=== PATIENT | male | born 1945 | race Caucasian/White ===

== ENCOUNTER 2016-10-04 23:41 | Emergency (ER) | payer MEDICARE ==
[2016-10-05 00:28] LABS: ABSOLUTE BASOPHILS # (AUTO) 0.1 10^3/uL (0.0-0.2); ABSOLUTE LYMPHOCYTES (AUTO) 2.4 10^3/uL (0.5-4.7); ABSOLUTE MONOCYTES (AUTO) 1.3 10^3/uL (0.1-1.4); ABSOLUTE NEUT (AUTO) 6.1 10^3/uL (1.7-8.2); BASOPHILS % (AUTO) 0.7 % (0-2); EOSINOPHILS % (AUTO) 0.4 % (0-6); HEMATOCRIT 39.9 % (37.9-51.0); HEMOGLOBIN 13.9 g/dL (13.5-17.0); HGB HCT DIFFERENCE 1.8; LYMPHOCYTES % (AUTO) 24.1 % (13-45); MEAN CORPUSCULAR HEMOGLOBIN 36.8 pg (27.0-33.4); MEAN CORPUSCULAR HGB CONC 34.9 g/dL (32.0-36.0); MEAN CORPUSCULAR VOLUME 106 fl (80-97); MONOCYTES % (AUTO) 13.3 % (3-13); RED BLOOD COUNT 3.78 10^6/uL (4.35-5.55); RED CELL DISTRIBUTION WIDTH 14.6 % (11.5-14.0); SEGMENTED NEUTROPHILS % (AUTO) 61.5 % (42-78); WHITE BLOOD COUNT 9.9 10^3/uL (4.0-10.5)
[2016-10-05 00:53] LABS: ALANINE AMINOTRANSFERASE 19 U/L (21-72); ALKALINE PHOSPHATASE 71 U/L (38-126); ANION GAP 12 (5-19); ASPARTATE AMINO TRANSFERASE 19 U/L (17-59); BILIRUBIN,TOTAL 0.8 mg/dL (0.2-1.3); BLOOD UREA NITROGEN 17 mg/dL (7-20); CALCIUM 9.3 mg/dL (8.4-10.2); CARBON DIOXIDE 24 mmol/L (22-30); CHLORIDE 105 mmol/L (98-107); CREATINE KINASE 155 U/L (55-170); CREATININE RESULT 0.77 mg/dL (0.52-1.25); GLUCOSE 101 mg/dL (75-110); POTASSIUM 3.7 mmol/L (3.6-5.0); SODIUM 141.3 mmol/L (137-145); TOTAL PROTEIN 6.7 g/dL (6.3-8.2)
[2016-10-05 01:04] LABS: CREATINE KINASE MB 2.06 ng/mL (<4.55)
[2016-10-05 01:08] LABS: TROPONIN I < 0.012 ng/mL
[2016-10-05] MEDS ORDERED: ONDANSETRON HCL INJ/PF 4 MG/2 ML SDV IV ONE (01:34)
[2016-10-05] MEDS ORDERED: HYDROMORPHONE HCL INJ/PF 2 MG/ML AMPULE IV ONE ×4 (01:34→11:25)
--- NOTE | 2016-10-05 01:41 | ER Document Report ---
ED General - General Chief Complaint: General Weakness Stated Complaint: WEAKNESS Information source: Patient, Relative Notes: This is a 71-year-old male with a history of spinal stenosis and other medical problems who presents for severe lower back pain after a fall this evening. He states that he was putting an item in the refrigerator at about 10:00 PM when he stumbled and fell backwards. He did fall back against a chest freezer. He struck his lower back and then his head. He denies any loss of consciousness. He states that since that time he has had severe pain in his lower back and has been unable to ambulate. He ambulates with a walker at baseline secondary to right leg hemiparesis from a prior CVA. He denies any new numbness or tingling. He has not urinated since the fall. His main complaint is lower back pain. Of note for the past week he has felt poorly with an upper respiratory infection. He has had coughs and decreased oral intake. His cough has been productive of green sputum. He denies any fevers. Of note he did see his primary care physician yesterday for these symptoms and was prescribed an albuterol inhaler. TRAVEL OUTSIDE OF THE [place] IN LAST 30 DAYS: No - Related Data Allergies/Adverse Reactions: oxycodone HCl [From Percocet] Allergy (Mild, Verified 10/05/16 09:13) Rash iodine [Iodine] Allergy (Unknown, Verified 10/05/16 09:13) meperidine HCl [From Demerol] Allergy (Unknown, Verified 10/05/16 09:13) Penicillins Allergy (Verified 10/05/16 09:13) aspirin [Aspirin] Adverse Reaction (Severe, Verified 10/05/16 09:13) Hemorrhage Past Medical History - General Information source: Patient, Relative - Social History Smoking Status: Unknown if Ever Smoked Family History: Reviewed & Not Pertinent - Past Medical History Cardiac Medical History: Reports: Hx Coronary Artery Disease, Hx Heart Attack - post CABG, Hx Hypercholesterolemia, Hx Hypertension Denies: Hx Heart Murmur Pulmonary Medical History: Reports: Hx Pneumonia - 2009 Denies: Hx Respiratory Failure, Hx Sleep Apnea, Hx Tuberculosis Neurological Medical History: Reports: Hx Cerebrovascular Accident - R sided weakness, memory loss, Hx Migraine Endocrine Medical History: Renal/ Medical History: Reports: Hx Kidney Stones Malignancy Medical History: Reports Hx Skin Cancer GI Medical History: Reports: Hx Hiatal Hernia - repair 15years ago, LLQ, Hx Ulcer Musculoskeltal Medical History: Reports Hx Arthritis, Reports Hx Musculoskeletal Deformity, Reports Hx Musculoskeletal Trauma Psychiatric Medical History: Reports: Hx Dementia - mild, Hx Depression Traumatic Medical History: Reports: Hx Fractures, Hx Spine Fracture Infectious Medical History: Past Surgical History: Reports: Hx Abdominal Surgery - HERNIA REPAIR, Hx Cardiac Catheterization, Hx Cardiac Surgery - CABG, 2 STENTS, Hx Coronary Artery Bypass Graft - 4 vessel 1996, Hx Coronary Stent, Hx Genitourinary Surgery - penis removed CA, Hx Inguinal Hernia, Hx Orthopedic Surgery - SPINAL FUSION, Hx Urinary Tract Surgery - penis removed surgically for CA - Immunizations Immunizations up to date: Yes Hx Diphtheria, Pertussis, Tetanus Vaccination: Yes - UTD Hx Pneumococcal Vaccination: 10/07/11 Review of Systems - Review of Systems Notes: REVIEW OF SYSTEMS: CONSTITUTIONAL : Denies fever, chills, or sweats. Recent cough and congestion per her history of present illness EENT: Denies eye, ear, throat, or mouth pain or symptoms. CARDIOVASCULAR: Denies chest pain. RESPIRATORY: As per history of present illness GASTROINTESTINAL: Denies abdominal pain. Denies nausea, vomiting, or diarrhea. Denies constipation. GENITOURINARY: Denies painful urination, burning, frequency, or blood in urine. MUSCULOSKELETAL: Back pain as her history of present illness SKIN: Denies rash or skin lesions. HEMATOLOGIC : Denies easy bruising or bleeding. LYMPHATIC: Denies swollen, enlarged glands. NEUROLOGICAL: Denies altered mental status or loss of consciousness. Mild headache from the fall PSYCHIATRIC: Denies anxiety or stress or depression. ALL OTHER SYSTEMS REVIEWED AND NEGATIVE. Physical Exam - Vital signs Vitals: Resp Pulse Ox 23 H 94 10/05/16 00:17 10/05/16 00:17 - Notes Notes: PHYSICAL EXAMINATION: GENERAL: Elderly male, pleasant and conversant, no distress but appears uncomfortable secondary to pain HEAD: Atraumatic, normocephalic. EYES: Pupils equal round and reactive to light, conjunctiva are normal. ENT: nares patent, oropharynx clear without exudates. Moist mucous membranes. NECK: No midline tenderness to palpation LUNGS: Breath sounds clear to auscultation bilaterally and equal. No wheezes rales or rhonchi. Frequent cough HEART: Regular rate and rhythm without murmurs ABDOMEN: Soft, nontender, normoactive bowel sounds. No guarding, no rebound. No masses appreciated. Rectal: normal tone. Pt does seem to have some decreased sensation to pain in the perineal area EXTREMITIES: RLE hemiparesis secondary to prior CVA which is at baseline per patient. Dorsiflexion and plantarflexion intact LLE. Sensation intact LLE, decreased RLE. Pulses intact. NEUROLOGICAL: Cranial nerves grossly intact. Normal speech. Motor strength intact LLE. Baseline hemiparesis RUE and RLE secondary to sequela of prior CVA. PSYCH: Normal mood, normal affect. SKIN: Warm, Dry, normal turgor, no rashes or lesions noted. Course - Re-evaluation Re-evalutation: 10/05/16 06:01 Patient has had some relief of his back pain with the IV pain medications. However he has still been unable to give a urine sample. Even though his motor and sensory exam appears to be at his baseline, with the abnormal perineal sensation along with his difficulty urinating at this point we need to rule out cauda equina. At this time I am awaiting MRI should be available around 7 this morning to have this done. This has been discussed with the patient and his family and questions are answered. 10/05/16 07:10 I called MRI at 0700 to communicate urgent need for this patient for MRI. MRI states there is a patient on the table at this time. Urgent need relayed to MRI staff. 10/05/16 08:57 MRI report reviewed and discussed with . Patient has severe canal stenosis at the L3-L4 level with the diameter of the thecal sac to be 3 mm or less. I have discussed the case with the transfer center at [facility] and I am awaiting the neurosurgeon for consultation 10/05/16 09:[address] Nolasco (neurosurgery) at [facility] who recommends transfer ER to ER for neurosurgery evaluation at [facility] for possible operative management. Discussed this plan with the patient and his family who are agreeable. All questions were answered. - Vital Signs Vital signs: Temp Pulse Resp BP Pulse Ox 97.9 F 18 113/74 93 10/05/16 00:49 10/05/16 07:01 10/05/16 07:01 10/05/16 07:01 - Laboratory Result Diagrams: 10/05/16 00:00 10/05/16 00:00 Laboratory results interpreted by me: 10/05/16 10/05/16 00:00 00:00 RBC 3.78 L MCV 106 H MCH 36.8 H RDW 14.6 H Monocytes % 13.3 H ALT 19 L - Diagnostic Test Radiology reviewed: Reports reviewed - MRI Lspine: severe canal stenosis L3-4 with diameter of thecal sac 3mm or less, and complete effacement of CSF around lumbar nerve roots. See report - EKG Interpretation by Me Additional EKG results interpreted by me: 10/05/16 09:16 EKG at 0040 demonstrates sinus rhythm with a rate of 69. There is left axis deviation and LVH. I see no ST elevation or depression. Critical Care Note - Critical Care Note Total time excluding time spent on procedures (mins): 30 - minutes of critical care time spent in direct contact evaluating and reevaluating the patient, treating symptoms, reviewing labs and studies and speaking with family and consultants excluding any procedures Discharge - Discharge Clinical Impression: Spinal stenosis of lumbosacral region, Cauda equina syndrome Condition: Fair Disposition: [facility]
[2016-10-05] MEDS ORDERED: NORMAL SALINE 1000 ML 1,000 ML IV ONE (03:59)
[2016-10-05] MEDS ORDERED: IPRATROPIUM/ALBUTEROL 0.5-2.5 MG/3 ML AMPUL NEB ONE (06:26)
--- NOTE | 2016-10-05 07:59 | EKG REPORT ---
SEVERITY:- ABNORMAL ECG - SINUS RHYTHM PROBABLE LEFT ATRIAL ABNORMALITY LEFT AXIS DEVIATION LVH WITH SECONDARY REPOLARIZATION ABNORMALITY : Confirmed by: Jonny Tabares MD 05-Oct-2016 07:58:37
[2016-10-05 09:37] LABS: APPEARANCE,URINE CLEAR; BILIRUBIN,URINE NEGATIVE (NEGATIVE); GLUCOSE, URINE NEGATIVE (NEGATIVE); KETONES,URINE NEGATIVE (NEGATIVE); LEUKOCYTE ESTERASE,URINE NEGATIVE (NEGATIVE); NITRITE,URINE NEGATIVE (NEGATIVE); PROTEIN,URINE NEGATIVE (NEGATIVE); UROBILINOGEN,URINE NEGATIVE mg/dL (<2.0)
[2016-10-05 11:25] VITALS: BP 110/57
--- NOTE | 2016-10-05 11:46 | ER Document Report ---
Doctor's Note Notes: 10/05/16 11:45 Transport is here for the patient at this time. He was given some Dilaudid several minutes ago for breakthrough pain. He is alert and oriented, vital signs stable. At this time he is comfortable, and we had a long conversation about his PMH, his family and what he's been up to lately. At this time he is stable for transport.
== END 2016-10-05 11:40 | disposition short-term general hospital (02) ==
LOC: ER 23:41
DX: M48.07 Spinal stenosis, lumbosacral region (principal); G83.4 Cauda equina syndrome; R53.1 Weakness; M54.5 Low back pain; W01.190A Fall on same level from slipping, tripping and stumbling with subsequent striking against furniture, initial encounter; Z88.0 Allergy status to penicillin; Z88.6 Allergy status to analgesic agent; I25.10 Atherosclerotic heart disease of native coronary artery without angina pectoris; I25.2 Old myocardial infarction; Z95.1 Presence of aortocoronary bypass graft; Z87.442 Personal history of urinary calculi; Z98.1 Arthrodesis status; Z85.9 Personal history of malignant neoplasm, unspecified; Z90.79 Acquired absence of other genital organ(s)
CPT/HCPCS: 93005; 96376; 94640; 99291; 96361; 51702; 96374; 96375; 36415; 82553; 82550; 85025; 80053; 81001; 84484; 72148; 71010; 70450; 72125; 72131; 93010; J1170; J2405; J7030; A9270; J7620

== ENCOUNTER 2016-10-18 15:01 | Observation (INO) | payer MEDICARE ==
[2016-10-18] MEDS ORDERED: NORMAL SALINE 1000 ML 1,000 ML IV PRN ×2 (15:28→18:26)
--- NOTE | 2016-10-18 15:46 | ER Document Report ---
ED Dizziness/Weakness - General Chief Complaint: General Weakness Stated Complaint: WEAKNESS Notes: The patient is a 71-year-old male, past medical history chronic back pain s/p surgery 9 days ago, presents by EMS with 1 day of feeling lightheaded and experiencing generalized weakness. He is taking his home medications, including Motrin for pain, but has not taken any narcotics after the surgery. He is also having intermittent left-sided chest pain without radiation that is coming and going since the surgery. He never had this before. He denies numbness, tingling, fevers, shortness of breath, leg swelling, rash, focal weakness, headache, blurry vision or ataxia. TRAVEL OUTSIDE OF THE [place] IN LAST 30 DAYS: No - Related Data Allergies/Adverse Reactions: oxycodone HCl [From Percocet] Allergy (Mild, Verified 10/05/16 09:13) Rash iodine [Iodine] Allergy (Unknown, Verified 10/05/16 09:13) meperidine HCl [From Demerol] Allergy (Unknown, Verified 10/05/16 09:13) Penicillins Allergy (Verified 10/05/16 09:13) aspirin [Aspirin] Adverse Reaction (Severe, Verified 10/05/16 09:13) Hemorrhage Past Medical History - General Information source: Patient - Social History Smoking Status: Unknown if Ever Smoked Family History: Reviewed & Not Pertinent - Past Medical History Cardiac Medical History: Reports: Hx Coronary Artery Disease, Hx Heart Attack - post CABG, Hx Hypercholesterolemia, Hx Hypertension Denies: Hx Heart Murmur Pulmonary Medical History: Reports: Hx Pneumonia - 2009 Denies: Hx Respiratory Failure, Hx Sleep Apnea, Hx Tuberculosis Neurological Medical History: Reports: Hx Cerebrovascular Accident - R sided weakness, memory loss, Hx Migraine Endocrine Medical History: Renal/ Medical History: Reports: Hx Kidney Stones Malignancy Medical History: Reports Hx Skin Cancer GI Medical History: Reports: Hx Hiatal Hernia - repair 15years ago, LLQ, Hx Ulcer Musculoskeltal Medical History: Reports Hx Arthritis, Reports Hx Musculoskeletal Deformity, Reports Hx Musculoskeletal Trauma Psychiatric Medical History: Reports: Hx Dementia - mild, Hx Depression Traumatic Medical History: Reports: Hx Fractures, Hx Spine Fracture Infectious Medical History: Past Surgical History: Reports: Hx Abdominal Surgery - HERNIA REPAIR, Hx Cardiac Catheterization, Hx Cardiac Surgery - CABG, 2 STENTS, Hx Coronary Artery Bypass Graft - 4 vessel 1995, Hx Coronary Stent, Hx Genitourinary Surgery - penis removed CA, Hx Inguinal Hernia, Hx Orthopedic Surgery - SPINAL FUSION, Hx Urinary Tract Surgery - penis removed surgically for CA - Immunizations Immunizations up to date: Yes Hx Diphtheria, Pertussis, Tetanus Vaccination: Yes - UTD Hx Pneumococcal Vaccination: 10/07/11 Review of Systems - Review of Systems Notes: REVIEW OF SYSTEMS: CONSTITUTIONAL: -fevers, -chills EENT: -eye pain, -difficulty swallowing, -nasal congestion CARDIOVASCULAR: +chest pain, -syncope. RESPIRATORY: -cough, -SOB GASTROINTESTINAL: -abdominal pain, -nausea, -vomiting, -diarrhea GENITOURINARY: -dysuria, -hematuria MUSCULOSKELETAL: -back pain, -neck pain SKIN: -rash or skin lesions. HEMATOLOGIC: -easy bruising or bleeding. LYMPHATIC: -swollen, enlarged glands. NEUROLOGICAL: +lightheadedness, +generalized weakness, -altered mental status or loss of consciousness, -headache PSYCHIATRIC: -anxiety, -depression. ALL OTHER SYSTEMS REVIEWED AND NEGATIVE. Physical Exam - Vital signs Vitals: Temp Pulse Resp Pulse Ox 97.9 F 82 23 H 90 L 10/18/16 15:35 10/18/16 15:35 10/18/16 15:35 10/18/16 15:35 - Notes Notes: PHYSICAL EXAMINATION: GENERAL: Well-appearing, well-nourished and in no acute distress. HEAD: Atraumatic, normocephalic. EYES: Pupils equal round and reactive to light, extraocular movements intact, sclera anicteric, conjunctiva are normal. ENT: nares patent, oropharynx clear without exudates. Moist mucous membranes. NECK: In soft collar, supple without lymphadenopathy LUNGS: Breath sounds clear to auscultation bilaterally and equal. No wheezes rales or rhonchi. HEART: Regular rate and rhythm without murmurs ABDOMEN: Soft, nontender, normoactive bowel sounds. No guarding, no rebound. No masses appreciated. EXTREMITIES: Well-healed surgical scars on back. Normal range of motion, no pitting or edema. No cyanosis. NEUROLOGICAL: Cranial nerves grossly intact. Normal speech. Normal sensory, motor, and reflex exams. PSYCH: Normal mood, normal affect. SKIN: Warm, Dry, normal turgor, no rashes or lesions noted. Course - Re-evaluation Re-evalutation: Patient with intermittent chest pain since his surgery last week. EKG shows new anterior lateral T-wave inversions compared to his EKG two weeks ago. Patient has anaphylactic reaction to aspirin. No current chest pain. First troponin negative. Patient will require admission for further evaluation and treatment of this chest pain. His generalized weakness and blood pressure improved with 2 L of fluids. No signs of infection. Slight leukocytosis may be reactive from his recent surgery. No shortness of breath to suggest PE. Patient also has a anaphylactic reaction to IV dye. 10/18/16 17:[address] Ramírez about patient and new EKG changes. Will bring patient in for Obs Tele. - Vital Signs Vital signs: Temp Pulse Resp BP Pulse Ox 97.9 F 82 18 93 10/18/16 15:35 10/18/16 15:35 10/18/16 16:38 10/18/16 16:06 - Laboratory Result Diagrams: 10/18/16 15:57 10/18/16 15:57 Laboratory results interpreted by me: 10/18/16 10/18/16 15:57 15:57 WBC 15.0 H RBC 3.29 L Hgb 11.9 L Hct 35.0 L MCV 106 H MCH 36.3 H RDW 14.3 H Seg Neutrophils % 84.3 H Lymphocytes % 9.1 L Absolute Neutrophils 12.6 H Sodium 132.2 L Chloride 96 L BUN 33 H Glucose 124 H Creatine Kinase 47 L Albumin 3.2 L - EKG Interpretation by Me EKG shows normal: Sinus rhythm, Wyn[place], Intervals, QRS Complexes When compared to previous EKG there are: Changes noted Additional EKG results interpreted by me: New T-wave inversions in anterolateral leads compared to EKG 2 weeks ago. Discharge - Discharge Clinical Impression: Chest pain Qualifiers: Chest pain type: unspecified Qualified Code(s): R07.9 - Chest pain, unspecified Condition: Stable Disposition: ADMITTED OBSERVATION Admitting Provider: Mistyist Nick Ramírez Unit Admitted: Telemetry Referrals: JOSESITO TRIPLETT MD [Primary Care Provider] - Follow up as needed
[2016-10-18 16:12] LABS: ABSOLUTE LYMPHOCYTES (AUTO) 1.4 10^3/uL (0.5-4.7); ABSOLUTE MONOCYTES (AUTO) 0.9 10^3/uL (0.1-1.4); ABSOLUTE NEUT (AUTO) 12.6 10^3/uL (1.7-8.2); BASOPHILS % (AUTO) 0.2 % (0-2); EOSINOPHILS % (AUTO) 0.1 % (0-6); HEMOGLOBIN 11.9 g/dL (13.5-17.0); HGB HCT DIFFERENCE 0.7; LYMPHOCYTES % (AUTO) 9.1 % (13-45); MEAN CORPUSCULAR HEMOGLOBIN 36.3 pg (27.0-33.4); MEAN CORPUSCULAR HGB CONC 34.1 g/dL (32.0-36.0); MEAN CORPUSCULAR VOLUME 106 fl (80-97); MONOCYTES % (AUTO) 6.3 % (3-13); RED BLOOD COUNT 3.29 10^6/uL (4.35-5.55); RED CELL DISTRIBUTION WIDTH 14.3 % (11.5-14.0); SEGMENTED NEUTROPHILS % (AUTO) 84.3 % (42-78)
[2016-10-18 16:33] LABS: ALANINE AMINOTRANSFERASE 22 U/L (21-72); ALBUMIN 3.2 g/dL (3.5-5.0); ALKALINE PHOSPHATASE 77 U/L (38-126); ANION GAP 11 (5-19); ASPARTATE AMINO TRANSFERASE 19 U/L (17-59); BILIRUBIN,TOTAL 0.5 mg/dL (0.2-1.3); BLOOD UREA NITROGEN 33 mg/dL (7-20); CALCIUM 8.7 mg/dL (8.4-10.2); CARBON DIOXIDE 25 mmol/L (22-30); CHLORIDE 96 mmol/L (98-107); CREATINE KINASE 47 U/L (55-170); CREATININE RESULT 1.18 mg/dL (0.52-1.25); GLUCOSE 124 mg/dL (75-110); LIPASE 126.6 U/L (23-300); POTASSIUM 4.9 mmol/L (3.6-5.0); SODIUM 132.2 mmol/L (137-145); TOTAL PROTEIN 6.3 g/dL (6.3-8.2)
[2016-10-18] MEDS ORDERED: IBUPROFEN 600 MG TABLET PO ONE (17:02)
[2016-10-18] MEDS ORDERED: NORMAL SALINE 1000 ML 1,000 ML IV ONE (17:03)
[2016-10-18] MEDS ORDERED: ONDANSETRON HCL INJ/PF 4 MG/2 ML SDV IV PRN (18:26)
[2016-10-18] MEDS: ACETAMINOPHEN 325 MG TABLET PO PRN (18:26)
--- NOTE | 2016-10-18 18:52 | PDOC H&P ---
History of Present Illness Admission Date/PCP: 10/18/16 18:24 JOSESITO TRIPLETT MD Patient complains of: chest pain History of Present Illness: GÉNESIS DANIELLE is a 71 year old male, with history of coronary artery disease, rheumatoid arthritis, underwent cervical and lumbar spine surgery in [facility] discharged home last week started to develop chest pain a few days later after discharge. Patient is reporting intermittent coughing but denies chills or fever. There is no sore throat, no sweating, no nausea or vomiting. There is some mild shortness of breath after bouts of coughing. Discomfort is worse with inspiration and coughing. The patient was brought to the emergency room for evaluation. EKG revealed left bundle branch block pattern and reportedly with new changes compared to old EKG. Troponin was negative. Patient was then referred for admission to observation. Past Medical History Past Medical History: Medication reconciliation pending verification from the patient's pharmacist. Cardiac Medical History: Reports: Coronary Artery Disease, Myocardial Infarction - post CABG, Hyperlipidema, Hypertension Denies: Heart Murmur Pulmonary Medical History: Reports: Pneumonia - 2010 Denies: Respiratory Failure, Sleep Apnea, Tuberculosis Neurological Medical History: Reports: Migraine Endocrine Medical History: Renal/ Medical History: Malignancy Medical History: Reports: Skin Cancer Denies: Breast Cancer, Cervical Cancer, Ovarian Cancer GI Medical History: Reports: Hiatal Hernia - repair 15years ago, LLQ Musculoskeltal Medical History: Reports: Arthritis Psychiatric Medical History: Reports: Dementia - mild, Depression Hematology: Denies: Anemia, Hemophilia, Sickle Cell Disease Infectious Medical History: Past Surgical History Past Surgical History: Reports: Cardiac Catheterization, Coronary Artery Bypass Graft - 4 vessel 1995, Coronary Stent, Orthopedic Surgery - SPINAL FUSION Social History Information Source: Patient Smoking Status: Unknown if Ever Smoked Frequency of Alcohol Use: None Hx Recreational Drug Use: No Drugs: None Hx Prescription Drug Abuse: No Family History Family History: None - Patient denies any illness Parental Family History Reviewed: Yes Children Family History Reviewed: Yes Sibling(s) Family History Reviewed.: Yes Medication/Allergy Home Medications: Gabapentin [Neurontin 300 mg Capsule] 600 mg PO QHS 01/12/12 Donepezil HCl [Aricept] 10 mg PO QHS #30 tablet 10/26/14 Prednisone 10 mg PO DAILY #60 tablet 10/26/14 Lisinopril [Zestril] 2.5 mg PO DAILY 10/18/16 Allergies/Adverse Reactions: iodine [Iodine] Allergy (Unknown, Verified 10/18/16 17:58) meperidine HCl [From Demerol] Allergy (Unknown, Verified 10/18/16 17:58) Penicillins Allergy (Verified 10/18/16 17:58) aspirin [Aspirin] Adverse Reaction (Severe, Verified 10/18/16 17:58) Hemorrhage Review of Systems Constitutional: PRESENT: weakness - Generalized, other - Patient ambulates with assistance only. ABSENT: chills, fever(s), headache(s), night sweats, weight gain, weight loss Eyes: ABSENT: visual disturbances Ears: ABSENT: hearing changes Nose, Mouth, and Throat: ABSENT: mouth pain, sore throat Cardiovascular: PRESENT: chest pain, dyspnea on exertion. ABSENT: edema, orthropnea, palpitations Respiratory: PRESENT: cough. ABSENT: hemoptysis, sputum Gastrointestinal: ABSENT: abdominal pain, constipation, diarrhea, hematemesis, hematochezia, melena, nausea, vomiting Genitourinary: ABSENT: dysuria, hematuria Musculoskeletal: ABSENT: joint swelling Integumentary: ABSENT: rash, wounds Neurological: ABSENT: abnormal gait, abnormal speech, confusion, focal weakness , syncope Psychiatric: ABSENT: anxiety, depression, homidical ideation, suicidal ideation Endocrine: ABSENT: cold intolerance, heat intolerance, polydipsia, polyuria Hematologic/Lymphatic: ABSENT: easy bleeding, easy bruising Physical Exam Vital Signs: Temp Pulse Resp BP Pulse Ox 97.9 F 82 20 123/66 100 10/18/16 15:35 10/18/16 15:35 10/18/16 18:01 10/18/16 18:00 10/18/16 18:00 General appearance: PRESENT: no acute distress, thin, other - Cervical collar in place Head exam: PRESENT: atraumatic, normocephalic Eye exam: PRESENT: conjunctiva pink, EOMI, PERRLA - Sluggish. ABSENT: scleral icterus Ear exam: PRESENT: normal external ear exam. ABSENT: drainage Mouth exam: PRESENT: moist, tongue midline Throat exam: ABSENT: post pharyngeal erythema Neck exam: ABSENT: carotid bruit, JVD, lymphadenopathy, thyromegaly Respiratory exam: PRESENT: clear to auscultation ruben. ABSENT: rales, rhonchi, wheezes Cardiovascular exam: PRESENT: RRR, +S1, +S2. ABSENT: diastolic murmur, gallop, rubs, systolic murmur Pulses: PRESENT: normal dorsalis pedis pul Vascular exam: PRESENT: normal capillary refill GI/Abdominal exam: PRESENT: normal bowel sounds, soft. ABSENT: distended, guarding, mass, organolmegaly, rebound, tenderness Rectal exam: PRESENT: deferred Extremities exam: PRESENT: full ROM. ABSENT: calf tenderness, clubbing, pedal edema Neurological exam: PRESENT: alert, awake, oriented to person, oriented to place , oriented to time, oriented to situation Psychiatric exam: PRESENT: appropriate affect, normal mood. ABSENT: homicidal ideation, suicidal ideation Skin exam: PRESENT: dry, warm, other - Cervical wound clean and dry without dehiscence, back wound clean and dry without dehiscence. No evidence of cellulitis. ABSENT: cyanosis, rash Results Impressions: Chest X-Ray 10/18/16 15:12 IMPRESSION: NO ACUTE RADIOGRAPHIC FINDING IN THE CHEST. Assessment & Plan - Diagnosis (1) Chest pain Qualifiers: Chest pain type: unspecified Qualified Code(s): R07.9 - Chest pain, unspecified Is this a current diagnosis for this admission?: Yes (2) Abnormal EKG Is this a current diagnosis for this admission?: Yes (3) Acute bronchitis Qualifiers: Bronchitis organism: unspecified organism Qualified Code(s): J20.9 - Acute bronchitis, unspecified Is this a current diagnosis for this admission?: Yes (4) Diastolic CHF, chronic Is this a current diagnosis for this admission?: Yes (5) Hypertension Qualifiers: Hypertension type: essential hypertension Qualified Code(s): I10 - Essential (primary) hypertension Is this a current diagnosis for this admission?: Yes (6) Rheumatoid arthritis Qualifiers: Rheumatoid arthritis location: unspecified site Rheumatoid factor presence: unspecified presence Qualified Code(s): M06.9 - Rheumatoid arthritis, unspecified Is this a current diagnosis for this admission?: Yes (7) B12 deficiency Is this a current diagnosis for this admission?: Yes (8) History of stroke Is this a current diagnosis for this admission?: Yes - Time Time Spent: 30 to 50 Minutes - Plan Summary Plan Summary: The patient will be admitted to observation. We will consult cardiology for further evaluation. I will put the patient on Plavix as he is allergic to aspirin. Supplemental oxygen will be given. We will serially monitor cardiac enzymes. We will begin antibiotics for possible bronchitis. DVT prophylaxis with Lovenox will be placed. Further testing depends and initial evaluation as outlined above.. We will obtain records from [facility].
[2016-10-18 19:02] LABS: APPEARANCE,URINE SLIGHTLY-CLOUDY; BILIRUBIN,URINE NEGATIVE (NEGATIVE); GLUCOSE, URINE NEGATIVE (NEGATIVE); KETONES,URINE NEGATIVE (NEGATIVE); LEUKOCYTE ESTERASE,URINE NEGATIVE (NEGATIVE); NITRITE,URINE NEGATIVE (NEGATIVE); PROTEIN,URINE NEGATIVE (NEGATIVE); URINE SPECIFIC GRAVITY 1.023; UROBILINOGEN,URINE NEGATIVE mg/dL (<2.0)
[2016-10-18] MEDS ORDERED: ENOXAPARIN SODIUM INJ 40 MG/0.4 ML DISP.SYRIN SUBCUT ONE (20:00)
[2016-10-18] MEDS ORDERED: MAG HYDROX/AL HYDROX/SIMETH SUSP 30 ML UDCUP PO ONE (21:08)
[2016-10-18] MEDS ORDERED: LANSOPRAZOLE 30 MG TAB.RAP.DR PO ONE (21:08)
--- NOTE | 2016-10-18 21:36 | EKG REPORT ---
SEVERITY:- ABNORMAL ECG - SINUS RHYTHM LEFT AXIS DEVIATION ABNORMAL T, CONSIDER ISCHEMIA, ANT-LAT LEADS BORDERLINE PROLONGED QT INTERVAL : Confirmed by: Danette Sibley 18-Oct-2016 21:35:34
[2016-10-18 21:59] LABS: CREATINE KINASE MB 2.85 ng/mL (<4.55)
[2016-10-18] MEDS ORDERED: (PENDING PHARMACY ID) (Donepezil Hcl [Aricept] 10 MG) PO SCH (22:00)
[2016-10-18 22:16] LABS: TROPONIN I 0.059 ng/mL
[2016-10-18] MEDS ORDERED: NITROGLYCERIN 0.4 MG/TAB 25 TAB/BOTTLE SL PRN (22:19)
[2016-10-18 22:29] LABS: ADD ON TESTING BLD IN LAB ACKNOWLEDGE
[2016-10-18] MEDS ORDERED: NITROGLYCERIN 0.4 MG/TAB 25 TAB/BOTTLE ONE (22:31)
[2016-10-18 22:37] LABS: MAGNESIUM 2.3 mg/dL (1.6-2.3)
[2016-10-19] MEDS: MORPHINE SULFATE 10 MG/ML INJ IV PRN ×3 (00:14→14:33)
[2016-10-19] MEDS ORDERED: GUAIFENESIN SYRP 200 MG/10 ML UDC PO PRN (00:14)
[2016-10-19] MEDS ORDERED: INFLUENZA ADLT QUAD (36MOS+) 2016-17 VAC 0.5 ML SYR IM PRN (01:47)
[2016-10-19] MEDS: LEVOFLOXACIN 750 MG TABLET PO SCH ×2 (01:55→22:30)
[2016-10-19] MEDS: DONEPEZIL HCL 5 MG TABLET PO SCH ×2 (01:55→22:30)
[2016-10-19] MEDS: GABAPENTIN 300 MG CAPSULE PO SCH ×2 (01:55→22:30)
[2016-10-19] MEDS: BENZONATATE 100 MG CAPSULE PO SCH ×4 (01:55→22:29)
[2016-10-19] MEDS: ACETAMINOPHEN 325 MG TABLET PO PRN ×2 (02:00→22:30)
[2016-10-19] MEDS: LANSOPRAZOLE 30 MG TAB.RAP.DR PO SCH (05:17)
[2016-10-19 06:57] LABS: ANION GAP 9 (5-19); BLOOD UREA NITROGEN 22 mg/dL (7-20); CALCIUM 8.1 mg/dL (8.4-10.2); CARBON DIOXIDE 22 mmol/L (22-30); CHLORIDE 107 mmol/L (98-107); CREATININE RESULT 0.73 mg/dL (0.52-1.25); GLUCOSE 100 mg/dL (75-110); SODIUM 138.2 mmol/L (137-145)
[2016-10-19 07:06] LABS: POTASSIUM 3.9 mmol/L (3.6-5.0)
--- NOTE | 2016-10-19 08:23 | Progress Note ---
Provider Note Provider Note: 10/19/2016, 12:10 AM: Patient examined in his emergency room suite. Resting quietly. Complaining of left upper anterior chest wall pain, increased with coughing. Sternal compression also increases discomfort. Chart reviewed. Patient desires full code except no defibrillation or cardioversion. Order entered into electronic health record.
[2016-10-19] MEDS: CLOPIDOGREL BISULFATE 75 MG TABLET PO SCH (09:07)
[2016-10-19] MEDS: PREDNISONE 10 MG TABLET PO SCH (09:07)
[2016-10-19] MEDS: DOCUSATE SODIUM 100 MG CAPSULE PO SCH ×2 (09:07→19:28)
[2016-10-19] MEDS: LISINOPRIL 5 MG TABLET PO SCH (09:09)
[2016-10-19] MEDS: ENOXAPARIN SODIUM INJ 40 MG/0.4 ML DISP.SYRIN SUBCUT SCH (09:10)
[2016-10-19] MEDS ORDERED: PREDNISONE 5 MG TABLET PO SCH (10:00)
[2016-10-19] MEDS ORDERED: (PENDING PHARMACY ID) (Lisinopril [Zestril] 2.5 MG) PO SCH (10:00)
--- NOTE | 2016-10-19 18:50 | PDOC CONSULTATION ---
Consultation Consult Date: 10/19/16 Attending physician:: TALA MELÉNDEZ Consult reason:: Chest pain and shortness of breath History of Present Illness Admission Date/PCP: 10/18/16 18:26 JOSESITO TRIPLETT MD Patient complains of: Chest pain and shortness of breath History of Present Illness: GÉNESIS DANIELLE is a 71 year old male, with history of coronary artery disease, rheumatoid arthritis, underwent cervical and lumbar spine surgery in [facility], [place] discharged home last week started to develop chest pain a few days later after discharge. Patient is reporting intermittent coughing but denies chills or fever. There is no sore throat, no sweating, no nausea or vomiting. There is some mild shortness of breath after bouts of coughing. Discomfort is worse with inspiration and coughing. The patient was brought to the emergency room for evaluation. EKG revealed left bundle branch block pattern and reportedly with new changes compared to old EKG. Troponin was negative. Patient was then referred for admission to observation. This history was reviewed and supplemented. Past Medical History Cardiac Medical History: Reports: Coronary Artery Disease, Myocardial Infarction - post CABG, Hyperlipidema, Hypertension Denies: Heart Murmur Pulmonary Medical History: Reports: Pneumonia - 2010 Denies: Respiratory Failure, Sleep Apnea, Tuberculosis Neurological Medical History: Reports: Migraine Endocrine Medical History: Renal/ Medical History: Malignancy Medical History: Reports: Skin Cancer Denies: Breast Cancer, Cervical Cancer, Ovarian Cancer GI Medical History: Reports: Hiatal Hernia - repair 15years ago, LLQ Musculoskeltal Medical History: Reports: Arthritis Psychiatric Medical History: Reports: Dementia - mild, Depression Hematology: Denies: Anemia, Hemophilia, Sickle Cell Disease Infectious Medical History: Past Surgical History Past Surgical History: Reports: Cardiac Catheterization, Coronary Artery Bypass Graft - 4 vessel 1995, Coronary Stent, Orthopedic Surgery - SPINAL FUSION Social History Information Source: Patient Smoking Status: Unknown if Ever Smoked Frequency of Alcohol Use: None Hx Recreational Drug Use: No Drugs: None Hx Prescription Drug Abuse: No - Advance Directive Resuscitation Status: Full Code Surrogate healthcare decision maker:: Patient's spouse Family History Parental Family History Reviewed: Yes Children Family History Reviewed: Yes Sibling(s) Family History Reviewed.: Yes - Family history of CAD Medication/Allergy Home Medications: Donepezil HCl [Aricept] 10 mg PO QPM 10/18/16 Gabapentin [Neurontin] 600 mg PO QHS 10/18/16 Lisinopril [Prinivil 2.5 mg Tablet] 2.5 mg PO QAM 10/18/16 Prednisone [Deltasone 5 mg Tablet] 10 mg PO DAILY 10/18/16 Clopidogrel Bisulfate [Plavix 75 mg Tablet] 75 mg PO DAILY #30 tablet 10/20/16 Levofloxacin [Levaquin 750 mg Tablet] 750 mg PO QHS #5 tablet 10/20/16 Nitroglycerin [Nitrostat 0.4 mg (1/150 Gr) Tabs 25/Bottle] 1 tab SL Q5MP PRN #1 bottle 10/20/16 Allergies/Adverse Reactions: iodine [Iodine] Allergy (Unknown, Verified 10/18/16 17:58) meperidine HCl [From Demerol] Allergy (Unknown, Verified 10/18/16 17:58) Penicillins Allergy (Verified 10/18/16 17:58) aspirin [Aspirin] Adverse Reaction (Severe, Verified 10/18/16 17:58) Hemorrhage Review of Systems Review of Systems: Please see history of present illness and past medical history as wall. Constitutional: Low-grade fever or chills reported. Head : No recent chronic headaches, recent head injury. Eyes: No recent eye pain, diplopia, redness, discharge, acute visual changes. Ears: No recent chronic ear pain, acute hearing loss, ear discharge. Oral cavity: No recent ulcerations, bleeding, oral cavity discomfort. Neck: No recent acute neck pain reported. Hematologic: No recent easy bruising or bleeding or hematologic malignancy reported. Lymphatic: No recent lymphatic malignancy, chronic lymphadenopathy reported yet Cardiovascular system review: See history of present illness. Respiratory system review: Recent cough with sputum production but no hemoptysis , blood clots in the lungs reported. Mild Shortness of breath on exertion Gastrointestinal system review: Negative for any recent acute or chronic abdominal pain, hematemesis, melena, recent change in bowel habits. Genitourinary system review: No recent acute or chronic hematuria, flank pain, UTI etc. reported. Skin system review: Negative for any recent abnormal bruising, no rash, no pruritus reported. Neurologic: No prior history of strokes, mini strokes, seizure disorder. Psychologic: No history of major psychosis or major depression reported. Musculoskeletal: Minor aches and pains reported. No acute joint swelling reported. Endocrine: No recent polyuria, polydipsia, recent heat or cold intolerance. Physical Exam Vital Signs: Temp Pulse Resp BP Pulse Ox 97.9 F 65 16 114/60 95 10/19/16 16:20 10/19/16 16:20 10/19/16 16:20 10/19/16 16:20 10/19/16 16:20 Intake & Output 10/18/16 10/19/16 10/20/16 06:59 06:59 06:59 Intake Total 200 600 Output Total 500 1200 Balance -300 -600 Weight 88.451 kg Exam: GENERAL: well-nourished and in no acute distress. Alert and oriented x3 HEAD: Atraumatic, normocephalic. Patient has a cervical collar on. EYES: Pupils equal round and reactive to light, extraocular movements intact, sclera anicteric, conjunctiva are normal. ENT: TMs normal, nares patent, oropharynx clear without exudates. Moist mucous membranes. No oral ulcerations or bleeding gums noted NECK: supple without lymphadenopathy. Trachea is central. No cervical or axillary lymphadenopathy noted. Carotids are 2+, JVD WNL LUNGS: Respiration seems nonlabored, no significant accessory muscle action noted. Breath sounds clear to auscultation bilaterally and equal noted. No wheezes rales or rhonchi noted. No significant dullness noted on percussion. CHEST: Palpation of the chest wall shows no significant chest wall tenderness. No other significant abnormalities noted. HEART: [place] [employer], No PSH, 1/6 ALESSANDRO aortic area, 1/6 nascimento systolic murmur mitral area, no rubs, no gallops. ABDOMEN: Soft, no significant tenderness appreciated, normoactive bowel sounds. No guarding, no rebound. No rigidity noted . No masses appreciated. EXTREMITIES: Pedal pulses are 1-2+, no calf tenderness noted. No clubbing or cyanosis.trace to 1+ pedal edema noted NEUROLOGICAL: Focused neurological exam showed no significant neurologic deficit. Normal speech, no focal weakness appreciated. PSYCH: Normal mood, normal affect. Judgment and insight within normal limits. SKIN: No significant ecchymosis, rash, ulcerations or signs of pruritus noted. MUSCULOSKELETAL EXAM: No significant joint swelling noted. Results Laboratory Results: 10/19/16 05:47 10/18/16 10/18/16 10/18/16 18:50 20:36 21:20 Sodium Potassium Chloride Carbon Dioxide Anion Gap BUN Creatinine Est GFR ( Amer) Est GFR (Non-Af Amer) Glucose Lactic Acid 1.2 Calcium Magnesium 2.3 Urine Color YELLOW Urine Appearance SLIGHTLY-CLOUDY Urine pH 5.0 Ur Specific [place] 1.023 Urine Protein NEGATIVE Urine Glucose (UA) NEGATIVE Urine Ketones NEGATIVE Urine Blood NEGATIVE Urine Nitrite NEGATIVE Ur Leukocyte Esterase NEGATIVE Urine WBC (Auto) 1 Urine RBC (Auto) 1 10/19/16 05:47 Sodium 138.2 Potassium 3.9 D Chloride 107 Carbon Dioxide 22 Anion Gap 9 BUN 22 H Creatinine 0.73 Est GFR ( Amer) > 60 Est GFR (Non-Af Amer) > 60 Glucose 100 Lactic Acid Calcium 8.1 L Magnesium Urine Color Urine Appearance Urine pH Ur Specific [place] Urine Protein Urine Glucose (UA) Urine Ketones Urine Blood Urine Nitrite Ur Leukocyte Esterase Urine WBC (Auto) Urine RBC (Auto) 10/18/16 10/18/16 10/19/16 21:20 21:20 01:34 Creatine Kinase 50 L CK-MB (CK-2) 2.85 Troponin I 0.059 0.058 10/19/16 10/19/16 05:47 09:35 Creatine Kinase CK-MB (CK-2) Troponin I 0.044 0.035 EKG Comments: Sinus rhythm, nonspecific T-wave inversion noted anterior precordial lead. Impressions: Chest X-Ray 10/18/16 15:12 IMPRESSION: NO ACUTE RADIOGRAPHIC FINDING IN THE CHEST. Assessment & Plan - Diagnosis (1) Abnormal EKG Is this a current diagnosis for this admission?: Yes (2) Chest pain Qualifiers: Chest pain type: unspecified Qualified Code(s): R07.9 - Chest pain, unspecified Is this a current diagnosis for this admission?: Yes (3) Hypertension Qualifiers: Hypertension type: essential hypertension Qualified Code(s): I10 - Essential (primary) hypertension Is this a current diagnosis for this admission?: Yes (4) Coronary artery disease Qualifiers: Coronary Disease-Associated Artery/Lesion type: unspecified vessel or lesion type Associated angina: angina presence unspecified Is this a current diagnosis for this admission?: Yes (5) History of stroke Is this a current diagnosis for this admission?: No - Notes Notes: Abnormal electrocardiogram: Patient has symmetrical T wave inversion consistent with ischemia. However patient has very atypical chest pain and negative cardiac enzymes. At this point will recommend medical management. Patient currently DO NOT RESUSCITATE status. Chest pain: Patient describes pleuritic chest pain. Patient is also post surgery. Will get a VQ scan to rule out PE. History of stroke: currently stable. Coronary artery disease: We'll optimize medical therapy for underlying CAD. Hypertension: Reasonably well controlled. Blood pressure goal in this patient is 135/85 or less. This was discussed with the patient. Currently blood pressure under reasonable control. Better medication for this patient are STELLA inhibitor/ARB/beta cayla etc. discussed side effects of uncontrolled hypertension and also severe hypotension. - Time Time Spent: 30 to 50 Minutes - CODE STATUS : was discussed, patient remains DO NOT RESUSCITATE. Surrogate decision-maker unchanged. Multiple medical problems were addressed.More than 50% of the time spent coordinating care, discussing management plans with involved caregivers. Management plans discussed with involved personnels. Medical decision making was of moderate complexity. Medications reviewed and adjusted accordingly: Yes
[2016-10-20] MEDS: LANSOPRAZOLE 30 MG TAB.RAP.DR PO SCH (06:38)
[2016-10-20] MEDS: BENZONATATE 100 MG CAPSULE PO SCH ×2 (06:38→13:16)
[2016-10-20] MEDS: ACETAMINOPHEN 325 MG TABLET PO PRN (08:10)
[2016-10-20] MEDS: ENOXAPARIN SODIUM INJ 40 MG/0.4 ML DISP.SYRIN SUBCUT SCH (08:10)
[2016-10-20] MEDS: BUTALB/ACETAMINOPHEN/CAFFEINE 1 TAB EACH PO PRN ×2 (09:16→17:58)
[2016-10-20] MEDS: PREDNISONE 10 MG TABLET PO SCH (09:16)
[2016-10-20] MEDS: CLOPIDOGREL BISULFATE 75 MG TABLET PO SCH (09:17)
[2016-10-20] MEDS: LISINOPRIL 5 MG TABLET PO SCH (09:17)
[2016-10-20] MEDS: DOCUSATE SODIUM 100 MG CAPSULE PO SCH ×2 (09:17→17:28)
--- NOTE | 2016-10-20 17:40 | PDOC DISCHARGE SUMMARY ---
General - Admit/Disc Date/PCP Admission Date/Primary Care Provider: 10/18/16 18:26 JOSESITO TRIPLETT MD Discharge Date: 10/20/16 - Discharge Diagnosis (1) Chest pain Is this a current diagnosis for this admission?: YesSummary: Most likely related to costochondritis and possibly also secondary to the acute bronchitis. Patient had a VQ scan that was negative. Pain was reproducible palpation. Patient was evaluated by cardiology consultation (2) Acute bronchitis Is this a current diagnosis for this admission?: YesSummary: Patient is to complete a course of Levaquin. (3) Autonomic disorder Is this a current diagnosis for this admission?: YesSummary: She has had widely swinging blood pressures suggestive of an autonomic insufficiency. (4) Coronary artery disease Is this a current diagnosis for this admission?: YesSummary: Patient had negative troponins. (5) Hypertension Is this a current diagnosis for this admission?: Yes (6) Diastolic CHF, chronic Is this a current diagnosis for this admission?: Yes (7) Rheumatoid arthritis Is this a current diagnosis for this admission?: Yes (8) DNR (do not resuscitate) Is this a current diagnosis for this admission?: Yes - Additional Information Resuscitation Status: Full Code Discharge Diet: Cardiac Discharge Activity: Activity As Tolerated Home Medications: Donepezil HCl [Aricept] 10 mg PO QPM 10/18/16 Gabapentin [Neurontin] 600 mg PO QHS 10/18/16 Lisinopril [Prinivil 2.5 mg Tablet] 2.5 mg PO QAM 10/18/16 Prednisone [Deltasone 5 mg Tablet] 10 mg PO DAILY 10/18/16 Clopidogrel Bisulfate [Plavix 75 mg Tablet] 75 mg PO DAILY #30 tablet 10/20/16 Levofloxacin [Levaquin 750 mg Tablet] 750 mg PO QHS #5 tablet 10/20/16 Nitroglycerin [Nitrostat 0.4 mg (1/150 Gr) Tabs 25/Bottle] 1 tab SL Q5MP PRN #1 bottle 10/20/16 History of Present Illness History of Present Illness: GÉNESIS DANIELLE is a 71 year old male who has history of coronary artery disease as well as rheumatoid arthritis who recently underwent a cervical lumbar spine surgery in [facility], [place]. Patient developed chest pain a few days after the discharge. The patient has had coughing but no fevers or chills. The patient reports that his pain is worse when he inspires and is reproducible palpation of his anterior chest wall. The patient had a bundle branch block pattern on EKG and the patient because of his chest pain was referred for admission and further evaluation. Hospital Course Hospital Course: 71-year-old male who presented with some atypical chest pain. The patient also was noted have acute bronchitis was treated with Levaquin. The patient had negative cardiac enzymes and was evaluated by cardiology. Cardiology did not feel this was an acute cardiac event however was concerned about the possibility of a pulmonary embolism given his recent surgery and immobility. Because of this the patient had a VQ scan and it was negative. It's felt the pain was most likely secondary to acute bronchitis along with costochondritis and he will be discharged home. His bronchitis was treated with Levaquin and he will complete a course of Levaquin. He also is noted have widely fluctuating blood pressures. He probably has autonomic insufficiency given the wide swings in his blood pressures. He we'll continue with his steroids as he has been doing for his rheumatoid arthritis. Physical Exam Vital Signs: Temp Pulse Resp BP Pulse Ox 98.1 F 63 20 90/48 L 93 10/20/16 15:44 10/20/16 15:44 10/20/16 15:44 10/20/16 15:44 10/20/16 15:44 Intake & Output 10/19/16 10/20/16 10/21/16 06:59 06:59 06:59 Intake Total 200 1200 675 Output Total 500 1900 400 Balance -300 -700 275 Weight 88.451 kg General appearance: PRESENT: no acute distress Eye exam: PRESENT: conjunctiva pink. ABSENT: scleral icterus Mouth exam: PRESENT: moist, tongue midline Neck exam: PRESENT: other - Cervical collar in place.. ABSENT: carotid bruit, JVD, lymphadenopathy, thyromegaly Respiratory exam: PRESENT: clear to auscultation ruben. ABSENT: rales, rhonchi, wheezes Cardiovascular exam: PRESENT: RRR. ABSENT: diastolic murmur, rubs, systolic murmur GI/Abdominal exam: PRESENT: normal bowel sounds, soft. ABSENT: distended, guarding, mass, organolmegaly, rebound, tenderness Extremities exam: ABSENT: calf tenderness, clubbing, pedal edema Neurological exam: PRESENT: alert, awake, oriented to person, oriented to place , oriented to time, oriented to situation, other - Patient has bilateral thenar wasting. Psychiatric exam: PRESENT: appropriate affect Results Laboratory Results: 10/19/16 05:47 10/19/16 01:25 Nasophary (Mrsa Only) MRSA Surveillance Culture - Final NO MRSA RECOVERED 10/18/16 10/18/16 10/19/16 21:20 21:20 01:34 Creatine Kinase 50 L CK-MB (CK-2) 2.85 Troponin I 0.059 0.058 10/19/16 10/19/16 05:47 09:35 Creatine Kinase CK-MB (CK-2) Troponin I 0.044 0.035 Impressions: Chest X-Ray 10/18/16 15:12 IMPRESSION: NO ACUTE RADIOGRAPHIC FINDING IN THE CHEST. Lung Scan-VQ NM 10/20/16 08:00 IMPRESSION: NORMAL VENTILATION-PERFUSION LUNG SCAN. NEGATIVE FOR PULMONARY EMBOLI. Qualifiers PATEINT BEING DISCHARGED WITH ANY OF THE FOLLOWING DIAGNOSIS?: No Plan Discharge Plan: Patient is discharged home in stable condition. Will follow primary care in 1 week. Time Spent: Greater than 30 Minutes
[2016-10-20 17:42] VITALS: BP 97/48
--- NOTE | 2016-10-20 20:39 | PDOC PROGRESS REPORT ---
Subjective Progress Note for:: 10/20/16 Subjective:: Patient seems to be doing better with gradual improvement. Pt is denying any chest arm or neck discomfort. Patient denying any PND, orthopnea. Patient denied any sustained palpitations, dizziness, syncope, near syncope. Patient denying any fever chills. Patient denying any other significant discomfort. Patient is maintaining sinus rhythm. Review of systems: Rest review of systems negative. Medications: Medications have been reviewed. Physical Exam Vital Signs: Temp Pulse Resp BP Pulse Ox 98.1 F 63 20 97/48 L 93 10/20/16 17:36 10/20/16 17:36 10/20/16 17:36 10/20/16 17:36 10/20/16 17:36 Intake & Output 10/19/16 10/20/16 10/21/16 06:59 06:59 06:59 Intake Total 200 1200 675 Output Total 500 1900 400 Balance -300 -700 275 Weight 88.451 kg Exam: GENERAL: well-nourished and in no acute distress. Alert and oriented x3 HEAD: Atraumatic, normocephalic. Patient has a cervical collar on. EYES: Pupils equal round and reactive to light, extraocular movements intact, sclera anicteric, conjunctiva are normal. ENT: TMs normal, nares patent, oropharynx clear without exudates. Moist mucous membranes. No oral ulcerations or bleeding gums noted NECK: supple without lymphadenopathy. Trachea is central. No cervical or axillary lymphadenopathy noted. Carotids are 2+, JVD WNL LUNGS: Respiration seems nonlabored, no significant accessory muscle action noted. Breath sounds clear to auscultation bilaterally and equal noted. No wheezes rales or rhonchi noted. No significant dullness noted on percussion. CHEST: Palpation of the chest wall shows no significant chest wall tenderness. No other significant abnormalities noted. HEART: [place] [employer], No PSH, 1/6 ALESSANDRO aortic area, 1/6 nascimento systolic murmur mitral area, no rubs, no gallops. ABDOMEN: Soft, no significant tenderness appreciated, normoactive bowel sounds. No guarding, no rebound. No rigidity noted . No masses appreciated. EXTREMITIES: Pedal pulses are 1-2+, no calf tenderness noted. No clubbing or cyanosis.trace to 1+ pedal edema noted NEUROLOGICAL: Focused neurological exam showed no significant neurologic deficit. Normal speech, no focal weakness appreciated. PSYCH: Normal mood, normal affect. Judgment and insight within normal limits. SKIN: No significant ecchymosis, rash, ulcerations or signs of pruritus noted. MUSCULOSKELETAL EXAM: No significant joint swelling noted. Results Laboratory Results: 10/19/16 05:47 10/19/16 01:25 Nasophary (Mrsa Only) MRSA Surveillance Culture - Final NO MRSA RECOVERED 10/18/16 10/18/16 10/19/16 21:20 21:20 01:34 Creatine Kinase 50 L CK-MB (CK-2) 2.85 Troponin I 0.059 0.058 10/19/16 10/19/16 05:47 09:35 Creatine Kinase CK-MB (CK-2) Troponin I 0.044 0.035 Impressions: Chest X-Ray 10/18/16 15:12 IMPRESSION: NO ACUTE RADIOGRAPHIC FINDING IN THE CHEST. Lung Scan-VQ NM 10/20/16 08:00 IMPRESSION: NORMAL VENTILATION-PERFUSION LUNG SCAN. NEGATIVE FOR PULMONARY EMBOLI. Assessment & Plan - Diagnosis (1) Abnormal EKG Is this a current diagnosis for this admission?: Yes (2) Chest pain Qualifiers: Chest pain type: unspecified Qualified Code(s): R07.9 - Chest pain, unspecified Is this a current diagnosis for this admission?: Yes (3) Hypertension Qualifiers: Hypertension type: essential hypertension Qualified Code(s): I10 - Essential (primary) hypertension Is this a current diagnosis for this admission?: Yes (4) Coronary artery disease Qualifiers: Coronary Disease-Associated Artery/Lesion type: unspecified vessel or lesion type Associated angina: angina presence unspecified Is this a current diagnosis for this admission?: Yes (5) History of stroke Is this a current diagnosis for this admission?: No - Notes Notes: Abnormal electrocardiogram: Patient has symmetrical T wave inversion consistent with ischemia. However patient has very atypical chest pain and negative cardiac enzymes. At this point will recommend medical management. Patient currently DO NOT RESUSCITATE status. Chest pain: Patient describes pleuritic chest pain. Patient is also post surgery. V/Q result discussed and was negative for pulmonary embolism. History of stroke: currently stable. Coronary artery disease: We'll optimize medical therapy for underlying CAD. Hypertension: Reasonably well controlled. Blood pressure goal in this patient is 135/85 or less. This was discussed with the patient. Currently blood pressure under reasonable control. Better medication for this patient are STELLA inhibitor/ARB/beta cayla etc. discussed side effects of uncontrolled hypertension and also severe hypotension. At this point discussed that given his comorbid diagnoses, medical management is the best option. However if he continues to have recurrent chest pain and then further evaluation may need to be considered. Right now he is symptomatically stable without any chest pain symptoms. - Time Time with patient: 15-25 minutes - CODE STATUS : was discussed, patient remains DO NOT RESUSCITATE. Surrogate decision-maker unchanged. Multiple medical problems were addressed.More than 50% of the time spent coordinating care, discussing management plans with involved caregivers. Management plans discussed with involved personnels. Medical decision making was of moderate complexity.
--- NOTE | 2016-10-21 11:19 | EKG REPORT ---
SEVERITY:- ABNORMAL ECG - SINUS RHYTHM LEFT AXIS DEVIATION ABNORMAL T, CONSIDER ISCHEMIA, ANT-LAT LEADS PROLONGED QT INTERVAL : Confirmed by: Danette Sibley 21-Oct-2016 11:18:41
== END 2016-10-20 19:54 | disposition home or self-care (01) ==
LOC: ER 15:01 → UNDOADMOB 18:24 → EH 18:24 → 4S 10-19 01:15
DX: R07.9 Chest pain, unspecified (principal); J20.9 Acute bronchitis, unspecified; G90.8 Other disorders of autonomic nervous system; I25.10 Atherosclerotic heart disease of native coronary artery without angina pectoris; I11.0 Hypertensive heart disease with heart failure; I50.32 Chronic diastolic (congestive) heart failure; M06.9 Rheumatoid arthritis, unspecified; Z66 Do not resuscitate; Z95.1 Presence of aortocoronary bypass graft; I25.2 Old myocardial infarction; R94.31 Abnormal electrocardiogram [ECG] [EKG]; Z86.73 Personal history of transient ischemic attack (TIA), and cerebral infarction without residual deficits; E53.8 Deficiency of other specified B group vitamins
CPT/HCPCS: 93005; 99285; 96360; 36415 ×2; 82553; 82550; 83690; 83735; 85025; 80076; 80048 ×2; 81001; 84484 ×2; 83605; 93306; 71010; 78582; 93010; A9540; A9567; A9270 ×20; J2270; J1650 ×2; J3490; J7030; Q9969; J7512

== ENCOUNTER 2016-11-12 09:05 | Emergency (ER) | payer MEDICARE ==
[2016-11-12] MEDS ORDERED: OXYCODONE HCL IR 5 MG TABLET PO ONE (09:27)
[2016-11-12] MEDS ORDERED: ONDANSETRON 4 MG TAB.RAPDIS PO ONE (09:31)
--- NOTE | 2016-11-12 09:34 | ER Document Report ---
ED Neck/Back Problem - General Chief Complaint: Back Pain Stated Complaint: BACK PAIN Time seen by provider: 09:34 Mode of Arrival: Medic Information source: Patient Notes: 71-year-old male with history of cervical and lumbar decompression by Dr. Turner at [facility] on October 08, has had minimal postop pain until yesterday at 1:00 PM when he tried to lift his left leg to get 6 inches up into riding lawnmower that he has been using to get around and mow grass this week. He got severe pain left lumbar back and inability to walk and use his left leg due to pain. No saddle anesthesia, able to urinate. No fever or chills. TRAVEL OUTSIDE OF THE [place] IN LAST 30 DAYS: No - Related Data Allergies/Adverse Reactions: iodine [Iodine] Allergy (Unknown, Verified 11/12/16 09:17) meperidine HCl [From Demerol] Allergy (Unknown, Verified 11/12/16 09:17) acetaminophen [From Percocet] Allergy (Verified 11/12/16 09:17) oxycodone [From Percocet] Allergy (Verified 11/12/16 09:17) Penicillins Allergy (Verified 11/12/16 09:17) aspirin [Aspirin] Adverse Reaction (Severe, Verified 11/12/16 09:17) Hemorrhage Past Medical History - General Information source: Patient - Social History Smoking Status: Unknown if Ever Smoked Frequency of alcohol use: None Drug Abuse: None Lives with: Family - daughter Family History: None - Patient denies any illness - Past Medical History Cardiac Medical History: Reports: Hx Coronary Artery Disease, Hx Heart Attack - post CABG, Hx Hypercholesterolemia, Hx Hypertension Pulmonary Medical History: Reports: Hx Pneumonia - 2010 Neurological Medical History: Reports: Hx Cerebrovascular Accident - R sided weakness, memory loss, Hx Migraine Endocrine Medical History: Renal/ Medical History: Reports: Hx Kidney Stones Malignancy Medical History: Reports Hx Skin Cancer GI Medical History: Reports: Hx Hiatal Hernia - repair 15years ago, LLQ, Hx Ulcer Musculoskeltal Medical History: Reports Hx Arthritis, Reports Hx Musculoskeletal Deformity, Reports Hx Musculoskeletal Trauma Psychiatric Medical History: Reports: Hx Dementia - mild, Hx Depression Traumatic Medical History: Reports: Hx Fractures, Hx Spine Fracture Infectious Medical History: Past Surgical History: Reports: Hx Abdominal Surgery - HERNIA REPAIR, Hx Cardiac Catheterization, Hx Cardiac Surgery - bypass, stents, CABG, Hx Coronary Artery Bypass Graft - 4 vessel 1995, Hx Coronary Stent, Hx Genitourinary Surgery - penis removed CA, Hx Inguinal Hernia, Hx Orthopedic Surgery - SPINAL FUSION, spinal decompression, Hx Urinary Tract Surgery - penis removed surgically for CA - Immunizations Immunizations up to date: Yes Hx Diphtheria, Pertussis, Tetanus Vaccination: Yes - UTD Hx Pneumococcal Vaccination: 10/07/11 Review of Systems - Review of Systems Constitutional: No symptoms reported EENT: No symptoms reported Cardiovascular: No symptoms reported Respiratory: No symptoms reported Gastrointestinal: No symptoms reported Genitourinary: No symptoms reported Male Genitourinary: No symptoms reported Musculoskeletal: See HPI Skin: No symptoms reported Hematologic/Lymphatic: No symptoms reported Neurological/Psychological: No symptoms reported Physical Exam - Vital signs Vitals: Temp Pulse Resp BP Pulse Ox 97.7 F 60 18 135/63 H 96 11/12/16 09:10 11/12/16 09:10 11/12/16 09:10 11/12/16 09:10 11/12/16 09:10 Interpretation: Normal - General General appearance: Appears well, Alert In distress: None - HEENT Head: Normocephalic, Atraumatic Eyes: Normal Pupils: PERRL Neck: Supple Notes: post op c collar removed for MRI. - Respiratory Respiratory status: No respiratory distress Chest status: Nontender Breath sounds: Normal Chest palpation: Normal - Cardiovascular Rhythm: Regular Heart sounds: Normal auscultation Murmur: No - Abdominal Inspection: Normal Distension: No distension Bowel sounds: Normal Tenderness: Nontender. No: Tender Organomegaly: No organomegaly - Rectal Tenderness: No Notes: rectal tone normal - Back Back: Normal, Tender - left of the L3-4 spinous process - Extremities General upper extremity: Normal inspection, Nontender, Normal color, Normal ROM , Normal temperature General lower extremity: Normal inspection, Nontender, Normal color, Normal ROM , Normal temperature, Normal weight bearing. No: Tracy's sign - Neurological Neuro grossly intact: Yes Cognition: Normal Orientation: AAOx4 Jorge Coma Scale Eye Opening: Spontaneous [place] Coma Scale Verbal: Oriented [place] Coma Scale Motor: Obeys Commands Jorge Coma Scale Total: 15 Speech: Normal Motor strength normal: LUE, RUE, LLE, RLE Sensory: Normal - Psychological Associated symptoms: Normal affect, Normal mood - Skin Skin Temperature: Warm Skin Moisture: Dry Skin Color: Normal Skin irregularity: negative: Rash Course - Re-evaluation Re-evalutation: 11/12/16 09:[address] Colindres for MRI. I spoke with Dr. Simms who recommended with and without MRI. he is able to take oxycodone without the Tylenol which he had after the surgery. 11/12/16 09:46 Patient and daughter are refusing the contrast because he had a terrible reaction to IV contrast. Spoke with Dr. Simms and she said that is okay to get the MRI without contrast. 11/12/16 12:32 Postop decompression on MR with minimal disc bulging that was there prior. No fluid collection. Lab work is normal. Patient sat on the side of the bed and was able to get a left patellar reflex at this time and patient stood and walked a few steps. I will order pain medication and Toradol injection at this time. They also asked for Motrin. He is able to take Motrin without GI distress when he takes it with food. I've also asked his daughter to call and schedule an appointment next week with Dr. Turner rather than waiting for 3 months. - Vital Signs Vital signs: Temp Pulse Resp BP Pulse Ox 97.7 F 60 18 135/63 H 96 11/12/16 09:10 11/12/16 09:10 11/12/16 09:10 11/12/16 09:10 11/12/16 09:10 - Laboratory Result Diagrams: 11/12/16 10:00 11/12/16 10:00 Laboratory results interpreted by me: 11/12/16 11/12/16 10:00 10:00 RBC 3.66 L Hgb 12.9 L MCV 106 H MCH 35.2 H RDW 15.5 H Total Protein 6.2 L Discharge - Discharge Clinical Impression: Lumbar back sprain Low back pain Qualifiers: Chronicity: chronic Back pain laterality: left Sciatica presence: without sciatica Qualified Code(s): M54.5 - Low back pain; G89.29 - Other chronic pain Condition: Good Disposition: HOME, SELF-CARE Instructions: Low Back Pain ([facility]), Muscle Strain ([facility]), Warm Packs ([facility]), Oral Narcotic Medication ([facility]), Anti-Inflammatory Medication ([facility]) Additional Instructions: warm compress Call and schedule appointment with Dr. Turner next week Return to the emergency room if symptoms worsen Please complete the patient satisfaction survey if you get one, and return it.. If you do not receive a survey, then you can go to the [facility] website, [email or web address] and place your comments about your very good care. Thank you very much. It was a pleasure being your medical provider today. Prescriptions: Oxycodone HCl [Oxy-Ir 5 mg Tablet] 5 - 10 mg PO Q4HP PRN #30 tab PRN Reason: Ibuprofen [Motrin 800 mg Tablet] 800 mg PO Q8HP PRN #20 tablet PRN Reason: Cyclobenzaprine HCl [Flexeril 10 Mg Tablet] 10 mg PO TIDP PRN #20 tablet PRN Reason: Referrals: JOSESITO TRIPLETT MD [Primary Care Provider] - Follow up as needed
[2016-11-12 10:22] LABS: ABSOLUTE BASOPHILS # (AUTO) 0.1 10^3/uL (0.0-0.2); ABSOLUTE EOSINOPHILS # (AUTO) 0.2 10^3/uL (0.0-0.6); ABSOLUTE MONOCYTES (AUTO) 0.8 10^3/uL (0.1-1.4); ABSOLUTE NEUT (AUTO) 4.6 10^3/uL (1.7-8.2); BASOPHILS % (AUTO) 0.7 % (0-2); EOSINOPHILS % (AUTO) 2.1 % (0-6); HEMATOCRIT 38.7 % (37.9-51.0); HEMOGLOBIN 12.9 g/dL (13.5-17.0); LYMPHOCYTES % (AUTO) 25.9 % (13-45); MEAN CORPUSCULAR HEMOGLOBIN 35.2 pg (27.0-33.4); MEAN CORPUSCULAR HGB CONC 33.3 g/dL (32.0-36.0); MEAN CORPUSCULAR VOLUME 106 fl (80-97); MONOCYTES % (AUTO) 10.9 % (3-13); RED BLOOD COUNT 3.66 10^6/uL (4.35-5.55); RED CELL DISTRIBUTION WIDTH 15.5 % (11.5-14.0); SEGMENTED NEUTROPHILS % (AUTO) 60.4 % (42-78); WHITE BLOOD COUNT 7.7 10^3/uL (4.0-10.5)
[2016-11-12 10:38] LABS: ALANINE AMINOTRANSFERASE 30 U/L (21-72); ALBUMIN 3.5 g/dL (3.5-5.0); ALKALINE PHOSPHATASE 87 U/L (38-126); ANION GAP 11 (5-19); ASPARTATE AMINO TRANSFERASE 19 U/L (17-59); BILIRUBIN,DIRECT 0.2 mg/dL (0.0-0.4); BILIRUBIN,TOTAL 0.6 mg/dL (0.2-1.3); BLOOD UREA NITROGEN 17 mg/dL (7-20); CALCIUM 8.9 mg/dL (8.4-10.2); CARBON DIOXIDE 23 mmol/L (22-30); CHLORIDE 107 mmol/L (98-107); CREATININE RESULT 0.61 mg/dL (0.52-1.25); GLUCOSE 93 mg/dL (75-110); POTASSIUM 4.2 mmol/L (3.6-5.0); SODIUM 141.1 mmol/L (137-145)
[2016-11-12 10:39] LABS: TOTAL PROTEIN 6.2 g/dL (6.3-8.2)
[2016-11-12] MEDS ORDERED: KETOROLAC TROMETHAMINE 60 MG/2 ML SDV IM ONE (12:36)
[2016-11-12] MEDS ORDERED: CYCLOBENZAPRINE HCL 10 MG TABLET PO ONE (12:36)
[2016-11-12 12:53] VITALS: BP 136/69
== END 2016-11-12 12:53 | disposition home or self-care (01) ==
LOC: ER 09:05
DX: M54.9 Dorsalgia, unspecified (principal); G89.29 Other chronic pain; I25.10 Atherosclerotic heart disease of native coronary artery without angina pectoris; E78.00 Pure hypercholesterolemia, unspecified; I10 Essential (primary) hypertension; I69.951 Hemiplegia and hemiparesis following unspecified cerebrovascular disease affecting right dominant side; Z88.0 Allergy status to penicillin; Z88.6 Allergy status to analgesic agent; I25.2 Old myocardial infarction; Z95.1 Presence of aortocoronary bypass graft; Z87.442 Personal history of urinary calculi
CPT/HCPCS: 99284; 96372; 36415; 85025; 80053; 72148; A9270 ×3; J1885; S0119

== ENCOUNTER 2017-06-22 23:29 | Emergency (ER) | payer MEDICARE ==
--- NOTE | 2017-06-23 00:06 | EKG REPORT ---
SEVERITY:- ABNORMAL ECG - SINUS RHYTHM PROBABLE LEFT ATRIAL ABNORMALITY NONSPECIFIC IVCD WITH LAD LEFT VENTRICULAR HYPERTROPHY : Confirmed by: Danette Sibley 23-Jun-2017 00:05:56
[2017-06-23 00:14] LABS: ABSOLUTE BASOPHILS # (AUTO) 0.1 10^3/uL (0.0-0.2); ABSOLUTE EOSINOPHILS # (AUTO) 0.2 10^3/uL (0.0-0.6); ABSOLUTE LYMPHOCYTES (AUTO) 3.3 10^3/uL (0.5-4.7); ABSOLUTE MONOCYTES (AUTO) 1.2 10^3/uL (0.1-1.4); ABSOLUTE NEUT (AUTO) 4.9 10^3/uL (1.7-8.2); BASOPHILS % (AUTO) 0.9 % (0-2); EOSINOPHILS % (AUTO) 1.8 % (0-6); HEMATOCRIT 42.3 % (37.9-51.0); HEMOGLOBIN 14.7 g/dL (13.5-17.0); HGB HCT DIFFERENCE 1.8; LYMPHOCYTES % (AUTO) 34.1 % (13-45); MEAN CORPUSCULAR HEMOGLOBIN 36.4 pg (27.0-33.4); MEAN CORPUSCULAR HGB CONC 34.7 g/dL (32.0-36.0); MEAN CORPUSCULAR VOLUME 105 fl (80-97); MONOCYTES % (AUTO) 12.4 % (3-13); RED BLOOD COUNT 4.04 10^6/uL (4.35-5.55); RED CELL DISTRIBUTION WIDTH 13.6 % (11.5-14.0); SEGMENTED NEUTROPHILS % (AUTO) 50.8 % (42-78); WHITE BLOOD COUNT 9.6 10^3/uL (4.0-10.5)
[2017-06-23 00:18] LABS: ALANINE AMINOTRANSFERASE 33 U/L (21-72); ALBUMIN 3.8 g/dL (3.5-5.0); ALKALINE PHOSPHATASE 69 U/L (38-126); ANION GAP 13 (5-19); ASPARTATE AMINO TRANSFERASE 18 U/L (17-59); BILIRUBIN,DIRECT 0.4 mg/dL (0.0-0.4); BILIRUBIN,TOTAL 0.7 mg/dL (0.2-1.3); BLOOD UREA NITROGEN 15 mg/dL (7-20); CALCIUM 9.1 mg/dL (8.4-10.2); CARBON DIOXIDE 22 mmol/L (22-30); CHLORIDE 106 mmol/L (98-107); CREATINE KINASE 75 U/L (55-170); GLUCOSE 101 mg/dL (75-110); POTASSIUM 3.9 mmol/L (3.6-5.0); SODIUM 140.9 mmol/L (137-145); TOTAL PROTEIN 6.5 g/dL (6.3-8.2)
[2017-06-23 00:30] LABS: CREATINE KINASE MB 2.12 ng/mL (<4.55); TROPONIN I < 0.012 ng/mL
--- NOTE | 2017-06-23 00:31 | ER Document Report ---
ED General - General Chief Complaint: Chest Pain Stated Complaint: CHEST PAIN Time Seen by Provider: 06/22/17 23:59 Mode of Arrival: Medic Information source: Patient, Relative - Daughter Notes: 72 year old male brought to ED today via EMS, accompanied by daughter, with acute complaints of shortness of breath, chest pain, and worsening productive cough for the past 2 days. 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 Daughter reports patient lives with spouse and was mentally "normal " until lunchtime today, even driving to visit family members this morning. Daughter brought lunch to patient and spouse at their home as requested by patient, though upon her arrival, patient was unable to eat as he reported feeling like he was choking. Due to this and concern over shortness of breath and chest pain, EMS was called. Additionally, daughter reports patient's mental status has steadily deteriorated since just prior to transport, reporting he has been asking her "questions he shouldn't be asking me." Daughter reports a history of TIA strokes, last in 2013 - no clots were seen on imaging at the time , and patient was managed symptomatically. Daughter states current altered mental status symptoms are similar to previous TIA symptoms. Patient does have chronic sternal chest pain due to retained hardware used during last cardiac surgery in 2009, when stents were placed into bypassed grafts. Daughter denies knowing of any additional associated symptoms. TRAVEL OUTSIDE OF THE [place] IN LAST 30 DAYS: No - Related Data Allergies/Adverse Reactions: iodine [Iodine] Allergy (Unknown, Verified 11/12/16 09:17) meperidine HCl [From Demerol] Allergy (Unknown, Verified 11/12/16 09:17) acetaminophen [From Percocet] Allergy (Verified 11/12/16 09:17) oxycodone [From Percocet] Allergy (Verified 11/12/16 09:17) Penicillins Allergy (Verified 11/12/16 09:17) aspirin [Aspirin] Adverse Reaction (Severe, Verified 11/12/16 09:17) Hemorrhage Home Medications: Current Home Medications Budesonide/Formoterol Fumarate [Symbicort Hfa 160-4.5 Mcg Inhaler 6 gm] 2 puff IH Q12 06/23/17 [History] Donepezil HCl [Aricept] 10 mg PO QPM 11/16/17 [History] Gabapentin [Neurontin] 600 mg PO QHS 06/23/17 [History] Lisinopril [Prinivil 2.5 mg Tablet] 2.5 mg PO DAILY 06/23/17 [History] Prednisone [Deltasone 10 mg Tablet] 10 mg PO DAILY 06/23/17 [History] Past Medical History - General Information source: Patient, Relative - Daughter - Social History Smoking Status: Never Smoker Family History: None - Patient denies any illness Patient has suicidal ideation: No Patient has homicidal ideation: No - Past Medical History Cardiac Medical History: Reports: Hx Coronary Artery Disease, Hx Heart Attack - post CABG, Hx Hypercholesterolemia, Hx Hypertension Denies: Hx Heart Murmur Pulmonary Medical History: Reports: Hx Pneumonia - 2009 Denies: Hx Respiratory Failure, Hx Sleep Apnea, Hx Tuberculosis Neurological Medical History: Reports: Hx Cerebrovascular Accident - R sided weakness, memory loss, Hx Migraine Endocrine Medical History: Renal/ Medical History: Reports: Hx Kidney Stones. Denies: Hx Peritoneal Dialysis Malignancy Medical History: Reports Hx Skin Cancer GI Medical History: Reports: Hx Hiatal Hernia - repair 15years ago, LLQ, Hx Ulcer. Denies: Hx Pancreatitis Musculoskeltal Medical History: Reports Hx Arthritis, Reports Hx Musculoskeletal Deformity, Reports Hx Musculoskeletal Trauma Psychiatric Medical History: Reports: Hx Dementia - mild, Hx Depression Traumatic Medical History: Reports: Hx Fractures, Hx Spine Fracture Infectious Medical History: Past Surgical History: Reports: Hx Abdominal Surgery - HERNIA REPAIR, Hx Cardiac Catheterization, Hx Cardiac Surgery - bypass, stents, CABG, Hx Coronary Artery Bypass Graft - 4 vessel 1995, Hx Coronary Stent, Hx Genitourinary Surgery - penis removed CA, Hx Inguinal Hernia, Hx Orthopedic Surgery - SPINAL FUSION, spinal decompression, Hx Urinary Tract Surgery - penis removed surgically for CA - Immunizations Immunizations up to date: Yes Hx Diphtheria, Pertussis, Tetanus Vaccination: Yes - UTD Hx Pneumococcal Vaccination: 10/07/11 Review of Systems - Review of Systems Constitutional: See HPI EENT: No symptoms reported Cardiovascular: See HPI Respiratory: See HPI Gastrointestinal: No symptoms reported Genitourinary: No symptoms reported Male Genitourinary: No symptoms reported Musculoskeletal: No symptoms reported Skin: No symptoms reported Hematologic/Lymphatic: No symptoms reported Neurological/Psychological: See HPI Physical Exam - Vital signs Vitals: Pulse Ox 96 06/22/17 23:42 - Notes Notes: PHYSICAL EXAMINATION: GENERAL: Drowsy, but arousable, and in no acute distress. Oriented to person and place, not time. Unable to describe progression of symptoms. Weakly follow simple commands. HEAD: Atraumatic, normocephalic. MOUTH: Oropharynx clear without exudates, slightly tacky mucous membranes. LUNGS: CTAB and equal. No wheezes rales or rhonchi. HEART/CHEST: Regular rate and rhythm without murmurs. Mild tenderness noted to palpation of substernal area. EXTREMITIES: No pitting edema, no cyanosis. NEUROLOGICAL: Normal sensory exam, unable to complete motor exam due to patient' s report of generalized weakness and refusal of motor exam PSYCH: Drowsy but mostly cooperative with exam SKIN: Warm, dry, mildly decreased turgor Course - Re-evaluation Re-evalutation: CXR shows no acute pulmonary process. Head CT shows no acute intracranial abnormality. EKG reviewed with MD. Labwork wholly unremarkable. Per daughter, patient remains deviated from baseline mental status. Case reviewed with Hospitalist who agreed to admit patient for observation due to generalized weakness and altered mental status. - Vital Signs Vital signs: Temp Pulse Resp BP Pulse Ox 98.0 F 63 16 127/62 H 96 06/23/17 16:12 06/23/17 17:26 06/23/17 17:26 06/23/17 16:12 06/23/17 17:26 - Laboratory Result Diagrams: 06/22/17 23:51 06/22/17 23:51 Laboratory results interpreted by me: 06/22/17 23:51 RBC 4.04 L MCV 105 H MCH 36.4 H - Diagnostic Test Radiology reviewed: Reports reviewed Discharge - Discharge Clinical Impression: Weakness generalized Altered mental status Qualifiers: Altered mental status type: disorientation Qualified Code(s): R41.0 - Disorientation, unspecified Condition: Stable Disposition: ADMITTED OBSERVATION Admitting Provider: Hospitalist Unit Admitted: Telemetry
[2017-06-23 00:54] LABS: VENOUS BLOOD BASE EXCESS -0.2 mmol/L; VENOUS BLOOD HCO3 24.7 mmol/L (20-32); VENOUS BLOOD PCO2 41.4 mmHg (35-63); VENOUS BLOOD PH 7.39 (7.30-7.42)
--- NOTE | 2017-06-23 01:09 | RADIOLOGY REPORT (SQ) ---
EXAM DESCRIPTION: CT HEAD WITHOUT CLINICAL HISTORY: Altered mental status COMPARISON: 10/05/2016 TECHNIQUE: Axial CT of the head obtained from the skull apex to the skull base without contrast. FINDINGS: No acute intracranial hemorrhage identified. No mass, mass effect, shift of the midline, abnormal extra-axial fluid collection or CT evidence of acute ischemic change identified. The ventricular system and sulcal spaces are mildly enlarged compatible with mild cerebral atrophy. Scattered areas of hypodensity throughout the supratentorial white matter are nonspecific and may be related to chronic small vessel ischemic change. The visualized paranasal sinuses and the mastoids are clear. No skull fracture identified. Visualized orbits and globes are unremarkable. Atherosclerotic calcification of the intracranial internal carotid arteries. DLP:1162.97 mGy-cm IMPRESSION: 1. No acute intracranial abnormality by CT criteria. This exam was performed according to our departmental dose-optimization program, which includes automated exposure control, adjustment of the mA and/or kV according to patient size and/or use of iterative reconstruction technique.
--- NOTE | 2017-06-23 01:19 | RADIOLOGY REPORT (SQ) ---
EXAM DESCRIPTION: CHEST SINGLE VIEW CLINICAL HISTORY: chest pain, cough COMPARISON: 10/18/2016 FINDINGS: Single frontal view of the chest. Atherosclerotic calcification of the thoracic aorta. Prior median sternotomy. Heart is not enlarged. No consolidation, pneumothorax or pleural effusion. Small pulmonary nodules noted on CT of the abdomen and pelvis are not visualized on this study. Postoperative change of the cervical spine. Leads overlie the chest. Upper abdominal soft tissues are unremarkable. IMPRESSION: 1. No acute pulmonary process identified.
[2017-06-23] MEDS ORDERED: NORMAL SALINE 1000 ML 500 ML IV ONE (01:23)
[2017-06-23 03:33] LABS: URINE BARBITURATES SCREEN NEGATIVE; URINE METHADONE SCREEN NEGATIVE; URINE OPIATES LOW NEGATIVE; URINE PHENCYCLIDINE SCREEN NEGATIVE
[2017-06-23 03:36] LABS: APPEARANCE,URINE CLEAR; BILIRUBIN,URINE NEGATIVE (NEGATIVE); GLUCOSE, URINE NEGATIVE (NEGATIVE); KETONES,URINE NEGATIVE (NEGATIVE); LEUKOCYTE ESTERASE,URINE NEGATIVE (NEGATIVE); NITRITE,URINE NEGATIVE (NEGATIVE); PROTEIN,URINE NEGATIVE (NEGATIVE); URINE SPECIFIC GRAVITY 1.033; UROBILINOGEN,URINE NEGATIVE mg/dL (<2.0)
[2017-06-23] MEDS ORDERED: LEVALBUTEROL HCL NEB 1.25 MG/3 ML AMPUL NEB PRN ×2 (04:47→15:30)
[2017-06-23] MEDS ORDERED: NITROGLYCERIN 0.4 MG/TAB 25 TAB/BOTTLE SL PRN (04:56)
--- NOTE | 2017-06-23 05:12 | PDOC H&P ---
History of Present Illness Admission Date/PCP: 06/23/17 04:11 JOSESITO RTIPLETT MD History of Present Illness: GÉNESIS DANIELLE is a 72 year old male presents with acute complaints of shortness of breath, chest pain, and worsening productive cough for the past 2 days. Patient was normal in the morning but by afternoon was having some confusion. Due to this and concern over shortness of breath and chest pain, EMS was called. Daughter reports a history of stroke, last in 2013. Daughter states current altered mental status symptoms are similar to previous TIA symptoms. Patient does have chronic sternal chest pain due to retained hardware used during last cardiac surgery in 2009, when stents were placed into bypassed grafts. Currently upon my evaluation, patient is awake, alert and oriented x3. Past Medical History Cardiac Medical History: Reports: Coronary Artery Disease, Myocardial Infarction - post CABG, Hyperlipidema, Hypertension Denies: Heart Murmur Pulmonary Medical History: Reports: Pneumonia - 2009 Denies: Respiratory Failure, Sleep Apnea, Tuberculosis Neurological Medical History: Reports: Ischemic CVA, Migraine Endocrine Medical History: Renal/ Medical History: Malignancy Medical History: Reports: Skin Cancer Denies: Breast Cancer, Cervical Cancer, Ovarian Cancer GI Medical History: Reports: Hiatal Hernia - repair 15years ago, LLQ Musculoskeltal Medical History: Reports: Arthritis Psychiatric Medical History: Reports: Dementia - mild, Depression Hematology: Denies: Anemia, Hemophilia, Sickle Cell Disease Infectious Medical History: Past Surgical History Past Surgical History: Reports: Cardiac Catheterization, Coronary Artery Bypass Graft - 4 vessel 1995, Coronary Stent, Orthopedic Surgery - SPINAL FUSION, spinal decompression Social History Smoking Status: Never Smoker Frequency of Alcohol Use: None Hx Recreational Drug Use: No Drugs: None Hx Prescription Drug Abuse: No - Advance Directive Resuscitation Status: Do Not Resuscitate Surrogate healthcare decision maker:: Carmina caicedo, daughter Family History Family History: CAD, Hypertension Parental Family History Reviewed: Yes Children Family History Reviewed: Yes Sibling(s) Family History Reviewed.: Yes Medication/Allergy Home Medications: Donepezil HCl [Aricept] 10 mg PO QPM 10/18/16 Gabapentin [Neurontin] 600 mg PO QHS 10/18/16 Lisinopril [Prinivil 2.5 mg Tablet] 2.5 mg PO QAM 10/18/16 Prednisone [Deltasone 5 mg Tablet] 10 mg PO DAILY 10/18/16 Clopidogrel Bisulfate [Plavix 75 mg Tablet] 75 mg PO DAILY #30 tablet 10/20/16 Levofloxacin [Levaquin 750 mg Tablet] 750 mg PO QHS #5 tablet 10/20/16 Nitroglycerin [Nitrostat 0.4 mg (1/150 Gr) Tabs 25/Bottle] 1 tab SL Q5MP PRN #1 bottle 10/20/16 Cyclobenzaprine HCl [Flexeril 10 Mg Tablet] 10 mg PO TIDP PRN #20 tablet Ibuprofen [Motrin 800 mg Tablet] 800 mg PO Q8HP PRN #20 tablet 11/12/16 Oxycodone HCl [Oxy-Ir 5 mg Tablet] 5 - 10 mg PO Q4HP PRN #30 tab 11/12/16 Allergies/Adverse Reactions: iodine [Iodine] Allergy (Unknown, Verified 11/12/16 09:17) meperidine HCl [From Demerol] Allergy (Unknown, Verified 11/12/16 09:17) acetaminophen [From Percocet] Allergy (Verified 11/12/16 09:17) oxycodone [From Percocet] Allergy (Verified 11/12/16 09:17) Penicillins Allergy (Verified 11/12/16 09:17) aspirin [Aspirin] Adverse Reaction (Severe, Verified 11/12/16 09:17) Hemorrhage Review of Systems Constitutional: ABSENT: chills, fever(s), headache(s), weight gain, weight loss Eyes: ABSENT: visual disturbances Ears: ABSENT: hearing changes Cardiovascular: PRESENT: chest pain. ABSENT: dyspnea on exertion, edema, orthropnea, palpitations Respiratory: PRESENT: cough, dyspnea. ABSENT: hemoptysis, sputum Gastrointestinal: ABSENT: abdominal pain, constipation, diarrhea, hematemesis, hematochezia, nausea, vomiting Genitourinary: ABSENT: dysuria, hematuria Musculoskeletal: ABSENT: joint swelling Integumentary: ABSENT: rash, wounds Neurological: PRESENT: memory loss. ABSENT: abnormal gait, abnormal speech, confusion, dizziness, focal weakness, syncope Psychiatric: ABSENT: anxiety, depression, homidical ideation, suicidal ideation Endocrine: ABSENT: cold intolerance, heat intolerance, polydipsia, polyuria Hematologic/Lymphatic: ABSENT: easy bleeding, easy bruising Physical Exam Vital Signs: Temp Pulse Resp BP Pulse Ox 97.9 F 17 124/74 97 11/16/17 00:14 06/23/17 04:01 06/23/17 04:00 06/23/17 04:01 General appearance: PRESENT: no acute distress, well-developed, well-nourished Head exam: PRESENT: atraumatic, normocephalic Eye exam: PRESENT: conjunctiva pink, EOMI, PERRLA. ABSENT: scleral icterus Ear exam: PRESENT: normal external ear exam Mouth exam: PRESENT: dry mucosa, tongue midline Neck exam: ABSENT: JVD, lymphadenopathy, thyromegaly, tracheal deviation Respiratory exam: PRESENT: prolonged expiratory phas, symmetrical, unlabored, wheezes - bilateral end expiratory wheezes. ABSENT: accessory muscle use, crackles, rales, rhonchi, tachypnea Cardiovascular exam: PRESENT: RRR, +S1, +S2, systolic murmur. ABSENT: diastolic murmur, rubs Pulses: PRESENT: normal dorsalis pedis pul Vascular exam: PRESENT: normal capillary refill GI/Abdominal exam: PRESENT: normal bowel sounds, soft. ABSENT: distended, guarding, mass, organolmegaly, rebound, tenderness Rectal exam: PRESENT: deferred Extremities exam: PRESENT: full ROM. ABSENT: calf tenderness, clubbing, pedal edema Neurological exam: PRESENT: alert, awake, oriented to person, oriented to place , oriented to time, oriented to situation, CN II-XII grossly intact. ABSENT: motor sensory deficit Psychiatric exam: PRESENT: appropriate affect, normal mood. ABSENT: homicidal ideation, suicidal ideation Skin exam: PRESENT: dry, intact, warm. ABSENT: cyanosis, rash Results Laboratory Results: 06/22/17 06/22/17 06/22/17 23:51 23:51 23:51 WBC 9.6 Hgb 14.7 Hct 42.3 MCV 105 H Plt Count 171 VBG pH VBG pCO2 VBG HCO3 Sodium 140.9 Potassium 3.9 Chloride 106 Carbon Dioxide 22 Anion Gap 13 BUN 15 Creatinine 0.70 Glucose 101 Calcium 9.1 Total Bilirubin 0.7 Direct Bilirubin 0.4 AST 18 ALT 33 Alkaline Phosphatase 69 Creatine Kinase 75 Troponin I < 0.012 Total Protein 6.5 Albumin 3.8 Ur Specific [place] Urine WBC (Auto) Urine Bacteria (Auto) 06/23/17 06/23/17 00:40 02:46 WBC Hgb Hct MCV Plt Count VBG pH 7.39 VBG pCO2 41.4 VBG HCO3 24.7 Sodium Potassium Chloride Carbon Dioxide Anion Gap BUN Creatinine Glucose Calcium Total Bilirubin Direct Bilirubin AST ALT Alkaline Phosphatase Creatine Kinase Troponin I Total Protein Albumin Ur Specific [place] 1.033 Urine WBC (Auto) 2 Urine Bacteria (Auto) TRACE Impressions: Chest X-Ray 06/22/17 23:57 IMPRESSION: 1. No acute pulmonary process identified. Head CT 06/23/17 00:33 IMPRESSION: 1. No acute intracranial abnormality by CT criteria. This exam was performed according to our departmental dose-optimization program, which includes automated exposure control, adjustment of the mA and/or kV according to patient size and/or use of iterative reconstruction technique. Status: Imported from PACS Assessment & Plan - Diagnosis (1) Altered mental status Qualifiers: Altered mental status type: disorientation Qualified Code(s): R41.0 - Disorientation, unspecified Is this a current diagnosis for this admission?: Yes Plan: This is likely secondary to COPD exacerbation. Possible early pneumonia. (2) Acute bronchitis Qualifiers: Bronchitis organism: unspecified organism Qualified Code(s): J20.9 - Acute bronchitis, unspecified (3) B12 deficiency Is this a current diagnosis for this admission?: Yes Plan: Continue B12 (4) Chest pain Qualifiers: Chest pain type: unspecified Qualified Code(s): R07.9 - Chest pain, unspecified Is this a current diagnosis for this admission?: Yes Plan: Chronic, continue to trend troponin. Monitor on telemetry (5) Coronary artery disease Qualifiers: Coronary Disease-Associated Artery/Lesion type: unspecified vessel or lesion type [place] vs. transplanted heart: [place] heart Associated angina: angina presence unspecified Qualified Code(s): I25.10 - Atherosclerotic heart disease of [place] coronary artery without angina pectoris Is this a current diagnosis for this admission?: Yes (6) Diastolic CHF, chronic Is this a current diagnosis for this admission?: Yes Plan: closely monitor fluid administration (7) Hypertension Qualifiers: Hypertension type: essential hypertension Qualified Code(s): I10 - Essential (primary) hypertension Is this a current diagnosis for this admission?: Yes Plan: continue lisinopril (8) Weakness due to cerebrovascular accident (CVA) Is this a current diagnosis for this admission?: Yes Plan: Patient repeat symptoms are consistent with her past stroke. Likely exacerbated due to underlying infection (9) DNR (do not resuscitate) Is this a current diagnosis for this admission?: Yes (10) Dehydration Is this a current diagnosis for this admission?: Yes Plan: Patient mildly dehydrated. Begin on gentle on gentle hydration. - Time Time Spent: 30 to 50 Minutes Medications reviewed and adjusted accordingly: Yes Anticipated discharge: Home Within: within 48 hours - Inpatient Certification Based on my medical assessment, after consideration of the patient's comorbidities, presenting symptoms, or acuity I expect that the services needed warrant INPATIENT care.: Yes I certify that my determination is in accordance with my understanding of Medicare's requirements for reasonable and necessary INPATIENT services [42 CFR 412.3e].: Yes Medical Necessity: Need For IV Fluids, Need For Continuous Telemetry Monitoring Post Hospital Care: D/C [employer] Project Manager Documentation
[2017-06-23] MEDS ORDERED: PREDNISONE 20 MG TABLET PO ONE (05:15)
[2017-06-23] MEDS: NORMAL SALINE 1000 ML 1,000 ML IV PRN ×2 (05:34→13:21)
[2017-06-23] MEDS: HEPARIN SOD (PORCINE) 5,000 UNIT/ML 1 ML SYRINGE SUBCUT SCH ×3 (05:34→21:29)
[2017-06-23] MEDS: LISINOPRIL 5 MG TABLET PO SCH (09:21)
[2017-06-23] MEDS: CLOPIDOGREL BISULFATE 75 MG TABLET PO SCH (09:21)
[2017-06-23] MEDS: DOXYCYCLINE HYCLATE 100 MG TABLET PO SCH ×2 (09:22→21:30)
[2017-06-23] MEDS: PREDNISONE 20 MG TABLET PO SCH ×3 (09:22→17:37)
[2017-06-23] MEDS: ACETAMINOPHEN 325 MG TABLET PO PRN ×3 (09:22→17:39)
[2017-06-23] MEDS ORDERED: GUAIFENESIN 600 MG TABLET.SA PO SCH (10:00)
--- NOTE | 2017-06-23 16:54 | Progress Note ---
Provider Note Provider Note: Patient admitted this morning: Chart reviewed: 72-year-old male with multiple medical problems who presented complaining of shortness of breath pleuritic chest pain as well as worsening cough for the past 2 days. He was admitted for altered mental status, acute bronchitis, atypical chest pain. I have examined the patient, and reviewed the assessment and plan. We will continue to monitor. Family [spouse, daughters] updated by bedside
[2017-06-23] MEDS ORDERED: DONEPEZIL HCL 5 MG TABLET PO SCH (18:00)
[2017-06-23] MEDS: GUAIFENESIN 600 MG TABLET.SA PO SCH (21:30)
[2017-06-23] MEDS ORDERED: GABAPENTIN 300 MG CAPSULE PO SCH (22:00)
[2017-06-24] MEDS ORDERED: KETOROLAC TROMETHAMINE INJ/PF 30 MG/1 ML SDV IV ONE (02:30)
[2017-06-24] MEDS ORDERED: BENZONATATE 100 MG CAPSULE PO ONE (02:30)
[2017-06-24 05:04] LABS: MEAN CORPUSCULAR VOLUME 105 fl (80-97)
[2017-06-24] MEDS: ACETAMINOPHEN 325 MG TABLET PO PRN (05:10)
[2017-06-24 05:11] LABS: ABSOLUTE LYMPHOCYTES (AUTO) 1.2 10^3/uL (0.5-4.7); ABSOLUTE MONOCYTES (AUTO) 0.7 10^3/uL (0.1-1.4); ABSOLUTE NEUT (AUTO) 10.1 10^3/uL (1.7-8.2); BASOPHILS % (AUTO) 0.1 % (0-2); HEMATOCRIT 36.1 % (37.9-51.0); HGB HCT DIFFERENCE 1.4; MEAN CORPUSCULAR HEMOGLOBIN 36.3 pg (27.0-33.4); MEAN CORPUSCULAR HGB CONC 34.6 g/dL (32.0-36.0); MONOCYTES % (AUTO) 5.8 % (3-13); RED BLOOD COUNT 3.43 10^6/uL (4.35-5.55); RED CELL DISTRIBUTION WIDTH 13.7 % (11.5-14.0); SEGMENTED NEUTROPHILS % (AUTO) 84.1 % (42-78)
[2017-06-24] MEDS: HEPARIN SOD (PORCINE) 5,000 UNIT/ML 1 ML SYRINGE SUBCUT SCH (05:11)
[2017-06-24 05:13] LABS: HEMOGLOBIN 12.5 g/dL (13.5-17.0)
[2017-06-24 05:30] LABS: ANION GAP 12 (5-19); BLOOD UREA NITROGEN 14 mg/dL (7-20); CALCIUM 8.3 mg/dL (8.4-10.2); CARBON DIOXIDE 18 mmol/L (22-30); CHLORIDE 111 mmol/L (98-107); CREATININE RESULT 0.71 mg/dL (0.52-1.25); GLUCOSE 118 mg/dL (75-110); POTASSIUM 4.4 mmol/L (3.6-5.0); SODIUM 140.7 mmol/L (137-145)
[2017-06-24] MEDS ORDERED: BENZONATATE 100 MG CAPSULE PO SCH (06:00)
[2017-06-24] MEDS: LISINOPRIL 5 MG TABLET PO SCH (09:30)
[2017-06-24] MEDS: DOXYCYCLINE HYCLATE 100 MG TABLET PO SCH (09:30)
[2017-06-24] MEDS: CLOPIDOGREL BISULFATE 75 MG TABLET PO SCH (09:32)
[2017-06-24] MEDS: PREDNISONE 20 MG TABLET PO SCH ×2 (09:32→09:33)
[2017-06-24] MEDS: GUAIFENESIN 600 MG TABLET.SA PO SCH (09:32)
[2017-06-24 12:34] VITALS: BP 154/82
--- NOTE | 2017-06-24 13:53 | PDOC DISCHARGE SUMMARY ---
General - Admit/Disc Date/PCP Admission Date/Primary Care Provider: 06/23/17 04:11 JOSESITO TRIPLETT MD Discharge Date: 06/24/17 - HOME - Discharge Diagnosis (1) Acute bronchitis Summary: Chest x-ray with no infiltrate. Patient has remained afebrile with no leukocytosis. Continue doxycycline and nebs (2) Altered mental status Is this a current diagnosis for this admission?: Yes Summary: Resolved. (3) Chest pain Summary: Chest pain patient with no coronary artery disease. Pleuritic. ACS ruled out with negative serial troponins. D-dimer within normal limits. Recommend outpatient follow-up with cardiology (4) Dehydration Is this a current diagnosis for this admission?: Yes Summary: Resolved with IV fluids (5) Diastolic CHF, chronic Is this a current diagnosis for this admission?: Yes Summary: Stable. Continue current management (6) Hypertension Is this a current diagnosis for this admission?: Yes Summary: BP is stable. Continue current management - Additional Information Resuscitation Status: Do Not Resuscitate Discharge Diet: Cardiac Discharge Activity: Activity As Tolerated Home Medications: Budesonide/Formoterol Fumarate [Symbicort HFA 160-4.5 mcg Inhaler 6 gm] 2 puff IH Q12 06/23/17 Donepezil HCl [Aricept] 10 mg PO QPM 06/23/17 Gabapentin [Neurontin] 600 mg PO QHS 06/23/17 Lisinopril [Prinivil 2.5 mg Tablet] 2.5 mg PO DAILY 06/23/17 Prednisone [Deltasone 10 mg Tablet] 10 mg PO DAILY 06/23/17 Clopidogrel Bisulfate [Plavix 75 mg Tablet] 75 mg PO DAILY tablet 06/24/17 Doxycycline Hyclate [Vibramycin 100 mg Tablet] 100 mg PO Q12 #14 tablet Guaifenesin [Mucinex Sr 600 mg Tablet.sa] 600 mg PO Q12 #30 tablet.sa 06/24/17 History of Present Illness Patient complains of: Shortness of breath, pleuritic chest pain, worsening productive cough History of Present Illness: GÉNESIS DANIELLE is a 72 year old male with past medical history of coronary artery disease status post CABG, dyslipidemia hypertension, obstructive sleep apnea, ischemic CVA, migraine headache, presented with complaints of shortness of breath and pleuritic chest pain with worsening productive cough of 2 days duration. Was noted to have some confusion. Due to this and concern of shortness of breath and chest pain, EMS was called. Family was concerned that the symptoms were similar to those of his previous TIA symptoms. Patient does have chronic sternal chest pain due to retained hardware use during last cardiac surgery in 2009. Physical Exam Vital Signs: Temp Pulse Resp BP Pulse Ox 97.6 F 59 L 18 160/70 H 98 06/24/17 07:48 06/24/17 07:48 06/24/17 07:48 06/24/17 07:48 06/24/17 07:48 Intake & Output 06/23/17 06/24/17 06/25/17 06:59 06:59 06:59 Intake Total 120 1907 Output Total 150 2845 Balance -30 -938 Weight 72.6 kg 72 kg General appearance: PRESENT: no acute distress, cooperative, disheveled, thin Head exam: PRESENT: atraumatic, normocephalic Eye exam: PRESENT: conjunctiva pink, EOMI Teeth exam: PRESENT: poor dentation Respiratory exam: PRESENT: clear to auscultation ruben, symmetrical, unlabored Cardiovascular exam: PRESENT: RRR, +S1, +S2 GI/Abdominal exam: PRESENT: normal bowel sounds, soft Neurological exam: PRESENT: alert, awake, oriented to person, oriented to place , oriented to time, oriented to situation, reflexes normal, CN II-XII grossly intact Psychiatric exam: PRESENT: normal mood Results Laboratory Results: 06/24/17 03:50 06/24/17 03:50 06/24/17 06/24/17 03:50 03:50 WBC 12.0 H RBC 3.43 L Hgb 12.5 L D Hct 36.1 L MCV 105 H MCH 36.3 H MCHC 34.6 RDW 13.7 Plt Count 136 L Seg Neutrophils % 84.1 H Lymphocytes % 10.0 L Monocytes % 5.8 Eosinophils % 0.0 Basophils % 0.1 Absolute Neutrophils 10.1 H Absolute Lymphocytes 1.2 Absolute Monocytes 0.7 Absolute Eosinophils 0.0 Absolute Basophils 0.0 Sodium 140.7 Potassium 4.4 Chloride 111 H Carbon Dioxide 18 L Anion Gap 12 BUN 14 Creatinine 0.71 Est GFR ( Amer) > 60 Est GFR (Non-Af Amer) > 60 Glucose 118 H Calcium 8.3 L 06/23/17 06/23/17 06/23/17 09:39 15:46 21:46 Troponin I < 0.012 < 0.012 < 0.012 06/24/17 03:50 Troponin I < 0.012 Impressions: Chest X-Ray 06/22/17 23:57 IMPRESSION: 1. No acute pulmonary process identified. Head CT 06/23/17 00:33 IMPRESSION: 1. No acute intracranial abnormality by CT criteria. This exam was performed according to our departmental dose-optimization program, which includes automated exposure control, adjustment of the mA and/or kV according to patient size and/or use of iterative reconstruction technique. Qualifiers PATEINT BEING DISCHARGED WITH ANY OF THE FOLLOWING DIAGNOSIS?: No Plan Time Spent: Greater than 30 Minutes
== END 2017-06-24 13:26 | disposition home or self-care (01) ==
LOC: ER 23:29 → EH 06-23 04:11 → 4S 06-23 05:01
PROVIDERS: ADMIT Family Medicine; ATTEND Family Medicine
PROC: 3E0F7GC Introduction of Other Therapeutic Substance into Respiratory Tract, Via Natural or Artificial Opening (ICD-10-PCS; principal; 2017-06-23)
DX: J20.9 Acute bronchitis, unspecified (principal); R41.0 Disorientation, unspecified; R07.81 Pleurodynia; E86.0 Dehydration; I11.0 Hypertensive heart disease with heart failure; I50.32 Chronic diastolic (congestive) heart failure; I25.10 Atherosclerotic heart disease of native coronary artery without angina pectoris; F03.90 Unspecified dementia, unspecified severity, without behavioral disturbance, psychotic disturbance, mood disturbance, and anxiety; E53.8 Deficiency of other specified B group vitamins; I25.2 Old myocardial infarction; I69.351 Hemiplegia and hemiparesis following cerebral infarction affecting right dominant side; Z95.1 Presence of aortocoronary bypass graft; Z66 Do not resuscitate; Z79.899 Other long term (current) drug therapy; Z82.49 Family history of ischemic heart disease and other diseases of the circulatory system; Z79.02 Long term (current) use of antithrombotics/antiplatelets; X08.8XXS Exposure to other specified smoke, fire and flames, sequela; Z85.828 Personal history of other malignant neoplasm of skin; Z57.5 Occupational exposure to toxic agents in other industries
CPT/HCPCS: 93005; 94640 ×2; 99285; 36415 ×2; 87040; 82553; 82550; 85025 ×2; 80048; 80053; 81001; 84484 ×2; 80307; 85379; 82803; 71010; 70450; 94799; 93010; 97110; 97163; 97167; G0378 ×2; A9270 ×15; J1644 ×2; J1885; J3490 ×3; J7030; G8978; G8979; G8987; G8988; J7512

== ENCOUNTER 2017-08-18 10:31 | Emergency (ER) | payer MEDICARE ==
--- NOTE | 2017-08-18 10:54 | ER Document Report ---
ED General - General Chief Complaint: General Weakness Stated Complaint: WEAKNESS Time Seen by Provider: 08/18/17 10:51 Notes: The patient is a 72 year old male with past medical history of coronary artery disease status post CABG, dyslipidemia hypertension, obstructive sleep apnea, ischemic CVA, migraine headache, presents with generalized malaise over the past day and a half. He was walking yesterday, tripped, fell and hit the front of his head. He is having a frontal headache now. Patient denies focal weakness, numbness, tingling, LOC, blood thinner use, chest pain, shortness of breath, fevers or open wounds. TRAVEL OUTSIDE OF THE [place] IN LAST 30 DAYS: No - Related Data Allergies/Adverse Reactions: iodine [Iodine] Allergy (Unknown, Verified 11/12/16 09:17) meperidine HCl [From Demerol] Allergy (Unknown, Verified 11/12/16 09:17) acetaminophen [From Percocet] Allergy (Verified 11/12/16 09:17) oxycodone [From Percocet] Allergy (Verified 11/12/16 09:17) Penicillins Allergy (Verified 11/12/16 09:17) aspirin [Aspirin] Adverse Reaction (Severe, Verified 11/12/16 09:17) Hemorrhage Past Medical History - General Information source: Patient, Relative - Social History Smoking Status: Current Every Day Smoker Family History: None - Patient denies any illness - Past Medical History Cardiac Medical History: Reports: Hx Coronary Artery Disease, Hx Heart Attack - post CABG, Hx Hypercholesterolemia, Hx Hypertension Denies: Hx Heart Murmur Pulmonary Medical History: Reports: Hx Pneumonia - 2009 Denies: Hx Respiratory Failure, Hx Sleep Apnea, Hx Tuberculosis Neurological Medical History: Reports: Hx Cerebrovascular Accident - R sided weakness, memory loss, Hx Migraine Endocrine Medical History: Renal/ Medical History: Reports: Hx Kidney Stones. Denies: Hx Peritoneal Dialysis Malignancy Medical History: Reports Hx Skin Cancer GI Medical History: Reports: Hx Hiatal Hernia - repair 15years ago, LLQ, Hx Ulcer. Denies: Hx Pancreatitis Musculoskeltal Medical History: Reports Hx Arthritis, Reports Hx Musculoskeletal Deformity, Reports Hx Musculoskeletal Trauma Psychiatric Medical History: Reports: Hx Dementia - mild, Hx Depression Traumatic Medical History: Reports: Hx Fractures, Hx Spine Fracture Infectious Medical History: Past Surgical History: Reports: Hx Abdominal Surgery - HERNIA REPAIR, Hx Cardiac Catheterization, Hx Cardiac Surgery - bypass, stents, CABG, Hx Coronary Artery Bypass Graft - 4 vessel 1996, Hx Coronary Stent, Hx Genitourinary Surgery - penis removed CA, Hx Inguinal Hernia, Hx Orthopedic Surgery - SPINAL FUSION, spinal decompression, Hx Urinary Tract Surgery - penis removed surgically for CA - Immunizations Immunizations up to date: Yes Hx Diphtheria, Pertussis, Tetanus Vaccination: Yes - UTD Hx Pneumococcal Vaccination: 10/07/11 Review of Systems - Review of Systems Notes: REVIEW OF SYSTEMS: CONSTITUTIONAL: -fevers, -chills EENT: -eye pain, -difficulty swallowing, -nasal congestion CARDIOVASCULAR: -chest pain, -syncope. RESPIRATORY: -cough, -SOB GASTROINTESTINAL: -abdominal pain, -nausea, -vomiting, -diarrhea GENITOURINARY: -dysuria, -hematuria MUSCULOSKELETAL: -back pain, -neck pain SKIN: -rash or skin lesions. HEMATOLOGIC: -easy bruising or bleeding. LYMPHATIC: -swollen, enlarged glands. NEUROLOGICAL: -altered mental status or loss of consciousness, +headache, - neurologic symptoms PSYCHIATRIC: -anxiety, -depression. ALL OTHER SYSTEMS REVIEWED AND NEGATIVE. Physical Exam - Vital signs Vitals: Resp Pulse Ox 17 96 08/18/17 10:57 08/18/17 10:57 - Notes Notes: PHYSICAL EXAMINATION: GENERAL: Well-appearing, well-nourished and in no acute distress. HEAD: Atraumatic, normocephalic. EYES: Pupils equal round and reactive to light, extraocular movements intact, sclera anicteric, conjunctiva are normal. ENT: nares patent, oropharynx clear without exudates. Moist mucous membranes. NECK: Normal range of motion, supple without lymphadenopathy LUNGS: Breath sounds clear to auscultation bilaterally and equal. No wheezes rales or rhonchi. HEART: Regular rate and rhythm without murmurs ABDOMEN: Soft, nontender, normoactive bowel sounds. No guarding, no rebound. No masses appreciated. EXTREMITIES: Normal range of motion, no pitting or edema. No cyanosis. NEUROLOGICAL: Cranial nerves grossly intact. Normal speech, normal gait. Normal sensory and motor exams. PSYCH: Normal mood, normal affect. SKIN: Chronic erythematous skin papules. Course - Re-evaluation Re-evalutation: Patient appears well. His head CT does not show any acute bleeds or skull fractures and blood work is unremarkable, other than slight evidence of dehydration with an elevated BUN. Patient was provided with IV fluids, Reglan, Benadryl and Toradol and his headache completely resolved. Instructed him to stay hydrated and follow-up with his primary care physician for further evaluation and treatment. - Vital Signs Vital signs: Temp Pulse Resp BP Pulse Ox 21 H 131/77 H 97 08/18/17 13:01 08/18/17 13:01 08/18/17 13:01 - Laboratory Result Diagrams: 08/18/17 10:55 08/18/17 10:55 Laboratory results interpreted by me: 08/18/17 08/18/17 10:55 10:55 RBC 3.43 L Hgb 12.4 L Hct 36.3 L MCV 106 H MCH 36.1 H RDW 14.3 H Monocytes % 14.6 H Chloride 109 H BUN 44 H AST 14 L Total Protein 5.5 L Albumin 3.2 L - Diagnostic Test Radiology reviewed: Image reviewed, Reports reviewed Radiology results interpreted by me: CXR: NAD CT Head: NAD - EKG Interpretation by Me EKG shows normal: Sinus rhythm, [place], Intervals, QRS Complexes, ST-T Waves Rate: Normal Discharge - Discharge Clinical Impression: Generalized weakness Contusion of head Qualifiers: Encounter type: initial encounter Contusion of head detail: scalp Qualified Code(s): S00.03XA - Contusion of scalp, initial encounter Condition: Stable Disposition: HOME, SELF-CARE Additional Instructions: Contusion Your injury has resulted in a contusion -- a crushing of the deep tissues. No injury to important structures was detected during the physician's exam. Contusions vary in the amount of pain they cause, and in the length of time required for healing. Typically, the area will become bruised, and will remain painful to touch for two or three weeks. However, most patients are back to working and playing within a few days. After the initial period of rest and cold-packs, your symptoms (together with the doctor's recommendations) will determine how rapidly you can get back to full activity. Usually this means "do what feels okay, but don't do things that hurt." If re-examination was recommended, it's important to follow up as instructed. Call the doctor or return any time if pain increases, if swelling becomes severe, if you develop numbness or weakness in an injured extremity, or if any other alarming symptoms occur. HEADACHE: The physician does not feel that the headache you are experiencing has a serious underlying cause. Most headaches are due to emotional stress, with resultant muscle tension (tension headache). Occasionally, headaches are secondary to changes in the blood vessels of the scalp (vascular headache and migraine headache). Sometimes, a headache is the first symptom of another developing illness, such as a viral infection. You have no evidence of stroke, bleeding, meningitis, or other serious cause of your headache. The treatment of headaches varies with the severity and cause of the pain. Not all headaches need pain shots. In fact, there is evidence that using narcotics for headaches may make them worse in the long run. The physician will determine the therapy that's in your best interest. If you develop a fever, if the headache is different from any you've previously experienced, or if the headache progressively worsens, then call your physician at once or go to the emergency room. REGLAN (METOCLOPRAMIDE): Reglan has been prescribed. This medicine affects the stomach and intestines. It can be used to treat nausea and vomiting, to prevent reflux of stomach acid up into the esophagus, or to increase the contractions of the stomach and intestines. It is often prescribed for esophagitis, and for paralysis of the stomach in diabetics. Reglan can cause either mild restlessness or drowsiness. You should contact the doctor at once if you become extremely restless, anxious, or cannot sleep, or if you develop uncontrollable motions of the lips, tongue, or jaw. Do not take alcohol with this medicine. Do not drive or operate machinery until you have been taking this medicine long enough to know how it affects you. Call the doctor if you develop abdominal pains, lightheadedness, black stool, or blood in the stool or vomitus. USE OF DIPHENHYDRAMINE: Diphenhydramine (Benadryl) is an antihistamine and has been recommended to help treat your headache and to prevent side effects of other medications used to treat headaches. The medication can be repeated four times daily. Age Elixir (12.5 mg/tsp) 25 mg pill adult 1-2 tabs Antihistamines may cause drowsiness, especially with the first dose. Do not operate machinery or drive while under the effects of the medication. Do not combine the medication with alcohol, or with any other medication without talking to your doctor. FOLLOW-UP CARE: If you have been referred to a physician for follow-up care, call the physician s office for an appointment as you were instructed or within the next two days. If you experience worsening or a significant change in your symptoms, notify the physician immediately or return to the Emergency Department at any time for re-evaluation.
[2017-08-18 11:07] LABS: ABSOLUTE BASOPHILS # (AUTO) 0.1 10^3/uL (0.0-0.2); ABSOLUTE EOSINOPHILS # (AUTO) 0.2 10^3/uL (0.0-0.6); ABSOLUTE LYMPHOCYTES (AUTO) 2.5 10^3/uL (0.5-4.7); ABSOLUTE MONOCYTES (AUTO) 1.4 10^3/uL (0.1-1.4); ABSOLUTE NEUT (AUTO) 5.6 10^3/uL (1.7-8.2); BASOPHILS % (AUTO) 0.8 % (0-2); EOSINOPHILS % (AUTO) 2.2 % (0-6); HEMATOCRIT 36.3 % (37.9-51.0); HEMOGLOBIN 12.4 g/dL (13.5-17.0); LYMPHOCYTES % (AUTO) 25.7 % (13-45); MEAN CORPUSCULAR HEMOGLOBIN 36.1 pg (27.0-33.4); MEAN CORPUSCULAR HGB CONC 34.1 g/dL (32.0-36.0); MEAN CORPUSCULAR VOLUME 106 fl (80-97); MONOCYTES % (AUTO) 14.6 % (3-13); PLATELET COUNT 176 10^3/uL (150-450); RED BLOOD COUNT 3.43 10^6/uL (4.35-5.55); RED CELL DISTRIBUTION WIDTH 14.3 % (11.5-14.0); SEGMENTED NEUTROPHILS % (AUTO) 56.7 % (42-78); TOTAL CELLS COUNTED % (AUTO) 100 %; WHITE BLOOD COUNT 9.8 10^3/uL (4.0-10.5)
[2017-08-18 11:25] LABS: ALANINE AMINOTRANSFERASE 23 U/L (21-72); ALBUMIN 3.2 g/dL (3.5-5.0); ALKALINE PHOSPHATASE 46 U/L (38-126); ANION GAP 10 (5-19); ASPARTATE AMINO TRANSFERASE 14 U/L (17-59); BILIRUBIN,DIRECT 0.2 mg/dL (0.0-0.4); BILIRUBIN,TOTAL 0.5 mg/dL (0.2-1.3); BLOOD UREA NITROGEN 44 mg/dL (7-20); CALCIUM 8.4 mg/dL (8.4-10.2); CARBON DIOXIDE 24 mmol/L (22-30); CHLORIDE 109 mmol/L (98-107); CREATINE KINASE 59 U/L (55-170); GLUCOSE 83 mg/dL (75-110); POTASSIUM 4.1 mmol/L (3.6-5.0); SODIUM 143.1 mmol/L (137-145); TOTAL PROTEIN 5.5 g/dL (6.3-8.2)
[2017-08-18] MEDS ORDERED: METOCLOPRAMIDE HCL INJ/PF 10 MG/2 ML SDV IV ONE (11:32)
[2017-08-18] MEDS ORDERED: NORMAL SALINE 1000 ML 1,000 ML IV PRN (11:32)
[2017-08-18] MEDS ORDERED: DIPHENHYDRAMINE HCL 50 MG/ML VIAL IV ONE (11:32)
--- NOTE | 2017-08-18 11:45 | RADIOLOGY REPORT (SQ) ---
EXAM DESCRIPTION: CHEST SINGLE VIEW COMPLETED DATE/TIME: 08/18/2017 11:11 am REASON FOR STUDY: weakness COMPARISON: AP chest 06/23/2017, 10/18/2016, 10/05/2016 EXAM PARAMETERS: NUMBER OF VIEWS: One view. TECHNIQUE: Single frontal radiographic view of the chest acquired. RADIATION DOSE: NA LIMITATIONS: None. FINDINGS: LUNGS AND PLEURA: No opacities, masses or pneumothorax. No pleural effusion. MEDIASTINUM AND HILAR STRUCTURES: No masses. Contour normal. HEART AND VASCULAR STRUCTURES: No cardiomegaly. Old sternotomy and CABG. BONES: Old lower cervical fusion. HARDWARE: None in the chest. OTHER: No other significant finding. IMPRESSION: NO ACUTE RADIOGRAPHIC FINDING IN THE CHEST. TECHNICAL DOCUMENTATION: JOB ID: [id number] [employer]- All Rights Reserved
--- NOTE | 2017-08-18 11:49 | RADIOLOGY REPORT (SQ) ---
EXAM DESCRIPTION: CT HEAD WITHOUT COMPLETED DATE/TIME: 08/18/2017 11:35 am REASON FOR STUDY: fall, head injury, AMS COMPARISON: [address] brain exams 08/25/2007, most recently 06/23/2017 TECHNIQUE: Axial images acquired through the brain without intravenous contrast. Images reviewed wi th bone, brain and subdural windows. Images stored on PACS. All CT scanners at this facility use dose modulation, iterative reconstruction, and/or weight based d osing when appropriate to reduce radiation dose to as low as reasonably achievable (ALARA). [facility]: Dose Right [facility]: CareDose [facility]: Dose Right [facility]: Teradose 4D [facility]: [employer] RADIATION DOSE: CT Rad equipment meets quality standard of care and radiation dose reduction techniq ues were employed. CTDIvol: 64.6 mGy. DLP: 1163 mGy-cm. mGy. LIMITATIONS: None. FINDINGS: VENTRICLES: Normal size and contour. CEREBRUM: No masses. No hemorrhage. No midline shift. No evidence for acute infarction. Few scatte red areas of low density in the white matter most likely chronic small vessel ischemic changes. CEREBELLUM: No masses. No hemorrhage. No alteration of density. No evidence for acute infarction. EXTRAAXIAL SPACES: No fluid collections. No masses. ORBITS AND GLOBE: No intra- or extraconal masses. Normal contour of globe without masses. CALVARIUM: No fracture. PARANASAL SINUSES: No fluid or mucosal thickening. SOFT TISSUES: No mass or hematoma. OTHER: No other significant finding. IMPRESSION: NORMAL BRAIN CT WITHOUT CONTRAST. EVIDENCE OF ACUTE STROKE: NO. COMMENT: Quality ID # [id number]: Final reports with documentation of one or more dose reduction techniques (e.g., Automated exposure control, adjustment of the mA and/or kV according to patient size, use of iterative reconstruction technique) TECHNICAL DOCUMENTATION: JOB ID: [id number] [employer]- All Rights Reserved
[2017-08-18] MEDS ORDERED: KETOROLAC TROMETHAMINE INJ/PF 30 MG/1 ML SDV IV ONE (12:50)
[2017-08-18 14:02] VITALS: BP 131/77
--- NOTE | 2017-08-18 18:52 | EKG REPORT ---
SEVERITY:- ABNORMAL ECG - SINUS RHYTHM ATRIAL PREMATURE COMPLEX LEFT ANTERIOR FASCICULAR BLOCK PROBABLE LVH WITH SECONDARY REPOL ABNRM : Confirmed by: Jonny Tabares MD 18-Aug-2017 18:51:27
== END 2017-08-18 14:02 | disposition home or self-care (01) ==
LOC: ER 10:31
DX: S00.03XA Contusion of scalp, initial encounter (principal); W01.10XA Fall on same level from slipping, tripping and stumbling with subsequent striking against unspecified object, initial encounter; F17.200 Nicotine dependence, unspecified, uncomplicated; I10 Essential (primary) hypertension; Z95.1 Presence of aortocoronary bypass graft; Z88.0 Allergy status to penicillin; Z88.6 Allergy status to analgesic agent; Z98.1 Arthrodesis status; I69.351 Hemiplegia and hemiparesis following cerebral infarction affecting right dominant side
CPT/HCPCS: 93005; 99285; 96361; 96374; 96375; 36415; 82550; 85025; 80053; 84484; 71045; 70450; 93010; J1200; J1885; J2765; J7030

== ENCOUNTER 2018-02-23 07:51 | Inpatient (IN) | payer MEDICARE ==
[2018-02-23 08:14] LABS: ABSOLUTE EOSINOPHILS # (AUTO) 0.3 10^3/uL (0.0-0.6); ABSOLUTE LYMPHOCYTES (AUTO) 1.9 10^3/uL (0.5-4.7); ABSOLUTE MONOCYTES (AUTO) 0.8 10^3/uL (0.1-1.4); ABSOLUTE NEUT (AUTO) 6.6 10^3/uL (1.7-8.2); BASOPHILS % (AUTO) 0.5 % (0-2); EOSINOPHILS % (AUTO) 2.7 % (0-6); HEMATOCRIT 38.2 % (37.9-51.0); HEMOGLOBIN 13.3 g/dL (13.5-17.0); LYMPHOCYTES % (AUTO) 19.4 % (13-45); MEAN CORPUSCULAR HEMOGLOBIN 35.7 pg (27.0-33.4); MEAN CORPUSCULAR HGB CONC 34.9 g/dL (32.0-36.0); MEAN CORPUSCULAR VOLUME 102 fl (80-97); MONOCYTES % (AUTO) 8.1 % (3-13); PLATELET COUNT 170 10^3/uL (150-450); RED BLOOD COUNT 3.73 10^6/uL (4.35-5.55); RED CELL DISTRIBUTION WIDTH 14.8 % (11.5-14.0); SEGMENTED NEUTROPHILS % (AUTO) 69.3 % (42-78); TOTAL CELLS COUNTED % (AUTO) 100 %; WHITE BLOOD COUNT 9.6 10^3/uL (4.0-10.5)
[2018-02-23 08:16] LABS: VENOUS BLOOD BASE EXCESS 0.4 mmol/L; VENOUS BLOOD HCO3 26.6 mmol/L (20-32); VENOUS BLOOD PCO2 49.3 mmHg (35-63); VENOUS BLOOD PH 7.35 (7.30-7.42)
[2018-02-23 08:19] LABS: INTERNATIONAL RATION (INR) 0.95; PROTHROMBIN TIME 13.1 SEC (11.4-15.4)
--- NOTE | 2018-02-23 08:33 | RADIOLOGY REPORT (SQ) ---
EXAM DESCRIPTION: CHEST SINGLE VIEW COMPLETED DATE/TIME: 02/23/2018 8:21 am REASON FOR STUDY: bed 2 sepsis COMPARISON: Chest films 08/18/2017, 06/23/2017, 10/05/2016 EXAM PARAMETERS: NUMBER OF VIEWS: One view. TECHNIQUE: Single frontal radiographic view of the chest acquired. RADIATION DOSE: NA LIMITATIONS: None. FINDINGS: LUNGS AND PLEURA: Minimal bibasilar atelectasis. No pleural effusion. No pneumothorax. MEDIASTINUM AND HILAR STRUCTURES: No masses. Contour normal. HEART AND VASCULAR STRUCTURES: Stable mild cardiomegaly, old sternotomy and CABG. BONES: No acute findings. HARDWARE: Lower cervical fusion hardware. OTHER: No other significant finding. IMPRESSION: Bibasilar atelectasis. Stable mild cardiomegaly with old CABG TECHNICAL DOCUMENTATION: JOB ID: [id number]- All Rights Reserved Reading location - IP/workstation name: [email or web address]
[2018-02-23 08:37] LABS: ALANINE AMINOTRANSFERASE 24 U/L (21-72); ALBUMIN 3.4 g/dL (3.5-5.0); ALKALINE PHOSPHATASE 66 U/L (38-126); ANION GAP 9 (5-19); ASPARTATE AMINO TRANSFERASE 17 U/L (17-59); BILIRUBIN,DIRECT 0.2 mg/dL (0.0-0.4); BLOOD UREA NITROGEN 10 mg/dL (7-20); CALCIUM 8.4 mg/dL (8.4-10.2); CARBON DIOXIDE 27 mmol/L (22-30); CHLORIDE 106 mmol/L (98-107); GLUCOSE 89 mg/dL (75-110); POTASSIUM 4.1 mmol/L (3.6-5.0); SODIUM 141.8 mmol/L (137-145); TOTAL PROTEIN 6.1 g/dL (6.3-8.2)
[2018-02-23] MEDS ORDERED: ACETAMINOPHEN 325 MG TABLET PO ONE (09:34)
[2018-02-23] MEDS ORDERED: NORMAL SALINE 1000 ML 1,000 ML IV ONE (09:34)
[2018-02-23] MEDS ORDERED: METOCLOPRAMIDE HCL INJ/PF 10 MG/2 ML SDV IV ONE (09:34)
[2018-02-23] MEDS ORDERED: IBUPROFEN 800 MG TABLET PO ONE (09:35)
[2018-02-23 10:48] LABS: APPEARANCE,URINE CLEAR; BILIRUBIN,URINE NEGATIVE (NEGATIVE); COLOR,URINE YELLOW; GLUCOSE, URINE NEGATIVE (NEGATIVE); KETONES,URINE NEGATIVE (NEGATIVE); LEUKOCYTE ESTERASE,URINE NEGATIVE (NEGATIVE); NITRITE,URINE NEGATIVE (NEGATIVE); PROTEIN,URINE NEGATIVE (NEGATIVE); URINE SPECIFIC GRAVITY 1.011; UROBILINOGEN,URINE NEGATIVE mg/dL (<2.0)
--- NOTE | 2018-02-23 13:39 | RADIOLOGY REPORT (SQ) ---
EXAM DESCRIPTION: CT HEAD WITHOUT COMPLETED DATE/TIME: 02/23/2018 1:22 pm REASON FOR STUDY: n/v/d abd pain, hx of colon cancer, headache COMPARISON: For previous studies most recent of which was 08/18/2017 TECHNIQUE: Axial images acquired through the brain without intravenous contrast. Images reviewed wi th bone, brain and subdural windows. Additional sagittal and coronal reconstructions were generated. Images stored on PACS. All CT scanners at this facility use dose modulation, iterative reconstruction, and/or weight based d osing when appropriate to reduce radiation dose to as low as reasonably achievable (ALARA). [facility]: Dose Right [facility]: CareDose [facility]: Dose Right [facility]: Teradose 4D [facility]: [employer] RADIATION DOSE: CT Rad equipment meets quality standard of care and radiation dose reduction techniq ues were employed. CTDIvol: 48.7 mGy. DLP: 979 mGy-cm. mGy. LIMITATIONS: None. FINDINGS: VENTRICLES: Normal size and contour. CEREBRUM: No masses. No hemorrhage. No midline shift. No evidence for acute infarction. Normal gra y/white matter differentiation. No areas of low density in the white matter. CEREBELLUM: No masses. No hemorrhage. No alteration of density. No evidence for acute infarction. EXTRAAXIAL SPACES: No fluid collections. No masses. ORBITS AND GLOBE: No intra- or extraconal masses. Normal contour of globe without masses. CALVARIUM: No fracture. PARANASAL SINUSES: No fluid or mucosal thickening. SOFT TISSUES: No mass or hematoma. OTHER: No other significant finding. IMPRESSION: No significant intracranial abnormalities were identified. No significant interval nieves ges compared to the previous study EVIDENCE OF ACUTE STROKE: NO. COMMENT: Quality ID # 436: Final reports with documentation of one or more dose reduction techniques (e.g., Automated exposure control, adjustment of the mA and/or kV according to patient size, use of iterative reconstruction technique) TECHNICAL DOCUMENTATION: JOB ID: [id number] [employer]- All Rights Reserved Reading location - IP/workstation name: [email or web address]
--- NOTE | 2018-02-23 14:23 | RADIOLOGY REPORT (SQ) ---
EXAM DESCRIPTION: CT ABD/PELVIS ORAL ONLY COMPLETED DATE/TIME: 02/23/2018 1:22 pm REASON FOR STUDY: n/v/d abd pain, hx of colon cancer COMPARISON: October 2013. TECHNIQUE: CT scan of the abdomen and pelvis performed without intravenous or oral contrast. Images reviewed with lung, soft tissue, and bone windows. Reconstructed coronal and sagittal MPR images revi ewed. All images stored on PACS. All CT scanners at this facility use dose modulation, iterative reconstruction, and/or weight based d osing when appropriate to reduce radiation dose to as low as reasonably achievable (ALARA). [facility]: Dose Right [facility]: CareDose [facility]: Dose Right [facility]: Teradose 4D [facility]: Smart [employer] RADIATION DOSE: CT Rad equipment meets quality standard of care and radiation dose reduction techniq ues were employed. CTDIvol: 6.3 mGy. DLP: 360 mGy-cm.mGy. LIMITATIONS: None. FINDINGS: LOWER CHEST: There is some minimal airspace density in the right lung base most consistent with atelectatic changes although I cannot exclude a minimal basilar infiltrate. NON-CONTRASTED LIVER, SPLEEN, ADRENALS: Evaluation limited by lack of IV contrast. No identified sign ificant masses. PANCREAS: No masses. No peripancreatic inflammatory changes. GALLBLADDER: There is somewhat ill-defined increased density in the dependent portion of the gallblad chantel lumen which could represent biliary sludge or tiny gallstones. No inflammatory changes to suggest cholecystitis. RIGHT KIDNEY AND URETER: No suspicious masses. Assessment limited by lack of IV contrast. No signif icant calcifications. No hydronephrosis or hydroureter. LEFT KIDNEY AND URETER: No suspicious masses. Assessment limited by lack of IV contrast. Tiny nonob structing renal calculi are identified No hydronephrosis or hydroureter.. AORTA AND RETROPERITONEUM: No aneurysm. Scattered vascular calcifications are identified. Vascular calcifications are identified at the origin of the celiac axis and SMA AP and renal arteries. Vascul ar calcifications are identified within the superior mesenteric artery. BOWEL AND PERITONEAL CAVITY: No obvious masses or inflammatory changes. No free fluid. APPENDIX: Normal. PELVIS, BLADDER, AND ABDOMINAL WALL:No abnormal masses. No free fluid. Bladder normal. BONES: Degenerative postsurgical changes are identified in the lumbar spine. OTHER: No other significant finding. IMPRESSION: No bowel obstruction is identified. No acute findings. Other findings as noted above. COMMENT: Quality ID # 436: Final reports with documentation of one or more dose reduction techniques (e.g., Automated exposure control, adjustment of the mA and/or kV according to patient size, use of iterative reconstruction technique) TECHNICAL DOCUMENTATION: JOB ID: [id number] [employer]- All Rights Reserved Reading location - IP/workstation name: [email or web address]
[2018-02-23] MEDS ORDERED: AZITHROMYCIN INJ 500 MG VIAL IV ONE (14:43)
[2018-02-23] MEDS ORDERED: KETOROLAC TROMETHAMINE INJ/PF 30 MG/1 ML SDV IV ONE (14:57)
--- NOTE | 2018-02-23 14:57 | ER Document Report ---
ED GI/ - General Chief Complaint: Nausea/Vomiting Stated Complaint: FEVER Time Seen by Provider: 02/23/18 09:18 Mode of Arrival: Medic Information source: Patient Notes: Patient is a 73-year-old male with a history of coronary artery disease, CHF, COPD, hypertension, history of stroke and rheumatoid arthritis, colon cancer who presents to the ER today for 1 day of nausea, vomiting, watery diarrhea, chills and fever at home. Patient had 100.5 temp on the ambulance and they did give him Tylenol on the way here. Patient admits to diffuse abdominal pain. He does have a history of colon cancer her daughter is very concerned about that today. Patient had this years ago and is not currently undergoing any chemo or radiation. He denies any blood in his vomit or stool, recent antibiotics. He does also admit to productive cough TRAVEL OUTSIDE OF THE [place] IN LAST 30 DAYS: No - Related Data Allergies/Adverse Reactions: iodine [Iodine] Allergy (Unknown, Verified 02/23/18 12:37) meperidine HCl [From Demerol] Allergy (Unknown, Verified 02/23/18 12:37) oxycodone [From Percocet] Allergy (Verified 02/23/18 12:37) Penicillins Allergy (Verified 02/23/18 12:37) aspirin [Aspirin] Adverse Reaction (Severe, Verified 02/23/18 12:37) Hemorrhage Past Medical History - General Information source: Patient - Social History Smoking Status: Never Smoker Frequency of alcohol use: None Drug Abuse: None Family History: None - Patient denies any illness Patient has suicidal ideation: No Patient has homicidal ideation: No - Past Medical History Cardiac Medical History: Reports: Hx Coronary Artery Disease, Hx Heart Attack - post CABG, Hx Hypercholesterolemia, Hx Hypertension Denies: Hx Heart Murmur Pulmonary Medical History: Reports: Hx Pneumonia - 2009 Denies: Hx Respiratory Failure, Hx Sleep Apnea, Hx Tuberculosis Neurological Medical History: Reports: Hx Cerebrovascular Accident - R sided weakness, memory loss, Hx Migraine Endocrine Medical History: Renal/ Medical History: Reports: Hx Kidney Stones. Denies: Hx Peritoneal Dialysis Malignancy Medical History: Reports Hx Skin Cancer GI Medical History: Reports: Hx Hiatal Hernia - repair 15years ago, LLQ, Hx Ulcer. Denies: Hx Pancreatitis Musculoskeletal Medical History: Reports Hx Arthritis, Reports Hx Musculoskeletal Deformity, Reports Hx Musculoskeletal Trauma Psychiatric Medical History: Reports: Hx Dementia - mild, Hx Depression Traumatic Medical History: Reports: Hx Fractures, Hx Spine Fracture Infectious Medical History: Past Surgical History: Reports: Hx Abdominal Surgery - HERNIA REPAIR, Hx Cardiac Catheterization, Hx Cardiac Surgery - bypass, stents, CABG, Hx Coronary Artery Bypass Graft - 4 vessel 1995, Hx Coronary Stent, Hx Genitourinary Surgery - penis removed CA, Hx Inguinal Hernia, Hx Orthopedic Surgery - SPINAL FUSION, spinal decompression, Hx Urinary Tract Surgery - penis removed surgically for CA - Immunizations Immunizations up to date: Yes Hx Diphtheria, Pertussis, Tetanus Vaccination: Yes - UTD Hx Pneumococcal Vaccination: 10/07/11 Review of Systems - Review of Systems Constitutional: See HPI EENT: No symptoms reported Cardiovascular: No symptoms reported Respiratory: No symptoms reported Gastrointestinal: See HPI Genitourinary: No symptoms reported Male Genitourinary: No symptoms reported Musculoskeletal: No symptoms reported Skin: No symptoms reported Hematologic/Lymphatic: No symptoms reported Neurological/Psychological: No symptoms reported Physical Exam - Vital signs Vitals: Temp 98.5 F 02/23/18 07:53 - Notes Notes: PHYSICAL EXAMINATION: GENERAL: Mildly ill-appearing, but in no acute distress. HEAD: Atraumatic, normocephalic. EYES: Pupils equal round and reactive to light, extraocular movements intact, sclera anicteric, conjunctiva are normal. ENT: ear canals without erythema or foreign body, TMs pearly guajardo with good bony landmarks, nares patent, oropharynx clear without exudates. Moist mucous membranes. NECK: Normal range of motion, supple without lymphadenopathy LUNGS: CTAB and equal. No wheezes rales or rhonchi. HEART: Regular rate and rhythm without murmurs ABDOMEN: Soft, mild diffuse tenderness. No guarding, no rebound BACK: no vertebral tenderness, normal ROM GI/: no CVA tenderness EXTREMITIES: Normal range of motion, no pitting edema. No cyanosis. NEUROLOGICAL: Cranial nerves grossly intact. Normal sensory/motor exams. PSYCH: Normal mood, normal affect. SKIN: Warm, Dry, normal turgor, no rashes or lesions noted Course - Re-evaluation Re-evalutation: 02/23/18 10:59 Patient has a mildly elevated lipase at 2.1, repeat of 2.3, elevated white blood cell count, possible pneumonia seen on CT of the abdomen today. Urinalysis negative for infection. Patient feels a little better after nausea medication and some fluids given here. I believe patient's symptoms are probably viral in origin although I will treat him with antibiotics for the possible pneumonia that is seen on CT today. TIFFANIE Fernández hospitalist accepts pt for admission - Vital Signs Vital signs: Temp Pulse Resp BP Pulse Ox 97.8 F 70 18 129/58 H 95 02/24/18 08:17 02/24/18 08:17 02/24/18 08:17 02/24/18 08:17 02/24/18 08:17 - Laboratory Result Diagrams: 02/24/18 04:46 02/24/18 04:46 Laboratory results interpreted by me: 02/23/18 02/23/18 02/23/18 07:55 07:55 12:12 RBC 3.73 L Hgb 13.3 L MCV 102 H MCH 35.7 H RDW 14.8 H Lactic Acid 2.3 H Total Protein 6.1 L Albumin 3.4 L Discharge - Discharge Clinical Impression: General weakness, Nausea vomiting and diarrhea Fever Qualifiers: Fever type: unspecified Qualified Code(s): R50.9 - Fever, unspecified Condition: Stable Disposition: ADMITTED OBSERVATION Admitting Provider: Tera - yessenia Unit Admitted: Telemetry
[2018-02-23] MEDS ORDERED: GUAIFENESIN SYRP 200 MG/10 ML UDC PO PRN (17:19)
[2018-02-23] MEDS ORDERED: (PENDING PHARMACY ID) (Donepezil Hcl [Aricept] 10 MG) PO SCH (18:00)
--- NOTE | 2018-02-23 18:41 | PDOC H&P ---
History of Present Illness Admission Date/PCP: 02/23/18 15:29 JOSESITO TRIPLETT MD Patient complains of: abdominal pain, nausea and vomiting, diarrhea History of Present Illness: GÉNESIS DANIELLE is a 73 year old male with a past medical history significant for coronary artery disease status post CABG in the past. 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 He has known hyperlipidemia, hypertension and a history of colon cancer. He has very mild dementia at baseline. The patient presents to the hospital after developing significant abdominal pain associated with an episode of nausea vomiting and diarrhea. He also complains of a cough that he states has been present for several months and he has been told that it is just his COPD. He states that he has been having difficulty for the past year or 2 with swallowing. He states that food gets stuck in his throat and that he frequently gets choked and strangled. He has modified his own diet and only eats chopped and pured foods. He has never mentioned this to a doctor because he really does not go unless he gets sick. He did not think this was anything to worry about. In any event he states that he has been coughing he has been coughing up some sputum. He just feels weak. By the time I have seen the patient is nausea and vomiting has resolved. He states that he would like something to eat and wants to eat some "real food". Past Medical History Cardiac Medical History: Reports: Coronary Artery Disease, Myocardial Infarction - post CABG, Hyperlipidema, Hypertension Denies: Heart Murmur Pulmonary Medical History: Reports: Pneumonia - 2010 Denies: Respiratory Failure, Sleep Apnea, Tuberculosis EENT Medical History: Reports: None Neurological Medical History: Reports: Migraine Endocrine Medical History: Reports: None Renal/ Medical History: Reports: None Malignancy Medical History: Reports: Colorectal Cancer, Skin Cancer Denies: Breast Cancer, Cervical Cancer, Ovarian Cancer GI Medical History: Reports: Hiatal Hernia - repair 15years ago, LLQ Musculoskeltal Medical History: Reports: Arthritis Skin Medical History: Reports: None Psychiatric Medical History: Reports: None, Dementia - mild, Depression Traumatic Medical History: Reports: None Hematology: Denies: Anemia, Hemophilia, Sickle Cell Disease Infectious Medical History: Reports: None Past Surgical History Past Surgical History: Reports: Cardiac Catheterization, Coronary Artery Bypass Graft - 4 vessel 1995, Coronary Stent, Orthopedic Surgery - SPINAL FUSION, spinal decompression Social History Information Source: Patient, Relative Lives with: Family Smoking Status: Never Smoker Frequency of Alcohol Use: None Hx Recreational Drug Use: No Drugs: None Hx Prescription Drug Abuse: No Family History Family History: None - Patient denies any illness Parental Family History Reviewed: Yes Children Family History Reviewed: Yes Sibling(s) Family History Reviewed.: Yes Medication/Allergy Home Medications: Donepezil HCl [Aricept] 10 mg PO QPM 02/23/18 Gabapentin [Neurontin] 600 mg PO QHS 02/23/18 Lisinopril [Prinivil 2.5 mg Tablet] 2.5 mg PO DAILY 02/23/18 Prednisone [Deltasone 5 mg Tablet] 10 mg PO DAILY 02/23/18 Allergies/Adverse Reactions: iodine [Iodine] Allergy (Unknown, Verified 02/23/18 12:37) meperidine HCl [From Demerol] Allergy (Unknown, Verified 02/23/18 12:37) oxycodone [From Percocet] Allergy (Verified 02/23/18 12:37) Penicillins Allergy (Verified 02/23/18 12:37) aspirin [Aspirin] Adverse Reaction (Severe, Verified 02/23/18 12:37) Hemorrhage Review of Systems Constitutional: PRESENT: chills, fever(s), weakness. ABSENT: weight loss Eyes: ABSENT: visual disturbances Ears: ABSENT: hearing changes Nose, Mouth, and Throat: ABSENT: headache(s), mouth pain, sore throat, vertigo Cardiovascular: ABSENT: chest pain, dyspnea on exertion, edema, orthropnea, palpitations Respiratory: PRESENT: cough, dyspnea, sputum Gastrointestinal: PRESENT: abdominal pain, diarrhea, dysphagia - He states that food frequently gets hung in his throat and he chokes. He can only tolerate chopped or pured foods., nausea, vomiting. ABSENT: hematemesis, hematochezia Genitourinary: ABSENT: dysuria, hematuria Musculoskeletal: ABSENT: joint swelling Integumentary: ABSENT: rash, wounds Neurological: ABSENT: abnormal gait, abnormal speech, confusion, dizziness, focal weakness, syncope Endocrine: ABSENT: cold intolerance, heat intolerance, polydipsia, polyuria Hematologic/Lymphatic: ABSENT: easy bleeding, easy bruising Physical Exam Vital Signs: Temp Pulse Resp BP Pulse Ox 97.4 F 59 L 16 121/63 95 02/23/18 17:45 02/23/18 17:45 02/23/18 17:45 02/23/18 17:45 02/23/18 17:54 Pulse Oximeter Continuous Start: 02/23/18 17: 19 Freq: RTQ4 Status: Active Document 02/23/18 17:54 TPO (Rec: 02/23/18 17:55 TPO [email or web address]) Pulse Oximetry Assessment Oxygen Saturation (92-100) 95 Oxygen Delivery Method Room Air Fraction of Inspired Oxygen (FIO2) 21 Equipment Usage Initial Set Up Continuous Pulse Oximeter 24 Hour Charge Charge Now Continuous SpO2 Machine # 11 Intake & Output 02/22/18 02/23/18 02/24/18 06:59 06:59 06:59 Weight 72.6 kg General appearance: PRESENT: thin, other - Chronically ill appearing somewhat disheveled gentleman resting comfortably in no acute distress. However he looks as if he feels quite poorly. Head exam: PRESENT: atraumatic, normocephalic Eye exam: PRESENT: conjunctiva pink, EOMI, PERRLA. ABSENT: scleral icterus Mouth exam: PRESENT: moist, tongue midline Teeth exam: PRESENT: other - The patient has no teeth. He does not wear dentures Neck exam: ABSENT: carotid bruit, JVD, lymphadenopathy, thyromegaly Respiratory exam: PRESENT: rhonchi - The patient has some mild wheezing and scattered rhonchi throughout all lung porter, wheezes Cardiovascular exam: PRESENT: RRR. ABSENT: diastolic murmur, rubs, systolic murmur GI/Abdominal exam: PRESENT: normal bowel sounds, soft. ABSENT: distended, guarding, mass, organolmegaly, rebound, tenderness Rectal exam: PRESENT: deferred Extremities exam: PRESENT: full ROM. ABSENT: calf tenderness, clubbing, pedal edema Musculoskeletal exam: PRESENT: ambulatory Neurological exam: PRESENT: alert, awake, oriented to person, oriented to place , oriented to time, oriented to situation, CN II-XII grossly intact. ABSENT: motor sensory deficit Psychiatric exam: PRESENT: appropriate affect, normal mood. ABSENT: homicidal ideation, suicidal ideation Skin exam: PRESENT: dry, intact, warm. ABSENT: cyanosis, rash Results Impressions: Abdomen/Pelvis CT 02/23/18 00:00 IMPRESSION: No bowel obstruction is identified. No acute findings. Other findings as noted above. Chest X-Ray 02/23/18 07:53 IMPRESSION: Bibasilar atelectasis. 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 No significant interval changes compared to the previous study EVIDENCE OF ACUTE STROKE: NO. Assessment & Plan - Diagnosis (1) Pneumonia Is this a current diagnosis for this admission?: Yes Plan: The patient has had worsening cough for the past several months. He clearly has issues with dysphasia. I suspect the patient has an aspiration pneumonia. Also cannot rule out community acquired pneumonia with gram positives are atypicals. For now I am just going to place the patient on IV Levaquin once a day. We will see how he does over the next 24 hours. We could broaden his antibiotic coverage if he does not improve. I am going to get a CT scan of the chest just to rule out any sort of other process. His CT scan of the abdomen and pelvis revealed a possible early infiltrate in the right lower lobe (2) Dysphagia Is this a current diagnosis for this admission?: Yes Plan: The patient has modified his own diet down to a chopped pured diet on his own due to worsening issues. I am going to get speech therapy to evaluate the patient. I am going to order a barium swallow. He may need further workup depending on what is found. (3) Nausea vomiting and diarrhea Is this a current diagnosis for this admission?: Yes Plan: With associated abdominal pain. CT scan of the abdomen and pelvis was unremarkable. This could be simply a viral gastroenteritis or it could be due to his underlying pneumonia. The patient's nausea and vomiting have resolved. He did have one episode of diarrhea and his stool is been sent to rule out Clostridium difficile infection. The patient wants to eat and states that he is feeling better from a GI standpoint. We will place him on a soft diet for now. (4) GERD (gastroesophageal reflux disease) Is this a current diagnosis for this admission?: Yes Plan: He will be placed on a PPI (5) Coronary artery disease Is this a current diagnosis for this admission?: Yes Plan: The only medication he was on at home was lisinopril. This is currently being held due to the fact that the patient is somewhat hypotensive. (6) Hypertension Is this a current diagnosis for this admission?: Yes Plan: currently the patient is somewhat hypotensive. I am going to hold his lisinopril for now. (7) History of colon cancer Is this a current diagnosis for this admission?: Yes Plan: There was no evidence of recurrence noted on non-contrast CT scan of the abdomen and pelvis. (8) Mild dementia Is this a current diagnosis for this admission?: Yes Plan: Continue a ricept For now. Aricept has been known to cause nausea and up to 9% of the people. We will see how he does over the next 24 hours. We could continue consider discontinuing this if his nausea and vomiting persist (9) Anemia Is this a current diagnosis for this admission?: Yes Plan: The patient has a microcytic anemia the patient has a macrocytic anemia. I am going to obtain an anemia panel in the morning for further evaluation. - Time Time Spent: 50 to 70 Minutes - Inpatient Certification Medical Necessity: Other - The patient will be placed in observation in the hospital. We are going to start treating him for an early pneumonia with IV Levaquin. If he remains stable from a respiratory standpoint and has no further episodes of nausea and vomiting he possibly could be discharged tomorrow afternoon as he is not hypoxic. He does have significant dysphasia and we are going to get a barium swallow. Certainly if we found any further abnormalities his status could be changed to a full admission. At this point his hospitalization could be expected to span less than 2 midnights.
[2018-02-23] MEDS ORDERED: ENOXAPARIN SODIUM INJ 40 MG/0.4 ML DISP.SYRIN SUBCUT ONE (19:30)
[2018-02-23] MEDS: IPRATROPIUM/ALBUTEROL 0.5-2.5 MG/3 ML AMPUL NEB SCH (19:37)
--- NOTE | 2018-02-23 21:48 | RADIOLOGY REPORT (SQ) ---
EXAM DESCRIPTION: CT CHEST WITHOUT COMPLETED DATE/TIME: 02/23/2018 8:39 pm REASON FOR STUDY: cough, r/o pna, hx of colon cancer J15.9 UNSPECIFIED BACTERIAL PNEUMONIA R06.00 DYSPNEA, UNSPECIFIED D50.8 OTHER IRON DEFICIENCY ANEMIAS COMPARISON: None. TECHNIQUE: CT scan performed of the chest without intravenous contrast. Images reviewed with lung, soft tissue and bone windows. Reconstructed coronal and sagittal MPR images reviewed. All images st ored on PACS. All CT scanners at this facility use dose modulation, iterative reconstruction, and/or weight based d osing when appropriate to reduce radiation dose to as low as reasonably achievable (ALARA). [facility]: Dose Right [facility]: CareDose [facility]: Dose Right [facility]: Teradose 4D [facility]: Smart [place] Leather RADIATION DOSE: CT Rad equipment meets quality standard of care and radiation dose reduction techniq ues were employed. CTDIvol: 7.7 - 8.3 mGy. DLP: 648 mGy-cm. mGy. LIMITATIONS: No technical limitations. FINDINGS: LUNGS AND PLEURA: Small areas of posterior right lower lobe airspace disease-subsegmental atelectasis. Scattered interstitial changes and subpleural scarring. Mild centrilobular emphysema. No pleural effusion. No pneumothorax. HILAR AND MEDIASTINAL STRUCTURES: No bulky nodes. No obvious aneurysm. HEART AND VASCULAR STRUCTURES: No aneurysm. No pericardial effusion. UPPER ABDOMEN: No significant findings. Limited exam. THYROID AND OTHER SOFT TISSUES: No masses. No adenopathy. BONES: No acute finding. HARDWARE: CABG. OTHER: No other significant findings. IMPRESSION: Small areas of posterior right lower lobe airspace disease-subsegmental atelectasis. TECHNICAL DOCUMENTATION: JOB ID: [id number] Quality ID # [id number]: Final reports with documentation of one or more dose reduction techniques (e.g., Au tomated exposure control, adjustment of the mA and/or kV according to patient size, use of iterative reconstruction technique) 2010 [employer]- All Rights Reserved Reading location - IP/workstation name: [employer]
[2018-02-23] MEDS: GABAPENTIN 300 MG CAPSULE PO SCH (22:31)
[2018-02-23] MEDS: PREDNISONE 20 MG TABLET PO SCH (22:33)
[2018-02-23] MEDS: DONEPEZIL HCL 5 MG TABLET PO SCH (22:33)
[2018-02-23] MEDS: GUAIFENESIN 600 MG TABLET.SA PO SCH (22:33)
[2018-02-23] MEDS: LEVOFLOXACIN 750 MG/D5W RTU 750 MG/150 ML RTUPB IV SCH (22:34)
[2018-02-23] MEDS: ACETAMINOPHEN 325 MG TABLET PO PRN (22:58)
--- NOTE | 2018-02-23 23:04 | EKG REPORT ---
SEVERITY:- ABNORMAL ECG - SINUS RHYTHM LEFT ANTERIOR FASCICULAR BLOCK PROBABLE LVH WITH SECONDARY REPOL ABNRM : Confirmed by: Danette Sibley 23-Feb-2018 23:03:35
[2018-02-24 05:25] LABS: ABSOLUTE LYMPHOCYTES (AUTO) 0.6 10^3/uL (0.5-4.7); ABSOLUTE MONOCYTES (AUTO) 0.1 10^3/uL (0.1-1.4); ABSOLUTE NEUT (AUTO) 5.6 10^3/uL (1.7-8.2); ABSOLUTE RETICS # 0.047 10^6/uL (0.028-0.122); BASOPHILS % (AUTO) 0.2 % (0-2); EOSINOPHILS % (AUTO) 0.1 % (0-6); HEMATOCRIT 34.5 % (37.9-51.0); LYMPHOCYTES % (AUTO) 9.1 % (13-45); MEAN CORPUSCULAR HEMOGLOBIN 35.5 pg (27.0-33.4); MEAN CORPUSCULAR HGB CONC 34.7 g/dL (32.0-36.0); MEAN CORPUSCULAR VOLUME 103 fl (80-97); MONOCYTES % (AUTO) 1.8 % (3-13); PLATELET COUNT 143 10^3/uL (150-450); RED BLOOD COUNT 3.37 10^6/uL (4.35-5.55); RED CELL DISTRIBUTION WIDTH 14.8 % (11.5-14.0); RETICULOCYTE COUNT (AUTO) 1.39 % (0.66-2.85); SEGMENTED NEUTROPHILS % (AUTO) 88.8 % (42-78); TOTAL CELLS COUNTED % (AUTO) 100 %; WHITE BLOOD COUNT 6.3 10^3/uL (4.0-10.5)
[2018-02-24 05:44] LABS: ANION GAP 10 (5-19); BLOOD UREA NITROGEN 12 mg/dL (7-20); CALCIUM 8.1 mg/dL (8.4-10.2); CARBON DIOXIDE 23 mmol/L (22-30); CHLORIDE 106 mmol/L (98-107); GLUCOSE 122 mg/dL (75-110); IRON(TIBC) 33.1 ug/dL (49-181); POTASSIUM 4.3 mmol/L (3.6-5.0)
[2018-02-24] MEDS: LANSOPRAZOLE 30 MG TAB.RAP.DR PO SCH (06:28)
[2018-02-24 06:49] LABS: FOLATE 4.51 ng/mL (>2.76)
[2018-02-24] MEDS: IPRATROPIUM/ALBUTEROL 0.5-2.5 MG/3 ML AMPUL NEB SCH ×3 (07:57→19:33)
--- NOTE | 2018-02-24 10:15 | RADIOLOGY REPORT (SQ) ---
EXAM DESCRIPTION: BARIUM SWALLOW ESOPHAGUS COMPLETED DATE/TIME: 02/24/2018 9:56 am REASON FOR STUDY: dysphagia, pna J15.9 UNSPECIFIED BACTERIAL PNEUMONIA R06.00 DYSPNEA, UNSPECIFIED D50.8 OTHER IRON DEFICIENCY ANEMIAS COMPARISON: CT chest 02/23/2018 Ventilation-perfusion scan 10/23/2013 TECHNIQUE: Under fluoroscopic guidance, patient ingested effervescent granules followed by thick and thin barium. Fluoroscopic spot images and routine radiographic images acquired and stored on PACS. 12 MM BARIUM TABLET GIVEN: Yes. No significant delay in passage. LIMITATIONS: None. FLUOROSCOPY TIME: FLUORO TIME: 2.1 minutes 12 series of digital images saved to PACS. FINDINGS: NEUROMUSCULAR COORDINATION OF SWALLOW: Normal. No aspiration. ESOPHAGEAL MOTILITY: Normal peristalsis. No esophageal spasm. ESOPHAGEAL MUCOSA: Normal mucosa without masses or ulceration. GASTRO-ESOPHAGEAL JUNCTION: Tiny hiatal hernia with mild gastroesophageal reflux. No significant dis pura esophageal stricture. Barium tablet bypassed this area without difficulty NON-GI TRACT STRUCTURES: Old sternotomyfor CABG OTHER: No other significant finding. IMPRESSION: Tiny hiatal hernia with mild gastroesophageal reflux. No distal esophageal stricture. COMMENT: Quality ID [id number]: Final reports for procedures using fluoroscopy that document radiation exp osure indices, or exposure time and number of fluorographic images (if radiation exposure indices are not available) TECHNICAL DOCUMENTATION: JOB ID: [id number] [employer]- All Rights Reserved Reading location - IP/workstation name: [email or web address]
[2018-02-24] MEDS: GUAIFENESIN 600 MG TABLET.SA PO SCH ×2 (10:31→22:19)
[2018-02-24] MEDS: ENOXAPARIN SODIUM INJ 40 MG/0.4 ML DISP.SYRIN SUBCUT SCH (10:31)
[2018-02-24] MEDS ORDERED: VANCOMYCIN HCL 0 MG in DEXTROSE 5%-WATER 250 ML IV NR (13:30)
[2018-02-24] MEDS: DONEPEZIL HCL 5 MG TABLET PO SCH (17:39)
[2018-02-24] MEDS: VANCOMYCIN HCL 750 MG in DEXTROSE 5%-WATER 250 ML IV SCH (17:40)
[2018-02-24] MEDS: PREDNISONE 20 MG TABLET PO SCH (17:40)
--- NOTE | 2018-02-24 19:19 | PDOC PROGRESS REPORT ---
Subjective Progress Note for:: 02/24/18 Subjective:: Pt feeling ok, breathing better, energy level imp[roving, no fevers, he has hx of righ wrist osteo with MRSA and also daughter points out multiple small erythematous excoriated lesions over all parts of his skin. She states they have look for bedbugs and have not found any, possibly scabies. She thinks they are probably mosquito bites. Reason For Visit: PNEUMONIA Physical Exam Vital Signs: Temp Pulse Resp BP Pulse Ox 98.2 F 82 19 127/67 H 94 02/24/18 16:15 02/24/18 16:15 02/24/18 16:15 02/24/18 16:15 02/24/18 16:15 Intake & Output 02/23/18 02/24/18 02/25/18 06:59 06:59 06:59 Intake Total 300 Balance 300 General appearance: PRESENT: no acute distress, cooperative Head exam: PRESENT: atraumatic, normocephalic Eye exam: ABSENT: conjunctival injection, scleral icterus Ear exam: PRESENT: normal external ear exam. ABSENT: bleeding Respiratory exam: PRESENT: rhonchi, unlabored. ABSENT: rales, wheezes Cardiovascular exam: PRESENT: RRR. ABSENT: systolic murmur Pulses: PRESENT: normal radial pulses GI/Abdominal exam: PRESENT: normal bowel sounds, soft. ABSENT: distended, tenderness Rectal exam: PRESENT: deferred Gentrourinary exam: ABSENT: indwelling catheter Extremities exam: PRESENT: pedal edema Neurological exam: PRESENT: alert, awake, oriented to person, oriented to place , oriented to situation, CN II-XII grossly intact Psychiatric exam: PRESENT: anxious, appropriate affect Skin exam: PRESENT: dry, warm, other - Multiple punctate lesions surrounded by erythema, some excoriated, some scabbed. Results Impressions: Abdomen/Pelvis CT 02/23/18 00:00 IMPRESSION: No bowel obstruction is identified. No acute findings. Other findings as noted above. Chest CT 02/23/18 00:00 IMPRESSION: Small areas of posterior right lower lobe airspace disease- subsegmental atelectasis. Chest X-Ray 02/23/18 07:53 IMPRESSION: Bibasilar atelectasis. 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 No significant interval changes compared to the previous study EVIDENCE OF ACUTE STROKE: NO. Esophagus X-Ray 02/24/18 00:00 IMPRESSION: Tiny hiatal hernia with mild gastroesophageal reflux. No distal esophageal stricture. Assessment & Plan - Diagnosis (1) Pneumonia Is this a current diagnosis for this admission?: Yes Plan: Probably aspiration related. Will continue current antibiotic as patient is feeling significantly better from a respiratory perspective. (2) Gram-positive cocci bacteremia Is this a current diagnosis for this admission?: Yes Plan: Patient had blood cultures drawn on admission. Today one set is growing gram- positive cocci in clusters. I have informed the patient and his family. I have added vancomycin. We will order echocardiogram though there is no murmur on exam. Multiple possible sources as he has a history of osteomyelitis of the right wrist and has multiple skin lesions of unclear etiology. Consider ID consult if indicated. (3) Anemia Is this a current diagnosis for this admission?: Yes Plan: Patient has macrocytic anemia. B12 and folate have been ordered. (4) Dysphagia Is this a current diagnosis for this admission?: Yes Plan: Unclear etiology. Barium swallow and speech therapy eval pending. (5) GERD (gastroesophageal reflux disease) Is this a current diagnosis for this admission?: Yes Plan: Continue PPI. No GERD symptoms today. (6) General weakness Is this a current diagnosis for this admission?: Yes Plan: Could be related to gram-positive cocci bacteremia and. We will continue treatment with vancomycin, will continue to evaluate for underlying source. (7) Hypertension Is this a current diagnosis for this admission?: Yes Plan: Normotensive. Will probably restart his lisinopril tomorrow. (8) Mild dementia Is this a current diagnosis for this admission?: Yes Plan: She is well cared for by family. Daughter and granddaughter at bedside. Will ask if they have needs related to dementia and make sure he has good outpatient follow-up. - Time Time Spent with patient: 25-34 minutes - Inpatient Certification Based on my medical assessment, after consideration of the patient's comorbidities, presenting symptoms, or acuity I expect that the services needed warrant INPATIENT care.: Yes I certify that my determination is in accordance with my understanding of Medicare's requirements for reasonable and necessary INPATIENT services [42 CFR 412.3e].: Yes Medical Necessity: Need for IV Antibiotics
[2018-02-24] MEDS: LEVOFLOXACIN 750 MG/D5W RTU 750 MG/150 ML RTUPB IV SCH (19:56)
[2018-02-24 21:05] LABS: FOLATE 3.49 ng/mL (>2.76)
[2018-02-24] MEDS: GABAPENTIN 300 MG CAPSULE PO SCH (22:19)
[2018-02-25] MEDS: ACETAMINOPHEN 325 MG TABLET PO PRN ×3 (00:12→20:48)
[2018-02-25] MEDS: VANCOMYCIN HCL 750 MG in DEXTROSE 5%-WATER 250 ML IV SCH ×3 (02:32→18:50)
[2018-02-25] MEDS: LANSOPRAZOLE 30 MG TAB.RAP.DR PO SCH (05:35)
[2018-02-25] MEDS: IPRATROPIUM/ALBUTEROL 0.5-2.5 MG/3 ML AMPUL NEB SCH ×3 (07:45→20:15)
[2018-02-25 09:16] LABS: HEMATOCRIT 33.7 % (37.9-51.0); HEMOGLOBIN 11.6 g/dL (13.5-17.0); MEAN CORPUSCULAR HEMOGLOBIN 35.6 pg (27.0-33.4); MEAN CORPUSCULAR HGB CONC 34.5 g/dL (32.0-36.0); MEAN CORPUSCULAR VOLUME 103 fl (80-97); PLATELET COUNT 166 10^3/uL (150-450); RED BLOOD COUNT 3.27 10^6/uL (4.35-5.55); RED CELL DISTRIBUTION WIDTH 15.6 % (11.5-14.0); WHITE BLOOD COUNT 10.2 10^3/uL (4.0-10.5)
[2018-02-25 09:38] LABS: ANION GAP 13 (5-19); BLOOD UREA NITROGEN 11 mg/dL (7-20); CALCIUM 8.5 mg/dL (8.4-10.2); CARBON DIOXIDE 21 mmol/L (22-30); CHLORIDE 106 mmol/L (98-107); GLUCOSE 129 mg/dL (75-110); SODIUM 139.7 mmol/L (137-145)
[2018-02-25] MEDS ORDERED: NORMAL SALINE 1000 ML 1,000 ML IV ONE ×3 (09:49→20:02)
[2018-02-25] MEDS: ENOXAPARIN SODIUM INJ 40 MG/0.4 ML DISP.SYRIN SUBCUT SCH (10:24)
[2018-02-25] MEDS: GUAIFENESIN 600 MG TABLET.SA PO SCH ×2 (10:24→20:49)
[2018-02-25] MEDS ORDERED: IVERMECTIN 3 MG TABLET PO ONE ×2 (15:16)
--- NOTE | 2018-02-25 15:32 | PDOC PROGRESS REPORT ---
Subjective Progress Note for:: 02/25/18 Subjective:: Patient states he feels okay today. His appetite is a little bit better. He does not really have any complaints. No dysuria. Does not feel constipated. No diarrhea. No new aches or pains. His skin lesions are still itching. No fever or chills. No cough. Reason For Visit: PNEUMONIA Physical Exam Vital Signs: Temp Pulse Resp BP Pulse Ox 98.3 F 70 16 142/63 H 97 02/25/18 12:30 02/25/18 14:19 02/25/18 14:19 02/25/18 12:30 02/25/18 14:19 Pulse Oximeter Continuous Start: 02/23/18 17: 19 Freq: RTQ4 Status: Active Document 02/25/18 11:46 TPO (Rec: 02/25/18 11:46 TPO [email or web address]) Pulse Oximetry Assessment Oxygen Saturation (92-100) 95 Oxygen Delivery Method Room Air Fraction of Inspired Oxygen (FIO2) 21 Equipment Usage Equipment in Use Continuous SpO2 Machine # 11 Intake & Output 02/24/18 02/25/18 02/26/18 06:59 06:59 06:59 Intake Total 1647 Output Total 1050 Balance 597 Weight 74.2 kg General appearance: PRESENT: no acute distress, cooperative, thin Head exam: PRESENT: atraumatic, normocephalic Eye exam: ABSENT: conjunctival injection, scleral icterus Ear exam: PRESENT: normal external ear exam Mouth exam: PRESENT: neck supple Respiratory exam: PRESENT: clear to auscultation ruben, unlabored. ABSENT: rales , rhonchi, wheezes Cardiovascular exam: PRESENT: RRR, systolic murmur Pulses: PRESENT: normal radial pulses GI/Abdominal exam: PRESENT: normal bowel sounds, soft. ABSENT: distended, mass , tenderness Rectal exam: PRESENT: deferred Extremities exam: ABSENT: pedal edema Musculoskeletal exam: ABSENT: deformity Neurological exam: PRESENT: alert, altered, oriented to person, oriented to place, oriented to situation, CN II-XII grossly intact Psychiatric exam: PRESENT: appropriate affect. ABSENT: anxious Skin exam: PRESENT: dry, intact, rash, warm Results Laboratory Results: 02/25/18 08:49 02/25/18 08:49 02/24/18 02/24/18 02/25/18 19:10 19:10 08:49 WBC 10.2 RBC 3.27 L Hgb 11.6 L Hct 33.7 L MCV 103 H MCH 35.6 H MCHC 34.5 RDW 15.6 H Plt Count 166 Sodium Potassium Chloride Carbon Dioxide Anion Gap BUN Creatinine Est GFR ( Amer) Est GFR (Non-Af Amer) Glucose Lactic Acid 4.3 H Calcium Vitamin B12 253.0 Folate 3.49 02/25/18 02/25/18 02/25/18 08:49 08:49 14:30 WBC RBC Hgb Hct MCV MCH MCHC RDW Plt Count Sodium 139.7 Potassium 4.0 Chloride 106 Carbon Dioxide 21 L Anion Gap 13 BUN 11 Creatinine 0.61 Est GFR ( Amer) > 60 Est GFR (Non-Af Amer) > 60 Glucose 129 H Lactic Acid 3.5 H 3.4 H Calcium 8.5 Vitamin B12 Folate Impressions: Abdomen/Pelvis CT 02/23/18 00:00 IMPRESSION: No bowel obstruction is identified. No acute findings. Other findings as noted above. Chest CT 02/23/18 00:00 IMPRESSION: Small areas of posterior right lower lobe airspace disease- subsegmental atelectasis. Chest X-Ray 02/23/18 07:53 IMPRESSION: Bibasilar atelectasis. 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 No significant interval changes compared to the previous study EVIDENCE OF ACUTE STROKE: NO. Esophagus X-Ray 02/24/18 00:00 IMPRESSION: Tiny hiatal hernia with mild gastroesophageal reflux. No distal esophageal stricture. Assessment & Plan - Diagnosis (1) Pneumonia Is this a current diagnosis for this admission?: Yes Plan: Patient growing gram-positive cocci in his blood culture 1 set. This reason he is on vancomycin. I am continuing the Levaquin for now until we have more culture data. From a respiratory perspective the patient seems to be doing well. (2) Gram-positive cocci bacteremia Is this a current diagnosis for this admission?: Yes Plan: Yesterday one set of blood cultures grew gram-positive cocci. I started him on IV vancomycin. Recheck the lactate and it was elevated so he is receiving some fluid bolusing and lactic acid level is coming down. Repeat is pending for 1600 after another bolus. Otherwise his vitals are normal. Patient has echocardiogram ordered as, on exam today versus yesterday, I auscultated a systolic murmur. Repeat blood cultures have been ordered. (3) Anemia Is this a current diagnosis for this admission?: Yes Plan: Elevated MCV. B12 and folate are normal. Hemoglobin has a very slight downward trend. No active bleeding. We will continue to follow. (4) Dysphagia Is this a current diagnosis for this admission?: Yes Plan: Patient has dysphasia. Barium swallow results are pending. On admission the thought was that he had an aspiration pneumonia and he will continue on antibiotics for that. Mechanical soft and thin liquids have been ordered. (5) GERD (gastroesophageal reflux disease) Is this a current diagnosis for this admission?: Yes Plan: Stable, continue PPI (6) Hypertension Is this a current diagnosis for this admission?: Yes Plan: Blood pressure has been reasonably good. Not hypotensive. We will continue to monitor and no changes to care today. (7) Skin lesions, generalized Is this a current diagnosis for this admission?: Yes Plan: Patient has itchy skin lesions over his entire body. Family states they have look for bedbugs and have not found any. He has not been treated for scabies and there is some appearance of the raised lesions with surrounding erythema that could be consistent with scabies and so I will treat the patient with 1 dose of ivermectin, 15 mg p.o. 1 and monitor. Will also try topical Benadryl. (8) General weakness Is this a current diagnosis for this admission?: Yes Plan: Patient has multiple medical problems and could be developing general weakness secondary to that though he does now have a gram-positive cocci bacteremia which could absolutely be causing his weakness. We will continue to treat and monitor his abilities/capacities. Fall precautions placed for safety. May need physical therapy assistance. (9) Mild dementia Is this a current diagnosis for this admission?: Yes Plan: We will continue to monitor the patient for safety. Fall precautions placed. - Time Time Spent with patient: 25-34 minutes
[2018-02-25 18:27] LABS: VANCOMYCIN,TROUGH 9.5 ug/mL (5.0-20.0)
[2018-02-25] MEDS: DONEPEZIL HCL 5 MG TABLET PO SCH (18:49)
[2018-02-25] MEDS: PREDNISONE 20 MG TABLET PO SCH (18:50)
[2018-02-25] MEDS ORDERED: NORMAL SALINE 1000 ML 1,000 ML IV PRN (20:03)
[2018-02-25] MEDS: LEVOFLOXACIN 750 MG/D5W RTU 750 MG/150 ML RTUPB IV SCH (20:33)
[2018-02-25] MEDS: GABAPENTIN 300 MG CAPSULE PO SCH (20:49)
[2018-02-25] MEDS ORDERED: MELATONIN 5 MG TABLET PO PRN (21:18)
[2018-02-25] MEDS ORDERED: TEMAZEPAM 15 MG CAPSULE PO ONE (23:00)
[2018-02-26] MEDS: VANCOMYCIN HCL 750 MG in DEXTROSE 5%-WATER 250 ML IV SCH (02:59)
[2018-02-26 04:04] LABS: ANION GAP 8 (5-19); BLOOD UREA NITROGEN 9 mg/dL (7-20); CARBON DIOXIDE 23 mmol/L (22-30); CHLORIDE 110 mmol/L (98-107); GLUCOSE 140 mg/dL (75-110); HEMOGLOBIN 10.4 g/dL (13.5-17.0); MEAN CORPUSCULAR HEMOGLOBIN 36.2 pg (27.0-33.4); MEAN CORPUSCULAR HGB CONC 34.8 g/dL (32.0-36.0); MEAN CORPUSCULAR VOLUME 104 fl (80-97); PLATELET COUNT 150 10^3/uL (150-450); POTASSIUM 4.3 mmol/L (3.6-5.0); RED BLOOD COUNT 2.88 10^6/uL (4.35-5.55); RED CELL DISTRIBUTION WIDTH 15.9 % (11.5-14.0); SODIUM 140.6 mmol/L (137-145); WHITE BLOOD COUNT 6.7 10^3/uL (4.0-10.5)
[2018-02-26] MEDS: LANSOPRAZOLE 30 MG TAB.RAP.DR PO SCH (06:02)
[2018-02-26] MEDS: IPRATROPIUM/ALBUTEROL 0.5-2.5 MG/3 ML AMPUL NEB SCH ×3 (07:46→19:47)
[2018-02-26] MEDS ORDERED: NORMAL SALINE 1000 ML 1,000 ML IV ONE (08:10)
[2018-02-26] MEDS: GUAIFENESIN 600 MG TABLET.SA PO SCH ×2 (09:43→21:57)
[2018-02-26] MEDS: ENOXAPARIN SODIUM INJ 40 MG/0.4 ML DISP.SYRIN SUBCUT SCH (09:43)
[2018-02-26] MEDS: VANCOMYCIN HCL 1,000 MG in DEXTROSE 5%-WATER 250 ML IV SCH ×2 (11:01→17:39)
[2018-02-26] MEDS ORDERED: FUROSEMIDE INJ/PF 20 MG/2 ML SDV IV ONE (11:29)
[2018-02-26] MEDS: ACETAMINOPHEN 325 MG TABLET PO PRN (11:59)
[2018-02-26] MEDS: PREDNISONE 20 MG TABLET PO SCH (17:37)
[2018-02-26] MEDS: DONEPEZIL HCL 5 MG TABLET PO SCH (17:38)
--- NOTE | 2018-02-26 18:13 | PDOC PROGRESS REPORT ---
Subjective Progress Note for:: 02/26/18 Subjective:: Patient is having a little bit of a hard time breathing. No chest pain otherwise. He does not think he has had any fevers. He is very anxious over the fact that his is being brought to the ER. Reason For Visit: PNEUMONIA Physical Exam Vital Signs: Temp Pulse Resp BP Pulse Ox 98.1 F 77 16 127/64 H 96 02/26/18 16:05 02/26/18 16:05 02/26/18 16:05 02/26/18 16:05 02/26/18 16:08 Pulse Oximeter Continuous Start: 02/23/18 17: 19 Freq: RTQ4 Status: Active Document 02/26/18 16:08 TPO (Rec: 02/26/18 16:08 TPO [email or web address]) Pulse Oximetry Assessment Oxygen Saturation (92-100) 96 Oxygen Delivery Method Room Air Fraction of Inspired Oxygen (FIO2) 21 Equipment Usage Equipment in Use Continuous SpO2 Machine # 11 Intake & Output 02/25/18 02/26/18 02/27/18 06:59 06:59 06:59 Intake Total 1647 6768 Output Total 1050 2100 Balance 597 4668 Weight 74.2 kg 74 kg General appearance: PRESENT: mild distress, thin Results Laboratory Results: 02/26/18 03:38 02/26/18 03:38 02/25/18 02/25/18 02/25/18 17:50 17:50 23:50 WBC RBC Hgb Hct MCV MCH MCHC RDW Plt Count Sodium Potassium Chloride Carbon Dioxide Anion Gap BUN Creatinine 0.74 Est GFR ( Amer) > 60 Est GFR (Non-Af Amer) > 60 Glucose Lactic Acid 2.8 H 3.7 H Calcium 02/26/18 02/26/18 02/26/18 03:38 03:38 03:38 WBC 6.7 RBC 2.88 L Hgb 10.4 L Hct 30.0 L MCV 104 H MCH 36.2 H MCHC 34.8 RDW 15.9 H Plt Count 150 Sodium 140.6 Potassium 4.3 Chloride 110 H Carbon Dioxide 23 Anion Gap 8 BUN 9 Creatinine 0.62 Est GFR ( Amer) > 60 Est GFR (Non-Af Amer) > 60 Glucose 140 H Lactic Acid 2.6 H Calcium 8.0 L 02/26/18 13:10 WBC RBC Hgb Hct MCV MCH MCHC RDW Plt Count Sodium Potassium Chloride Carbon Dioxide Anion Gap BUN Creatinine Est GFR ( Amer) Est GFR (Non-Af Amer) Glucose Lactic Acid 2.6 H Calcium Impressions: Abdomen/Pelvis CT 02/23/18 00:00 IMPRESSION: No bowel obstruction is identified. No acute findings. Other findings as noted above. Chest CT 02/23/18 00:00 IMPRESSION: Small areas of posterior right lower lobe airspace disease- subsegmental atelectasis. Chest X-Ray 02/23/18 07:53 IMPRESSION: Bibasilar atelectasis. 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 No significant interval changes compared to the previous study EVIDENCE OF ACUTE STROKE: NO. Esophagus X-Ray 02/24/18 00:00 IMPRESSION: Tiny hiatal hernia with mild gastroesophageal reflux. No distal esophageal stricture. Assessment & Plan - Diagnosis (1) Dyspnea Qualifiers: Dyspnea type: shortness of breath Qualified Code(s): R06.02 - Shortness of breath; R06.00 - Dyspnea, unspecified; R06.01 - Orthopnea Is this a current diagnosis for this admission?: Yes Plan: Patient's breathing is unlabored but he does state that he is having a little bit of a hard time breathing. He has rales on exam. He has been given Lasix 40 mg IV 1. (2) Pneumonia Is this a current diagnosis for this admission?: Yes Plan: Continuing Levaquin for now. Awaiting final culture data. Patient's respiratory status had been improving until today but I think he has some fluid overload at this point. (3) Gram-positive cocci bacteremia Is this a current diagnosis for this admission?: Yes Plan: Continuing on vancomycin until we have more culture data. If this is a contaminant we can stop the vancomycin which would be a big relief to the patient. A second set of blood cultures was ordered today. Echocardiogram has been ordered. (4) Anemia Is this a current diagnosis for this admission?: Yes Plan: No active bleeding. Hemoglobin dropped a little bit today though this could be dilutional because he has received a significant amount of fluids. Will check again tomorrow. (5) Dysphagia Is this a current diagnosis for this admission?: Yes Plan: Stable. Continue current diet plan. On esophageal study patient has mild GERD , small hiatal hernia and no distal esophageal stricture. (6) GERD (gastroesophageal reflux disease) Is this a current diagnosis for this admission?: Yes Plan: Continue PPI (7) Hypertension Is this a current diagnosis for this admission?: Yes Plan: Stable, continue current care (8) Skin lesions, generalized Is this a current diagnosis for this admission?: Yes Plan: Received 1 dose of ivermectin 15 mg yesterday. Lesions do seem slightly less red today. We will continue to monitor and if it appears that this is scabies and he will need a second dose. (9) General weakness Is this a current diagnosis for this admission?: Yes Plan: Stable. Probably secondary to acute illness and also his chronic medical problems. Will monitor for safety. Consider rehab prior to discharge. (10) Mild dementia Is this a current diagnosis for this admission?: Yes Plan: Stable. - Time Time Spent with patient: 25-34 minutes - Inpatient Certification Based on my medical assessment, after consideration of the patient's comorbidities, presenting symptoms, or acuity I expect that the services needed warrant INPATIENT care.: Yes I certify that my determination is in accordance with my understanding of Medicare's requirements for reasonable and necessary INPATIENT services [42 CFR 412.3e].: Yes Medical Necessity: Need for IV Antibiotics
[2018-02-26] MEDS: LEVOFLOXACIN 750 MG/D5W RTU 750 MG/150 ML RTUPB IV SCH (19:59)
[2018-02-26] MEDS: GABAPENTIN 300 MG CAPSULE PO SCH (21:57)
[2018-02-26] MEDS: MELATONIN 5 MG TABLET PO SCH (21:57)
[2018-02-27] MEDS: VANCOMYCIN HCL 1,000 MG in DEXTROSE 5%-WATER 250 ML IV SCH ×3 (03:07→18:22)
[2018-02-27 05:33] LABS: HEMATOCRIT 30.2 % (37.9-51.0); HEMOGLOBIN 10.5 g/dL (13.5-17.0); MEAN CORPUSCULAR HEMOGLOBIN 36.4 pg (27.0-33.4); MEAN CORPUSCULAR HGB CONC 34.8 g/dL (32.0-36.0); MEAN CORPUSCULAR VOLUME 104 fl (80-97); PLATELET COUNT 161 10^3/uL (150-450); RED BLOOD COUNT 2.89 10^6/uL (4.35-5.55); RED CELL DISTRIBUTION WIDTH 15.9 % (11.5-14.0); WHITE BLOOD COUNT 5.7 10^3/uL (4.0-10.5)
[2018-02-27] MEDS: LANSOPRAZOLE 30 MG TAB.RAP.DR PO SCH (05:41)
[2018-02-27 05:55] LABS: ANION GAP 10 (5-19); BLOOD UREA NITROGEN 10 mg/dL (7-20); CALCIUM 8.2 mg/dL (8.4-10.2); CARBON DIOXIDE 24 mmol/L (22-30); CHLORIDE 107 mmol/L (98-107); GLUCOSE 133 mg/dL (75-110); POTASSIUM 4.3 mmol/L (3.6-5.0); SODIUM 141.2 mmol/L (137-145)
[2018-02-27] MEDS: IPRATROPIUM/ALBUTEROL 0.5-2.5 MG/3 ML AMPUL NEB SCH ×3 (08:12→19:38)
[2018-02-27] MEDS: GUAIFENESIN 600 MG TABLET.SA PO SCH ×2 (09:23→22:30)
[2018-02-27] MEDS: ENOXAPARIN SODIUM INJ 40 MG/0.4 ML DISP.SYRIN SUBCUT SCH (09:24)
--- NOTE | 2018-02-27 13:23 | PDOC PROGRESS REPORT ---
Subjective Progress Note for:: 02/27/18 Subjective:: Doing better, denies fever or chills. Breathing has markedly improved. No cough or hemoptysis. Denies chest pain or palpitations. No abdominal pain, no nausea or vomiting. Reason For Visit: PNEUMONIA Physical Exam Vital Signs: Temp Pulse Resp BP Pulse Ox 97.9 F 55 L 16 150/69 H 97 02/27/18 11:49 02/27/18 11:49 02/27/18 11:49 02/27/18 11:49 02/27/18 11:49 Pulse Oximeter Continuous Start: 02/23/18 17: 19 Freq: RTQ4 Status: Complete Document 02/26/18 19:47 STI (Rec: 02/26/18 19:55 STI [id number]) Pulse Oximetry Assessment Oxygen Saturation (92-100) 98 Oxygen Delivery Method Room Air Fraction of Inspired Oxygen (FIO2) 21 Equipment Usage Equipment in Use Continuous SpO2 Machine # 11 Intake & Output 02/26/18 02/27/18 02/28/18 06:59 06:59 06:59 Intake Total 6768 3159 Output Total 2100 2050 Balance 4668 1109 Weight 74 kg General appearance: PRESENT: no acute distress, cooperative, thin Head exam: PRESENT: atraumatic, normocephalic Eye exam: ABSENT: conjunctival injection, scleral icterus Ear exam: PRESENT: normal external ear exam Mouth exam: PRESENT: neck supple Respiratory exam: PRESENT: clear to auscultation ruben, unlabored. ABSENT: rales , rhonchi, wheezes Cardiovascular exam: PRESENT: RRR, systolic murmur Pulses: PRESENT: normal radial pulses GI/Abdominal exam: PRESENT: normal bowel sounds, soft. ABSENT: distended, mass , tenderness Rectal exam: PRESENT: deferred Extremities exam: ABSENT: pedal edema Musculoskeletal exam: ABSENT: deformity Neurological exam: PRESENT: alert, altered, oriented to person, oriented to place, oriented to situation, CN II-XII grossly intact Psychiatric exam: PRESENT: appropriate affect. ABSENT: anxious Skin exam: PRESENT: dry, intact, rash, warm Results Laboratory Results: 02/27/18 03:55 02/27/18 03:55 02/26/18 02/26/18 02/27/18 13:10 17:48 03:55 WBC 5.7 RBC 2.89 L Hgb 10.5 L Hct 30.2 L MCV 104 H MCH 36.4 H MCHC 34.8 RDW 15.9 H Plt Count 161 Sodium Potassium Chloride Carbon Dioxide Anion Gap BUN Creatinine Est GFR ( Amer) Est GFR (Non-Af Amer) Glucose Lactic Acid 2.6 H 2.5 H Calcium Magnesium 02/27/18 03:55 WBC RBC Hgb Hct MCV MCH MCHC RDW Plt Count Sodium 141.2 Potassium 4.3 Chloride 107 Carbon Dioxide 24 Anion Gap 10 BUN 10 Creatinine 0.69 Est GFR ( Amer) > 60 Est GFR (Non-Af Amer) > 60 Glucose 133 H Lactic Acid Calcium 8.2 L Magnesium 2.1 Impressions: Abdomen/Pelvis CT 02/23/18 00:00 IMPRESSION: No bowel obstruction is identified. No acute findings. Other findings as noted above. Chest CT 02/23/18 00:00 IMPRESSION: Small areas of posterior right lower lobe airspace disease- subsegmental atelectasis. Chest X-Ray 02/23/18 07:53 IMPRESSION: Bibasilar atelectasis. 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 No significant interval changes compared to the previous study EVIDENCE OF ACUTE STROKE: NO. Esophagus X-Ray 02/24/18 00:00 IMPRESSION: Tiny hiatal hernia with mild gastroesophageal reflux. No distal esophageal stricture. Assessment & Plan - Plan Summary Plan Summary: (1) Pneumonia Is this a current diagnosis for this admission?: Yes Plan: Continuing Levaquin for now. Awaiting final culture data. Patient's respiratory status had been improving until today but I think he has some fluid overload at this point. (2) Dyspnea Qualifiers: Dyspnea type: shortness of breath Qualified Code(s): R06.02 - Shortness of breath; R06.00 - Dyspnea, unspecified; R06.01 - Orthopnea Is this a current diagnosis for this admission?: Yes Plan: Improved. (3) Gram-positive cocci bacteremia Is this a current diagnosis for this admission?: Yes Plan: Continuing on vancomycin until we have more culture data. If this is a contaminant we can stop the vancomycin. A second set of blood cultures was ordered and is negative 24 hours. Follow-up echocardiogram results. Patient can possibly be discharged home in a.m if repeat blood cultures negative 48 hours. (4) Anemia Is this a current diagnosis for this admission?: Yes Plan: No active bleeding. Hemoglobin stable. (5) Dysphagia Is this a current diagnosis for this admission?: Yes Plan: Stable. Continue current diet plan. On esophageal study patient has mild GERD , small hiatal hernia and no distal esophageal stricture. (6) GERD (gastroesophageal reflux disease) Is this a current diagnosis for this admission?: Yes Plan: Continue PPI (7) Hypertension Is this a current diagnosis for this admission?: Yes Plan: Stable, continue current care (8) Skin lesions, generalized Is this a current diagnosis for this admission?: Yes Plan: Received 1 dose of ivermectin 15 mg 02/26/18. Lesions apparently appears slightly less red. We will continue to monitor and if it appears that this is scabies and he will need a second dose. (9) General weakness Is this a current diagnosis for this admission?: Yes Plan: Stable. Probably secondary to acute illness and also his chronic medical problems. Will monitor for safety. Consider rehab prior to discharge. (10) Mild dementia Is this a current diagnosis for this admission?: Yes Plan: Stable.
[2018-02-27] MEDS: DONEPEZIL HCL 5 MG TABLET PO SCH (18:21)
[2018-02-27] MEDS: PREDNISONE 20 MG TABLET PO SCH (18:21)
[2018-02-27] MEDS: ACETAMINOPHEN 325 MG TABLET PO PRN (18:23)
[2018-02-27 18:33] LABS: VANCOMYCIN,TROUGH 18.9 ug/mL (5.0-20.0)
--- NOTE | 2018-02-27 18:36 | XCELERA REPORT ---
[address] [address] Transthoracic Echocardiogram Report Name: GÉNESIS DANIELLE Age: 73 yrs Gender: Male : 1945 Patient Status: Inpatient Patient Location: [address] [place] [address] Study Date: 02/27/2018 09:59 AM Procedure: A complete two-dimensional transthoracic echocardiogram was performed (2D, M-mode, spectral and color flow Doppler). The study was technically adequate with some images being suboptimal in quality. Reason For Study: endocarditis eval Ordering Physician: ALLIE ANDERSON Performed By: Mariangel Arreguin Interpretation Summary The left ventricular ejection fraction is normal. There is mild concentric left ventricular hypertrophy. The left ventricle is grossly normal size. LV diastolic function could not be adequately assessed. Regional wall motion abnormalities cannot be excluded due to limited visualization. The right ventricular systolic function is normal. Borderline left atrial enlargement. The right atrium is normal in size There is a trace amount of mitral regurgitation There is no mitral valve stenosis. There is a trace amount of aortic regurgitation There is a trace or physiologic amount of tricuspid regurgitation Tricuspid regurgitation jet envelope not well defined to measure RV systolic pressure accurately. The pulmonic valve is not well visualized. The aortic root is not well visualized but is probably normal size. The inferior vena cava was not well visualized There is no pericardial effusion. MMode/2D Measurements & Calculations RVDd: 3.3 cm LVIDd: 5.0 cm FS: 37.0 % Ao root diam: 2.7 cm IVSd: 0.97 cm LVIDs: 3.2 cm EDV(Teich): 119.1 mlAo root area: 5.7 cm2 LVPWd: 0.96 cmESV(Teich): 39.7 ml EF(Teich): 66.7 % LVOT diam: 1.8 cm LVOT area: 2.5 cm2 Doppler Measurements & Calculations MV E max jae: MV dec slope: Ao V2 max: LV V1 max P.7 cm/sec 199.6 cm/sec 3.7 mmHg MV A max jae: 586.2 cm/sec2 Ao max PG: LV V1 max: 96.4 cm/sec MV dec time: 15.9 mmHg 96.5 cm/sec MV E/A: 1.1 0.18 sec Ao V2 mean: 129.7 cm/sec Ao mean P.0 mmHg Ao V2 VTI: 39.4 cm RASHAD(V,D): 1.2 cm2 PA V2 max: PI max jae: Pulm Sys Jae: 95.1 cm/sec 148.8 cm/sec 65.1 cm/sec PA max PG: PI max P.9 mmHg Pulm Begum Jae: 3.6 mmHg PI dec slope: 47.1 cm/sec Pulm A Revs Jae: 27.0 cm/sec2 20.1 cm/sec Pulm A Revs Dur: 0.11 sec Pulm S/D: 1.4 Left Ventricle The left ventricle is grossly normal size. There is mild concentric left ventricular hypertrophy. The left ventricular ejection fraction is normal. LV diastolic function could not be adequately assessed. Regional wall motion abnormalities cannot be excluded due to limited visualization. Right Ventricle The right ventricle is grossly normal size. There is normal right ventricular wall thickness. The right ventricular systolic function is normal. Atria The right atrium is normal in size. Borderline left atrial enlargement. Interarterial septum not well visualized and not well dopplered. Cannot comment on ASD/PFO presence. Mitral Valve The mitral valve is grossly normal. There is no mitral valve stenosis. There is a trace amount of mitral regurgitation. Aortic Valve The aortic valve is mildly calcified. There is mild aortic stenosis. There is a trace amount of aortic regurgitation. Tricuspid Valve The tricuspid valve is not well visualized, but is grossly normal. There is no tricuspid stenosis. There is a trace or physiologic amount of tricuspid regurgitation. Tricuspid regurgitation jet envelope not well defined to measure RV systolic pressure accurately. Pulmonic Valve The pulmonic valve is not well visualized. Great Vessels The aortic root is not well visualized but is probably normal size. The inferior vena cava was not well visualized. Effusions There is no pericardial effusion. : ALLIE ANDERSON > Danette Sibley
[2018-02-27] MEDS: LEVOFLOXACIN 750 MG/D5W RTU 750 MG/150 ML RTUPB IV SCH (22:28)
[2018-02-27] MEDS: GABAPENTIN 300 MG CAPSULE PO SCH (22:30)
[2018-02-27] MEDS: MELATONIN 5 MG TABLET PO SCH (22:30)
[2018-02-28] MEDS: ACETAMINOPHEN 325 MG TABLET PO PRN (00:56)
[2018-02-28] MEDS: VANCOMYCIN HCL 1,000 MG in DEXTROSE 5%-WATER 250 ML IV SCH ×2 (01:09→09:29)
[2018-02-28] MEDS: LANSOPRAZOLE 30 MG TAB.RAP.DR PO SCH (05:48)
[2018-02-28 07:11] LABS: ABSOLUTE LYMPHOCYTES (AUTO) 0.4 10^3/uL (0.5-4.7); ABSOLUTE MONOCYTES (AUTO) 0.2 10^3/uL (0.1-1.4); ABSOLUTE NEUT (AUTO) 4.7 10^3/uL (1.7-8.2); BASOPHILS % (AUTO) 0.1 % (0-2); HEMATOCRIT 32.5 % (37.9-51.0); HEMOGLOBIN 11.2 g/dL (13.5-17.0); LYMPHOCYTES % (AUTO) 8.3 % (13-45); MEAN CORPUSCULAR HEMOGLOBIN 35.7 pg (27.0-33.4); MEAN CORPUSCULAR HGB CONC 34.6 g/dL (32.0-36.0); MEAN CORPUSCULAR VOLUME 103 fl (80-97); MONOCYTES % (AUTO) 4.4 % (3-13); PLATELET COUNT 166 10^3/uL (150-450); RED BLOOD COUNT 3.15 10^6/uL (4.35-5.55); RED CELL DISTRIBUTION WIDTH 15.4 % (11.5-14.0); SEGMENTED NEUTROPHILS % (AUTO) 87.2 % (42-78); TOTAL CELLS COUNTED % (AUTO) 100 %; WHITE BLOOD COUNT 5.4 10^3/uL (4.0-10.5)
[2018-02-28 07:32] LABS: ANION GAP 7 (5-19); BLOOD UREA NITROGEN 13 mg/dL (7-20); CALCIUM 8.5 mg/dL (8.4-10.2); CARBON DIOXIDE 26 mmol/L (22-30); CHLORIDE 106 mmol/L (98-107); GLUCOSE 116 mg/dL (75-110); POTASSIUM 4.9 mmol/L (3.6-5.0); SODIUM 139.1 mmol/L (137-145)
[2018-02-28] MEDS: IPRATROPIUM/ALBUTEROL 0.5-2.5 MG/3 ML AMPUL NEB SCH (08:12)
[2018-02-28] MEDS: GUAIFENESIN 600 MG TABLET.SA PO SCH (09:29)
[2018-02-28] MEDS: ENOXAPARIN SODIUM INJ 40 MG/0.4 ML DISP.SYRIN SUBCUT SCH (09:29)
[2018-02-28 13:03] VITALS: BP 146/66
--- NOTE | 2018-02-28 16:47 | PDOC DISCHARGE SUMMARY ---
General - Admit/Disc Date/PCP Admission Date/Primary Care Provider: 02/24/18 16:46 JOSESITO TRIPLETT MD Discharge Date: 02/28/18 - Discharge Diagnosis (1) Pneumonia Is this a current diagnosis for this admission?: Yes Summary: Due to unspecified organism. He was started on Levaquin responded very well. He will finish up a course of Levaquin at home. He was initially on broad- spectrum antibiotics which were discontinued after his blood culture became negative. He had one blood culture returned positive but this turned out to be a contaminant and repeat cultures were negative. - Additional Information Resuscitation Status: Do Not Resuscitate Discharge Diet: As Tolerated, Other (Comments) Discharge Activity: Other Prescriptions: Levofloxacin [Levaquin 750 mg Tablet] 750 mg PO QHS #5 tablet Home Medications: Donepezil HCl [Aricept] 10 mg PO QPM 02/23/18 Gabapentin [Neurontin] 600 mg PO QHS 02/23/18 Lisinopril [Prinivil 2.5 mg Tablet] 2.5 mg PO DAILY 02/23/18 Prednisone [Deltasone 5 mg Tablet] 10 mg PO DAILY 02/23/18 Acetaminophen/Diphenhydramine [Tylenol Pm Ex-Strength Caplet] 1 tab PO QHS 02/25 Levofloxacin [Levaquin 750 mg Tablet] 750 mg PO QHS #5 tablet 02/28/18 History of Present Illness History of Present Illness: GÉNESIS DANIELLE is a 73 year old male with a past medical history significant for coronary artery disease status post CABG in the past. 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 He has known hyperlipidemia, hypertension and a history of colon cancer. He has very mild dementia at baseline. The patient presents to the hospital after developing significant abdominal pain associated with an episode of nausea vomiting and diarrhea. He also complains of a cough that he states has been present for several months and he has been told that it is just his COPD. He states that he has been having difficulty for the past year or 2 with swallowing. He states that food gets stuck in his throat and that he frequently gets choked and strangled. He has modified his own diet and only eats chopped and pured foods. He has never mentioned this to a doctor because he really does not go unless he gets sick. He did not think this was anything to worry about. In any event he states that he has been coughing he has been coughing up some sputum. He just feels weak. By the time I have seen the patient is nausea and vomiting has resolved. He states that he would like something to eat and wants to eat some "real food". Hospital Course Hospital Course: He was initially started on broad-spectrum antibiotics. He had blood cultures were drawn and 1 of them turned positive but this turned out to be a contaminant. This was confirmed with negative second set of cultures. His antibiotics were de-escalated to Levaquin. He had been responding very well. He was eating and drinking without difficulty. He was kept on the diet that he had modified for himself at home, which consisted of chopped foods and he tolerated it well. He was ambulating his present level of function and denies the need for further services at home. He was discharged in good condition. His labs and examination were reassuring. Physical Exam Vital Signs: Temp Pulse Resp BP Pulse Ox 98.1 F 77 18 146/66 H 95 02/28/18 13:01 02/28/18 13:01 02/28/18 13:01 02/28/18 13:01 02/28/18 13:01 Pulse Oximeter Continuous Start: 02/23/18 17: 19 Freq: RTQ4 Status: Complete Document 02/26/18 19:47 STI (Rec: 02/26/18 19:55 STI [id number]) Pulse Oximetry Assessment Oxygen Saturation (92-100) 98 Oxygen Delivery Method Room Air Fraction of Inspired Oxygen (FIO2) 21 Equipment Usage Equipment in Use Continuous SpO2 Machine # 11 Intake & Output 02/27/18 02/28/18 03/01/18 06:59 06:59 06:59 Intake Total 3159 4079 Output Total 5670 1200 Balance 1109 2879 Weight 76.1 kg General appearance: PRESENT: no acute distress, cooperative, disheveled Respiratory exam: PRESENT: symmetrical, unlabored. ABSENT: accessory muscle use , rales, rhonchi, wheezes Cardiovascular exam: PRESENT: RRR. ABSENT: systolic murmur Vascular exam: PRESENT: normal capillary refill. ABSENT: pallor GI/Abdominal exam: PRESENT: normal bowel sounds, soft. ABSENT: hernia, rebound , tenderness Extremities exam: ABSENT: pedal edema Musculoskeletal exam: PRESENT: normal inspection. ABSENT: deformity Neurological exam: PRESENT: alert, awake, oriented to person, oriented to place Psychiatric exam: PRESENT: appropriate affect, normal mood Skin exam: PRESENT: dry, warm Results Laboratory Results: 02/28/18 05:47 02/28/18 05:47 02/27/18 02/28/18 02/28/18 17:47 05:47 05:47 WBC 5.4 RBC 3.15 L Hgb 11.2 L Hct 32.5 L MCV 103 H MCH 35.7 H MCHC 34.6 RDW 15.4 H Plt Count 166 Seg Neutrophils % 87.2 H Lymphocytes % 8.3 L Monocytes % 4.4 Eosinophils % 0.0 Basophils % 0.1 Absolute Neutrophils 4.7 Absolute Lymphocytes 0.4 L Absolute Monocytes 0.2 Absolute Eosinophils 0.0 Absolute Basophils 0.0 Sodium 139.1 Potassium 4.9 Chloride 106 Carbon Dioxide 26 Anion Gap 7 BUN 13 Creatinine 0.67 0.69 Est GFR ( Amer) > 60 > 60 Est GFR (Non-Af Amer) > 60 > 60 Glucose 116 H Calcium 8.5 Impressions: Abdomen/Pelvis CT 02/23/18 00:00 IMPRESSION: No bowel obstruction is identified. No acute findings. Other findings as noted above. Chest CT 02/23/18 00:00 IMPRESSION: Small areas of posterior right lower lobe airspace disease- subsegmental atelectasis. Chest X-Ray 02/23/18 07:53 IMPRESSION: Bibasilar atelectasis. 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 No significant interval changes compared to the previous study EVIDENCE OF ACUTE STROKE: NO. Esophagus X-Ray 02/24/18 00:00 IMPRESSION: Tiny hiatal hernia with mild gastroesophageal reflux. No distal esophageal stricture. Qualifiers - * PATIENT BEING DISCHARGED WITH ANY OF THE FOLLOWING DIAGNOSIS: No
[2018-02-28] MEDS ORDERED: LEVOFLOXACIN 750 MG TABLET PO SCH (22:00)
== END 2018-02-28 13:33 | disposition home health service (06) | DRG 194 ==
LOC: ER 07:51 → EH 15:29 → 4N 17:15 → OBSVTOIN 02-24 16:46
PROVIDERS: ADMIT Internal Medicine; ATTEND Internal Medicine
PROC: 3E0F73Z Introduction of Anti-inflammatory into Respiratory Tract, Via Natural or Artificial Opening (ICD-10-PCS; principal; 2018-02-23)
DX: J18.9 Pneumonia, unspecified organism (principal); R78.81 Bacteremia; I69.351 Hemiplegia and hemiparesis following cerebral infarction affecting right dominant side; J44.0 Chronic obstructive pulmonary disease with (acute) lower respiratory infection; Z66 Do not resuscitate; I25.10 Atherosclerotic heart disease of native coronary artery without angina pectoris; E78.00 Pure hypercholesterolemia, unspecified; F03.90 Unspecified dementia, unspecified severity, without behavioral disturbance, psychotic disturbance, mood disturbance, and anxiety; K21.9 Gastro-esophageal reflux disease without esophagitis; K44.9 Diaphragmatic hernia without obstruction or gangrene; G43.909 Migraine, unspecified, not intractable, without status migrainosus; M19.90 Unspecified osteoarthritis, unspecified site; F32.9 Major depressive disorder, single episode, unspecified; R13.19 Other dysphagia; D53.9 Nutritional anemia, unspecified; L98.8 Other specified disorders of the skin and subcutaneous tissue; M19.031 Primary osteoarthritis, right wrist; I11.0 Hypertensive heart disease with heart failure; I50.9 Heart failure, unspecified; M06.9 Rheumatoid arthritis, unspecified; I25.2 Old myocardial infarction; Z95.5 Presence of coronary angioplasty implant and graft; Z79.899 Other long term (current) drug therapy; Z95.1 Presence of aortocoronary bypass graft; Z85.038 Personal history of other malignant neoplasm of large intestine; Z85.828 Personal history of other malignant neoplasm of skin; Z79.52 Long term (current) use of systemic steroids; Z88.6 Allergy status to analgesic agent; Z88.8 Allergy status to other drugs, medicaments and biological substances; Z88.0 Allergy status to penicillin; Z86.14 Personal history of Methicillin resistant Staphylococcus aureus infection
CPT/HCPCS: 36415; 70450; 71045; 71250; 74176; 74220; 80048; 80053; 80202; 81001; 82565; 82607; 82728; 82746; 82803; 83540; 83550; 83605; 83735; 83880; 85025; 85027; 85045; 85610; 87040; 87077; 87086; 87186; 87493; 93005; 93010; 93306; 94762; 96361; 96365; 96375; 99285; G0378; G8978-GP; G8979-GP; G8996-GN; G8997-GN; G8998-GN; J0456; J1650; J1885; J1940; J1956; J2765; J3370; J3490; J7030; J7060; J7512; J7620

== ENCOUNTER 2018-03-23 16:44 | Emergency (ER) | payer MEDICARE ==
[2018-03-23 16:59] LABS: ABSOLUTE LYMPHOCYTES (AUTO) 1.6 10^3/uL (0.5-4.7); ABSOLUTE MONOCYTES (AUTO) 0.5 10^3/uL (0.1-1.4); ABSOLUTE NEUT (AUTO) 3.2 10^3/uL (1.7-8.2); BASOPHILS % (AUTO) 0.5 % (0-2); EOSINOPHILS % (AUTO) 0.3 % (0-6); HEMATOCRIT 38.5 % (37.9-51.0); HEMOGLOBIN 12.8 g/dL (13.5-17.0); LYMPHOCYTES % (AUTO) 30.1 % (13-45); MEAN CORPUSCULAR HGB CONC 33.3 g/dL (32.0-36.0); MEAN CORPUSCULAR VOLUME 105 fl (80-97); MONOCYTES % (AUTO) 9.8 % (3-13); PLATELET COUNT 170 10^3/uL (150-450); RED BLOOD COUNT 3.67 10^6/uL (4.35-5.55); SEGMENTED NEUTROPHILS % (AUTO) 59.3 % (42-78); TOTAL CELLS COUNTED % (AUTO) 100 %; WHITE BLOOD COUNT 5.5 10^3/uL (4.0-10.5)
[2018-03-23 17:14] LABS: ALANINE AMINOTRANSFERASE 20 U/L (21-72); ALBUMIN 3.4 g/dL (3.5-5.0); ALKALINE PHOSPHATASE 45 U/L (38-126); ANION GAP 9 (5-19); ASPARTATE AMINO TRANSFERASE 18 U/L (17-59); BILIRUBIN,DIRECT 0.2 mg/dL (0.0-0.4); BILIRUBIN,TOTAL 0.3 mg/dL (0.2-1.3); BLOOD UREA NITROGEN 14 mg/dL (7-20); CALCIUM 8.6 mg/dL (8.4-10.2); CARBON DIOXIDE 24 mmol/L (22-30); CHLORIDE 108 mmol/L (98-107); GLUCOSE 115 mg/dL (75-110); POTASSIUM 4.2 mmol/L (3.6-5.0); SODIUM 141.3 mmol/L (137-145); TOTAL PROTEIN 6.1 g/dL (6.3-8.2)
--- NOTE | 2018-03-23 17:50 | ER Document Report ---
ED Dizziness/Weakness - General Mode of Arrival: Medic Information source: Patient, Relative TRAVEL OUTSIDE OF THE [place] IN LAST 30 DAYS: No <HENRY NEAL - Last Filed: 03/24/18 00:35> <LONG GARCIA - Last Filed: 03/24/18 00:38> - General Chief Complaint: General Weakness Stated Complaint: GENERAL WEAKNESS Time Seen by Provider: 03/23/18 17:22 Notes: 73 y.o male with HTN and HLD presents to the ED via EMS for weakness, diarrhea and abd pain of onset 3 days ago. Pt reports that he has been weak for the past 3 days and has been unable to walk around. He also reports diarrhea of similar onset with minimal vomiting without blood, epigastric abd pain and a low grade fever. He states that his stool is black, becoming black after trying Pepto for his sx. Pt reports that his abd pain is worsened with eating and drinking fluids. Pt still has his gallbladder and denies any hx of pancreatitis. He reports a hx of a perforation to his duodenum due to the overuse of Aspirin and repaired by Dr. Gunderson; he denies using Aspirin anymore. Pt complains of a JONES but states it is consistent with his baseline due to his hx of cervical spine surgery. Daughter states that he has used the majority of his Fioricet over past 2-3 days, taking 2 tablets every 4-6 hours for his pain. He also reports a hx of bypass surgery 20 years ago, IN and stent placement since cardiac bypass surgery, last IN in 2009. Daughter at bedside reports that he has not had a cardiac stress test or catheterization in a while because he was told the next step is for him to have another bypass surgery and that he did not want to have the surgery again. She also states that he has not had any cardiac issues since. Daughter at bedside also reports that he gets MRSA very easily and was hospitalized for sepsis about one moth ago, so he has had antibiotics recently. She denies his stool smelling as if it were C-diff. (HENRY NEAL) - Related Data Allergies/Adverse Reactions: iodine [Iodine] Allergy (Unknown, Verified 02/23/18 12:37) meperidine HCl [From Demerol] Allergy (Unknown, Verified 02/23/18 12:37) oxycodone [From Percocet] Allergy (Verified 02/23/18 12:37) Penicillins Allergy (Verified 02/23/18 12:37) aspirin [Aspirin] Adverse Reaction (Severe, Verified 02/23/18 12:37) Hemorrhage Past Medical History - General Information source: Patient - Social History Smoking Status: Never Smoker Chew tobacco use (# tins/day): No Frequency of alcohol use: None Drug Abuse: None Lives with: Family, Other - also has Home Health Family History: None - Patient denies any illness - Past Medical History Cardiac Medical History: Reports: Hx Coronary Artery Disease, Hx Heart Attack - post CABG, Hx Hypercholesterolemia, Hx Hypertension Pulmonary Medical History: Reports: Hx Pneumonia - 2009 Neurological Medical History: Reports: Hx Cerebrovascular Accident - R sided weakness, memory loss, Hx Migraine Endocrine Medical History: Renal/ Medical History: Reports: Hx Kidney Stones. Denies: Hx Peritoneal Dialysis Malignancy Medical History: Reports Hx Colorectal Cancer, Reports Hx Skin Cancer GI Medical History: Reports: Hx Hiatal Hernia - repair 15years ago, LLQ, Hx Ulcer Musculoskeletal Medical History: Reports Hx Arthritis, Reports Hx Musculoskeletal Deformity, Reports Hx Musculoskeletal Trauma Psychiatric Medical History: Reports: Hx Dementia - mild, Hx Depression Traumatic Medical History: Reports: Hx Fractures, Hx Spine Fracture Infectious Medical History: Past Surgical History: Reports: Hx Abdominal Surgery - HERNIA REPAIR, Hx Cardiac Catheterization, Hx Cardiac Surgery - bypass, stents, CABG, Hx Coronary Artery Bypass Graft - 4 vessel 1995, Hx Coronary Stent, Hx Genitourinary Surgery - penis removed CA, Hx Inguinal Hernia, Hx Orthopedic Surgery - SPINAL FUSION, spinal decompression, Hx Urinary Tract Surgery - penis removed surgically for CA - Immunizations Immunizations up to date: Yes Hx Diphtheria, Pertussis, Tetanus Vaccination: Yes - UTD Hx Pneumococcal Vaccination: 10/07/11 <HENRY NEAL - Last Filed: 03/24/18 00:35> Review of Systems - Review of Systems Constitutional: See HPI, Fever, Weakness EENT: No symptoms reported Cardiovascular: No symptoms reported Respiratory: No symptoms reported Gastrointestinal: See HPI, Abdominal pain, Diarrhea, Vomiting, Black stools. denies: Blood in vomit Genitourinary: No symptoms reported Male Genitourinary: No symptoms reported Musculoskeletal: No symptoms reported Skin: No symptoms reported Hematologic/Lymphatic: No symptoms reported Neurological/Psychological: See HPI, Headaches - consistent with hx -: Yes All other systems reviewed and negative <HENRY NEAL - Last Filed: 03/24/18 00:35> Physical Exam <HENRY NEAL - Last Filed: 03/24/18 00:35> <LONG GARCIA - Last Filed: 03/24/18 00:38> - Vital signs Vitals: Pulse Ox 97 03/23/18 18:14 - Notes Notes: PHYSICAL EXAM GENERAL: Alert, interacts well. No acute distress. HEAD: Normocephalic, atraumatic. EYES: Pupils equal, round, and reactive to light. Extraocular movements intact. ENT: Oral mucosa moist, tongue midline. Edentulous. NECK: Full range of motion. Supple. Trachea midline. LUNGS: Clear to auscultation bilaterally, no wheezes, rales, or rhonchi. No respiratory distress. HEART: Regular rate and rhythm. No murmurs, gallops, or rubs. ABDOMEN: Soft, non-tender. Non-distended. Bowel sounds present in all 4 quadrants. No guarding, rebound, or rigidity. EXTREMITIES: Moves all 4 extremities spontaneously. No edema. No cyanosis. NEUROLOGICAL: Alert and oriented x3. Normal speech. PSYCH: Normal affect, normal mood. SKIN: Warm, dry, normal turgor. No rashes or lesions noted. Rectal : Minimal stool; what stool was there was dark black in color. No obvious bright red blood. Erythema just below the rectum. (HENRY NEAL) Course - Laboratory Result Diagrams: 03/23/18 16:37 03/23/18 16:37 <HENRY NEAL - Last Filed: 03/24/18 00:35> - Laboratory Result Diagrams: 03/23/18 16:37 03/23/18 16:37 <LONG GARCIA - Last Filed: 03/24/18 00:38> - Re-evaluation Re-evalutation: 03/23/18 22:37 CBC shows mild anemia with hemoglobin 12.8, no leukocytosis, CMP grossly unremarkable, urinalysis unremarkable, Hemoccult is negative, acetaminophen level is undetectable, CT scan of the abdomen pelvis does not show any signs of obstruction or infection, no specific explanation for his nausea, vomiting or diarrhea is seen. No evidence of GI bleed or recurrence of his duodenal perforation. Patient will be discharged to home, has been able to eat applesauce and pudding without difficulty here. No further diarrhea. Discharged home with Zofran and instructions to use Imodium. (LONG GARCIA) - Vital Signs Vital signs: Temp Pulse Resp BP Pulse Ox 78 14 142/80 H 97 03/24/18 00:31 03/24/18 00:31 03/24/18 00:31 03/24/18 00:31 - Laboratory Laboratory results interpreted by me: 03/23/18 03/23/18 03/23/18 16:37 16:37 16:37 RBC 3.67 L Hgb 12.8 L MCV 105 H MCH 35.0 H RDW 15.0 H Chloride 108 H Glucose 115 H ALT 20 L Total Protein 6.1 L Albumin 3.4 L Acetaminophen < 10 L Discharge <HENRY NEAL - Last Filed: 03/24/18 00:35> <LONG GARCIA - Last Filed: 03/24/18 00:38> - Discharge Clinical Impression: Nausea vomiting and diarrhea Condition: Stable Disposition: HOME, SELF-CARE Instructions: Diarrhea, Nonspecific ([facility]), Vomiting ([facility]) Additional Instructions: Please take Imodium as instructed on the box [id number]. Prescriptions: Ondansetron [Zofran Odt 4 mg Tablet] 1 - 2 tab PO Q4H PRN #15 tab.rapdis PRN Reason: For Nausea/Vomiting Referrals: JOSESITO TRIPLETT MD [Primary Care Provider] - Follow up as needed Scribe Attestation: 03/24/18 00:38 I personally performed the services described in the documentation, reviewed and edited the documentation which was dictated to the scribe in my presence, and it accurately records my words and actions. (LONG GARCIA) Scribe Documentation - Scribe Written by Amina:: Amina Dahl 03/23/18 [id number] acting as scribe for :: Filemon <HENRY NEAL - Last Filed: 03/24/18 00:35>
[2018-03-23] MEDS ORDERED: NORMAL SALINE 1000 ML 1,000 ML IV ONE (17:58)
[2018-03-23] MEDS ORDERED: DIPHENHYDRAMINE HCL 50 MG/ML VIAL IV ONE (18:03)
[2018-03-23] MEDS ORDERED: FAMOTIDINE INJ/PF 20 MG/2 ML SDV IV ONE (18:03)
[2018-03-23] MEDS ORDERED: METHYLPREDNISOLONE INJ 125 MG/2 ML SDV IV ONE (18:03)
[2018-03-23 18:27] LABS: APPEARANCE,URINE CLEAR; BILIRUBIN,URINE NEGATIVE (NEGATIVE); COLOR,URINE YELLOW; GLUCOSE, URINE NEGATIVE (NEGATIVE); KETONES,URINE NEGATIVE (NEGATIVE); LEUKOCYTE ESTERASE,URINE NEGATIVE (NEGATIVE); NITRITE,URINE NEGATIVE (NEGATIVE); PROTEIN,URINE NEGATIVE (NEGATIVE); URINE SPECIFIC GRAVITY 1.026; UROBILINOGEN,URINE NEGATIVE mg/dL (<2.0)
--- NOTE | 2018-03-23 20:00 | RADIOLOGY REPORT (SQ) ---
EXAM DESCRIPTION: CT ABD/PELVIS WITH IV ORAL COMPLETED DATE/TIME: 03/23/2018 7:32 pm REASON FOR STUDY: h/o duodenal perforation, N/V/D COMPARISON: 02/23/2018 TECHNIQUE: CT scan of the abdomen and pelvis performed using helical scanning technique with dynamic intravenous contrast injection. No oral contrast. Images reviewed with lung, soft tissue, and bone windows. Reconstructed coronal and sagittal MPR images reviewed. Delayed images for evaluation of the urinary system also acquired. All images stored on PACS. All CT scanners at this facility use dose modulation, iterative reconstruction, and/or weight based d osing when appropriate to reduce radiation dose to as low as reasonably achievable (ALARA). [facility]: Dose Right [facility]: CareDose [facility]: Dose Right [facility]: Teradose 4D [facility]: [facility] CONTRAST TYPE AND DOSE: contrast/concentration: Isovue 350.00 mg/ml; Total Contrast Delivered: 84.0 ml; Total Saline Delivered: 52.0 ml RENAL FUNCTION: BUN 14 creatinine 0.7 RADIATION DOSE: CT Rad equipment meets quality standard of care and radiation dose reduction techniq ues were employed. CTDIvol: 6.7 - 9.0 mGy. DLP: 910 mGy-cm.. LIMITATIONS: None. FINDINGS: LOWER CHEST: Cardiomegaly. Pulmonary vascular congestion. No infiltrate or effusion are nodule. LIVER: Normal size. No masses. No dilated ducts. SPLEEN: Normal size. No focal lesions. PANCREAS: No masses. No significant calcifications. No adjacent inflammation or peripancreatic fluid collections. Pancreatic duct not dilated. GALLBLADDER: No identified stones by CT criteria. No inflammatory changes to suggest cholecystitis. ADRENAL GLANDS: No significant masses or asymmetry. RIGHT KIDNEY AND URETER: Mild cortical atrophy. No masses. No significant calcifications. No hyd ronephrosis or hydroureter. LEFT KIDNEY AND URETER: Mild cortical atrophy. No masses. No significant calcifications. No hydr onephrosis or hydroureter. AORTA AND VESSELS: No aneurysm. No dissection. Renal arteries, SMA, celiac without stenosis. RETROPERITONEUM: No retroperitoneal adenopathy, hemorrhage or masses. BOWEL AND PERITONEAL CAVITY: Sigmoid diverticulosis. No acute inflammatory changes. APPENDIX: Not identified. PELVIS: No mass. No free fluid. Normal bladder. ABDOMINAL WALL: No masses. No hernias. BONES: Lumbar degenerative disc changes. OTHER: No other significant finding. IMPRESSION: 1. Cardiomegaly with pulmonary vascular congestion. 2. Mild renal cortical atrophy. 3. Sigmoid diverticulosis. 4. Lumbar degenerative disc changes. 5. No acute findings are seen in the abdomen or pelvis. TECHNICAL DOCUMENTATION: JOB ID: [id number] Quality ID # [id number]: Final reports with documentation of one or more dose reduction techniques (e.g., Au tomated exposure control, adjustment of the mA and/or kV according to patient size, use of iterative reconstruction technique) 2010 [employer]- All Rights Reserved Reading location - IP/workstation name: [email or web address]
[2018-03-24 00:34] VITALS: BP 142/80
== END 2018-03-24 00:34 | disposition home or self-care (01) ==
LOC: ER 16:44
DX: R10.13 Epigastric pain (principal); R11.2 Nausea with vomiting, unspecified; R53.1 Weakness; R19.7 Diarrhea, unspecified; R51 Headache; Z86.14 Personal history of Methicillin resistant Staphylococcus aureus infection
CPT/HCPCS: 99285; 96361; 96374; 96375; 36415; 80307; 85025; 82272; 80053; 81001; 74177; J1200; J2930; J7030; S0028

== ENCOUNTER 2018-08-07 07:48 | Emergency (ER) | payer MEDICARE ==
[2018-08-07] MEDS ORDERED: NORMAL SALINE 1000 ML 1,000 ML IV ONE (08:17)
--- NOTE | 2018-08-07 08:25 | ER Document Report ---
ED General - General Stated Complaint: VOMITING Time Seen by Provider: 08/07/18 07:51 Mode of Arrival: Medic Information source: Patient, Relative - DAUGHTER, Emergency Med Personnel Notes: Patient presents emergency department via EMS for complaints of nausea and vomiting for 2 days. Patient daughter at the bedside, who works as a FIBER DESIGN ENGINEER in the ICU unit, reports that her father has been sick for the past 2 days. She reports that he woke up sick yesterday morning. She reports the whole family had stomach bug so she did not think anything of it. He sat in his chair all day. Typically sits in his chair to eat since it is just his and him. She encouraged him to drink fluids. She contacted her mother who said her father is still not feeling better. She reports father has a history of stroke [place] stents. Daughter reports that father does not see a field service tech because they recommended open heart which she is not interested. She reports right-sided weakness. She reports he is usually able to get around with the help and assist of a walker. She reports history of incontinence and dementia. Patient is alert and answers appropriately to some questions such as place and name. He is able to recognize his daughter. Daughter reports that he did fall Tuesday night. Patient has a DNR. TRAVEL OUTSIDE OF THE [place] IN LAST 30 DAYS: No - HPI Onset: Other - 2 days Onset/Duration: Persistent Quality of pain: No pain Severity: None Associated symptoms: Nausea, Vomiting, Other - AMS Exacerbated by: Denies Relieved by: Denies Similar symptoms previously: No Recently seen / treated by doctor: No - Related Data Allergies/Adverse Reactions: iodine [Iodine] Allergy (Unknown, Verified 02/23/18 12:37) meperidine HCl [From Demerol] Allergy (Unknown, Verified 02/23/18 12:37) oxycodone [From Percocet] Allergy (Verified 02/23/18 12:37) Penicillins Allergy (Verified 02/23/18 12:37) aspirin [Aspirin] Adverse Reaction (Severe, Verified 02/23/18 12:37) Hemorrhage Past Medical History - General Information source: Relative - Daughter, Emergency Med Personnel - Social History Smoking Status: Unknown if Ever Smoked Cigarette use (# per day): No Frequency of alcohol use: None Drug Abuse: None 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 Lives with: Family Family History: None - Patient denies any illness Patient has suicidal ideation: No Patient has homicidal ideation: No - Past Medical History Cardiac Medical History: Reports: Hx Coronary Artery Disease, Hx Heart Attack - post CABG, Hx Hypercholesterolemia, Hx Hypertension Denies: Hx Heart Murmur Pulmonary Medical History: Reports: Hx Pneumonia - 2010 Denies: Hx Respiratory Failure, Hx Sleep Apnea, Hx Tuberculosis Neurological Medical History: Reports: Hx Cerebrovascular Accident - R sided weakness, memory loss, Hx Migraine Endocrine Medical History: Renal/ Medical History: Reports: Hx Kidney Stones. Denies: Hx Peritoneal Dialysis Malignancy Medical History: Reports Hx Colorectal Cancer, Reports Hx Skin Cancer GI Medical History: Reports: Hx Hiatal Hernia - repair 15years ago, LLQ, Hx Ulcer. Denies: Hx Pancreatitis Musculoskeletal Medical History: Reports Hx Arthritis, Reports Hx Musculoskeletal Deformity, Reports Hx Musculoskeletal Trauma Psychiatric Medical History: Reports: Hx Dementia - mild, Hx Depression Traumatic Medical History: Reports: Hx Fractures, Hx Spine Fracture Infectious Medical History: Past Surgical History: Reports: Hx Abdominal Surgery - HERNIA REPAIR, Hx Cardiac Catheterization, Hx Cardiac Surgery - bypass, stents, CABG, Hx Coronary Artery Bypass Graft - 4 vessel 1995, Hx Coronary Stent, Hx Genitourinary Surgery - penis removed CA, Hx Inguinal Hernia, Hx Orthopedic Surgery - SPINAL FUSION, spinal decompression, Hx Urinary Tract Surgery - penis removed surgically for CA - Immunizations Immunizations up to date: Yes Hx Diphtheria, Pertussis, Tetanus Vaccination: Yes - UTD Hx Pneumococcal Vaccination: 10/07/11 Physical Exam - Vital signs Vitals: Temp Pulse BP Pulse Ox 99.1 F 82 130/79 H 94 08/07/18 07:57 08/07/18 07:57 08/07/18 07:57 08/07/18 07:57 Course - Re-evaluation Re-evalutation: 08/07/18 10:15 no further vomiting, pt c/o JONES, tyelnol ordered 08/07/18 12:45 contacted carmina, daughter in icu, updated on labs, patient status. Patient is alert and oriented answers to all questions appropriately still reports his headache is hurting. Has ate applesauce and is drinking p.o. fluids and Pepsi. Will attempt to stand him up with his walker plan is to discharge home. No further vomiting. Dictation of this chart was performed using voice recognition software; therefore, there may be some unintended grammatical errors. 08/07/18 13:01 nurse reports patient cleaned of very small BM, no diarrhea. I contacted his daughter Carmina. She reports she feels like he will be safe to go home. Plenty of family around to help him. 08/07/18 13:24 Patient having loose stool. He reports this is typical for him. He reports he usually wears depends and will clean himself by leaning on the bathtub. Patient up walking around with walker. He reports he likes his walker better because it has wheels ours does not. He reports he feels strong enough to go home. P troy on discharging patient home Dictation of this chart was performed using voice recognition software; therefore, there may be some unintended grammatical errors. - Vital Signs Vital signs: Temp Pulse Resp BP Pulse Ox 98.3 F 82 21 H 106/64 94 08/07/18 14:01 08/07/18 07:57 08/07/18 14:01 08/07/18 14:01 08/07/18 14:01 - Laboratory Result Diagrams: 08/07/18 08:23 08/07/18 08:23 Laboratory results interpreted by me: 08/07/18 08/07/18 08/07/18 08:23 08:23 08:23 WBC 14.5 H RBC 4.22 L MCV 104 H MCH 35.5 H Seg Neutrophils % 79.7 H Lymphocytes % 12.2 L Absolute Neutrophils 11.5 H BUN 21 H AST 15 L ALT 7 L Urine Ketones 20 H - Diagnostic Test Radiology reviewed: Image reviewed, Reports reviewed - EXAM DESCRIPTION: CT HEAD WITHOUT COMPLETED DATE/TIME: 08/07/2018 9:24 am REASON FOR STUDY: AMS COMPARISON: 02/23/2018 TECHNIQUE: Axial images acquired through the brain without intravenous contrast. Images reviewed with bone, brain and subdural windows. Additional sagittal and coronal reconstructions were generated. Images stored on PACS. All CT scanners at this facility use dose modulation, iterative reconstruction, and/or weight based dosing when appropriate to reduce radiation dose to as low as reasonably achievable (ALARA). [facility]: Dose Right [facility]: CareDose [facility]: Dose Right [facility]: Teradose 4D [facility]: [employer] RADIATION DOSE: CT Rad equipment meets quality standard of care and radiation dose reduction techniques were employed. CTDIvol: 53.2 mGy. DLP: 1070 mGy-cm. mGy. LIMITATIONS: None. FINDINGS: VENTRICLES: Normal size and contour. CEREBRUM: No masses. No hemorrhage. No midline shift. No evidence for acute infarction. Normal ramon/white matter differentiation. No areas of low density in the white matter. CEREBELLUM: No masses. No hemorrhage. No alteration of density. No evidence for acute infarction. EXTRAAXIAL SPACES: No fluid collections. No masses. ORBITS AND GLOBE: No intra- or extraconal masses. Nor mal contour of globe without masses. CALVARIUM: No fracture. PARANASAL SINUSES: No fluid or mucosal thickening. SOFT TISSUES: No mass or hematoma. OTHER: No other significant finding. IMPRESSION: No acute intracranial pathology. EVIDENCE OF ACUTE STROKE: NO. COMMENT: Quality ID # [id number]: Final reports with documentation of one or more dose reduction techniques (e.g., Automated exposure control, adjustment of the mA and/or kV according to patient size, use of iterative reconstruction technique) - EKG Interpretation by Oh EKG shows normal: Sinus rhythm Rate: Normal Rhythm: NSR Discharge - Discharge Clinical Impression: Nausea & vomiting Qualifiers: Vomiting type: unspecified Vomiting Intractability: non-intractable Qualified Code(s): R11.2 - Nausea with vomiting, unspecified Condition: Stable Disposition: HOME, SELF-CARE Instructions: Antinausea Medication ([facility]), Intravenous (IV) Fluids ([facility]), Vomiting ([facility]) Additional Instructions: *You have been evaluated for nausea/vomiting *Take medication as prescribed for nausea *Ensure adequate fluid intake as discussed to prevent dehydration *Follow up with a primary care provider within 3 days *Return to ED for worsening condition, changes, needs Forms: Elevated Blood Pressure Referrals: JOSESITO TRIPLETT MD [Primary Care Provider] - Follow up in 3-5 days
[2018-08-07 08:37] LABS: ABSOLUTE BASOPHILS # (AUTO) 0.1 10^3/uL (0.0-0.2); ABSOLUTE EOSINOPHILS # (AUTO) 0.1 10^3/uL (0.0-0.6); ABSOLUTE LYMPHOCYTES (AUTO) 1.8 10^3/uL (0.5-4.7); ABSOLUTE NEUT (AUTO) 11.5 10^3/uL (1.7-8.2); BASOPHILS % (AUTO) 0.5 % (0-2); EOSINOPHILS % (AUTO) 0.4 % (0-6); HEMATOCRIT 43.8 % (37.9-51.0); LYMPHOCYTES % (AUTO) 12.2 % (13-45); MEAN CORPUSCULAR HEMOGLOBIN 35.5 pg (27.0-33.4); MEAN CORPUSCULAR HGB CONC 34.2 g/dL (32.0-36.0); MEAN CORPUSCULAR VOLUME 104 fl (80-97); MONOCYTES % (AUTO) 7.2 % (3-13); PLATELET COUNT 163 10^3/uL (150-450); RED BLOOD COUNT 4.22 10^6/uL (4.35-5.55); SEGMENTED NEUTROPHILS % (AUTO) 79.7 % (42-78); TOTAL CELLS COUNTED % (AUTO) 100 %; WHITE BLOOD COUNT 14.5 10^3/uL (4.0-10.5)
[2018-08-07 08:52] LABS: ALANINE AMINOTRANSFERASE 7 U/L (21-72); ALBUMIN 3.5 g/dL (3.5-5.0); ALKALINE PHOSPHATASE 76 U/L (38-126); ANION GAP 11 (5-19); ASPARTATE AMINO TRANSFERASE 15 U/L (17-59); BILIRUBIN,DIRECT 0.3 mg/dL (0.0-0.4); BILIRUBIN,TOTAL 1.2 mg/dL (0.2-1.3); BLOOD UREA NITROGEN 21 mg/dL (7-20); CALCIUM 8.8 mg/dL (8.4-10.2); CARBON DIOXIDE 25 mmol/L (22-30); CHLORIDE 103 mmol/L (98-107); CREATINE KINASE 102 U/L (55-170); GLUCOSE 94 mg/dL (75-110); POTASSIUM 3.8 mmol/L (3.6-5.0); SODIUM 138.8 mmol/L (137-145); TOTAL PROTEIN 6.3 g/dL (6.3-8.2)
[2018-08-07 08:59] LABS: APPEARANCE,URINE CLEAR; BILIRUBIN,URINE NEGATIVE (NEGATIVE); COLOR,URINE YELLOW; GLUCOSE, URINE NEGATIVE (NEGATIVE); KETONES,URINE 20 mg/dL (NEGATIVE); LEUKOCYTE ESTERASE,URINE NEGATIVE (NEGATIVE); NITRITE,URINE NEGATIVE (NEGATIVE); PROTEIN,URINE NEGATIVE (NEGATIVE); URINE SPECIFIC GRAVITY 1.025; UROBILINOGEN,URINE NEGATIVE mg/dL (<2.0)
[2018-08-07 09:03] LABS: CREATINE KINASE MB 1.74 ng/mL (<4.55)
[2018-08-07 09:04] LABS: TROPONIN I < 0.012 ng/mL
--- NOTE | 2018-08-07 09:36 | RADIOLOGY REPORT (SQ) ---
EXAM DESCRIPTION: CT HEAD WITHOUT COMPLETED DATE/TIME: 08/07/2018 9:24 am REASON FOR STUDY: AMS COMPARISON: 02/23/2018 TECHNIQUE: Axial images acquired through the brain without intravenous contrast. Images reviewed wi th bone, brain and subdural windows. Additional sagittal and coronal reconstructions were generated. Images stored on PACS. All CT scanners at this facility use dose modulation, iterative reconstruction, and/or weight based d osing when appropriate to reduce radiation dose to as low as reasonably achievable (ALARA). [facility]: Dose Right [facility]: CareDose [facility]: Dose Right [facility]: Teradose 4D [facility]: [employer] RADIATION DOSE: CT Rad equipment meets quality standard of care and radiation dose reduction techniq ues were employed. CTDIvol: 53.2 mGy. DLP: 1070 mGy-cm. mGy. LIMITATIONS: None. FINDINGS: VENTRICLES: Normal size and contour. CEREBRUM: No masses. No hemorrhage. No midline shift. No evidence for acute infarction. Normal gra y/white matter differentiation. No areas of low density in the white matter. CEREBELLUM: No masses. No hemorrhage. No alteration of density. No evidence for acute infarction. EXTRAAXIAL SPACES: No fluid collections. No masses. ORBITS AND GLOBE: No intra- or extraconal masses. Normal contour of globe without masses. CALVARIUM: No fracture. PARANASAL SINUSES: No fluid or mucosal thickening. SOFT TISSUES: No mass or hematoma. OTHER: No other significant finding. IMPRESSION: No acute intracranial pathology. EVIDENCE OF ACUTE STROKE: NO. COMMENT: Quality ID # [id number]: Final reports with documentation of one or more dose reduction techniques (e.g., Automated exposure control, adjustment of the mA and/or kV according to patient size, use of iterative reconstruction technique) TECHNICAL DOCUMENTATION: JOB ID: [id number] [employer]- All Rights Reserved Reading location - IP/workstation name: [email or web address]
[2018-08-07] MEDS ORDERED: ACETAMINOPHEN 325 MG TABLET PO ONE (10:08)
[2018-08-07] MEDS ORDERED: ONDANSETRON ODT 4 MG TAB (6 TAB/ER DISP) PO PRN (13:27)
[2018-08-07 14:53] VITALS: BP 106/64
--- NOTE | 2018-08-07 16:35 | EKG REPORT ---
SEVERITY:- ABNORMAL ECG - SINUS RHYTHM LEFT ATRIAL ABNORMALITY LEFT ANTERIOR FASCICULAR BLOCK LVH WITH SECONDARY REPOLARIZATION ABNORMALITY : Confirmed by: Vanna Stewart MD 07-Aug-2018 16:34:41
== END 2018-08-07 14:53 | disposition home or self-care (01) ==
LOC: ER 07:48
DX: R11.2 Nausea with vomiting, unspecified (principal); R51 Headache; I69.351 Hemiplegia and hemiparesis following cerebral infarction affecting right dominant side; I10 Essential (primary) hypertension; I25.10 Atherosclerotic heart disease of native coronary artery without angina pectoris; I25.2 Old myocardial infarction; Z95.1 Presence of aortocoronary bypass graft; Z66 Do not resuscitate; Z88.5 Allergy status to narcotic agent; Z88.0 Allergy status to penicillin; Z95.5 Presence of coronary angioplasty implant and graft
CPT/HCPCS: 93005; 99285; 36415; 82553; 82550; 85025; 80053; 81001; 84484; 70450; 93010; A9270 ×2; J7030

== ENCOUNTER 2019-01-08 18:47 | Emergency (ER) | payer MEDICARE ==
--- NOTE | 2019-01-08 19:42 | RADIOLOGY REPORT (SQ) ---
EXAM DESCRIPTION: HIP RIGHT AP/LATERAL COMPLETED DATE/TIME: 01/08/2019 7:29 pm REASON FOR STUDY: fall injury COMPARISON: 11/08/2008 NUMBER OF VIEWS: Two views. TECHNIQUE: AP pelvis and additional frog-leg view of the right hip. LIMITATIONS: None. FINDINGS: MINERALIZATION: Normal. RIGHT HIP: No fracture or dislocation. No worrisome bone lesions. LEFT HIP: No fracture or dislocation. No worrisome bone lesions. PUBIS AND ISCHIUM: No fracture. PELVIS: No fracture. SACRUM: No fracture or dislocation. No worrisome bone lesions. LOWER LUMBAR SPINE: No fracture or dislocation. No worrisome bone lesions. No significant disc disea se. SOFT TISSUES: No findings. OTHER: No other significant finding. IMPRESSION: NEGATIVE STUDY OF THE RIGHT HIP. NO RADIOGRAPHIC EVIDENCE OF ACUTE INJURY. TECHNICAL DOCUMENTATION: JOB ID: [id number] [employer]- All Rights Reserved Reading location - IP/workstation name: [email or web address]
--- NOTE | 2019-01-08 20:45 | RADIOLOGY REPORT (SQ) ---
CT LUMBAR SPINE WITHOUT IV CONTRAST HISTORY: Lower back pain. COMPARISON: None. TECHNIQUE: CT scan of the lumbar spine without IV contrast. This exam was performed according to our departmental dose-optimization program, which includes automated exposure control, adjustment of the mA and/or kV according to patient size and/or use of iterative reconstruction technique. FINDINGS: No acute compression fracture is seen. There is multilevel degenerative disc disease and facet arthropathy, greatest at L4-L5 and L5-S1. There are multilevel disc bulges throughout the lumbar spine with canal stenosis. Degenerative changes of the sacroiliac joints. IMPRESSION: 1. No acute compression fracture of the lumbar spine. 2. Multiple disc bulges with canal narrowing which may be further evaluated.
[2019-01-08] MEDS ORDERED: HYDROCODONE/ACETAMINOPHEN 5-325 MG (6 TAB/ER DISP) PO PRN (21:42)
--- NOTE | 2019-01-08 22:04 | ER Document Report ---
ED General - General Chief Complaint: Fall Injury Stated Complaint: FALL/POSSIBLE BROKEN HIP Time Seen by Provider: 01/08/19 19:10 Primary Care Provider: JOSESITO TRIPLETT MD [Primary Care Provider] - Follow up as needed TRAVEL OUTSIDE OF THE [place] IN LAST 30 DAYS: No - HPI Notes: Patient is a 73-year-old male who presents to the emergency department for evaluation after a fall. He was out mowing the lawn and he tripped and fell. He denies any chest pain or difficulty breathing. He states he just lost his balance, nothing else precipitated his fall. He complains of pain in his right lower back/buttock area. He was brought in by EMS who believed he had shortening of his right lower extremity. I asked the patient if he has any significant pain in his right hip itself. He denies this. He denies hitting his head or losing consciousness. He has no neck or back pain. He is not on blood thinners. - Related Data Allergies/Adverse Reactions: iodine [Iodine] Allergy (Unknown, Verified 02/23/18 12:37) meperidine HCl [From Demerol] Allergy (Unknown, Verified 02/23/18 12:37) oxycodone [From Percocet] Allergy (Verified 02/23/18 12:37) Penicillins Allergy (Verified 02/23/18 12:37) aspirin [Aspirin] Adverse Reaction (Severe, Verified 02/23/18 12:37) Hemorrhage Past Medical History - General Information source: Patient, Relative - Social History Smoking Status: Never Smoker Frequency of alcohol use: None Drug Abuse: None Family History: None - Patient denies any illness Patient has suicidal ideation: No Patient has homicidal ideation: No - Past Medical History Cardiac Medical History: Reports: Hx Coronary Artery Disease, Hx Heart Attack - post CABG, Hx Hypercholesterolemia, Hx Hypertension Denies: Hx Heart Murmur Pulmonary Medical History: Reports: Hx Pneumonia - 2009 Denies: Hx Respiratory Failure, Hx Sleep Apnea, Hx Tuberculosis Neurological Medical History: Reports: Hx Cerebrovascular Accident - R sided weakness, memory loss, Hx Migraine Endocrine Medical History: Renal/ Medical History: Reports: Hx Kidney Stones. Denies: Hx Peritoneal Dialysis Malignancy Medical History: Reports Hx Colorectal Cancer, Reports Hx Skin Cancer GI Medical History: Reports: Hx Hiatal Hernia - repair 15years ago, LLQ, Hx Ulcer. Denies: Hx Pancreatitis Musculoskeletal Medical History: Reports Hx Arthritis, Reports Hx Musculoskeletal Deformity, Reports Hx Musculoskeletal Trauma, Denies Hx Systemic Lupus Erythematosus Psychiatric Medical History: Reports: Hx Dementia - mild, Hx Depression Traumatic Medical History: Reports: Hx Fractures, Hx Spine Fracture Infectious Medical History: Past Surgical History: Reports: Hx Abdominal Surgery - HERNIA REPAIR, Hx Cardiac Catheterization, Hx Cardiac Surgery - bypass, stents, CABG, Hx Coronary Artery Bypass Graft - 4 vessel 1996, Hx Coronary Stent, Hx Genitourinary Surgery - penis removed [place], Hx Inguinal Hernia, Hx Orthopedic Surgery - SPINAL FUSION, spinal decompression, Hx Urinary Tract Surgery - penis removed surgically for CA - Immunizations Immunizations up to date: Yes Hx Diphtheria, Pertussis, Tetanus Vaccination: Yes - UTD Hx Pneumococcal Vaccination: 10/07/11 Review of Systems - Review of Systems Constitutional: No symptoms reported EENT: No symptoms reported Cardiovascular: No symptoms reported Respiratory: No symptoms reported Gastrointestinal: No symptoms reported Genitourinary: No symptoms reported Musculoskeletal: See HPI Skin: No symptoms reported Neurological/Psychological: No symptoms reported Physical Exam - Vital signs Vitals: Temp Resp BP Pulse Ox 97.5 F 14 173/86 H 93 01/08/19 18:55 01/08/19 18:55 01/08/19 18:55 01/08/19 18:55 - Notes Notes: Vital signs reviewed, please refer to chart. Head is normocephalic, atraumatic. Pupils equal round, reactive to light. Neck is supple without meningismus. Heart is regular rate and rhythm. Lungs are clear to auscultation bilaterally. Abdomen is soft, nontender, normoactive bowel sounds throughout. Extremities without cyanosis, clubbing. Posterior calves are nontender. Peripheral pulses are equal. Skin is warm and dry. Examination of the spine yields no midline tenderness or step-off. He has paraspinal musculature tenderness at about L4-L5 and into the SI joint on the right. No piriformis tenderness palpation. Negative straight leg raise. He has no tenderness over the right greater trochanter. No significant pain with internal and external rotation of the right lower extremity. Neurovascularly intact distally. Course - Re-evaluation Re-evalutation: 01/08/19 22:02 Patient presents to the emergency department for evaluation. He had a right hip x-ray ordered reflexively given the chief complaint and report from EMS. X-ray was read interpreted by myself as well as radiology showing no acute fracture. After exam it was found that the patient does have significant SI joint tenderness. I did go ahead and order a lumbar CT, which showed multiple chronic changes but nothing else acute. Patient was actually here, standing without assistance, having minimal pain. I will then send him home with some pain medication. He currently lives with his , but she is hospitalized at this time. I advised that a family member stay with him tonight. I gave him a short course of Haynes to control his symptoms. We did discuss side effects of this medication, he should take it with food, watch for dizziness and drowsiness, watch for constipation. Both the patient as well as his daughter voiced unde rstanding. He is also told that sometimes fractures, particularly subtle ones, do not show up initially. He may need to have further imaging in 1 to 2 weeks if his symptoms persist. They voiced understanding and the patient was discharged. - Vital Signs Vital signs: Temp Pulse Resp BP Pulse Ox 97.5 F 14 173/86 H 93 01/08/19 18:55 01/08/19 18:55 01/08/19 18:55 01/08/19 18:55 Discharge - Discharge Clinical Impression: Lumbosacral strain, Fall from standing Condition: Stable Disposition: HOME, SELF-CARE Instructions: Low Back Pain ([facility]), Ice Packs ([facility]) Additional Instructions: Take medication as prescribed. Watch for dizziness, drowsiness, constipation as discussed. Follow-up with your doctor next week. If your pain persist she may need further imaging. Return to the emergency department with worsening or new concerning symptoms of any sort. Referrals: JOSESITO TRIPLETT MD [Primary Care Provider] - Follow up as needed
[2019-01-08 22:47] VITALS: BP 165/87
== END 2019-01-08 22:57 | disposition home or self-care (01) ==
LOC: ER 18:47
DX: S39.012A Strain of muscle, fascia and tendon of lower back, initial encounter (principal); W01.0XXA Fall on same level from slipping, tripping and stumbling without subsequent striking against object, initial encounter; Y93.H9 Activity, other involving exterior property and land maintenance, building and construction; I25.10 Atherosclerotic heart disease of native coronary artery without angina pectoris; I10 Essential (primary) hypertension; Z88.5 Allergy status to narcotic agent; Z88.0 Allergy status to penicillin
CPT/HCPCS: 99284; 73502; 72131; A9270

== ENCOUNTER 2019-04-14 22:08 | Inpatient (IN) | payer MEDICARE ==
--- NOTE | 2019-04-14 22:38 | RADIOLOGY REPORT (SQ) ---
EXAM DESCRIPTION: CT HEAD WITHOUT IV CONTRAST COMPLETED DATE/TME: 04/14/2019 00:00 CLINICAL HISTORY: 74 years, Male, STROKE COMPARISON: Prior study from 08/07/2018 TECHNIQUE: Noncontrast CT of the head was performed. Coronal and sagittal reformations were created. Images stored on PACS. All CT scanners at this facility use dose modulation, iterative reconstruction, and/or weight based dosing when appropriate to reduce radiation dose to as low as reasonably achievable (ALARA). [facility]: Dose Right [facility]: CareDose [facility]: Dose Right [facility]: Teradose 4D [facility]: [employer] LIMITATIONS: None. FINDINGS: Evaluation of the brain parenchyma reveals mild periventricular and patchy subcortical white matter low attenuation. No acute intracranial hemorrhage, mass effect, or extra-axial fluid is seen. The ventricles and sulcal spaces are mildly enlarged. Globes and orbits show no acute abnormality. Paranasal sinuses and mastoid air cells are clear. Calcifications are evident about the parasellar carotid arteries. No depressed skull fractures. IMPRESSION: No acute intracranial abnormality. Mild chronic microvascular ischemic change and generalized atrophy. TECHNICAL DOCUMENTATION: Quality ID # [id number]: Final reports with documentation of one or more dose reduction techniques (e.g., Automated exposure control, adjustment of the mA and/or kV according to patient size, use of iterative reconstruction technique) copyright 2010 [employer]- All Rights Reserved
[2019-04-14 22:42] LABS: ABSOLUTE LYMPHOCYTES (AUTO) 2.2 10^3/uL (0.5-4.7); ABSOLUTE NEUT (AUTO) 5.1 10^3/uL (1.7-8.2); BASOPHILS % (AUTO) 0.5 % (0-2); EOSINOPHILS % (AUTO) 0.3 % (0-6); HEMATOCRIT 41.7 % (37.9-51.0); HEMOGLOBIN 14.4 g/dL (13.5-17.0); LYMPHOCYTES % (AUTO) 26.5 % (13-45); MEAN CORPUSCULAR HEMOGLOBIN 37.4 pg (27.0-33.4); MEAN CORPUSCULAR HGB CONC 34.6 g/dL (32.0-36.0); MEAN CORPUSCULAR VOLUME 108 fl (80-97); MONOCYTES % (AUTO) 11.7 % (3-13); PLATELET COUNT 167 10^3/uL (150-450); RED BLOOD COUNT 3.85 10^6/uL (4.35-5.55); RED CELL DISTRIBUTION WIDTH 14.4 % (11.5-14.0); TOTAL CELLS COUNTED % (AUTO) 100 %; WHITE BLOOD COUNT 8.3 10^3/uL (4.0-10.5)
[2019-04-14 22:44] LABS: INTERNATIONAL RATION (INR) 1.03
[2019-04-14 22:49] LABS: PARTIAL THROMBOPLASTIN TIME 35.8 SEC (23.5-35.8)
[2019-04-14 22:50] LABS: PROTHROMBIN TIME 13.5 SEC (11.4-15.4)
[2019-04-14 22:52] LABS: ALBUMIN 3.7 g/dL (3.5-5.0); ALKALINE PHOSPHATASE 59 U/L (38-126); ANION GAP 10 (5-19); ASPARTATE AMINO TRANSFERASE 18 U/L (17-59); BILIRUBIN,DIRECT 0.2 mg/dL (0.0-0.4); BILIRUBIN,TOTAL 0.5 mg/dL (0.2-1.3); BLOOD UREA NITROGEN 15 mg/dL (7-20); CALCIUM 8.8 mg/dL (8.4-10.2); CARBON DIOXIDE 23 mmol/L (22-30); CHLORIDE 106 mmol/L (98-107); CREATINE KINASE 65 U/L (55-170); GLUCOSE 114 mg/dL (75-110); POTASSIUM 3.5 mmol/L (3.6-5.0); TOTAL PROTEIN 6.2 g/dL (6.3-8.2)
[2019-04-14 23:04] LABS: TROPONIN I < 0.012 ng/mL
--- NOTE | 2019-04-14 23:10 | RADIOLOGY REPORT (SQ) ---
EXAM DESCRIPTION: XR CHEST 1 VIEW COMPLETED DATE/TME: 04/14/2019 22:19 CLINICAL HISTORY: 74 years, Male, stroke alert COMPARISON: 02/23/2018 chest NUMBER OF VIEWS: 1 TECHNIQUE: Portable chest LIMITATIONS: None. FINDINGS: Cardiomegaly. Sternotomy wires. Atheromatous change thoracic aorta. Osteopenia. Post surgical change cervical spine. No pneumothorax. Minor subsegmental atelectasis in the lung bases IMPRESSION: Stable cardiomegaly and postsurgical change. Minor bibasilar subsegmental atelectasis copyright 2010 [employer]- All Rights Reserved
--- NOTE | 2019-04-15 00:40 | ER Document Report ---
ED Neuro Symptoms/Deficit - General Chief Complaint: Altered Mental Status Stated Complaint: AMS Primary Care Provider: JOSESITO TRIPLETT MD [Primary Care Provider] - Follow up as needed TRAVEL OUTSIDE OF THE [place] IN LAST 30 DAYS: No - HPI Patient complains to provider of: Paralysis Onset: Just prior to arrival Symptoms are: Worse/persistent Duration: Continues in ED Quality of pain: No pain Severity: Moderate Was STROKE ALERT Called: Yes Baseline Cognitive: Alert but confused Baseline Gait: Unable to walk Pre-existing weakness: Lower extremity, Upper extremity Alert To: Name/Voice Patient Orientation: Person Character of altered mental status: Decreased responsiveness New weakness: LUE, LLE Altered sensation: LUE, LLE Decreased ability to stand/walk: Cannot walk Impaired speech/swallowing: Difficult Associated symptoms: denies: None, Chest pain, Back pain, Chills, Dizzy, Falling injury, Fainting, Fever, Headache, Hurts to breathe, Involuntary movements, Lightheadedness, Nausea, Neck pain, Seizure, Short of breath, Sweaty, Vomiting, Other Similar symptoms previously: No Notes: Patient is 74-year-old who came in with chief complaint of new left-sided upper and lower extremity weakness with also slurred speech per daughter who is next of kin power of prosecuting attorney. Patient has a history of a right-sided CVA where he could not use his upper and lower extremity. A stroke alert was called on this patient however discussing with the daughter power of prosecuting attorney next of kin she would not wish us to give TPA as she feels the risks of bleeding outweigh the benefits. As patient is inside the window at 2 hours since the beginning of the symptoms. - Related Data Allergies/Adverse Reactions: iodine [Iodine] Allergy (Unknown, Verified 02/23/18 12:37) meperidine HCl [From Demerol] Allergy (Unknown, Verified 02/23/18 12:37) oxycodone [From Percocet] Allergy (Verified 02/23/18 12:37) Penicillins Allergy (Verified 02/23/18 12:37) aspirin [Aspirin] Adverse Reaction (Severe, Verified 02/23/18 12:37) Hemorrhage Past Medical History - Social History Smoking Status: Former Smoker Family History: None - Patient denies any illness - Past Medical History Cardiac Medical History: Reports: Hx Coronary Artery Disease, Hx Heart Attack - post CABG, Hx Hypercholesterolemia, Hx Hypertension Denies: Hx Heart Murmur Pulmonary Medical History: Reports: Hx Pneumonia - 2009 Denies: Hx Respiratory Failure, Hx Sleep Apnea, Hx Tuberculosis Neurological Medical History: Reports: Hx Cerebrovascular Accident - R sided weakness, memory loss, Hx Migraine Endocrine Medical History: Renal/ Medical History: Reports: Hx Kidney Stones. Denies: Hx Peritoneal Dialysis Malignancy Medical History: Reports Hx Colorectal Cancer, Reports Hx Skin Cancer GI Medical History: Reports: Hx Hiatal Hernia - repair 15years ago, LLQ, Hx Ulcer. Denies: Hx Pancreatitis Musculoskeletal Medical History: Reports Hx Arthritis, Reports Hx Musculoskeletal Deformity, Reports Hx Musculoskeletal Trauma, Denies Hx Systemic Lupus Erythematosus Psychiatric Medical History: Reports: Hx Dementia - mild, Hx Depression Traumatic Medical History: Reports: Hx Fractures, Hx Spine Fracture Infectious Medical History: Past Surgical History: Reports: Hx Abdominal Surgery - HERNIA REPAIR, Hx Cardiac Catheterization, Hx Cardiac Surgery - bypass, stents, CABG, Hx Coronary Artery Bypass Graft - 4 vessel 1995, Hx Coronary Stent, Hx Genitourinary Surgery - penis removed CA, Hx Inguinal Hernia, Hx Orthopedic Surgery - SPINAL FUSION, spinal decompression, Hx Urinary Tract Surgery - penis removed surgically for CA - Immunizations Immunizations up to date: Yes Hx Diphtheria, Pertussis, Tetanus Vaccination: Yes - UTD Hx Pneumococcal Vaccination: 10/07/11 Review of Systems - Review of Systems -: Yes ROS unobtainable due to patient's medical condition Physical Exam - Vital signs Vitals: Pulse Resp BP Pulse Ox 81 17 145/85 H 94 04/14/19 22:31 04/14/19 22:31 04/14/19 22:31 04/14/19 22:31 Notes: PHYSICAL EXAMINATION: GENERAL: Cachectic hearing 73-year-old in moderate distress HEAD: Atraumatic, normocephalic. EYES: Pupils equal round and reactive to light, extraocular movements intact, sclera anicteric, conjunctiva are normal. ENT: nares patent, oropharynx clear without exudates. Moist mucous membranes. NECK: Normal range of motion, supple without lymphadenopathy LUNGS: Breath sounds clear to auscultation bilaterally and equal. No wheezes rales or rhonchi. HEART: Regular rate and rhythm without murmurs ABDOMEN: Soft, nontender, normoactive bowel sounds. No guarding, no rebound. No masses appreciated. EXTREMITIES: Normal range of motion, no pitting or edema. No cyanosis. NEUROLOGICAL: 2 out of 5 muscle strength in the left upper lower extremity 1 out of 5 muscle strength in the right upper and lower extremity PSYCH: Normal mood, normal affect. SKIN: Warm, Dry, normal turgor, no rashes or lesions noted. Course - Vital Signs Vital signs: Temp Pulse Resp BP Pulse Ox 81 17 145/85 H 94 04/14/19 22:31 04/14/19 22:31 04/14/19 22:31 04/14/19 22:31 - Laboratory Result Diagrams: 04/14/19 22:15 04/14/19 22:15 Laboratory results interpreted by me: 04/14/19 04/14/19 22:15 22:15 RBC 3.85 L MCV 108 H MCH 37.4 H RDW 14.4 H Potassium 3.5 L Glucose 114 H Total Protein 6.2 L - Diagnostic Test Radiology reviewed: Image reviewed, Reports reviewed - EKG Interpretation by Me EKG shows normal: Sinus rhythm [place]/QRS: Left axis deviation, LAHB/LAFB Voltage: Consistant with LVH - Transfer of Care Notes: 04/15/19 00:49 Patient will be admitted to Dr. Gonzáles Discharge - Discharge Clinical Impression: CVA (cerebral vascular accident) Condition: Fair Disposition: ADMITTED INPATIENT Admitting Provider: Nivia (Hospitalist) Unit Admitted: Medical Floor Referrals: JOSESITO TRIPLETT MD [Primary Care Provider] - Follow up as needed ED NIH Stroke Scale - NIH Stroke Scale *: 1. NIH scale should be completed with appropriate accompanying assessment tools. *: 2. The NIH should reflect what the patient is capable of doing and should not be coached by the clinician. 1a. Level of Consciousness: 0=Alert;keenly responsive -: 1=Drowsy -: 2=Obtunded -: 3=Coma/unresponsive or reflex to noxious stimuli. 1a. Responses: 0 1b. Orientation Questions: a. What month is it? -: b. How old are you? -: 0=Answers both questions correctly. -: 1=Answers one question correctly or patient is intubated or has orotracheal trauma. -: 2=Answers neither question correctly. 1b. Responses: 0 1c. Response to commands: a. Open and close eyes? -: b. Director Transportation and release hand? -: Credit is given despite weakness. Demonstration of task is permitted. Substitute command if hands cannot be used. -: 0=Performs both tasks correctly -: 1=Performs one task correctly -: 2=Performs neither task correctly 1c. Responses: 0 2. Gaze: Establish eye contact and instruct patient to "Follow my finger" -: 0=Normal -: 1=Partial gaze palsy. Gaze is abnormal in one or both eyes, but where forced deviation or total gaze paresis is not present. -: 2=Forced deviation or total gaze paresis. 2. Responses: 1 3. Visual Mck[place]: Sees fingers in all four quadrants. -: 0=No visual loss. -: 1=Partial hemianopsia. -: 2=Complete hemianopsia. -: 3=Bilateral hemianopsia (including Cortical blindness) 3. Responses: 0 4. Facial Movement: Instruct patient to: -: a. Show me your teeth -: b. Raise your eyebrows -: c. Close your eyes -: d. Smile -: 0=Normal symmetrical movement -: 1=Minor paralysis (flattened nasolabial fold, asymmetry on smiling). -: 2=Partial paralysis (total or near total paralysis of lower face). -: 3=Complete paralysis of upper and lower face 4. Responses: 2 5. Motor functions (left arm): Alternate sides and extend each arm with palms down (90 degrees if sitting or 45 degrees for supine). -: 0=No drift;limb holds for full 10 seconds. -: 1=Drift; limb holds but drifts down before full 10 seconds, but does not hit bed. -: 2=Some effort against gravity; limb cannot get to or maintain position. -: 3=No effort against gravity; limb falls. -: 4=No movement. -: UN=Amputation, joint fusion, explain in comments. 5. Responses (left arm): 3 5. Motor Functions (right arm): Alternate sides and extend each arm with palms down (90 degrees if sitting or 45 degrees for supine). -: 0=No drift;limb holds for full 10 seconds. -: 1=Drift; limb holds but drifts down before full 10 seconds, but does not hit bed. -: 2=Some effort against gravity; limb cannot get to or maintain position. -: 3=No effort against gravity; limb falls. -: 4=No movement. -: UN=Amputation, joint fusion, explain in comments. 5. Responses (right arm): 3 6. Motor Functions (left leg): With patient lying supine, alternate sides and extend each leg (30 degrees always while supine). -: 0=No drift, leg holds position for full 5 seconds -: 1=Drift; leg falls before full 5 seconds but does not hit bed. -: 2=Some effort against gravity, leg falls to bed but some effort against gravity. -: 3=No effort against gravity, leg falls to bed immediately. -: 4=No movement. -: UN=Amputation, joint fusion; explain in comments. 6. Responses (left leg): 3 6. Motor Functions (right leg): With patient lying supine, alternate sides and extend each leg (30 degrees always while supine). -: 0=No drift, leg holds position for full 5 seconds -: 1=Drift; leg falls before full 5 seconds but does not hit bed. -: 2=Some effort against gravity, leg falls to bed but some effort against gravity. -: 3=No effort against gravity, leg falls to bed immediately. -: 4=No movement. -: UN=Amputation, joint fusion; explain in comments. 6. Responses (right leg): 3 7. Limb Ataxia: With eyes open instruct patient to: -: a. "Touch your finger to your nose". -: b. "Touch your heel to your beach" -: 0=Absent -: 1=Present in one limb. -: 2=Present in two limbs. -: UN=Amputation or joint fusion; explain in comments. 7. Responses: UN 8. Sensory: Test sensation using pinprick or noxious stimuli. Test as many body parts as possible. -: 0=Normal;no sensory loss -: 1=Mile to moderate sensory loss (patient feels pin prick but is less sharp on affected side). -: 2=Severe or total sensory loss. 8. Responses: 1 9. Best Language: Instruct patient to: -: a. "Describe what you see in this picture." -: b. "Name the items in this picture." -: c. "Read these sentences." -: 0=No aphasia, normal -: 1=Mild to moderate aphasia. -: 2=Severe aphasia -: 3=Mute, global aphasia, no usable speech or auditory comprehension. 9. Responses: 3 10. Articulation, Dysarthia: Instruct patient to: -: "Read these words" or "Repeat these words" -: 0=Normal -: 1=Mild to moderate; patient may slur some words but can be understood without difficulty. -: 2=Severe; patients speech so slurred as to be unintelligible in the absence of dysphasia. -: UN=Intubated or other physical barrier, explain in comments. 10. Responses: 1 11. Extinction or inattention: 0=No abnormality -: 1= Visual, tactile, auditory, spatial, or personal inattention or extinction to bilateral simulation in one or the sensory modalities. -: 2=Profound magda-inattention or magda-inattention to more than one modality; does not recognize own hand. 11. Responses: 0 Total Score: 20
[2019-04-15] MEDS ORDERED: MAGNESIUM HYDROXIDE SUSP 30 ML UDCUP PO PRN (00:50)
[2019-04-15] MEDS ORDERED: ONDANSETRON 4 MG TAB.RAPDIS PO PRN (00:50)
[2019-04-15] MEDS ORDERED: DOCUSATE SODIUM 100 MG CAPSULE PO PRN (00:50)
[2019-04-15] MEDS ORDERED: LABETALOL HCL INJ 20 MG/4 ML DISP.SYRIN IV PRN (00:58)
[2019-04-15] MEDS ORDERED: HYDRALAZINE HCL INJ/PF 20 MG/1 ML SDV IV PRN (00:58)
[2019-04-15] MEDS: ACETAMINOPHEN 325 MG TABLET PO PRN ×3 (02:08→20:15)
--- NOTE | 2019-04-15 04:27 | PDOC H&P ---
History of Present Illness Admission Date/PCP: 04/15/2019 00:18 JOSESITO TRIPLETT MD Patient complains of: New left sided weakness History of Present Illness: GÉNESIS DANIELLE is a 74 year old male who presented to the emergency room with acute onset of left-sided weakness. The patient and family members explained that he developed sudden weakness of his left upper and lower extremity at about 8:30 PM 04/14/2019. Patient was brought to the hospital for evaluation and he and his family (daughter is POA) decided not to accept the offer of TPA administration due to the risk of intracranial hemorrhage. Patient has experienced some decrease in his ability to speak in sentences, but otherwise the patient and family deny other accompanying or associated signs and symptoms. 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 He has not identified any aggravating or ameliorating factors for his left-sided weakness. In the emergency room patient was found to have a CT scan of the head which did not show any acute infarction or hemorrhage. Patient was subsequently admitted to the hospital for further ev aluation and treatment. Past Medical History Cardiac Medical History: Reports: Coronary Artery Disease, Myocardial Infarction - post CABG, Hyperlipidema, Hypertension Denies: Atrial Fibrillation, Congestive Heart Failure, DVT, Pulmonary Embolism, Heart Murmur Pulmonary Medical History: Reports: Pneumonia - 2009 Denies: Asthma, Chronic Obstructive Pulmonary Disease (COPD), Respiratory Failure, Sleep Apnea, Tuberculosis EENT Medical History: Denies: Cataracts, Ears - Hearing aids Neurological Medical History: Reports: Ischemic CVA, Migraine, Other - Right hemiparesis Denies: Hemorrhagic CVA, Multiple Sclerosis, Seizures Endocrine Medical History: Denies: Diabetes Mellitus Type 1, Diabetes Mellitus Type 2, Hyperthyroidism, Hypothyroidism Renal/ Medical History: Denies: Chronic Kidney Disease, Nephrolithiasis Malignancy Medical History: Reports: Colorectal Cancer, Skin Cancer GI Medical History: Reports: Gastroesophageal Reflux Disease, Hiatal Hernia - repair 15 years ago Denies: Cirrhosis, Crohn's Disease, Hepatitis, Peptic Ulcer Disease, Ulcerative Colitis Musculoskeltal Medical History: Reports: Arthritis Denies: Gout Skin Medical History: Denies: Eczema, Psoriasis Psychiatric Medical History: Reports: Dementia - mild, Depression Denies: Alcohol Dependency, Substance Abuse, Tobacco Dependency Traumatic Medical History: Reports: None Hematology: Denies: Anemia, Sickle Cell Disease, Bleeding Tendencies Infectious Medical History: Reports: None Past Surgical History Past Surgical History: Reports: Cardiac Catheterization, Coronary Artery Bypass Graft - 4 vessel 1996, Coronary Stent, Orthopedic Surgery - Cervical spinal fusion, cervical spinal decompression, Other - Hiatal hernia repair Social History Information Source: Patient, Relative Lives with: Spouse/Significant other Smoking Status: Never Smoker Frequency of Alcohol Use: None Hx Recreational Drug Use: No Drugs: None Hx Prescription Drug Abuse: No - Advance Directive Resuscitation Status: Do Not Resuscitate Surrogate healthcare decision maker:: Carmina Lau Family History Family History: Arthritis, CAD, CVA, Hypertension. denies: DM, Malignancy Parental Family History Reviewed: Yes Children Family History Reviewed: No Sibling(s) Family History Reviewed.: Yes Medication/Allergy Home Medications: Donepezil HCl [Aricept] 10 mg PO QHS 04/15/19 Gabapentin 600 mg PO QHS 04/15/19 Lisinopril [Zestril] 2.5 mg PO DAILY 04/15/19 Prednisone [Deltasone 5 mg Tablet] 10 mg PO DAILY 04/15/19 Allergies/Adverse Reactions: iodine [Iodine] Allergy (Unknown, Verified 04/15/19 02:30) meperidine HCl [From Demerol] Allergy (Unknown, Verified 04/15/19 02:30) oxycodone [From Percocet] Allergy (Verified 04/15/19 02:30) Penicillins Allergy (Verified 04/15/19 02:30) aspirin [Aspirin] Adverse Reaction (Severe, Verified 04/15/19 02:30) Hemorrhage Review of Systems Constitutional: ABSENT: chills, fever(s) Eyes: ABSENT: visual disturbances, other - Eye pain Ears: ABSENT: hearing changes, other - Ear pain Nose, Mouth, and Throat: ABSENT: mouth pain, sore throat Cardiovascular: ABSENT: chest pain, palpitations Respiratory: ABSENT: cough, dyspnea Gastrointestinal: ABSENT: abdominal pain, constipation, diarrhea, nausea, vomiting Genitourinary: ABSENT: dysuria, hematuria Musculoskeletal: ABSENT: back pain, joint swelling Integumentary: ABSENT: pruritus, rash Neurological: PRESENT: abnormal gait - Due to weakness of the left lower extremity he is unable to ambulate. Right extremity has chronic severe paresis., abnormal speech - Decreased ability to express himself in longer sentences, focal weakness - left upper and lower extremities, left face. ABSENT: confusion, convulsions, memory loss, syncope Psychiatric: ABSENT: anxiety, depression Endocrine: ABSENT: cold intolerance, heat intolerance Hematologic/Lymphatic: ABSENT: easy bleeding, easy bruising Allergic/Immunologic: ABSENT: seasonal rhinorrhea Physical Exam Vital Signs: Temp Pulse Resp BP Pulse Ox 81 17 145/85 H 94 04/14/19 22:31 04/14/19 22:31 04/14/19 22:31 04/14/19 22:31 General appearance: PRESENT: no acute distress, cooperative Head exam: PRESENT: atraumatic, normocephalic Eye exam: PRESENT: conjunctiva pink. ABSENT: conjunctival injection, scleral icterus Ear exam: PRESENT: normal external ear exam. ABSENT: bleeding, drainage Mouth exam: PRESENT: dry mucosa, neck supple Neck exam: ABSENT: thyromegaly, tracheal deviation Respiratory exam: PRESENT: clear to auscultation ruben, symmetrical, unlabored Cardiovascular exam: PRESENT: RRR. ABSENT: clicks, gallop, rubs Pulses: PRESENT: normal radial pulses, normal dorsalis pedis pul Vascular exam: PRESENT: normal capillary refill. ABSENT: pallor GI/Abdominal exam: PRESENT: normal bowel sounds, soft Rectal exam: PRESENT: deferred Extremities exam: ABSENT: joint swelling, pedal edema, tenderness Musculoskeletal exam: PRESENT: other - New onset right hemiplegia worse than residual left hemiplegia. ABSENT: deformity, dislocation Neurological exam: PRESENT: alert, awake, oriented to person, oriented to place, motor sensory deficit - Apparently new moderate right hemiparesis is noted affecting the face as well as both the upper and lower extremities on the right side, a more subtle and apparently chronic left hemiparesis is also noted. Psychiatric exam: PRESENT: appropriate affect, normal mood Skin exam: PRESENT: dry, intact, warm. ABSENT: jaundice, rash, urticaria Results Laboratory Results: 04/14/19 22:15 04/14/19 22:15 04/14/19 04/14/19 22:15 22:15 WBC 8.3 RBC 3.85 L Hgb 14.4 Hct 41.7 MCV 108 H MCH 37.4 H MCHC 34.6 RDW 14.4 H Plt Count 167 Seg Neutrophils % 61.0 Sodium 139.4 Potassium 3.5 L Chloride 106 Carbon Dioxide 23 Anion Gap 10 BUN 15 Creatinine 0.90 Est GFR ( Amer) > 60 Glucose 114 H Calcium 8.8 Total Bilirubin 0.5 AST 18 Alkaline Phosphatase 59 Total Protein 6.2 L Albumin 3.7 04/14/19 04/14/19 22:15 22:15 Creatine Kinase 65 CK-MB (CK-2) 1.10 Troponin I < 0.012 Impressions: Head CT 04/14/19 00:00 IMPRESSION: No acute intracranial abnormality. Mild chronic microvascular ischemic change and generalized atrophy. TECHNICAL DOCUMENTATION: Quality ID # [id number]: Final reports with documentation of one or more dose reduction techniques (e.g., Automated exposure control, adjustment of the mA and/or kV according to patient size, use of iterative reconstruction technique) copyright 2010 [employer]- All Rights Reserved Chest X-Ray 04/14/19 22:19 IMPRESSION: Stable cardiomegaly and postsurgical change. Minor bibasilar subsegmental atelectasis copyright 2010 [employer]- All Rights Reserved Assessment and Plan - Diagnosis (1) Acute left-sided weakness Is this a current diagnosis for this admission?: Yes Plan: Patient is found to have acute left-sided weakness and is being admitted for the stroke protocol. An MRI of the head will be obtained as well as bilateral carotid Doppler studies. Physical therapy, occupational therapy and speech therapy will be consult. Further treatment will be based upon the results of his initial testing, keeping his DNR status in mind. (2) Coronary artery disease Qualifiers: Coronary Disease-Associated Artery/Lesion type: [place] artery [place] vs. transplanted heart: [place] heart Associated angina: without angina Qualified Code(s): I25.10 - Atherosclerotic heart disease of [place] coronary artery without angina pectoris Is this a current diagnosis for this admission?: Yes Plan: Patient will be continued on his usual medications for coronary artery disease. He will also be on a cardiac diet. He will be observed closely for changes of his cardiac status during his hospital course. (3) Hypertension Qualifiers: Hypertension type: essential hypertension Qualified Code(s): I10 - Essential (primary) hypertension Is this a current diagnosis for this admission?: Yes Plan: Patient be continued on his usual antihypertensive regimen. Will be continued on a cardiac diet. Vital signs including blood pressure will be assessed frequently during his hospital course. (4) Weakness due to cerebrovascular accident (CVA) Is this a current diagnosis for this admission?: Yes Plan: The patient's residual weakness status post cerebrovascular accident affecting his left side will be reassessed by physical therapy while they are evaluating his new symptoms. He will be continued on his previous post stroke protocol during hospital course. (5) DNR (do not resuscitate) Is this a current diagnosis for this admission?: Yes Plan: The family and patient are insistent on continuing the patient as a DNR for resuscitation CODE STATUS. - Time Time Spent with patient: 25-34 minutes Medications reviewed and adjusted accordingly: Yes Anticipated discharge: Home - Inpatient Certification Based on my medical assessment, after consideration of the patient's comorbidities, presenting symptoms, or acuity I expect that the services needed warrant INPATIENT care.: Yes I certify that my determination is in accordance with my understanding of Medicare's requirements for reasonable and necessary INPATIENT services [42 CFR 412.3e].: Yes Medical Necessity: Significant Comorbidiites Make Outpatient Treatment Too Risky , Need Close Monitoring Due to Risk of Patient Decompensation, Need For Continuous Telemetry Monitoring, Need for Neurological Checks, Risk of Complication if Not Cared For in Hospital, Risk of Diagnosis Which Will Require Inpatient Eval/Care/Monitoring
[2019-04-15] MEDS: HEPARIN SOD (PORCINE) 5,000 UNIT/ML 1 ML VIAL SUBCUT SCH ×3 (05:43→21:08)
[2019-04-15] MEDS ORDERED: NYSTATIN CREAM 15 GM TP PRN (06:55)
[2019-04-15 08:28] LABS: ABSOLUTE BASOPHILS # (AUTO) 0.1 10^3/uL (0.0-0.2); ABSOLUTE EOSINOPHILS # (AUTO) 0.1 10^3/uL (0.0-0.6); ABSOLUTE LYMPHOCYTES (AUTO) 2.6 10^3/uL (0.5-4.7); ABSOLUTE MONOCYTES (AUTO) 0.9 10^3/uL (0.1-1.4); ABSOLUTE NEUT (AUTO) 3.9 10^3/uL (1.7-8.2); BASOPHILS % (AUTO) 0.9 % (0-2); EOSINOPHILS % (AUTO) 0.9 % (0-6); HEMATOCRIT 39.8 % (37.9-51.0); HEMOGLOBIN 13.5 g/dL (13.5-17.0); LYMPHOCYTES % (AUTO) 34.4 % (13-45); MEAN CORPUSCULAR HGB CONC 34.1 g/dL (32.0-36.0); MEAN CORPUSCULAR VOLUME 109 fl (80-97); MONOCYTES % (AUTO) 11.5 % (3-13); PLATELET COUNT 142 10^3/uL (150-450); RED BLOOD COUNT 3.66 10^6/uL (4.35-5.55); RED CELL DISTRIBUTION WIDTH 14.4 % (11.5-14.0); SEGMENTED NEUTROPHILS % (AUTO) 52.3 % (42-78); TOTAL CELLS COUNTED % (AUTO) 100 %; WHITE BLOOD COUNT 7.5 10^3/uL (4.0-10.5)
[2019-04-15 08:43] LABS: CHOLESTEROL 160.21 mg/dL (0-200); TRIGLYCERIDES 130 mg/dL (<150)
[2019-04-15 08:45] LABS: ALBUMIN 3.3 g/dL (3.5-5.0); ALKALINE PHOSPHATASE 56 U/L (38-126); ANION GAP 9 (5-19); ASPARTATE AMINO TRANSFERASE 17 U/L (17-59); BILIRUBIN,DIRECT 0.2 mg/dL (0.0-0.4); BILIRUBIN,TOTAL 0.5 mg/dL (0.2-1.3); BLOOD UREA NITROGEN 15 mg/dL (7-20); CALCIUM 8.3 mg/dL (8.4-10.2); CARBON DIOXIDE 24 mmol/L (22-30); CHLORIDE 105 mmol/L (98-107); GLUCOSE 87 mg/dL (75-110); POTASSIUM 3.2 mmol/L (3.6-5.0); TOTAL PROTEIN 5.8 g/dL (6.3-8.2)
[2019-04-15 08:54] LABS: DIRECT LDL 108 mg/dL (<100)
[2019-04-15] MEDS: CLOPIDOGREL BISULFATE 75 MG TABLET PO SCH (09:21)
--- NOTE | 2019-04-15 09:25 | PDOC PROGRESS REPORT ---
Subjective Progress Note for:: 04/15/19 Subjective:: 74 year old male who presented to the emergency room with acute onset of left- sided weakness. The patient and family members explained that he developed sudden weakness of his left upper and lower extremity at about 8:30 PM 04/14/2019. Patient was brought to the hospital for evaluation and he and his family (daughter is MYRNA) decided not to accept the offer of TPA administration due to the risk of intracranial hemorrhage. Patient has experienced some decrease in his ability to speak in sentences, but otherwise the patient and family deny other accompanying or associated signs and symptoms. 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 He has not identified any aggravating or ameliorating factors for his left-sided weakness. In the emergency room patient was found to have a CT scan of the head which did not show any acute infarction or hemorrhage. Patient was subsequently admitted to the hospital for further evaluation and treatment. 04/15/[id number]-cylw-old male with history of right-sided weakness came last night with left-sided weakness. CT head was negative for acute changes. No acute events since the admission. We are waiting for MRI of the brain and MRA of the neck today. Stroke protocol was implemented. Patient is communicating okay and comfortable in the bed. Reason For Visit: ACUTE LEFT HEMISPHERE CVA/TIA Physical Exam Vital Signs: Temp Pulse Resp BP Pulse Ox 99.3 F 67 18 136/74 H 93 04/15/19 03:18 04/15/19 04:00 04/15/19 04:00 04/15/19 04:00 04/15/19 04:00 Intake & Output 04/14/19 04/15/19 04/16/19 06:59 06:59 06:59 Output Total 0 Balance 0 Weight 71 kg General appearance: PRESENT: no acute distress, cooperative Head exam: PRESENT: atraumatic Eye exam: PRESENT: PERRLA Mouth exam: PRESENT: moist, tongue midline Teeth exam: PRESENT: poor dentation Neck exam: ABSENT: carotid bruit, JVD, lymphadenopathy, thyromegaly Respiratory exam: PRESENT: decreased breath sounds Cardiovascular exam: PRESENT: RRR. ABSENT: diastolic murmur, rubs, systolic murmur GI/Abdominal exam: PRESENT: normal bowel sounds, soft. ABSENT: distended, guarding, mass, organolmegaly, rebound, tenderness Rectal exam: PRESENT: deferred Extremities exam: PRESENT: full ROM. ABSENT: calf tenderness, clubbing, pedal edema Neurological exam: PRESENT: alert, awake, oriented to person, oriented to place, oriented to time, other - Patient has a previous right-sided weakness this time came with left-sided weakness. Power in the left lower leg is 2 -3 / 5 and left upper arm is 3 /5. Psychiatric exam: PRESENT: appropriate affect, normal mood. ABSENT: homicidal ideation, suicidal ideation Results Laboratory Results: 04/15/19 08:05 04/15/19 08:05 04/14/19 04/14/19 04/15/19 22:15 22:15 08:05 WBC 8.3 7.5 RBC 3.85 L 3.66 L Hgb 14.4 13.5 Hct 41.7 39.8 MCV 108 H 109 H MCH 37.4 H 37.0 H MCHC 34.6 34.1 RDW 14.4 H 14.4 H Plt Count 167 142 L Seg Neutrophils % 61.0 52.3 Sodium 139.4 Potassium 3.5 L Chloride 106 Carbon Dioxide 23 Anion Gap 10 BUN 15 Creatinine 0.90 Est GFR ( Amer) > 60 Glucose 114 H Calcium 8.8 Magnesium Total Bilirubin 0.5 AST 18 Alkaline Phosphatase 59 Total Protein 6.2 L Albumin 3.7 Triglycerides Cholesterol LDL Cholesterol Direct VLDL Cholesterol HDL Cholesterol 04/15/19 04/15/19 08:05 08:05 WBC RBC Hgb Hct MCV MCH MCHC RDW Plt Count Seg Neutrophils % Sodium 138.1 Potassium 3.2 L Chloride 105 Carbon Dioxide 24 Anion Gap 9 BUN 15 Creatinine 0.69 Est GFR ( Amer) > 60 Glucose 87 Calcium 8.3 L Magnesium 2.1 Total Bilirubin 0.5 AST 17 Alkaline Phosphatase 56 Total Protein 5.8 L Albumin 3.3 L Triglycerides 130 Cholesterol 160.21 LDL Cholesterol Direct 108 H VLDL Cholesterol 26.0 HDL Cholesterol 31 L 04/14/19 04/14/19 22:15 22:15 Creatine Kinase 65 CK-MB (CK-2) 1.10 Troponin I < 0.012 Impressions: Head CT 04/14/19 00:00 IMPRESSION: No acute intracranial abnormality. Mild chronic microvascular ischemic change and generalized atrophy. TECHNICAL DOCUMENTATION: Quality ID # 436: Final reports with documentation of one or more dose reduction techniques (e.g., Automated exposure control, adjustment of the mA and/or kV according to patient size, use of iterative reconstruction technique) copyright 2010 [employer]- All Rights Reserved Chest X-Ray 04/14/19 22:19 IMPRESSION: Stable cardiomegaly and postsurgical change. Minor bibasilar subsegmental atelectasis copyright 2010 [employer]- All Rights Reserved Assessment and Plan - Diagnosis (1) Acute left-sided weakness Is this a current diagnosis for this admission?: Yes Plan: Patient is found to have acute left-sided weakness and is being admitted for the stroke protocol. An MRI of the head will be obtained as well as bilateral carotid Doppler studies. Physical therapy, occupational therapy and speech therapy will be consult. Further treatment will be based upon the results of his initial testing, keeping his DNR status in mind. 04/15/[id number]-trcm-old male with previous history of right-sided weakness came this time with left-sided weakness. CT head was negative. Stroke protocol was implemented. Patient CODE STATUS is DNR/DNI. MRI of the head and MRA of the neck is pending. Started on atorvastatin 10 mg p.o. nightly. Aspirin and Plavix. PT consult OT consult social media manager consult was requested. lipid profil e is requested. (2) DNR (do not resuscitate) Is this a current diagnosis for this admission?: Yes Plan: The family and patient are insistent on continuing the patient as a DNR for resuscitation CODE STATUS. (3) Hypertension Qualifiers: Hypertension type: essential hypertension Qualified Code(s): I10 - Essential (primary) hypertension Is this a current diagnosis for this admission?: Yes Plan: Patient be continued on his usual antihypertensive regimen. Will be continued on a cardiac diet. Vital signs including blood pressure will be assessed frequently during his hospital course. 04/15/2019-patient blood pressure today is 136/74. Stable. Plan is to continue the present management. (4) Anemia Is this a current diagnosis for this admission?: No Plan: 04/15/2019-patient hemoglobin is 13.5. In my opinion patient is not anemic. (5) Coronary artery disease Qualifiers: Coronary Disease-Associated Artery/Lesion type: [place] artery [place] vs. transplanted heart: [place] heart Associated angina: without angina Qualified Code(s): I25.10 - Atherosclerotic heart disease of [place] coronary artery without angina pectoris Is this a current diagnosis for this admission?: Yes Plan: -patient has history of coronary artery disease no complaints of chest pain this admission. (6) Headache Qualifiers: Headache type: unspecified Headache chronicity pattern: acute headache Intractability: not intractable Qualified Code(s): R51 - Headache Is this a current diagnosis for this admission?: No Plan: 04/15/2019-patient has history of chronic hypertension on Tylenol. - Time Medications reviewed and adjusted accordingly: Yes Anticipated discharge: Home, Home with Homehealth
[2019-04-15] MEDS ORDERED: (PENDING PHARMACY ID) (Lisinopril [Zestril] 2.5 MG) PO SCH (10:00)
[2019-04-15] MEDS: NYSTATIN CREAM 15 GM TP SCH ×2 (12:28→17:09)
[2019-04-15] MEDS: LISINOPRIL 5 MG TABLET PO SCH (12:28)
--- NOTE | 2019-04-15 15:07 | RADIOLOGY REPORT (SQ) ---
EXAM DESCRIPTION: MRI HEAD WITHOUT COMPLETED DATE/TIME: 04/15/2019 2:23 pm REASON FOR STUDY: Acute right sided weakness COMPARISON: 06/02/2015 TECHNIQUE: Multiplanar imaging includes non-contrasted T1, T2, FLAIR, and Diffusion with ADC map seq uences. Images stored on PACS. LIMITATIONS: None. FINDINGS: ANATOMY: No anomalies. Normal vascular flow voids. Pituitary fossa normal. CSF SPACES: Normal in size and contour. No hemorrhage. CEREBRUM: A few high-signal intensity lesions scattered throughout the white matter on FLAIR imaging with distribution suggesting chronic micro-vascular ischemic change. Sulci and gyri normal in size a nd contour. No evidence of hemorrhage, mass or extraaxial fluid collection. POSTERIOR FOSSA: No signal alteration. No hemorrhage. No edema, masses or mass effect. Internal bassam tory canals, cerebello-pontine angles, mastoids normal. DIFFUSION: Negative for acute or sub-acute infarction. ORBITS: No masses. Globes normal. PARANASAL SINUSES: No fluid levels. Mucosa normal. OTHER: No other significant finding. IMPRESSION: Chronic ischemic changes. EVIDENCE OF ACUTE STROKE: NO. TECHNICAL DOCUMENTATION: JOB ID: [id number]- All Rights Reserved Reading location - IP/workstation name: [email or web address]
--- NOTE | 2019-04-15 15:13 | RADIOLOGY REPORT (SQ) ---
EXAM DESCRIPTION: MRA NECK WITHOUT COMPLETED DATE/TIME: 04/15/2019 2:23 pm REASON FOR STUDY: cva COMPARISON: 2011 TECHNIQUE: Axial 2-D volume acquisition imaging through the extracranial carotid and vertebral arter ies with reformatting using 3-D MIPS. LIMITATIONS: Motion artifact. FINDINGS: RIGHT CAROTID ARTERY: No stenosis or occlusive changes. Limited visualization of the orig in. LEFT CAROTID ARTERY: No stenosis or occlusive changes. Limited visualization of the origin. VERTEBRAL ARTERY: Chronic occlusion of the right vertebral artery. Left vertebral artery is unremark able. OTHER: No other significant finding. IMPRESSION: Chronic occlusion of the right vertebral artery. No acute findings. COMMENT: Quality ID #[id number]: Measurements of distal internal carotid diameter were used as the denomin ator for stenosis measurement. TECHNICAL DOCUMENTATION: JOB ID: [id number] [employer]- All Rights Reserved Reading location - IP/workstation name: [email or web address]
--- NOTE | 2019-04-15 18:48 | EKG REPORT ---
SEVERITY:- ABNORMAL ECG - SINUS RHYTHM PROBABLE LEFT ATRIAL ABNORMALITY LVH WITH IVCD, LAD AND SECONDARY REPOL ABNRM : Confirmed by: Danette Sibley 15-Apr-2019 18:48:14
[2019-04-15] MEDS ORDERED: ATORVASTATIN CALCIUM 10 MG TABLET PO SCH (22:00)
[2019-04-15] MEDS ORDERED: GABAPENTIN 300 MG CAPSULE PO SCH (22:00)
[2019-04-15] MEDS ORDERED: (PENDING PHARMACY ID) (Donepezil Hcl [Aricept] 10 MG) PO SCH (22:00)
[2019-04-15] MEDS ORDERED: DONEPEZIL HCL 5 MG TABLET PO SCH (22:00)
[2019-04-16] MEDS: HEPARIN SOD (PORCINE) 5,000 UNIT/ML 1 ML VIAL SUBCUT SCH (06:37)
[2019-04-16 07:42] LABS: HEMATOCRIT 40.6 % (37.9-51.0); MEAN CORPUSCULAR HGB CONC 34.4 g/dL (32.0-36.0); MEAN CORPUSCULAR VOLUME 108 fl (80-97); PLATELET COUNT 149 10^3/uL (150-450); RED BLOOD COUNT 3.77 10^6/uL (4.35-5.55); RED CELL DISTRIBUTION WIDTH 14.3 % (11.5-14.0); WHITE BLOOD COUNT 6.8 10^3/uL (4.0-10.5)
[2019-04-16 08:10] LABS: ALBUMIN 3.4 g/dL (3.5-5.0); ALKALINE PHOSPHATASE 61 U/L (38-126); ANION GAP 8 (5-19); ASPARTATE AMINO TRANSFERASE 18 U/L (17-59); BILIRUBIN,DIRECT 0.3 mg/dL (0.0-0.4); BILIRUBIN,TOTAL 0.8 mg/dL (0.2-1.3); BLOOD UREA NITROGEN 14 mg/dL (7-20); CALCIUM 8.8 mg/dL (8.4-10.2); CARBON DIOXIDE 28 mmol/L (22-30); CHLORIDE 104 mmol/L (98-107); CHOLESTEROL 157.17 mg/dL (0-200); GLUCOSE 88 mg/dL (75-110); POTASSIUM 3.9 mmol/L (3.6-5.0); TRIGLYCERIDES 223 mg/dL (<150)
[2019-04-16 08:20] LABS: DIRECT LDL 107 mg/dL (<100)
[2019-04-16 08:23] LABS: VLDL CHOLESTEROL 44.6 mg/dL (10-31)
--- NOTE | 2019-04-16 09:08 | PDOC PROGRESS REPORT ---
Subjective Progress Note for:: 04/16/19 Subjective:: 74 year old male who presented to the emergency room with acute onset of left- sided weakness. The patient and family members explained that he developed sudden weakness of his left upper and lower extremity at about 8:30 PM 04/14/2019. Patient was brought to the hospital for evaluation and he and his family (daughter is MYRNA) decided not to accept the offer of TPA administration due to the risk of intracranial hemorrhage. Patient has experienced some decrease in his ability to speak in sentences, but otherwise the patient and family deny other accompanying or associated signs and symptoms. 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 He has not identified any aggravating or ameliorating factors for his left-sided weakness. In the emergency room patient was found to have a CT scan of the head which did not show any acute infarction or hemorrhage. Patient was subsequently admitted to the hospital for further evaluation and treatment. 04/15/[id number]-vdbl-old male with history of right-sided weakness came last night with left-sided weakness. CT head was negative for acute changes. No acute events since the admission. We are waiting for MRI of the brain and MRA of the neck today. Stroke protocol was implemented. Patient is communicating okay and comfortable in the bed. 04/16/2019-no acute events in the last 24 hours. Afebrile. Physical therapy worked with the patient the recommendation is either home health or a short-term rehab. Reason For Visit: ACUTE LEFT HEMISPHERE CVA/TIA Physical Exam Vital Signs: Temp Pulse Resp BP Pulse Ox 97.4 F 64 16 159/71 H 95 04/16/19 07:52 04/16/19 07:52 04/16/19 07:52 04/16/19 07:52 04/16/19 07:52 Intake & Output 04/15/19 04/16/19 04/17/19 06:59 06:59 06:59 Intake Total 1923 Output Total 0 500 Balance 0 1423 Weight 71 kg 72.1 kg General appearance: PRESENT: no acute distress, cooperative Head exam: PRESENT: atraumatic Eye exam: PRESENT: PERRLA Mouth exam: PRESENT: moist, tongue midline Teeth exam: PRESENT: poor dentation Neck exam: ABSENT: carotid bruit, JVD, lymphadenopathy, thyromegaly Respiratory exam: PRESENT: decreased breath sounds GI/Abdominal exam: PRESENT: normal bowel sounds, soft. ABSENT: distended, guarding, mass, organolmegaly, rebound, tenderness Rectal exam: PRESENT: deferred Extremities exam: PRESENT: full ROM. ABSENT: calf tenderness, clubbing, pedal edema Neurological exam: PRESENT: alert, awake, oriented to person, oriented to place, oriented to time, oriented to situation, CN II-XII grossly intact. ABSENT: motor sensory deficit Psychiatric exam: PRESENT: appropriate affect, normal mood. ABSENT: homicidal ideation, suicidal ideation Results Laboratory Results: 04/16/19 07:15 04/16/19 07:15 04/15/19 04/16/19 04/16/19 08:05 07:15 07:15 WBC 6.8 RBC 3.77 L Hgb 14.0 Hct 40.6 MCV 108 H MCH 37.0 H MCHC 34.4 RDW 14.3 H Plt Count 149 L Sodium 139.9 Potassium 3.9 Chloride 104 Carbon Dioxide 28 Anion Gap 8 BUN 14 Creatinine 0.70 Est GFR ( Amer) > 60 Glucose 88 Calcium 8.8 Total Bilirubin 0.8 AST 18 Alkaline Phosphatase 61 Total Protein 6.0 L Albumin 3.4 L Triglycerides 130 223 H Cholesterol 160.21 157.17 LDL Cholesterol Direct 108 H 107 H VLDL Cholesterol 26.0 44.6 H HDL Cholesterol 31 L 28 L 04/14/19 04/14/19 22:15 22:15 Creatine Kinase 65 CK-MB (CK-2) 1.10 Troponin I < 0.012 Impressions: Head CT 04/14/19 00:00 IMPRESSION: No acute intracranial abnormality. Mild chronic microvascular ischemic change and generalized atrophy. TECHNICAL DOCUMENTATION: Quality ID # 436: Final reports with documentation of one or more dose reduction techniques (e.g., Automated exposure control, adjustment of the mA and/or kV according to patient size, use of iterative reconstruction technique) copyright 2010 [employer]- All Rights Reserved Chest X-Ray 04/14/19 22:19 IMPRESSION: Stable cardiomegaly and postsurgical change. Minor bibasilar subsegmental atelectasis copyright 2010 [employer]- All Rights Reserved Head MRI 04/15/19 00:00 IMPRESSION: Chronic ischemic changes. EVIDENCE OF ACUTE STROKE: NO. Neck MRA 04/15/19 00:00 IMPRESSION: Chronic occlusion of the right vertebral artery. No acute findings. Assessment and Plan - Diagnosis (1) Acute left-sided weakness Is this a current diagnosis for this admission?: Yes Plan: Patient is found to have acute left-sided weakness and is being admitted for the stroke protocol. An MRI of the head will be obtained as well as bilateral carotid Doppler studies. Physical therapy, occupational therapy and speech therapy will be consult. Further treatment will be based upon the results of h is initial testing, keeping his DNR status in mind. 04/15/[id number]-eomi-old male with previous history of right-sided weakness came this time with left-sided weakness. CT head was negative. Stroke protocol was implemented. Patient CODE STATUS is DNR/DNI. MRI of the head and MRA of the neck is pending. Started on atorvastatin 10 mg p.o. nightly. Aspirin and Plavix. PT consult OT consult social work supervisor consult was requested. lipid profile is requested. 04/[id number]-uqpm-old male with previous history of CVA affecting the right side of the body admitted for left-sided weakness he has more power in the left upper arm and left lower leg to today. Power is almost close to normal 5/5. Reflexes are normal. Physical therapy recommended home health and home PT. Once patient has those arrangements made either will go this evening or tomorrow. (2) DNR (do not resuscitate) Is this a current diagnosis for this admission?: Yes (3) Hypertension Qualifiers: Hypertension type: essential hypertension Qualified Code(s): I10 - Essential (primary) hypertension Is this a current diagnosis for this admission?: Yes Plan: Patient be continued on his usual antihypertensive regimen. Will be continued on a cardiac diet. Vital signs including blood pressure will be assessed frequently during his hospital course. 04/15/2019-patient blood pressure today is 136/74. Stable. Plan is to continue the present management. 04/16/2019-patient blood pressure today is 144/80. Stable. Plan is to continue the present management. (4) Anemia Is this a current diagnosis for this admission?: No Plan: 04/15/2019-patient hemoglobin is 13.5. In my opinion patient is not anemic. 04/16/2019-patient's hemoglobin today is 14.0. (5) Coronary artery disease Qualifiers: Coronary Disease-Associated Artery/Lesion type: [place] artery [place] vs. transplanted heart: [place] heart Associated angina: without angina Qualified Code(s): I25.10 - Atherosclerotic heart disease of [place] coronary artery without angina pectoris Is this a current diagnosis for this admission?: Yes Plan: 04/15/2019-patient has history of coronary artery disease no complaints of chest pain this admission. 04/16/2019-patient has history of coronary artery disease denies any chest pains today. (6) Headache Qualifiers: Headache type: unspecified Headache chronicity pattern: acute headache Intractability: not intractable Qualified Code(s): R51 - Headache Is this a current diagnosis for this admission?: No Plan: 04/15/2019-patient has history of chronic hypertension on Tylenol. 04/16/2019-patient denies any headaches this morning and expressing desire to go home today. - Time Time Spent with patient: 25-34 minutes Medications reviewed and adjusted accordingly: Yes Anticipated discharge: Home with Homehealth
[2019-04-16] MEDS ORDERED: (PENDING PHARMACY ID) (Lisinopril [Prinivil 2.5 Mg Tablet] 2.5 MG) PO SCH (10:00)
[2019-04-16] MEDS ORDERED: PREDNISONE 5 MG TABLET PO SCH (10:00)
[2019-04-16] MEDS: NYSTATIN CREAM 15 GM TP SCH (10:16)
[2019-04-16] MEDS: LISINOPRIL 5 MG TABLET PO SCH (10:29)
[2019-04-16] MEDS: CLOPIDOGREL BISULFATE 75 MG TABLET PO SCH (10:29)
[2019-04-16 10:48] VITALS: BP 136/74
--- NOTE | 2019-04-16 11:56 | PDOC DISCHARGE SUMMARY ---
General - Admit/Disc Date/PCP Admission Date/Primary Care Provider: 04/15/19 01:04 JOSESITO TRIPLETT MD Discharge Date: 04/16/19 - Discharge Diagnosis (1) Acute left-sided weakness Is this a current diagnosis for this admission?: Yes Summary: Patient is found to have acute left-sided weakness and is being admitted for the stroke protocol. An MRI of the head will be obtained as well as bilateral carotid Doppler studies. Physical therapy, occupational therapy and speech therapy will be consult. Further treatment will be based upon the results of his initial testing, keeping his DNR status in mind. 04/[id number]-old male with previous history of right-sided weakness came this time with left-sided weakness. CT head was negative. Stroke protocol was implemented. Patient CODE STATUS is DNR/DNI. MRI of the head and MRA of the neck is pending. Started on atorvastatin 10 mg p.o. nightly. Aspirin and Plavix. PT consult OT consult social media marketer consult was requested. lipid profile is requested. 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 Power is almost close to normal 5/5. Reflexes are normal. Physical therapy recommended home health and home PT. Once patient has those arrangements made either will go this evening or tomorrow. (2) DNR (do not resuscitate) Is this a current diagnosis for this admission?: Yes (3) Hypertension Is this a current diagnosis for this admission?: Yes Summary: Patient be continued on his usual antihypertensive regimen. Will be continued on a cardiac diet. Vital signs including blood pressure will be assessed frequently during his hospital course. 04/15/2019-patient blood pressure today is 136/74. Stable. Plan is to continue the present management. 04/16/2019-patient blood pressure today is 144/80. Stable. Plan is to continue the present management. (4) Anemia Is this a current diagnosis for this admission?: No Summary: 04/15/2019-patient hemoglobin is 13.5. In my opinion patient is not anemic. 04/16/2019-patient's hemoglobin today is 14.0. (5) Coronary artery disease Is this a current diagnosis for this admission?: Yes (6) Headache Is this a current diagnosis for this admission?: No Summary: 04/15/2019-patient has history of chronic hypertension on Tylenol. 04/16/2019-patient denies any headaches this morning and expressing desire to go home today. - Additional Information Resuscitation Status: Do Not Resuscitate Discharge Diet: Diabetic Discharge Activity: Activity As Tolerated Prescriptions: Atorvastatin Calcium [Lipitor 10 mg Tablet] 10 mg PO QHS #30 tablet Clopidogrel Bisulfate [Plavix 75 mg Tablet] 75 mg PO DAILY #30 tablet Home Medications: Donepezil HCl [Aricept] 10 mg PO QPM 04/15/19 Gabapentin [Neurontin] 600 mg PO QHS 04/15/19 Lisinopril [Prinivil 2.5 mg Tablet] 2.5 mg PO DAILY 04/15/19 Prednisone [Deltasone 5 mg Tablet] 5 mg PO DAILY 04/15/19 Atorvastatin Calcium [Lipitor 10 mg Tablet] 10 mg PO QHS #30 tablet 04/16/19 Clopidogrel Bisulfate [Plavix 75 mg Tablet] 75 mg PO DAILY #30 tablet 04/16/19 Donepezil HCl [Aricept 5 mg Tablet] 10 mg PO QHS tablet 04/16/19 Lisinopril [Prinivil 5 mg Tablet] 2.5 mg PO DAILY tablet 04/16/19 History of Present Illness History of Present Illness: GÉNESIS DANIELLE is a 74 year old male 74 year old male who presented to the emergency room with acute onset of left- sided weakness. The patient and family members explained that he developed sudden weakness of his left upper and lower extremity at about 8:30 PM 04/14/2019. Patient was brought to the hospital for evaluation and he and his family (daughter is POA) decided not to accept the offer of TPA administration due to the risk of intracranial hemorrhage. Patient has experienced some decrease in his ability to speak in sentences, but otherwise the patient and family deny other accompanying or associated signs and symptoms. 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 He has not identified any aggravating or ameliorating factors for his left-sided weakness. In the emergency room patient was found to have a CT scan of the head which did not show any acute infarction or hemorrhage. Patient was subsequently admitted to the hospital for further evaluation and treatment. 04/[id number]-nbou-old male with history of right-sided weakness came last night with left-sided weakness. CT head was negative for acute changes. No acute events since the admission. We are waiting for MRI of the brain and MRA of the neck today. Stroke protocol was implemented. Patient is communicating okay and comfortable in the bed. 04/16/2019-no acute events in the last 24 hours. Afebrile. Physical therapy worked with the patient the recommendation is either home health or a short-term rehab. Hospital Course Hospital Course: 74 year old male who presented to the emergency room with acute onset of left- sided weakness. The patient and family members explained that he developed sudden weakness of his left upper and lower extremity at about 8:30 PM 04/14/2019. Patient was brought to the hospital for evaluation and he and his family (daughter is MYRNA) decided not to accept the offer of TPA administration due to the risk of intracranial hemorrhage. Patient has experienced some decrease in his ability to speak in sentences, but otherwise the patient and family deny other accompanying or associated signs and symptoms. 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 He has not identified any aggravating or ameliorating factors for his left-sided weakness. In the emergency room patient was found to have a CT scan of the head which did not show any acute infarction or hemorrhage. Patient was subsequently admitted to the hospital for further evaluation and treatment. 04/[id number]-tsal-old male with history of right-sided weakness came last night with left-sided weakness. CT head was negative for acute changes. No acute events since the admission. We are waiting for MRI of the brain and MRA of the neck today. Stroke protocol was implemented. Patient is communicating okay and comfortable in the bed. 04/16/2019-no acute events in the last 24 hours. Afebrile. Physical therapy worked with the patient the recommendation is either home health or a short-term rehab. Physical Exam Vital Signs: Temp Pulse Resp BP Pulse Ox 97.4 F 64 16 136/74 H 95 04/16/19 10:46 04/16/19 10:46 04/16/19 10:46 04/16/19 10:46 04/16/19 10:46 Intake & Output 04/15/19 04/16/19 04/17/19 06:59 06:59 06:59 Intake Total 1923 Output Total 0 500 Balance 0 1423 Weight 71 kg 72.1 kg General appearance: PRESENT: no acute distress, cooperative Head exam: PRESENT: atraumatic Eye exam: PRESENT: PERRLA Mouth exam: PRESENT: moist, tongue midline Teeth exam: PRESENT: poor dentation Neck exam: ABSENT: carotid bruit, JVD, lymphadenopathy, thyromegaly Respiratory exam: PRESENT: decreased breath sounds Cardiovascular exam: PRESENT: RRR. ABSENT: diastolic murmur, rubs, systolic murmur GI/Abdominal exam: PRESENT: normal bowel sounds, soft. ABSENT: distended, guarding, mass, organolmegaly, rebound, tenderness Rectal exam: PRESENT: deferred Extremities exam: PRESENT: full ROM. ABSENT: calf tenderness, clubbing, pedal edema Neurological exam: PRESENT: alert, altered, awake, oriented to person, oriented to place, oriented to time, oriented to situation, other - Patient has right- sided weakness secondary to previous stroke. Psychiatric exam: PRESENT: appropriate affect, normal mood. ABSENT: homicidal ideation, suicidal ideation Results Laboratory Results: 04/16/19 07:15 04/16/19 07:15 04/16/19 04/16/19 07:15 07:15 WBC 6.8 RBC 3.77 L Hgb 14.0 Hct 40.6 MCV 108 H MCH 37.0 H MCHC 34.4 RDW 14.3 H Plt Count 149 L Sodium 139.9 Potassium 3.9 Chloride 104 Carbon Dioxide 28 Anion Gap 8 BUN 14 Creatinine 0.70 Est GFR ( Amer) > 60 Glucose 88 Calcium 8.8 Total Bilirubin 0.8 AST 18 Alkaline Phosphatase 61 Total Protein 6.0 L Albumin 3.4 L Triglycerides 223 H Cholesterol 157.17 LDL Cholesterol Direct 107 H VLDL Cholesterol 44.6 H HDL Cholesterol 28 L 04/14/19 04/14/19 22:15 22:15 Creatine Kinase 65 CK-MB (CK-2) 1.10 Troponin I < 0.012 Impressions: Head CT 04/14/19 00:00 IMPRESSION: No acute intracranial abnormality. Mild chronic microvascular ischemic change and generalized atrophy. TECHNICAL DOCUMENTATION: Quality ID # [id number]: Final reports with documentation of one or more dose reduction techniques (e.g., Automated exposure control, adjustment of the mA and/or kV according to patient size, use of iterative reconstruction technique) copyright 2011 [employer]- All Rights Reserved Chest X-Ray 04/14/19 22:19 IMPRESSION: Stable cardiomegaly and postsurgical change. Minor bibasilar subsegmental atelectasis copyright 2010 [employer]- All Rights Reserved Head MRI 04/15/19 00:00 IMPRESSION: Chronic ischemic changes. EVIDENCE OF ACUTE STROKE: NO. Neck MRA 04/15/19 00:00 IMPRESSION: Chronic occlusion of the right vertebral artery. No acute findings. Qualifiers - * PATIENT BEING DISCHARGED WITH ANY OF THE FOLLOWING DIAGNOSIS: No Acute Heart Failure - Is this a Heart Failure Patient?: No Plan Time Spent: Greater than 30 Minutes
[2019-04-16] MEDS ORDERED: (PENDING PHARMACY ID) (Donepezil Hcl [Aricept] 10 MG) PO SCH (18:00)
== END 2019-04-16 11:09 | disposition home health service (06) | DRG 948 ==
LOC: ER 22:08 → EH 04-15 01:04 → 3W 04-15 03:17
PROVIDERS: ADMIT Emergency Medicine; ATTEND Emergency Medicine
DX: R53.1 Weakness (principal); I69.351 Hemiplegia and hemiparesis following cerebral infarction affecting right dominant side; Z66 Do not resuscitate; I25.10 Atherosclerotic heart disease of native coronary artery without angina pectoris; E78.00 Pure hypercholesterolemia, unspecified; I10 Essential (primary) hypertension; D64.9 Anemia, unspecified; R41.82 Altered mental status, unspecified; R51 Headache; I69.328 Other speech and language deficits following cerebral infarction; Z95.5 Presence of coronary angioplasty implant and graft; Z95.1 Presence of aortocoronary bypass graft; Z90.79 Acquired absence of other genital organ(s)
CPT/HCPCS: 36415; 70450; 70547; 70551; 71045; 80053; 80061; 82550; 82553; 82962; 83735; 84484; 85025; 85027; 85610; 85730; 93005; 93010; 99285; J1644; J3490; J7512

== ENCOUNTER 2019-05-08 17:48 | Inpatient (IN) | payer MEDICARE ==
[2019-05-08] MEDS ORDERED: NORMAL SALINE 1000 ML 1,000 ML IV ONE (18:09)
--- NOTE | 2019-05-08 18:11 | ER Document Report ---
ED Medical Screen (RME) - General Chief Complaint: Weakness Stated Complaint: WEAKNESS,DIRREHA Time Seen by Provider: 05/08/19 18:04 Primary Care Provider: JOSESITO TRIPLETT MD [Primary Care Provider] - Follow up as needed Mode of Arrival: Wheelchair Information source: Parent Notes: 74-year-old male presents to ED for stomach cramps diarrhea. Daughter states that he usually walks with a walker but has not been able to stand for the last 48 hours due to weakness and diarrhea. She states she has had multiple last couple days. 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 Inguinal hernia repair CABG x4 vessels, CVA x2 TIAs multiple MIs x2. Patient is alert oriented respirations regular nonlabored at this time. I have greeted and performed a rapid initial assessment of this patient. A comprehensive ED assessment and evaluation of the patient, analysis of test results and completion of medical decision making process will be conducted by an additional ED providers. TRAVEL OUTSIDE OF THE [place] IN LAST 30 DAYS: No - Related Data Allergies/Adverse Reactions: iodine [Iodine] Allergy (Unknown, Verified 05/08/19 18:04) meperidine HCl [From Demerol] Allergy (Unknown, Verified 05/08/19 18:04) oxycodone [From Percocet] Allergy (Verified 05/08/19 18:04) Penicillins Allergy (Verified 05/08/19 18:04) aspirin [Aspirin] Adverse Reaction (Severe, Verified 05/08/19 18:04) Hemorrhage Past Medical History - Social History Chew tobacco use (# tins/day): No Frequency of alcohol use: None Drug Abuse: None Family history: CAD, CVA, DM, Hyperlipidemia, Hypertension, Malignancy - Past Medical History Cardiac Medical History: Reports: Hx Coronary Artery Disease, Hx Heart Attack - post CABG, Hx Hypercholesterolemia, Hx Hypertension Denies: Hx Atrial Fibrillation, Hx Congestive Heart Failure, Hx DVT, Hx Pulmonary Embolism, Hx Heart Murmur Pulmonary Medical History: Reports: Hx Pneumonia - 2009 Denies: Hx Asthma, Hx COPD, Hx Respiratory Failure, Hx Sleep Apnea, Hx Tuberculosis Neurological Medical History: Reports: Hx Cerebrovascular Accident - R sided weakness, memory loss, Hx Migraine. Denies: Hx Seizures, Hx Parkinson's Disease Endocrine Medical History: Denies: Hx Diabetes Mellitus Type 1, Hx Diabetes Mellitus Type 2, Hx Hyperthyroidism, Hx Hypothyroidism Renal/ Medical History: Reports: Hx Kidney Stones. Denies: Hx Peritoneal Dialysis Malignancy Medical History: Reports Hx Colorectal Cancer, Reports Hx Skin Cancer GI Medical History: Reports: Hx Gastroesophageal Reflux Disease, Hx Hiatal Hernia - repair 15 years ago, Hx Ulcer. Denies: Hx Cirrhosis, Hx Crohn's Disease, Hx Hepatitis, Hx Pancreatitis, Hx Ulcerative Colitis Musculoskeltal Medical History: Reports Hx Arthritis, Denies Hx Gout, Reports Hx Musculoskeletal Deformity, Reports Hx Musculoskeletal Trauma, Denies Hx Systemic Lupus Erythematosus Skin Medical History: Denies Hx Eczema, Denies Hx Psoriasis Psychiatric Medical History: Reports: Hx Dementia - mild, Hx Depression Traumatic Medical History: Reports: Hx Fractures, Hx Spine Fracture Infectious Medical History: Denies: Hx Hepatitis Past Surgical History: Reports: Hx Abdominal Surgery - HERNIA REPAIR, Hx Cardiac Catheterization, Hx Cardiac Surgery - bypass, stents, CABG, Hx Coronary Artery Bypass Graft - 4 vessel 1995, Hx Coronary Stent, Hx Genitourinary Surgery - penis removed CA, Hx Inguinal Hernia, Hx Orthopedic Surgery - Cervical spinal fusion, cervical spinal decompression, Hx Urinary Tract Surgery - penis removed surgically for CA, Other - Hiatal hernia repair - Immunizations Immunizations up to date: Yes Hx Diphtheria, Pertussis, Tetanus Vaccination: Yes - UTD Physical Exam - Vital signs Vitals: Temp Pulse Resp BP Pulse Ox 98.1 F 81 18 101/60 93 05/08/19 17:54 05/08/19 17:54 05/08/19 17:54 05/08/19 17:54 05/08/19 17:54 Course - Vital Signs Vital signs: Temp Pulse Resp BP Pulse Ox 98.1 F 81 18 101/60 93 05/08/19 17:54 05/08/19 17:54 05/08/19 17:54 05/08/19 17:54 05/08/19 17:54 Doctor's Discharge - Discharge Referrals: JOSESITO TRIPLETT MD [Primary Care Provider] - Follow up as needed
[2019-05-08 18:58] LABS: ABSOLUTE LYMPHOCYTES (AUTO) 1.5 10^3/uL (0.5-4.7); ABSOLUTE MONOCYTES (AUTO) 1.3 10^3/uL (0.1-1.4); ABSOLUTE NEUT (AUTO) 9.4 10^3/uL (1.7-8.2); BASOPHILS % (AUTO) 0.4 % (0-2); EOSINOPHILS % (AUTO) 0.1 % (0-6); HEMATOCRIT 41.1 % (37.9-51.0); LYMPHOCYTES % (AUTO) 12.2 % (13-45); MEAN CORPUSCULAR HEMOGLOBIN 36.3 pg (27.0-33.4); MEAN CORPUSCULAR VOLUME 107 fl (80-97); MONOCYTES % (AUTO) 10.4 % (3-13); PLATELET COUNT 194 10^3/uL (150-450); RED BLOOD COUNT 3.85 10^6/uL (4.35-5.55); SEGMENTED NEUTROPHILS % (AUTO) 76.9 % (42-78); TOTAL CELLS COUNTED % (AUTO) 100 %; WHITE BLOOD COUNT 12.2 10^3/uL (4.0-10.5)
[2019-05-08 19:19] LABS: ALBUMIN 3.6 g/dL (3.5-5.0); ALKALINE PHOSPHATASE 60 U/L (38-126); ANION GAP 8 (5-19); ASPARTATE AMINO TRANSFERASE 13 U/L (17-59); BILIRUBIN,DIRECT 0.2 mg/dL (0.0-0.4); BILIRUBIN,TOTAL 0.7 mg/dL (0.2-1.3); BLOOD UREA NITROGEN 14 mg/dL (7-20); CALCIUM 8.7 mg/dL (8.4-10.2); CARBON DIOXIDE 25 mmol/L (22-30); CHLORIDE 103 mmol/L (98-107); GLUCOSE 137 mg/dL (75-110); POTASSIUM 3.9 mmol/L (3.6-5.0); TOTAL PROTEIN 6.3 g/dL (6.3-8.2)
--- NOTE | 2019-05-08 19:39 | ER Document Report ---
ED Dizziness/Weakness - General Mode of Arrival: Wheelchair TRAVEL OUTSIDE OF THE [place] IN LAST 30 DAYS: No <NALLELY ESCOBEDO - Last Filed: 05/08/19 20:11> <ROSS MUIR - Last Filed: 05/08/19 22:33> - General Chief Complaint: Weakness Stated Complaint: WEAKNESS,DIRREHA Time Seen by Provider: 05/08/19 18:04 Primary Care Provider: JOSESITO TRIPLETT MD [Primary Care Provider] - Follow up as needed Notes: Patient is a 74-year-old male who presents the emergency department with weakness and diarrhea. His daughter is at bedside to provide additional history. Patient has had diarrhea for the past few days. He also has had a poor appetite. Daughter has given the patient Imodium, but has had little relief in his diarrhea. Denies any vomiting or nausea. Patient lives alone and he fell last night. He has complaints of left shoulder pain. He is able to move his left shoulder, but continues to have pain. Patient states that he also does have a little bit of abdominal pain his right lower abdomen.n. Patient reports black tarry stools. He admits to increased weakness, but has residual weakness on the right side due to his stroke. Other past medical history includes hypertension, rheumatoid arthritis, coronary artery disease, GERD, colon cancer, mild dementia, vitamin D deficiency, and C. difficile colitis. denies any dysuria, hematuria, or any other symptoms. (NALLELY ESCOBEDO) - Related Data Allergies/Adverse Reactions: iodine [Iodine] Allergy (Unknown, Verified 05/08/19 18:04) meperidine HCl [From Demerol] Allergy (Unknown, Verified 05/08/19 18:04) oxycodone [From Percocet] Allergy (Verified 05/08/19 18:04) Penicillins Allergy (Verified 05/08/19 18:04) aspirin [Aspirin] Adverse Reaction (Severe, Verified 05/08/19 18:04) Hemorrhage Past Medical History - General Information source: Patient, Relative - Social History Smoking Status: Never Smoker Chew tobacco use (# tins/day): No Frequency of alcohol use: None Drug Abuse: None Family History: Arthritis, CAD, CVA, Hypertension. denies: DM, Malignancy Patient has suicidal ideation: No Patient has homicidal ideation: No - Past Medical History Cardiac Medical History: Reports: Hx Coronary Artery Disease, Hx Heart Attack - post CABG, Hx Hypercholesterolemia, Hx Hypertension Denies: Hx Atrial Fibrillation, Hx Congestive Heart Failure, Hx DVT, Hx Pulmonary Embolism, Hx Heart Murmur Pulmonary Medical History: Reports: Hx Pneumonia - 2009 Denies: Hx Asthma, Hx COPD, Hx Respiratory Failure, Hx Sleep Apnea, Hx Tuberculosis Neurological Medical History: Reports: Hx Cerebrovascular Accident - R sided weakness, memory loss, Hx Migraine. Denies: Hx Seizures, Hx Parkinson's Disease Endocrine Medical History: Denies: Hx Diabetes Mellitus Type 1, Hx Diabetes Mellitus Type 2, Hx Hyperthyroidism, Hx Hypothyroidism Renal/ Medical History: Reports: Hx Kidney Stones. Denies: Hx Peritoneal Dialysis Malignancy Medical History: Reports Hx Colorectal Cancer, Reports Hx Skin Cancer GI Medical History: Reports: Hx Gastroesophageal Reflux Disease, Hx Hiatal Hernia - repair 15 years ago, Hx Ulcer. Denies: Hx Cirrhosis, Hx Crohn's Disease, Hx Hepatitis, Hx Pancreatitis, Hx Ulcerative Colitis Musculoskeletal Medical History: Reports Hx Arthritis, Denies Hx Gout, Reports Hx Musculoskeletal Deformity, Reports Hx Musculoskeletal Trauma, Denies Hx Systemic Lupus Erythematosus Skin Medical History: Denies Hx Eczema, Denies Hx Psoriasis Psychiatric Medical History: Reports: Hx Dementia - mild, Hx Depression Traumatic Medical History: Reports: Hx Fractures, Hx Spine Fracture Infectious Medical History: Denies: Hx Hepatitis Past Surgical History: Reports: Hx Abdominal Surgery - HERNIA REPAIR, Hx Cardiac Catheterization, Hx Cardiac Surgery - bypass, stents, CABG, Hx Coronary Artery Bypass Graft - 4 vessel 1995, Hx Coronary Stent, Hx Genitourinary Surgery - penis removed CA, Hx Inguinal Hernia, Hx Orthopedic Surgery - Cervical spinal fusion, cervical spinal decompression, Hx Urinary Tract Surgery - penis removed surgically for CA, Other - Hiatal hernia repair - Immunizations Immunizations up to date: Yes Hx Diphtheria, Pertussis, Tetanus Vaccination: Yes - UTD Hx Pneumococcal Vaccination: 10/07/11 <NALLELY ESCOBEDO - Last Filed: 05/08/19 20:11> Review of Systems <NALLELY ESCOBEDO - Last Filed: 05/08/19 20:11> - Review of Systems Notes: REVIEW OF SYSTEMS: CONSTITUTIONAL : Denies recent illness. Denies recent unintentional weight loss. Denies fever, chills, or sweats. EENT: Denies eye, ear, throat, or mouth pain, discharge, or symptoms. Denies nasal or sinus congestion. CARDIOVASCULAR: Denies chest pain. RESPIRATORY: Denies shortness of breath, cough, congestion, difficulty breathing, or wheezing. GASTROINTESTINAL: See HPI. GENITOURINARY: Denies difficulty urinating, burning, blood in urine, urgency or frequency. MUSCULOSKELETAL: See HPI. SKIN: Denies rash, itchiness, or lesions HEMATOLOGIC : Denies easy bruising or bleeding. LYMPHATIC: Denies swollen, painful, enlarged glands. NEUROLOGICAL: Denies no numbness or tingling denies weakness. Denies headache. Denies altered mental status. Denies alteration in speech. See HPI. PSYCHIATRIC: Denies stress, anxiety, alteration in sleep patterns, or depression. All other systems reviewed and negative. (NALLELY ESCOBEDO) Physical Exam <NALLELY ESCOBEDO - Last Filed: 05/08/19 20:11> - Vital signs Vitals: Temp Pulse Resp BP Pulse Ox 98.1 F 81 18 101/60 93 05/08/19 17:54 05/08/19 17:54 05/08/19 17:54 05/08/19 17:54 05/08/19 17:54 - Notes Notes: PHYSICAL EXAMINATION: GENERAL: Appears chronically ill, no acute distress. HEAD: Normocephalic, atraumatic. EYES: PERRL, conjunctiva normal, all extraocular movements intact, sclera nonicteric ENT: Moist mucous membranes. NECK: Supple, no noticeable swelling, redness, rash. Normal range of motion. LUNGS: Equal breath sounds bilaterally and clear to auscultation. No wheezes rales or rhonchi. CARDIOVASCULAR: S1-S2, regular rate, regular rhythm. Radial pulses 2+, normal. ABDOMEN: Normoactive bowel sounds. Soft, nontender, no guarding, no rebound tenderness, and no masses palpated. EXTREMITIES: No pitting or edema. No cyanosis. Tenderness to left shoulder. NEUROLOGICAL: Strength 2 out of 5 in the right lower extremity, which is resi dual weakness from his stroke. 4-5 strength in all other extremities, which is normal. PSYCH: Normal mood, normal affect. SKIN: Warm, dry. No rash, lesions, ulcerations noted. Normal skin turgor. (NALLELY ESCOBEDO) Course - Laboratory Result Diagrams: 05/08/19 18:44 05/08/19 18:44 <NALLELY ESCOBEDO - Last Filed: 05/08/19 20:11> - Laboratory Result Diagrams: 05/08/19 18:44 05/08/19 18:44 <ROSS MUIR - Last Filed: 05/08/19 22:33> - Re-evaluation Re-evalutation: 05/08/19 19:46 Patient's chemistries are unremarkable. Lactic acid is 2.2. White blood cell count is 12,200. Awaiting urine and stool samples. Patient will be sent for a CT of the abdomen and pelvis. 05/08/19 20:11 Bedside report given to TIFFANIE Melendez. Disposition will be made based off re sults of urinalysis and CT of the abdomen pelvis. (NALLELY ESCOBEDO) CT shows colitis in the descending and sigmoid colon. Stool is negative for blood, some white blood cells noted, however he is only had 2 loose stools today so I do not suspect that he has C. difficile colitis. Did evaluate patient at bedside again. To have lower tenderness but this is not severe or with guarding. His vital signs are unremarkable. He does have mild leukocytosis. Patient admits that he has barely been able to eat anything, he also admits that he has been very weak, barely able to stand, and he already fell once at home. X-ray of the shoulders unremarkable. Patient initially stating that he wants to go home but he does admit he does not know how he is going to manage because he cannot get up. He lives alone. Because of his situation along with his colitis weakness, fall risk, and colitis discussed admission with patient. He does state agreement and appreciation with the possibility of this. 05/08/19 22:[address] Gonzáles, hospitalist, patient admitted to the medical floor full admission. (ROSS MUIR) - Vital Signs Vital signs: Temp Pulse Resp BP Pulse Ox 98.1 F 81 22 H 132/74 H 97 05/08/19 17:54 05/08/19 17:54 05/08/19 20:07 05/08/19 20:07 05/08/19 20:07 - Laboratory Laboratory results interpreted by me: 05/08/19 05/08/19 05/08/19 18:44 18:44 18:44 WBC 12.2 H RBC 3.85 L MCV 107 H MCH 36.3 H Lymph % (Auto) 12.2 L Absolute Neuts (auto) 9.4 H Sodium 136.0 L Glucose 137 H Lactic Acid 2.2 H AST 13 L Urine Blood Stool for White Cells 05/08/19 05/08/19 20:35 20:35 WBC RBC MCV MCH Lymph % (Auto) Absolute Neuts (auto) Sodium Glucose Lactic Acid AST Urine Blood SMALL H Stool for White Cells FEW H Discharge <NALLELY ESCOBEDO - Last Filed: 05/08/19 20:11> - Discharge Admitting Provider: Nivia (Hospitalist) Unit Admitted: Medical Floor <ROSS MUIR - Last Filed: 05/08/19 22:33> - Discharge Clinical Impression: Colitis, Weakness, Lower abdominal pain Fall Qualifiers: Encounter type: initial encounter Qualified Code(s): W19.XXXA - Unspecified fa ll, initial encounter Leukocytosis Qualifiers: Leukocytosis type: unspecified Qualified Code(s): D72.829 - Elevated white b lood cell count, unspecified Condition: Stable Disposition: ADMITTED INPATIENT Referrals: JOSESITO TRIPLETT MD [Primary Care Provider] - Follow up as needed
[2019-05-08] MEDS ORDERED: FAMOTIDINE INJ/PF 20 MG/2 ML SDV IV ONE ×2 (20:23→23:45)
[2019-05-08] MEDS ORDERED: DIPHENHYDRAMINE HCL 50 MG/ML VIAL IV ONE (20:23)
[2019-05-08] MEDS ORDERED: METHYLPREDNISOLONE INJ 125 MG/2 ML SDV IV ONE (20:23)
--- NOTE | 2019-05-08 20:52 | RADIOLOGY REPORT (SQ) ---
EXAM DESCRIPTION: XR SHOULDER 2 OR MORE VIEWS COMPLETED DATE/TME: 05/08/2019 19:36 CLINICAL HISTORY: 74 years, Male, left shoulder pain Compared to 06/02/2015. Findings: Moderate acromioclavicular degenerative changes. No fracture. Mild glenohumeral degenerative changes. IMPRESSION: No fracture. Degenerative changes.
--- NOTE | 2019-05-08 20:56 | EKG REPORT ---
SEVERITY:- ABNORMAL ECG - SINUS RHYTHM VENTRICULAR PREMATURE COMPLEX PROBABLE LEFT ATRIAL ABNORMALITY LVH WITH IVCD, LAD AND SECONDARY REPOL ABNRM : Confirmed by: Vanna Stewart MD 08-May-2019 20:55:25
[2019-05-08 21:16] LABS: APPEARANCE,URINE CLEAR; BILIRUBIN,URINE NEGATIVE (NEGATIVE); COLOR,URINE YELLOW; GLUCOSE, URINE NEGATIVE (NEGATIVE); KETONES,URINE NEGATIVE (NEGATIVE); LEUKOCYTE ESTERASE,URINE NEGATIVE (NEGATIVE); NITRITE,URINE NEGATIVE (NEGATIVE); PROTEIN,URINE NEGATIVE (NEGATIVE); UROBILINOGEN,URINE NEGATIVE mg/dL (<2.0)
--- NOTE | 2019-05-08 21:51 | RADIOLOGY REPORT (SQ) ---
EXAM DESCRIPTION: CT ABDOMEN PELVIS WITH IV CONTRAST COMPLETED DATE/TME: 05/08/2019 19:37 CLINICAL HISTORY: 74 years, Male, diarrhea, abd pain Findings: Visualized lung bases are within normal limits. Liver, spleen, pancreas, gallbladder, adrenal glands and kidneys are within normal limits. No hydronephrosis or biliary dilatation. No dilated loops of bowel to suggest obstruction. Mild amount of stool in the colon. No free fluid or free air. No abdominal or pelvic lymphadenopathy. Abdominal aorta moderately calcified without aneurysm. Mild sigmoid diverticulosis without CT evidence for acute diverticulitis. Bladder is unremarkable. There is mild wall thickening of the descending colon and sigmoid colon suspected which may be due to colitis of infectious/inflammatory origin. No fluid collections. IMPRESSION: Mild descending and sigmoid colitis suspected which may be infectious/inflammatory in etiology.
[2019-05-08] MEDS ORDERED: CIPROFLOXACIN 400 MG/D5W RTU 400 MG/200 ML RTUPB IV ONE (22:24)
[2019-05-08] MEDS ORDERED: METRONIDAZOLE 500 MG/NS RTU 500 MG/100 ML RTUPB IV ONE (22:24)
[2019-05-08] MEDS ORDERED: RINGERS SOLUTION,LACTATED 1,000 ML IV PRN (23:07)
[2019-05-08] MEDS ORDERED: MAG HYDROX/AL HYDROX/SIMETH SUSP 30 ML UDCUP PO PRN (23:07)
[2019-05-08] MEDS ORDERED: HYDRALAZINE HCL INJ/PF 20 MG/1 ML SDV IV PRN (23:16)
[2019-05-08] MEDS ORDERED: NALBUPHINE HCL INJ 10 MG/1 ML AMPULE IV PRN (23:16)
[2019-05-08] MEDS ORDERED: METRONIDAZOLE 500 MG/NS RTU 100 ML IV SCH (23:30)
[2019-05-08] MEDS ORDERED: CIPROFLOXACIN 400 MG/D5W RTU 400 MG/200 ML RTUPB IV SCH (23:45)
--- NOTE | 2019-05-08 23:59 | PDOC H&P ---
History of Present Illness Admission Date/PCP: 05/08/19 22:31 JOSESITO TRIPLETT MD Patient complains of: Abdominal pain History of Present Illness: GÉNESIS DANIELLE is a 74 year old male who presented to the emergency room with a 3-day history of abdominal pain. The patient admits a gradual onset of progressively worsening, now severe, cramping pain in his left lower abdomen without radiation. The pain has been accompanied by numerous diarrhea stools and anorexia. The pain has been associated with progressive generalized weakness which has now become severe resulting in several falls and has preventing him from being able to stand or walk. He admits prior similar less severe episodes. He has attempted use of Imodium to control his diarrhea at home without success. He has not identified any aggravating or ameliorating factors for his abdominal pain. In the emergency room he was found to have acute colitis of the descending and sigmoid colon on a CT scan of the abdomen and pelvis. Due to the severe debility caused by his illness patient will be admitted for further evaluation and treatment with consideration for [facility] or rehab placement at the time of discharge. Past Medical History Cardiac Medical History: Reports: Congestive Heart Failure, Coronary Artery Disease, Myocardial Infarction - post CABG, Hyperlipidema, Hypertension Denies: Atrial Fibrillation, DVT, Pulmonary Embolism, Heart Murmur Pulmonary Medical History: Reports: Pneumonia - 2009 Denies: Asthma, Chronic Obstructive Pulmonary Disease (COPD), Respiratory Failure, Sleep Apnea, Tuberculosis EENT Medical History: Denies: Cataracts, Ears - Hearing aids Neurological Medical History: Reports: Ischemic CVA, Migraine Denies: Hemorrhagic CVA, Seizures Endocrine Medical History: Denies: Diabetes Mellitus Type 1, Diabetes Mellitus Type 2, Hyperthyroidism, Hypothyroidism Renal/ Medical History: Denies: Chronic Kidney Disease, Nephrolithiasis Malignancy Medical History: Reports: Colorectal Cancer, Skin Cancer GI Medical History: Reports: Gastroesophageal Reflux Disease, Hiatal Hernia Denies: Cirrhosis, Crohn's Disease, Hepatitis, Peptic Ulcer Disease, Ulcerative Colitis Musculoskeltal Medical History: Reports: Arthritis Denies: Gout Skin Medical History: Denies: Eczema, Psoriasis Psychiatric Medical History: Reports: Dementia, Depression Denies: Alcohol Dependency, Substance Abuse, Tobacco Dependency Traumatic Medical History: Reports: None Hematology: Denies: Anemia, Bleeding Tendencies Infectious Medical History: Reports: Clostridium Difficile Past Surgical History Past Surgical History: Reports: Cardiac Catheterization, Coronary Artery Bypass Graft - 4 vessel 1995, Coronary Stent, Orthopedic Surgery - Cervical spinal fusion, cervical spinal decompression, lumbar spinal fusion, Other - Hiatal hernia repair Social History Information Source: Patient Lives with: Alone Smoking Status: Never Smoker Frequency of Alcohol Use: None Hx Recreational Drug Use: No Drugs: None Hx Prescription Drug Abuse: No - Advance Directive Resuscitation Status: Full Code Surrogate healthcare decision maker:: Carmina Lau Family History Family History: Arthritis, CAD, CVA, Hypertension. denies: DM, Malignancy Parental Family History Reviewed: Yes Children Family History Reviewed: No Sibling(s) Family History Reviewed.: Yes Medication/Allergy Home Medications: Donepezil HCl [Aricept] 10 mg PO QPM 04/15/19 Gabapentin [Neurontin] 600 mg PO QHS 04/15/19 Lisinopril [Prinivil 2.5 mg Tablet] 2.5 mg PO DAILY 04/15/19 Prednisone [Deltasone 5 mg Tablet] 5 mg PO DAILY 04/15/19 Atorvastatin Calcium [Lipitor 10 mg Tablet] 10 mg PO QHS #30 tablet 04/16/19 Clopidogrel Bisulfate [Plavix 75 mg Tablet] 75 mg PO DAILY #30 tablet 04/16/19 Donepezil HCl [Aricept 5 mg Tablet] 10 mg PO QHS tablet 04/16/19 Lisinopril [Prinivil 5 mg Tablet] 2.5 mg PO DAILY tablet 04/16/19 Allergies/Adverse Reactions: iodine [Iodine] Allergy (Unknown, Verified 05/08/19 18:04) meperidine HCl [From Demerol] Allergy (Unknown, Verified 05/08/19 18:04) oxycodone [From Percocet] Allergy (Verified 05/08/19 18:04) Penicillins Allergy (Verified 05/08/19 18:04) aspirin [Aspirin] Adverse Reaction (Severe, Verified 05/08/19 18:04) Hemorrhage Review of Systems Constitutional: PRESENT: as per HPI, anorexia, weakness - Generalized. ABSENT: chills, fever(s) Eyes: ABSENT: visual disturbances, other - Eye pain Ears: ABSENT: hearing changes, other - Ear pain Nose, Mouth, and Throat: ABSENT: mouth pain, sore throat Cardiovascular: ABSENT: chest pain, palpitations Respiratory: ABSENT: cough, dyspnea Gastrointestinal: PRESENT: as per HPI, abdominal pain, diarrhea. ABSENT: constipation, nausea, vomiting Genitourinary: ABSENT: dysuria, hematuria Musculoskeletal: PRESENT: back pain - Chronic, other - Chronic left shoulder pain due to arthritis Integumentary: ABSENT: pruritus, rash Neurological: PRESENT: weakness. ABSENT: confusion, convulsions, focal weakness, memory loss, syncope Psychiatric: ABSENT: anxiety, depression Endocrine: ABSENT: cold intolerance, heat intolerance Hematologic/Lymphatic: ABSENT: easy bleeding, easy bruising Allergic/Immunologic: ABSENT: seasonal rhinorrhea Physical Exam Vital Signs: Temp Pulse Resp BP Pulse Ox 98.1 F 81 22 H 132/74 H 97 05/08/19 17:54 05/08/19 17:54 05/08/19 20:07 05/08/19 20:07 05/08/19 20:07 Intake & Output 05/06/19 05/07/19 05/08/19 23:59 23:59 23:59 Intake Total 1000 Balance 1000 Weight 68.6 kg General appearance: PRESENT: cooperative, mild distress - Secondary to abdominal pain, thin Head exam: PRESENT: atraumatic, normocephalic Eye exam: PRESENT: conjunctiva pink. ABSENT: conjunctival injection, scleral icterus Ear exam: PRESENT: normal external ear exam. ABSENT: bleeding, drainage Mouth exam: PRESENT: dry mucosa, neck supple Neck exam: ABSENT: thyromegaly, tracheal deviation Respiratory exam: PRESENT: clear to auscultation ruben, symmetrical, unlabored Cardiovascular exam: PRESENT: RRR. ABSENT: clicks, gallop, rubs Pulses: PRESENT: normal radial pulses, normal dorsalis pedis pul Vascular exam: PRESENT: normal capillary refill. ABSENT: pallor GI/Abdominal exam: PRESENT: hypoactive bowel sounds, soft, tenderness - Moderate tenderness in the left lower quadrant without localization Rectal exam: PRESENT: deferred Extremities exam: PRESENT: full ROM - Decreased range of motion left shoulder, decreased range of motion cervical and lumbar spine, other - Decreased strength right lower extremity compared to left. ABSENT: joint swelling, pedal edema Musculoskeletal exam: PRESENT: full ROM - Decreased range of motion left shoulder, decreased range of motion cervical and lumbar spine. ABSENT: deformity, dislocation Neurological exam: PRESENT: alert, oriented to person, oriented to place, oriented to time, oriented to situation, CN II-XII grossly intact, motor sensory deficit - Decreased strength right lower extremity 3/5, versus left lower extremity 4/5 Psychiatric exam: PRESENT: appropriate affect, normal mood, other - Mild short- term memory deficits noted Skin exam: PRESENT: dry, intact, warm. ABSENT: jaundice, rash, urticaria Results Laboratory Results: 05/08/19 18:44 05/08/19 18:44 05/08/19 05/08/19 05/08/19 18:44 18:44 18:44 WBC 12.2 H RBC 3.85 L Hgb 14.0 Hct 41.1 MCV 107 H MCH 36.3 H MCHC 34.0 RDW 14.0 Plt Count 194 Seg Neutrophils % 76.9 Sodium 136.0 L Potassium 3.9 Chloride 103 Carbon Dioxide 25 Anion Gap 8 BUN 14 Creatinine 0.85 Est GFR ( Amer) > 60 Glucose 137 H Lactic Acid 2.2 H Calcium 8.7 Total Bilirubin 0.7 AST 13 L Alkaline Phosphatase 60 Total Protein 6.3 Albumin 3.6 Lipase 32.2 Urine Color Urine Appearance Urine pH Ur Specific [place] Urine Protein Urine Glucose (UA) Urine Ketones Urine Blood Urine Nitrite Ur Leukocyte Esterase Urine WBC (Auto) Urine RBC (Auto) Stool for White Cells 05/08/19 05/08/19 20:35 20:35 WBC RBC Hgb Hct MCV MCH MCHC RDW Plt Count Seg Neutrophils % Sodium Potassium Chloride Carbon Dioxide Anion Gap BUN Creatinine Est GFR ( Amer) Glucose Lactic Acid Calcium Total Bilirubin AST Alkaline Phosphatase Total Protein Albumin Lipase Urine Color YELLOW Urine Appearance CLEAR Urine pH 5.0 Ur Specific [place] 1.020 Urine Protein NEGATIVE Urine Glucose (UA) NEGATIVE Urine Ketones NEGATIVE Urine Blood SMALL H Urine Nitrite NEGATIVE Ur Leukocyte Esterase NEGATIVE Urine WBC (Auto) 3 Urine RBC (Auto) 4 Stool for White Cells FEW H Impressions: Shoulder X-Ray 05/08/19 19:36 IMPRESSION: No fracture. Degenerative changes. Abdomen/Pelvis CT 05/08/19 19:37 IMPRESSION: Mild descending and sigmoid colitis suspected which may be infectious/inflammatory in etiology. Assessment and Plan - Diagnosis (1) Acute colitis Is this a current diagnosis for this admission?: Yes Plan: Patient will be treated with IV antibiotics utilizing Flagyl and Cipro due to his penicillin allergy. He will receive supportive cares including IV fluids and electrolytes. His pain will be controlled utilizing Nubain 5 to 10 mg IV every 3 hours on an as needed basis per sliding scale, given his allergy to meperidine and oxycodone. Daily CBCs, metabolic profiles and magnesium levels will be obtained. Due to his history of previous C. difficile infection a C. difficile screening will be performed and empiric therapy with oral vancomycin with dosing for a recurrent C. difficile infection will be provided, at least until results are available. (2) General weakness Is this a current diagnosis for this admission?: Yes Plan: Patient's generalized weakness will be treated with supportive care including IV fluids and electrolytes. Given his weakness preventing ambulation, standing and several recent falls, he will also be evaluated and treated by physical therapy, occupational therapy and speech therapy. Consideration for [facility] or rehab placement at the time of discharge will be given and social sciences department chair will be consulted. (3) Coronary artery disease Qualifiers: Coronary Disease-Associated Artery/Lesion type: ruby artery [place] vs. transplanted heart: ruby heart Associated angina: without angina Qualified Code(s): I25.10 - Atherosclerotic heart disease of [place] coronary artery without angina pectoris Is this a current diagnosis for this admission?: Yes Plan: Patient be continued on his usual medications for coronary artery disease and will be observed closely for any symptoms of angina or other cardiovascular complaints during his hospital course. (4) Diastolic CHF, chronic Is this a current diagnosis for this admission?: Yes Plan: Patient will be continued on his usual medications for treatment of heart failure. A BNP will be obtained to assess his current status. (5) Hypertension Qualifiers: Hypertension type: essential hypertension Qualified Code(s): I10 - Essential (primary) hypertension Is this a current diagnosis for this admission?: Yes Plan: Patient be continued on his usual treatment for hypertension as appropriate in light of his current diarrhea and potential for fluid loss. His blood pressure monitored closely throughout his hospital course. - Time Time Spent with patient: 15-24 minutes Medications reviewed and adjusted accordingly: Yes Anticipated discharge: SNF - Inpatient Certification Based on my medical assessment, after consideration of the patient's comorbidities, presenting symptoms, or acuity I expect that the services needed warrant INPATIENT care.: Yes I certify that my determination is in accordance with my understanding of Medicare's requirements for reasonable and necessary INPATIENT services [42 CFR 412.3e].: Yes Medical Necessity: Significant Comorbidiites Make Outpatient Treatment Too Risky, Need Close Monitoring Due to Risk of Patient Decompensation, Need For IV Fluids, Need for Pain Control, Need for IV Antibiotics, Risk of Complication if Not Cared For in Hospital, Risk of Diagnosis Which Will Require Inpatient Eval/Care/Monitoring
[2019-05-09] MEDS: METRONIDAZOLE 500 MG/NS RTU 500 MG/100 ML RTUPB IV SCH ×2 (00:28→05:18)
[2019-05-09] MEDS: ENALAPRILAT DIHYDRATE INJ/PF 1.25 MG/1 ML SDV IV SCH ×5 (00:32→23:47)
[2019-05-09 00:44] LABS: ANION GAP 10 (5-19); BLOOD UREA NITROGEN 12 mg/dL (7-20); CALCIUM 8.4 mg/dL (8.4-10.2); CARBON DIOXIDE 21 mmol/L (22-30); CHLORIDE 106 mmol/L (98-107); GLUCOSE 139 mg/dL (75-110)
[2019-05-09] MEDS ORDERED: VANCOMYCIN HCL INJ 500 MG VIAL ONE ×2 (01:28→05:34)
[2019-05-09 02:17] LABS: APPEARANCE,URINE CLEAR; BILIRUBIN,URINE NEGATIVE (NEGATIVE); COLOR,URINE YELLOW; GLUCOSE, URINE NEGATIVE (NEGATIVE); KETONES,URINE NEGATIVE (NEGATIVE); LEUKOCYTE ESTERASE,URINE NEGATIVE (NEGATIVE); NITRITE,URINE NEGATIVE (NEGATIVE); PROTEIN,URINE NEGATIVE (NEGATIVE); URINE SPECIFIC GRAVITY 1.055; UROBILINOGEN,URINE NEGATIVE mg/dL (<2.0)
[2019-05-09] MEDS: VANCOMYCIN HCL INJ 500 MG VIAL PO SCH ×5 (02:40→23:47)
[2019-05-09 03:42] LABS: C DIFFICILE GDH POSITIVE (NEGATIVE)
[2019-05-09] MEDS: HEPARIN SOD (PORCINE) 5,000 UNIT/ML 1 ML VIAL SUBCUT SCH ×3 (06:11→22:02)
[2019-05-09 07:48] LABS: HEMATOCRIT 37.5 % (37.9-51.0); HEMOGLOBIN 12.8 g/dL (13.5-17.0); MEAN CORPUSCULAR HEMOGLOBIN 36.6 pg (27.0-33.4); MEAN CORPUSCULAR HGB CONC 34.1 g/dL (32.0-36.0); MEAN CORPUSCULAR VOLUME 107 fl (80-97); PLATELET COUNT 166 10^3/uL (150-450); RED BLOOD COUNT 3.49 10^6/uL (4.35-5.55); RED CELL DISTRIBUTION WIDTH 13.6 % (11.5-14.0); WHITE BLOOD COUNT 9.3 10^3/uL (4.0-10.5)
[2019-05-09] MEDS ORDERED: RINGERS SOLUTION,LACTATED 1,000 ML IV PRN (09:07)
--- NOTE | 2019-05-09 09:10 | PDOC PROGRESS REPORT ---
Subjective Progress Note for:: 05/09/19 Subjective:: 74 year old male who presented to the emergency room with a 3-day history of abdominal pain. The patient admits a gradual onset of progressively worsening, now severe, cramping pain in his left lower abdomen without radiation. The pain has been accompanied by numerous diarrhea stools and anorexia. The pain has been associated with progressive generalized weakness which has now become severe resulting in several falls and has preventing him from being able to s tand or walk. He admits prior similar less severe episodes. He has attempted use of Imodium to control his diarrhea at home without success. He has not identified any aggravating or ameliorating factors for his abdominal pain. In the emergency room he was found to have acute colitis of the descending and sigmoid colon on a CT scan of the abdomen and pelvis. Due to the severe debility caused by his illness patient will be admitted for further evaluation and treatment with consideration for [facility] or rehab placement at the time of discharge. [id number]-old male admitted with abdominal pain CT abdomen pelvis indicating sigmoid colitis. Presently on IV Cipro and Flagyl. Patient said he is doing well expressing desire to go home today. I explained to him that he may need to stay at least another 24-hour to 48hours for antibiotic therapy and possible need for physical therapy and placement. Patient elected and agreed. No acute events since admission. Afebrile. Comfortable in the bed communicating well. Breakfast is at bedside he does not want to eat the breakfast he said family is bringing his breakfast from outside today. Reason For Visit: ACUTE COLITIS Physical Exam Vital Signs: Temp Pulse Resp BP Pulse Ox 97.5 F 58 L 17 157/71 H 95 05/08/19 23:56 05/09/19 00:32 05/08/19 23:56 05/09/19 00:32 05/08/19 23:56 Intake & Output 05/08/19 05/09/19 05/10/19 06:59 06:59 06:59 Intake Total 1660 Output Total 800 Balance 860 Weight 69.8 kg General appearance: PRESENT: no acute distress, cooperative Head exam: PRESENT: atraumatic Eye exam: PRESENT: PERRLA Mouth exam: PRESENT: moist, tongue midline Teeth exam: PRESENT: edentulous Neck exam: ABSENT: carotid bruit, JVD, lymphadenopathy, thyromegaly Respiratory exam: PRESENT: decreased breath sounds Cardiovascular exam: PRESENT: systolic murmur, tachycardia, other - Surgical scar over the sternum. GI/Abdominal exam: PRESENT: normal bowel sounds, soft, other - He was surgical scar over the mid abdomen.. ABSENT: distended, guarding, mass, organolmegaly, rebound, tenderness Rectal exam: PRESENT: deferred Extremities exam: PRESENT: full ROM. ABSENT: calf tenderness, clubbing, pedal edema Neurological exam: PRESENT: alert, awake, oriented to person, oriented to place, oriented to time, oriented to situation, CN II-XII grossly intact. ABSENT: motor sensory deficit Psychiatric exam: PRESENT: appropriate affect, normal mood. ABSENT: homicidal ideation, suicidal ideation Results Laboratory Results: 05/09/19 07:25 05/09/19 00:19 05/08/19 05/08/19 05/08/19 18:44 18:44 18:44 WBC 12.2 H RBC 3.85 L Hgb 14.0 Hct 41.1 MCV 107 H MCH 36.3 H MCHC 34.0 RDW 14.0 Plt Count 194 Seg Neutrophils % 76.9 Sodium 136.0 L Potassium 3.9 Chloride 103 Carbon Dioxide 25 Anion Gap 8 BUN 14 Creatinine 0.85 Est GFR ( Amer) > 60 Glucose 137 H Lactic Acid 2.2 H Calcium 8.7 Magnesium Total Bilirubin 0.7 AST 13 L Alkaline Phosphatase 60 Total Protein 6.3 Albumin 3.6 Lipase 32.2 Urine Color Urine Appearance Urine pH Ur Specific [place] Urine Protein Urine Glucose (UA) Urine Ketones Urine Blood Urine Nitrite Ur Leukocyte Esterase Urine WBC (Auto) Urine RBC (Auto) Stool for White Cells 05/08/19 05/08/19 05/09/19 20:35 20:35 00:19 WBC RBC Hgb Hct MCV MCH MCHC RDW Plt Count Seg Neutrophils % Sodium 136.7 L Potassium 4.0 Chloride 106 Carbon Dioxide 21 L Anion Gap 10 BUN 12 Creatinine 0.63 Est GFR ( Amer) > 60 Glucose 139 H Lactic Acid Calcium 8.4 Magnesium Total Bilirubin AST Alkaline Phosphatase Total Protein Albumin Lipase Urine Color YELLOW Urine Appearance CLEAR Urine pH 5.0 Ur Specific [place] 1.020 Urine Protein NEGATIVE Urine Glucose (UA) NEGATIVE Urine Ketones NEGATIVE Urine Blood SMALL H Urine Nitrite NEGATIVE Ur Leukocyte Esterase NEGATIVE Urine WBC (Auto) 3 Urine RBC (Auto) 4 Stool for White Cells FEW H 05/09/19 05/09/19 05/09/19 01:50 07:25 07:25 WBC 9.3 RBC 3.49 L Hgb 12.8 L Hct 37.5 L MCV 107 H MCH 36.6 H MCHC 34.1 RDW 13.6 Plt Count 166 Seg Neutrophils % Sodium Potassium Chloride Carbon Dioxide Anion Gap BUN Creatinine Est GFR ( Amer) Glucose Lactic Acid Calcium Magnesium 2.0 Total Bilirubin AST Alkaline Phosphatase Total Protein Albumin Lipase Urine Color YELLOW Urine Appearance CLEAR Urine pH 6.0 Ur Specific [place] 1.055 Urine Protein NEGATIVE Urine Glucose (UA) NEGATIVE Urine Ketones NEGATIVE Urine Blood NEGATIVE Urine Nitrite NEGATIVE Ur Leukocyte Esterase NEGATIVE Urine WBC (Auto) 0 Urine RBC (Auto) 1 Stool for White Cells 05/09/19 00:19 NT-Pro-B Natriuret Pep 348 Impressions: Shoulder X-Ray 05/08/19 19:36 IMPRESSION: No fracture. Degenerative changes. Abdomen/Pelvis CT 05/08/19 19:37 IMPRESSION: Mild descending and sigmoid colitis suspected which may be infectious/inflammatory in etiology. Assessment and Plan - Diagnosis (1) Acute colitis Is this a current diagnosis for this admission?: Yes (2) General weakness Is this a current diagnosis for this admission?: Yes (3) Coronary artery disease Qualifiers: Coronary Disease-Associated Artery/Lesion type: [place] artery [place] vs. transplanted heart: [place] heart Associated angina: without angina Qualified Code(s): I25.10 - Atherosclerotic heart disease of [place] coronary artery without angina pectoris Is this a current diagnosis for this admission?: Yes (4) Diastolic CHF, chronic Is this a current diagnosis for this admission?: Yes (5) Hypertension Qualifiers: Hypertension type: essential hypertension Qualified Code(s): I10 - Essential (primary) hypertension Is this a current diagnosis for this admission?: Yes - Plan Summary Summary: (1) Acute colitis Is this a current diagnosis for this admission?: Yes Plan: Patient will be treated with IV antibiotics utilizing Flagyl and Cipro due to his penicillin allergy. He will receive supportive cares including IV fluids and electrolytes. His pain will be controlled utilizing Nubain 5 to 10 mg IV every 3 hours on an as needed basis physical therapy consult was requested including IV fluids and electrolytes. Given his weakness preventing ambulation, standing and several recent falls, he will also be evaluated and treated by physical therapy, occupational therapy and speech therapy. Consideration for [facility] or rehab placement at the time of discharge will be given and social worker will be consulted. 05/09/2019-patient is presently on IV fluids and supportive care, PT consult was requested rehab consult was requested. Patient denies any problem with swallowi ng speech therapy consult was canceled. (3) Coronary artery disease Qualifiers: Coronary Disease-Associated Artery/Lesion type: [place] artery [place] vs. transplanted heart: [place] heart Associated angina: without angina Qualified Code(s): I25.10 - Atherosclerotic heart disease of [place] coronary artery without angina pectoris Is this a current diagnosis for this admission?: Yes Plan: Patient be continued on his usual medications for coronary artery disease and will be observed closely for any symptoms of angina or other cardiovascular complaints during his hospital course. 05/09/2019-patient has history of coronary artery disease denies any chest pains during the hospital stay plan is to resume his home medications. (4) Diastolic CHF, chronic Is this a current diagnosis for this admission?: Yes Plan: Patient will be continued on his usual medications for treatment of heart failure. A BNP will be obtained to assess his current status. 05/09/2019-patient BNP today is 348. Patient has history of chronic diastolic heart failure not in fluid overload. Plan is to continue to closely monitor his volume status. Plan IV fluids Ringer lactate at 167 mL/h plan to decrease the fluid rate to 75 mL/h. (5) Hypertension Qualifiers: Hypertension type: essential hypertension Qualified Code(s): I10 - Essential (primary) hypertension Is this a current diagnosis for this admission?: Yes Plan: Patient be continued on his usual treatment for hypertension as appropriate in light of his current diarrhea and potential for fluid loss. His blood pressure monitored closely throughout his hospital course. 05/09/2019-patient blood pressure today is 151/71 he is on Ringer lactate at 167 mL/h plan is to decrease the rate to 75 mL/h. To watch for the fluid overload. He is receiving enalaprilat 2.5 mg IV every 6 as needed and the hydralazine 20 mg IV every 4 as needed to manage the blood pressure. pt is taking lisinopril 2.5 mg p.o. daily at home plan is to resume the medication during the hospital stay.
[2019-05-09 10:00] LABS: ALBUMIN 3.1 g/dL (3.5-5.0); ALKALINE PHOSPHATASE 56 U/L (38-126); ANION GAP 10 (5-19); ASPARTATE AMINO TRANSFERASE 13 U/L (17-59); BILIRUBIN,DIRECT 0.2 mg/dL (0.0-0.4); BILIRUBIN,TOTAL 0.4 mg/dL (0.2-1.3); BLOOD UREA NITROGEN 12 mg/dL (7-20); CALCIUM 8.5 mg/dL (8.4-10.2); CARBON DIOXIDE 21 mmol/L (22-30); CHLORIDE 105 mmol/L (98-107); GLUCOSE 145 mg/dL (75-110); POTASSIUM 4.2 mmol/L (3.6-5.0); TOTAL PROTEIN 5.7 g/dL (6.3-8.2)
[2019-05-09] MEDS ORDERED: (PENDING PHARMACY ID) (Lisinopril [Prinivil 2.5 Mg Tablet] 2.5 MG) PO SCH (10:00)
[2019-05-09] MEDS ORDERED: LISINOPRIL 5 MG TABLET PO SCH (10:00)
[2019-05-09] MEDS ORDERED: CIPROFLOXACIN 400 MG/D5W RTU 400 MG/200 ML RTUPB IV SCH (10:00)
[2019-05-09] MEDS: FAMOTIDINE INJ/PF 20 MG/2 ML SDV IV SCH ×2 (10:05→22:02)
[2019-05-09] MEDS: CLOPIDOGREL BISULFATE 75 MG TABLET PO SCH (10:05)
[2019-05-09] MEDS: GABAPENTIN 300 MG CAPSULE PO SCH (22:00)
[2019-05-09] MEDS: ACETAMINOPHEN 325 MG TABLET PO PRN (22:01)
[2019-05-09] MEDS: ATORVASTATIN CALCIUM 10 MG TABLET PO SCH (22:01)
[2019-05-10 04:53] LABS: HEMATOCRIT 37.5 % (37.9-51.0); HEMOGLOBIN 12.9 g/dL (13.5-17.0); MEAN CORPUSCULAR HEMOGLOBIN 36.7 pg (27.0-33.4); MEAN CORPUSCULAR HGB CONC 34.5 g/dL (32.0-36.0); MEAN CORPUSCULAR VOLUME 106 fl (80-97); PLATELET COUNT 163 10^3/uL (150-450); RED BLOOD COUNT 3.53 10^6/uL (4.35-5.55); RED CELL DISTRIBUTION WIDTH 13.7 % (11.5-14.0); WHITE BLOOD COUNT 10.7 10^3/uL (4.0-10.5)
[2019-05-10] MEDS: HEPARIN SOD (PORCINE) 5,000 UNIT/ML 1 ML VIAL SUBCUT SCH ×3 (06:24→22:05)
[2019-05-10] MEDS: ENALAPRILAT DIHYDRATE INJ/PF 1.25 MG/1 ML SDV IV SCH ×3 (06:25→17:48)
[2019-05-10] MEDS: VANCOMYCIN HCL INJ 500 MG VIAL PO SCH ×3 (06:25→17:44)
[2019-05-10] MEDS: ACETAMINOPHEN 325 MG TABLET PO PRN ×2 (06:28→22:04)
--- NOTE | 2019-05-10 08:56 | PDOC PROGRESS REPORT ---
Subjective Progress Note for:: 05/10/19 Subjective:: 74 year old male who presented to the emergency room with a 3-day history of abdominal pain. The patient admits a gradual onset of progressively worsening, now severe, cramping pain in his left lower abdomen without radiation. The pain has been accompanied by numerous diarrhea stools and anorexia. The pain has been associated with progressive generalized weakness which has now become severe resulting in several falls and has preventing him from being able to s tand or walk. He admits prior similar less severe episodes. He has attempted use of Imodium to control his diarrhea at home without success. He has not identified any aggravating or ameliorating factors for his abdominal pain. In the emergency room he was found to have acute colitis of the descending and sigmoid colon on a CT scan of the abdomen and pelvis. Due to the severe debility caused by his illness patient will be admitted for further evaluation and treatment with consideration for mcc or rehab placement at the time of discharge. 05/09/[id number]-old male admitted with abdominal pain CT abdomen pelvis indicating sigmoid colitis. Presently on IV Cipro and Flagyl. Patient said he is doing well expressing desire to go home today. I explained to him that he may need to stay at least another 24-hour to 48hours for antibiotic therapy and possible need for physical therapy and placement. Patient elected and agreed. No acute events since admission. Afebrile. Comfortable in the bed communicating well. Breakfast is at bedside he does not want to eat the breakfast he said family is bringing his breakfast from outside today. 2018-no acute events in the last 24 hours. Afebrile. Patient is unsteady gait I saw him almost fell in the restroom. PT consult was requested probably need to go to a rehab facility. Fall precautions are requested bedside alarm was requested. cultures are negative so far. Reason For Visit: ACUTE COLITIS Physical Exam Vital Signs: Temp Pulse Resp BP Pulse Ox 97.4 F 74 18 108/63 97 05/10/19 00:23 05/10/19 00:23 05/10/19 00:23 05/10/19 00:23 05/10/19 00:23 Intake & Output 05/09/19 05/10/19 05/11/19 06:59 06:59 06:59 Intake Total 2660 740 Output Total 800 1790 Balance 1860 -1050 Weight 69.8 kg 74.7 kg General appearance: PRESENT: no acute distress, disheveled, thin Head exam: PRESENT: atraumatic Eye exam: PRESENT: PERRLA Mouth exam: PRESENT: moist, tongue midline Teeth exam: PRESENT: poor dentation Neck exam: ABSENT: carotid bruit, JVD, lymphadenopathy, thyromegaly Respiratory exam: PRESENT: decreased breath sounds Cardiovascular exam: PRESENT: RRR. ABSENT: diastolic murmur, rubs, systolic murmur GI/Abdominal exam: PRESENT: normal bowel sounds, soft. ABSENT: distended, guarding, mass, organolmegaly, rebound, tenderness Rectal exam: PRESENT: deferred Extremities exam: PRESENT: full ROM. ABSENT: calf tenderness, clubbing, pedal edema Neurological exam: PRESENT: alert, altered, awake Psychiatric exam: PRESENT: appropriate affect, normal mood. ABSENT: homicidal ideation, suicidal ideation Results Laboratory Results: 05/10/19 04:13 05/09/19 07:25 05/09/19 05/10/19 05/10/19 07:25 04:13 04:13 WBC 10.7 H RBC 3.53 L Hgb 12.9 L Hct 37.5 L MCV 106 H MCH 36.7 H MCHC 34.5 RDW 13.7 Plt Count 163 Sodium 136.1 L Potassium 4.2 Chloride 105 Carbon Dioxide 21 L Anion Gap 10 BUN 12 Creatinine 0.66 Est GFR ( Amer) > 60 Glucose 145 H Calcium 8.5 Magnesium 2.0 Total Bilirubin 0.4 AST 13 L Alkaline Phosphatase 56 Total Protein 5.7 L Albumin 3.1 L 05/09/19 00:19 NT-Pro-B Natriuret Pep 348 Impressions: Shoulder X-Ray 05/08/19 19:36 IMPRESSION: No fracture. Degenerative changes. Abdomen/Pelvis CT 05/08/19 19:37 IMPRESSION: Mild descending and sigmoid colitis suspected which may be infectious/inflammatory in etiology. Assessment and Plan - Diagnosis (1) Acute colitis Is this a current diagnosis for this admission?: Yes (2) General weakness Is this a current diagnosis for this admission?: Yes (3) Coronary artery disease Qualifiers: Coronary Disease-Associated Artery/Lesion type: [place] artery [place] vs. transplanted heart: [place] heart Associated angina: without angina Qualified Code(s): I25.10 - Atherosclerotic heart disease of [place] coronary artery without angina pectoris Is this a current diagnosis for this admission?: Yes (4) Diastolic CHF, chronic Is this a current diagnosis for this admission?: Yes (5) Hypertension Qualifiers: Hypertension type: essential hypertension Qualified Code(s): I10 - Essential (primary) hypertension Is this a current diagnosis for this admission?: Yes - Plan Summary Summary: (1) Acute colitis Is this a current diagnosis for this admission?: Yes Plan: Patient will be treated with IV antibiotics utilizing Flagyl and Cipro due to his penicillin allergy. He will receive supportive cares including IV fluids and electrolytes. His pain will be controlled utilizing Nubain 5 to 10 mg IV every 3 hours on an as needed basis physical therapy consult was requested including IV fluids and electrolytes. Given his weakness preventing ambulation, standing and several recent falls, he will also be evaluated and treated by physical therapy, occupational therapy and speech therapy. Consideration for [facility]cc or rehab placement at the time of discharge will be given and [facility] services will be consulted. 05/09/2019-patient is presently on IV fluids and supportive care, PT consult was requested rehab consult was requested. Patient denies any problem with swallowing speech therapy consult was canceled. 05/10/2019-patient is on Ringer lactate, supportive care. Receiving p.o. vancomycin every 6 hours. Positive for C. difficile. 2. C. difficile Stool cultures are positive for C. difficile GDH antigen, C. difficile toxin AMB. On p.o. vancomycin every 6 hours. No complaints of diarrhea. (3) Coronary artery disease Qualifiers: Coronary Disease-Associated Artery/Lesion type: [place] artery [place] vs. transplanted heart: [place] heart Associated angina: without angina Qualified Code(s): I25.10 - Atherosclerotic heart disease of [place] coronary artery without angina pectoris Is this a current diagnosis for this admission?: Yes Plan: Patient be continued on his usual medications for coronary artery disease and will be observed closely for any symptoms of angina or other cardiovascular complaints during his hospital course. 05/09/2019-patient has history of coronary artery disease denies any chest pains during the hospital stay plan is to resume his home medications. 05/10/2019-patient has history of coronary artery disease no complaints of chest pains today. (4) Diastolic CHF, chronic Is this a current diagnosis for this admission?: Yes Plan: Patient will be continued on his usual medications for treatment of heart failure. A BNP will be obtained to assess his current status. 05/09/2019-patient BNP today is 348. Patient has history of chronic diastolic heart failure not in fluid overload. Plan is to continue to closely monitor his volume status. Plan IV fluids Ringer lactate at 167 mL/h plan to decrease the fluid rate to 75 mL/h. 05/10/2019-patient has history of diastolic heart failure not in fluid overload. Presently on Ringer lactate plan is to discontinue IV fluids from today. (5) Hypertension Qualifiers: Hypertension type: essential hypertension Qualified Code(s): I10 - Essential (primary) hypertension Is this a current diagnosis for this admission?: Yes Plan: Patient be continued on his usual treatment for hypertension as appropriate in light of his current diarrhea and potential for fluid loss. His blood pressure monitored closely throughout his hospital course. 05/09/2019-patient blood pressure today is 151/71 he is on Ringer lactate at 167 mL/h plan is to decrease the rate to 75 mL/h. To watch for the fluid overload. He is receiving enalaprilat 2.5 mg IV every 6 as needed and the hydralazine 20 mg IV every 4 as needed to manage the blood pressure. pt is taking lisinopril 2.5 mg p.o. daily at home plan is to resume the medication during the hospital stay. 05/10/2019-patient blood pressure today is 108/70. Stable. Plan is to discontinue IV fluids from today. To hold his lisinopril from today to come to need to closely monitor his blood pressures.
[2019-05-10] MEDS: CLOPIDOGREL BISULFATE 75 MG TABLET PO SCH (09:30)
[2019-05-10] MEDS: FAMOTIDINE INJ/PF 20 MG/2 ML SDV IV SCH ×2 (09:30→22:05)
[2019-05-10] MEDS: ONDANSETRON HCL INJ/PF 4 MG/2 ML SDV IV PRN (11:33)
[2019-05-10] MEDS: GABAPENTIN 300 MG CAPSULE PO SCH (22:05)
[2019-05-10] MEDS: ATORVASTATIN CALCIUM 10 MG TABLET PO SCH (22:05)
[2019-05-11] MEDS: VANCOMYCIN HCL INJ 500 MG VIAL PO SCH ×4 (00:25→18:33)
[2019-05-11] MEDS: ENALAPRILAT DIHYDRATE INJ/PF 1.25 MG/1 ML SDV IV SCH ×4 (00:25→18:32)
[2019-05-11 04:43] LABS: HEMATOCRIT 36.2 % (37.9-51.0); HEMOGLOBIN 12.5 g/dL (13.5-17.0); MEAN CORPUSCULAR HEMOGLOBIN 36.6 pg (27.0-33.4); MEAN CORPUSCULAR HGB CONC 34.5 g/dL (32.0-36.0); MEAN CORPUSCULAR VOLUME 106 fl (80-97); PLATELET COUNT 166 10^3/uL (150-450); RED BLOOD COUNT 3.41 10^6/uL (4.35-5.55); RED CELL DISTRIBUTION WIDTH 13.7 % (11.5-14.0); WHITE BLOOD COUNT 6.6 10^3/uL (4.0-10.5)
[2019-05-11 05:09] LABS: ALBUMIN 2.8 g/dL (3.5-5.0); ALKALINE PHOSPHATASE 54 U/L (38-126); ANION GAP 5 (5-19); ASPARTATE AMINO TRANSFERASE 19 U/L (17-59); BILIRUBIN,DIRECT 0.1 mg/dL (0.0-0.4); BILIRUBIN,TOTAL 0.4 mg/dL (0.2-1.3); BLOOD UREA NITROGEN 9 mg/dL (7-20); CALCIUM 8.1 mg/dL (8.4-10.2); CARBON DIOXIDE 26 mmol/L (22-30); CHLORIDE 109 mmol/L (98-107); GLUCOSE 81 mg/dL (75-110); POTASSIUM 3.4 mmol/L (3.6-5.0); TOTAL PROTEIN 5.7 g/dL (6.3-8.2)
[2019-05-11] MEDS: HEPARIN SOD (PORCINE) 5,000 UNIT/ML 1 ML VIAL SUBCUT SCH ×3 (06:02→22:13)
[2019-05-11] MEDS ORDERED: INFLUENZA QUAD (6MOS+) 2019-20 VAC 0.5 ML SYR IM ONE (08:00)
--- NOTE | 2019-05-11 08:48 | PDOC PROGRESS REPORT ---
Subjective Progress Note for:: 05/11/19 Subjective:: 74 year old male who presented to the emergency room with a 3-day history of abdominal pain. The patient admits a gradual onset of progressively worsening, now severe, cramping pain in his left lower abdomen without radiation. The pain has been accompanied by numerous diarrhea stools and anorexia. The pain has been associated with progressive generalized weakness which has now become severe resulting in several falls and has preventing him from being able to s tand or walk. He admits prior similar less severe episodes. He has attempted use of Imodium to control his diarrhea at home without success. He has not identified any aggravating or ameliorating factors for his abdominal pain. In the emergency room he was found to have acute colitis of the descending and sigmoid colon on a CT scan of the abdomen and pelvis. Due to the severe debility caused by his illness patient will be admitted for further evaluation and treatment with consideration for longterm or rehab placement at the time of discharge. 05/09/[id number]-pxex-old male admitted with abdominal pain CT abdomen pelvis indicating sigmoid colitis. Presently on IV Cipro and Flagyl. Patient said he is doing well expressing desire to go home today. I explained to him that he may need to stay at least another 24-hour to 48hours for antibiotic therapy and possible need for physical therapy and placement. Patient elected and agreed. No acute events since admission. Afebrile. Comfortable in the bed communicating well. Breakfast is at bedside he does not want to eat the breakfast he said family is bringing his breakfast from outside today. 2018-no acute events in the last 24 hours. Afebrile. Patient is unsteady gait I saw him almost fell in the restroom. PT consult was requested probably need to go to a rehab facility. Fall precautions are requested bedside alarm was requested. cultures are negative so far. 05/11/19-no acute events in the last 24 hours. Afebrile. Comfortably sleeping in the bed communicating well. He said he is feeling little bit better. 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 difficile during this admission and contact isolation receiving p.o. vancomycin every 6 hours. Physical therapy is working with the patient. Precautions are requested ,bed alarm was requested. Reason For Visit: ACUTE COLITIS Physical Exam Vital Signs: Temp Pulse Resp BP Pulse Ox 98.2 F 56 L 17 132/71 H 97 10/04/19 00:01 05/11/19 06:02 05/11/19 03:57 05/11/19 06:02 05/11/19 03:57 Intake & Output 05/10/19 05/11/19 05/12/19 06:59 06:59 06:59 Intake Total 1740 777 Output Total 1790 1650 Balance -50 -873 Weight 74.7 kg 73.2 kg General appearance: PRESENT: no acute distress, thin Head exam: PRESENT: atraumatic Eye exam: PRESENT: PERRLA Mouth exam: PRESENT: moist, tongue midline Teeth exam: PRESENT: poor dentation Neck exam: ABSENT: carotid bruit, JVD, lymphadenopathy, thyromegaly Respiratory exam: PRESENT: decreased breath sounds Cardiovascular exam: PRESENT: RRR. ABSENT: diastolic murmur, rubs, systolic murmur GI/Abdominal exam: PRESENT: normal bowel sounds, soft. ABSENT: distended, guarding, mass, organolmegaly, rebound, tenderness Rectal exam: PRESENT: deferred Extremities exam: PRESENT: full ROM. ABSENT: calf tenderness, clubbing, pedal edema Neurological exam: PRESENT: alert, awake, oriented to person, oriented to place, oriented to time, oriented to situation, CN II-XII grossly intact. ABSENT: motor sensory deficit Psychiatric exam: PRESENT: appropriate affect, normal mood. ABSENT: homicidal ideation, suicidal ideation Skin exam: PRESENT: dry, intact, warm. ABSENT: cyanosis, rash Results Laboratory Results: 05/11/19 04:03 05/11/19 04:03 05/11/19 05/11/19 04:03 04:03 WBC 6.6 RBC 3.41 L Hgb 12.5 L Hct 36.2 L MCV 106 H MCH 36.6 H MCHC 34.5 RDW 13.7 Plt Count 166 Sodium 140.1 Potassium 3.4 L Chloride 109 H Carbon Dioxide 26 Anion Gap 5 BUN 9 Creatinine 0.73 Est GFR ( Amer) > 60 Glucose 81 Calcium 8.1 L Magnesium 2.0 Total Bilirubin 0.4 AST 19 Alkaline Phosphatase 54 Total Protein 5.7 L Albumin 2.8 L 05/08/19 20:35 Stool - Stool - Final 05/09/19 00:19 NT-Pro-B Natriuret Pep 348 Impressions: Shoulder X-Ray 05/08/19 19:36 IMPRESSION: No fracture. Degenerative changes. Abdomen/Pelvis CT 05/08/19 19:37 IMPRESSION: Mild descending and sigmoid colitis suspected which may be infectious/inflammatory in etiology. Assessment and Plan - Diagnosis (1) Acute colitis Is this a current diagnosis for this admission?: Yes (2) General weakness Is this a current diagnosis for this admission?: Yes (3) Coronary artery disease Qualifiers: Coronary Disease-Associated Artery/Lesion type: [place] artery [place] vs. transplanted heart: [place] heart Associated angina: without angina Qualified Code(s): I25.10 - Atherosclerotic heart disease of [place] coronary artery without angina pectoris Is this a current diagnosis for this admission?: Yes (4) Diastolic CHF, chronic Is this a current diagnosis for this admission?: Yes (5) Hypertension Qualifiers: Hypertension type: essential hypertension Qualified Code(s): I10 - Essential (primary) hypertension Is this a current diagnosis for this admission?: Yes - Plan Summary Summary: (1) Acute colitis Is this a current diagnosis for this admission?: Yes Plan: Patient will be treated with IV antibiotics utilizing Flagyl and Cipro due to his penicillin allergy. He will receive supportive cares including IV fluids and electrolytes. His pain will be controlled utilizing Nubain 5 to 10 mg IV every 3 hours on an as needed basis physical therapy consult was requested including IV fluids and electrolytes. Given his weakness preventing ambulation, standing and several recent falls, he will also be evaluated and treated by physical therapy, occupational therapy and speech therapy. Consideration for longterm or rehab placement at the time of discharge will be given and so [facility] services will be consulted. 05/09/2019-patient is presently on IV fluids and supportive care, PT consult was requested rehab consult was requested. Patient denies any problem with swallowing speech therapy consult was canceled. 05/10/2019-patient is on Ringer lactate, supportive care. Receiving p.o. vancomycin every 6 hours. Positive for C. difficile. 05/11/2019-patient is off the IV fluids. Receiving p.o. vancomycin for C. difficile. No diarrhea. No acute events in the last 24 hours. No abdominal pains. Physical therapy is working with the patient. 2. C. difficile Stool cultures are positive for C. difficile GDH antigen, C. difficile toxin AMB. On p.o. vancomycin every 6 hours. No complaints of diarrhea. 05/11/2019-patient is presently on p.o. vancomycin 250 mg every 6 hours for C. difficile. Plan to continue the present management. (3) Coronary artery disease Qualifiers: Coronary Disease-Associated Artery/Lesion type: [place] artery [place] vs. transplanted heart: [place] heart Associated angina: without angina Qualified Code(s): I25.10 - Atherosclerotic heart disease of [place] coronary artery without angina pectoris Is this a current diagnosis for this admission?: Yes Plan: Patient be continued on his usual medications for coronary artery disease and will be observed closely for any symptoms of angina or other cardiovascular complaints during his hospital course. 05/09/2019-patient has history of coronary artery disease denies any chest pains during the hospital stay plan is to resume his home medications. 05/10/2019-patient has history of coronary artery disease no complaints of chest pains today. 05/11/2019-patient has history of coronary artery disease no complaints of chest pains during this hospital stay. (4) Diastolic CHF, chronic Is this a current diagnosis for this admission?: Yes Plan: Patient will be continued on his usual medications for treatment of heart failur e. A BNP will be obtained to assess his current status. 05/09/2019-patient BNP today is 348. Patient has history of chronic diastolic heart failure not in fluid overload. Plan is to continue to closely monitor his volume status. Plan IV fluids Ringer lactate at 167 mL/h plan to decrease the fluid rate to 75 mL/h. 05/10/2019-patient has history of diastolic heart failure not in fluid overload. Presently on Ringer lactate plan is to discontinue IV fluids from today. (5) Hypertension Qualifiers: Hypertension type: essential hypertension Qualified Code(s): I10 - Essential (primary) hypertension Is this a current diagnosis for this admission?: Yes Plan: Patient be continued on his usual treatment for hypertension as appropriate in light of his current diarrhea and potential for fluid loss. His blood pressure monitored closely throughout his hospital course. 05/09/2019-patient blood pressure today is 151/71 he is on Ringer lactate at 167 mL/h plan is to decrease the rate to 75 mL/h. To watch for the fluid overload. He is receiving enalaprilat 2.5 mg IV every 6 as needed and the hydralazine 20 mg IV every 4 as needed to manage the blood pressure. pt is taking lisinopril 2.5 mg p.o. daily at home plan is to resume the medication during the hospital stay. 05/10/2019-patient blood pressure today is 108/70. Stable. Plan is to discontinue IV fluids from today. To hold his lisinopril from today to come to need to closely monitor his blood pressures. 05/11/2019-patient blood pressure today is 132/71. Stable. Plan is to continue the present management. 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 Power in the right lower extremities 4/5.
[2019-05-11] MEDS ORDERED: POTASSIUM CHLORIDE 10 MEQ CAPSULE.ER PO ONE (09:30)
[2019-05-11] MEDS: FAMOTIDINE INJ/PF 20 MG/2 ML SDV IV SCH (10:09)
[2019-05-11] MEDS: ACETAMINOPHEN 325 MG TABLET PO PRN ×2 (10:10→16:15)
[2019-05-11] MEDS: CLOPIDOGREL BISULFATE 75 MG TABLET PO SCH (10:10)
[2019-05-11] MEDS: OXYCODONE-ACETAMINOPHEN 5-325 MG TABLET PO PRN (20:15)
[2019-05-11] MEDS: GABAPENTIN 300 MG CAPSULE PO SCH (22:14)
[2019-05-11] MEDS: ATORVASTATIN CALCIUM 10 MG TABLET PO SCH (22:14)
[2019-05-11] MEDS: FAMOTIDINE 20 MG TABLET PO SCH (22:14)
[2019-05-12] MEDS ORDERED: MELATONIN 5 MG TABLET PO PRN (00:09)
[2019-05-12] MEDS: ENALAPRILAT DIHYDRATE INJ/PF 1.25 MG/1 ML SDV IV SCH ×4 (00:32→17:40)
[2019-05-12] MEDS: VANCOMYCIN HCL INJ 500 MG VIAL PO SCH ×4 (00:33→17:44)
[2019-05-12] MEDS: HEPARIN SOD (PORCINE) 5,000 UNIT/ML 1 ML VIAL SUBCUT SCH ×3 (05:29→21:53)
--- NOTE | 2019-05-12 09:38 | PDOC PROGRESS REPORT ---
Subjective Progress Note for:: 05/12/19 Subjective:: 74 year old male who presented to the emergency room with a 3-day history of abdominal pain. The patient admits a gradual onset of progressively worsening, now severe, cramping pain in his left lower abdomen without radiation. The pain has been accompanied by numerous diarrhea stools and anorexia. The pain has been associated with progressive generalized weakness which has now become severe resulting in several falls and has preventing him from being able to s tand or walk. He admits prior similar less severe episodes. He has attempted use of Imodium to control his diarrhea at home without success. He has not identified any aggravating or ameliorating factors for his abdominal pain. In the emergency room he was found to have acute colitis of the descending and sigmoid colon on a CT scan of the abdomen and pelvis. Due to the severe debility caused by his illness patient will be admitted for further evaluation and treatment with consideration for mcc or rehab placement at the time of discharge. 05/09/[id number]-myii-old male admitted with abdominal pain CT abdomen pelvis indicating sigmoid colitis. Presently on IV Cipro and Flagyl. Patient said he is doing well expressing desire to go home today. I explained to him that he may need to stay at least another 24-hour to 48hours for antibiotic therapy and possible need for physical therapy and placement. Patient elected and agreed. No acute events since admission. Afebrile. Comfortable in the bed communicating well. Breakfast is at bedside he does not want to eat the breakfast he said family is bringing his breakfast from outside today. 2018-no acute events in the last 24 hours. Afebrile. Patient is unsteady gait I saw him almost fell in the restroom. PT consult was requested probably need to go to a rehab facility. Fall precautions are requested bedside alarm was requested. cultures are negative so far. 05/11/19-no acute events in the last 24 hours. Afebrile. Comfortably sleeping in the bed communicating well. He said he is feeling little bit better. 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 difficile during this admission and contact isolation receiving p.o. vancomycin every 6 hours. Physical therapy is working with the patient. Precautions are requested ,bed alarm was requested. 05/12/2019-no acute events in the last 24 hours. Afebrile. Yesterday complaining of shoulder pain she was given Percocet. He has one loose stool yesterday. Receiving p.o. vancomycin for C. difficile. Afebrile. Palliative care consult was requested as per the family request. Reason For Visit: ACUTE COLITIS Physical Exam Vital Signs: Temp Pulse Resp BP Pulse Ox 98.5 F 66 17 133/79 H 95 05/12/19 04:26 05/12/19 05:29 05/12/19 04:26 05/12/19 05:29 05/12/19 04:26 Intake & Output 05/11/19 05/12/19 05/13/19 06:59 06:59 06:59 Intake Total 777 1022 Output Total 1650 1000 Balance -873 22 Weight 73.2 kg 72 kg General appearance: PRESENT: no acute distress, cooperative, thin Head exam: PRESENT: atraumatic Eye exam: PRESENT: PERRLA Mouth exam: PRESENT: moist, tongue midline Teeth exam: PRESENT: poor dentation Neck exam: ABSENT: carotid bruit, JVD, lymphadenopathy, thyromegaly Respiratory exam: PRESENT: decreased breath sounds Cardiovascular exam: PRESENT: RRR. ABSENT: diastolic murmur, rubs, systolic murmur GI/Abdominal exam: PRESENT: normal bowel sounds, soft. ABSENT: distended, guarding, mass, organolmegaly, rebound, tenderness Rectal exam: PRESENT: deferred Extremities exam: PRESENT: full ROM. ABSENT: calf tenderness, clubbing, pedal edema Neurological exam: PRESENT: alert, awake, oriented to person, oriented to place, oriented to time, oriented to situation, CN II-XII grossly intact. ABSENT: motor sensory deficit Psychiatric exam: PRESENT: appropriate affect, normal mood. ABSENT: homicidal ideation, suicidal ideation Results Laboratory Results: 05/11/19 04:03 05/11/19 04:03 05/08/19 20:35 Stool - Stool - Final 05/08/19 20:35 Stool - Stool Stool Culture - Final NO SALMONELLA, SHIGELLA, CAMPYLOBACTER, OR E.COLI 0157 RECOVERED. NEGATIVE FOR SHIGA TOXINS 1&2. 05/09/19 00:19 NT-Pro-B Natriuret Pep 348 Impressions: Shoulder X-Ray 05/08/19 19:36 IMPRESSION: No fracture. Degenerative changes. Abdomen/Pelvis CT 05/08/19 19:37 IMPRESSION: Mild descending and sigmoid colitis suspected which may be infectious/inflammatory in etiology. Assessment and Plan - Diagnosis (1) Acute colitis Is this a current diagnosis for this admission?: Yes (2) General weakness Is this a current diagnosis for this admission?: Yes (3) Coronary artery disease Qualifiers: Coronary Disease-Associated Artery/Lesion type: [place] artery [place] vs. transplanted heart: [place] heart Associated angina: without angina Qualified Code(s): I25.10 - Atherosclerotic heart disease of [place] coronary artery wi thout angina pectoris Is this a current diagnosis for this admission?: Yes (4) Diastolic CHF, chronic Is this a current diagnosis for this admission?: Yes (5) Hypertension Qualifiers: Hypertension type: essential hypertension Qualified Code(s): I10 - Essent ial (primary) hypertension Is this a current diagnosis for this admission?: Yes - Plan Summary Summary: (1) Acute colitis Is this a current diagnosis for this admission?: Yes Plan: Patient will be treated with IV antibiotics utilizing Flagyl and Cipro due to his penicillin allergy. He will receive supportive cares including IV fluids and electrolytes. His pain will be controlled utilizing Nubain 5 to 10 mg IV every 3 hours on an as needed basis physical therapy consult was requested including IV fluids and electrolytes. Given his weakness preventing ambulation, standing and several recent falls, he will also be evaluated and treated by physical therapy, occupational therapy and speech therapy. Consideration for mcc or rehab placement at the time of discharge will be given and social research assistant will be consulted. 05/09/2019-patient is presently on IV fluids and supportive care, PT consult was requested rehab consult was requested. Patient denies any problem with swallowing speech therapy consult was canceled. 05/10/2019-patient is on Ringer lactate, supportive care. Receiving p.o. vancomycin every 6 hours. Positive for C. difficile. 05/11/2019-patient is off the IV fluids. Receiving p.o. vancomycin for C. difficile. No diarrhea. No acute events in the last 24 hours. No abdominal pains. Physical therapy is working with the patient. 2. C. difficile Stool cultures are positive for C. difficile GDH antigen, C. difficile toxin AMB. On p.o. vancomycin every 6 hours. No complaints of diarrhea. 05/11/2019-patient is presently on p.o. vancomycin 250 mg every 6 hours for C. difficile. Plan to continue the present management. 05/12/2019-patient is receiving p.o. vancomycin for C. difficile. Which was posi tive during the admission. Patient has one loose stool last night. No abdominal pains. No nausea no vomitings no fevers. Plan is to continue the present management. (3) Coronary artery disease Qualifiers: Coronary Disease-Associated Artery/Lesion type: [place] artery [place] vs. transplanted heart: [place] heart Associated angina: without angina Qualified Code(s): I25.10 - Atherosclerotic heart disease of [place] coronary artery without angina pectoris Is this a current diagnosis for this admission?: Yes Plan: Patient be continued on his usual medications for coronary artery disease and will be observed closely for any symptoms of angina or other cardiovascular complaints during his hospital course. 05/09/2019-patient has history of coronary artery disease denies any chest pains during the hospital stay plan is to resume his home medications. 05/10/2019-patient has history of coronary artery disease no complaints of chest pains today. 05/11/2019-patient has history of coronary artery disease no complaints of chest pains during this hospital stay. (4) Diastolic CHF, chronic Is this a current diagnosis for this admission?: Yes Plan: Patient will be continued on his usual medications for treatment of heart failure. A BNP will be obtained to assess his current status. 05/09/2019-patient BNP today is 348. Patient has history of chronic diastolic heart failure not in fluid overload. Plan is to continue to closely monitor his volume status. Plan IV fluids Ringer lactate at 167 mL/h plan to decrease the fluid rate to 75 mL/h. 05/10/2019-patient has history of diastolic heart failure not in fluid overload. Presently on Ringer lactate plan is to discontinue IV fluids from today. 05/12/2019-patient has history of diastolic heart failure euvolemic. Not on IV fluids at this time blood pressure is 133/80. (5) Hypertension Qualifiers: Hypertension type: essential hypertension Qualified Code(s): I10 - Essential (primary) hypertension Is this a current diagnosis for this admission?: Yes Plan: Patient be continued on his usual treatment for hypertension as appropriate in light of his current diarrhea and potential for fluid loss. His blood pressure monitored closely throughout his hospital course. 05/09/2019-patient blood pressure today is 151/71 he is on Ringer lactate at 167 mL/h plan is to decrease the rate to 75 mL/h. To watch for the fluid overload. He is receiving enalaprilat 2.5 mg IV every 6 as needed and the hydralazine 20 mg IV every 4 as needed to manage the blood pressure. pt is taking lisinopril 2.5 mg p.o. daily at home plan is to resume the medication during the hospital stay. 05/10/2019-patient blood pressure today is 108/70. Stable. Plan is to discontinue IV fluids from today. To hold his lisinopril from today to come to need to closely monitor his blood pressures. 05/11/2019-patient blood pressure today is 132/71. Stable. Plan is to continue the present management. 05/12/2019-patient blood pressure today is 133/80. Stable. Plan is to continue the present management. 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 Power in the right lower extremities /. 05/12/2019-patient has a difficulty in ambulation he is at high risk for fall. Fall precautions are requested but alarm is in place. Discussed the rehab placement with family members but they prefer to take him home with palliative care.
[2019-05-12] MEDS: CLOPIDOGREL BISULFATE 75 MG TABLET PO SCH (11:18)
[2019-05-12] MEDS: FAMOTIDINE 20 MG TABLET PO SCH ×2 (11:18→21:53)
[2019-05-12] MEDS: ONDANSETRON HCL INJ/PF 4 MG/2 ML SDV IV PRN (13:00)
[2019-05-12] MEDS: OXYCODONE-ACETAMINOPHEN 5-325 MG TABLET PO PRN (16:13)
[2019-05-12] MEDS: GABAPENTIN 300 MG CAPSULE PO SCH (21:53)
[2019-05-12] MEDS: ATORVASTATIN CALCIUM 10 MG TABLET PO SCH (21:54)
[2019-05-13] MEDS: VANCOMYCIN HCL INJ 500 MG VIAL PO SCH ×2 (00:54→05:58)
[2019-05-13] MEDS: ENALAPRILAT DIHYDRATE INJ/PF 1.25 MG/1 ML SDV IV SCH ×2 (00:54→05:58)
[2019-05-13] MEDS: HEPARIN SOD (PORCINE) 5,000 UNIT/ML 1 ML VIAL SUBCUT SCH (05:59)
[2019-05-13 06:26] LABS: ABSOLUTE EOSINOPHILS # (AUTO) 0.1 10^3/uL (0.0-0.6); ABSOLUTE LYMPHOCYTES (AUTO) 1.9 10^3/uL (0.5-4.7); ABSOLUTE NEUT (AUTO) 4.5 10^3/uL (1.7-8.2); BASOPHILS % (AUTO) 0.6 % (0-2); EOSINOPHILS % (AUTO) 1.4 % (0-6); HEMOGLOBIN 13.2 g/dL (13.5-17.0); LYMPHOCYTES % (AUTO) 24.7 % (13-45); MEAN CORPUSCULAR HEMOGLOBIN 36.6 pg (27.0-33.4); MEAN CORPUSCULAR HGB CONC 34.7 g/dL (32.0-36.0); MEAN CORPUSCULAR VOLUME 106 fl (80-97); MONOCYTES % (AUTO) 13.9 % (3-13); PLATELET COUNT 163 10^3/uL (150-450); RED CELL DISTRIBUTION WIDTH 13.5 % (11.5-14.0); SEGMENTED NEUTROPHILS % (AUTO) 59.4 % (42-78); TOTAL CELLS COUNTED % (AUTO) 100 %; WHITE BLOOD COUNT 7.5 10^3/uL (4.0-10.5)
[2019-05-13 06:54] LABS: ALKALINE PHOSPHATASE 69 U/L (38-126); ANION GAP 6 (5-19); ASPARTATE AMINO TRANSFERASE 21 U/L (17-59); BILIRUBIN,DIRECT 0.1 mg/dL (0.0-0.4); BILIRUBIN,TOTAL 0.8 mg/dL (0.2-1.3); BLOOD UREA NITROGEN 9 mg/dL (7-20); CALCIUM 8.3 mg/dL (8.4-10.2); CARBON DIOXIDE 30 mmol/L (22-30); CHLORIDE 100 mmol/L (98-107); GLUCOSE 82 mg/dL (75-110); POTASSIUM 4.3 mmol/L (3.6-5.0); TOTAL PROTEIN 5.6 g/dL (6.3-8.2)
[2019-05-13 08:31] VITALS: BP 147/72
[2019-05-13] MEDS: FAMOTIDINE 20 MG TABLET PO SCH (10:08)
[2019-05-13] MEDS: CLOPIDOGREL BISULFATE 75 MG TABLET PO SCH (10:08)
--- NOTE | 2019-05-13 12:30 | PDOC DISCHARGE SUMMARY ---
Impression - Admit/DC Date/PCP Admission Date/Primary Care Provider: 05/08/19 22:31 JOSESITO TRIPLETT MD Discharge Date: 05/13/19 - Discharge Diagnosis (1) Acute colitis Is this a current diagnosis for this admission?: Yes (2) General weakness Is this a current diagnosis for this admission?: Yes (3) Coronary artery disease Is this a current diagnosis for this admission?: Yes (4) Diastolic CHF, chronic Is this a current diagnosis for this admission?: Yes (5) Hypertension Is this a current diagnosis for this admission?: Yes - Assessment Summary: (1) Acute colitis Is this a current diagnosis for this admission?: Yes Plan: Patient will be treated with IV antibiotics utilizing Flagyl and Cipro due to his penicillin allergy. He will receive supportive cares including IV fluids and electrolytes. His pain will be controlled utilizing Nubain 5 to 10 mg IV every 3 hours on an as needed basis physical therapy consult was requested including IV fluids and electrolytes. Given his weakness preventing ambulation, standing and several recent falls, he will also be evaluated and treated by physical therapy, occupational therapy and speech therapy. Consideration for usp or rehab placement at the time of discharge will be given and social group worker will be consulted. 05/09/2019-patient is presently on IV fluids and supportive care, PT consult was requested rehab consult was requested. Patient denies any problem with swallowing speech therapy consult was canceled. 05/10/2019-patient is on Ringer lactate, supportive care. Receiving p.o. vancomycin every 6 hours. Positive for C. difficile. 05/11/2019-patient is off the IV fluids. Receiving p.o. vancomycin for C. difficile. No diarrhea. No acute events in the last 24 hours. No abdominal pains. Physical therapy is working with the patient. 05/13/2019-acute colitis resolved. 2. C. difficile Stool cultures are positive for C. difficile GDH antigen, C. difficile toxin AMB. On p.o. vancomycin every 6 hours. No complaints of diarrhea. 05/11/2019-patient is presently on p.o. vancomycin 250 mg every 6 hours for C. difficile. Plan to continue the present management. 05/12/2019-patient is receiving p.o. vancomycin for C. difficile. Which was positive during the admission. Patient has one loose stool last night. No abdominal pains. No nausea no vomitings no fevers. Plan is to continue the present management. 05/13/2019-patient has recurrent C. difficile treated with p.o. vancomycin. Patient is advised to continue p.o. vancomycin at home. (3) Coronary artery disease Qualifiers: Coronary Disease-Associated Artery/Lesion type: [place] artery [place] vs. transplanted heart: [place] heart Associated angina: without angina Qualified Code(s): I25.10 - Atherosclerotic heart disease of [place] coronary artery without angina pectoris Is this a current diagnosis for this admission?: Yes Plan: Patient be continued on his usual medications for coronary artery disease and will be observed closely for any symptoms of angina or other cardiovascular complaints during his hospital course. 05/09/2019-patient has history of coronary artery disease denies any chest pains during the hospital stay plan is to resume his home medications. 05/10/2019-patient has history of coronary artery disease no complaints of chest pains today. 05/11/2019-patient has history of coronary artery disease no complaints of chest pains during this hospital stay. 05/13/19-no chest pains during the hospital stay. (4) Diastolic CHF, chronic Is this a current diagnosis for this admission?: Yes Plan: Patient will be continued on his usual medications for treatment of heart failure. A BNP will be obtained to assess his current status. 05/09/2019-patient BNP today is 348. Patient has history of chronic diastolic heart failure not in fluid overload. Plan is to continue to closely monitor his volume status. Plan IV fluids Ringer lactate at 167 mL/h plan to decrease the fluid rate to 75 mL/h. 05/10/2019-patient has history of diastolic heart failure not in fluid overload. Presently on Ringer lactate plan is to discontinue IV fluids from today. 05/12/2019-patient has history of diastolic heart failure euvolemic. Not on IV fluids at this time blood pressure is 133/80. 05/13/19-patient has history of chronic diastolic heart failure, euvolemic. Blood pressure stable. (5) Hypertension Qualifiers: Hypertension type: essential hypertension Qualified Code(s): I10 - Essential (primary) hypertension Is this a current diagnosis for this admission?: Yes Plan: Patient be continued on his usual treatment for hypertension as appropriate in light of his current diarrhea and potential for fluid loss. His blood pressure monitored closely throughout his hospital course. 05/09/2019-patient blood pressure today is 151/71 he is on Ringer lactate at 167 mL/h plan is to decrease the rate to 75 mL/h. To watch for the fluid overload. He is receiving enalaprilat 2.5 mg IV every 6 as needed and the hydralazine 20 mg IV every 4 as needed to manage the blood pressure. pt is taking lisinopril 2.5 mg p.o. daily at home plan is to resume the medication during the hospital stay. 05/10/2019-patient blood pressure today is 108/70. Stable. Plan is to discontinue IV fluids from today. To hold his lisinopril from today to come to need to closely monitor his blood pressures. 05/11/2019-patient blood pressure today is 132/71. Stable. Plan is to continue the present management. 05/12/2019-patient blood pressure today is 133/80. Stable. Plan is to continue the present management. 05/13/2019-blood pressures are stable today. Patient is advised to continue the home medications upon discharge. 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 Power in the right lower extremities 11/10. 05/12/2019-patient has a difficulty in ambulation he is at high risk for fall. Fall precautions are requested but alarm is in place. Discussed the rehab placement with family members but they prefer to take him home with palliative care. - Additional Information Resuscitation Status: Do Not Resuscitate Discharge Diet: As Tolerated, Cardiac Discharge Activity: Balance Activity w/Rest, Supervised Activity Referrals: JOSESITO TRIPLETT MD [Primary Care Provider] - 05/21/19 1:45 pm Home Medications: Gabapentin [Neurontin] 600 mg PO QHS 04/15/19 Lisinopril [Prinivil 2.5 mg Tablet] 2.5 mg PO DAILY 04/15/19 Prednisone [Deltasone 5 mg Tablet] 10 mg PO DAILY 04/15/19 Atorvastatin Calcium [Lipitor 10 mg Tablet] 10 mg PO QHS #30 tablet 04/16/19 Clopidogrel Bisulfate [Plavix 75 mg Tablet] 75 mg PO DAILY #30 tablet 04/16/19 History of Present Illiness History of Present Illness: GÉNESIS DANIELLE is a 74 year old male 74 year old male who presented to the emergency room with a 3-day history of abdominal pain. The patient admits a gradual onset of progressively worsening, now severe, cramping pain in his left lower abdomen without radiation. The pain has been accompanied by numerous diarrhea stools and anorexia. The pain has been associated with progressive generalized weakness which has now become severe resulting in several falls and has preventing him from being able to stand or walk. He admits prior similar less severe episodes. He has attempted use of Imodium to control his diarrhea at home without success. He has not identified any aggravating or ameliorating factors for his abdominal pain. In the emergency room he was found to have acute colitis of the descending and sigmoid colon on a CT scan of the abdomen and pelvis. Due to the severe debility caused by his illness patient will be admitted for further evaluation and treatment with consideration for usp or rehab placement at the time of discharge. 05/09/[id number]-dcdu-old male admitted with abdominal pain CT abdomen pelvis indicating sigmoid colitis. Presently on IV Cipro and Flagyl. Patient said he is doing well expressing desire to go home today. I explained to him that he may need to stay at least another 24-hour to 48hours for antibiotic therapy and possible need for physical therapy and placement. Patient elected and agreed. No acute events since admission. Afebrile. Comfortable in the bed communicating well. Breakfast is at bedside he does not want to eat the breakfast he said family is bringing his breakfast from outside today. 2018-no acute events in the last 24 hours. Afebrile. Patient is unsteady gait I saw him almost fell in the restroom. PT consult was requested probably need to go to a rehab facility. Fall precautions are requested bedside alarm was requested. cultures are negative so far. 05/11/19-no acute events in the last 24 hours. Afebrile. Comfortably sleeping in the bed communicating well. He said he is feeling little bit better. 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 difficile during this admission and contact isolation receiving p.o. vancomycin every 6 hours. Physical therapy is working with the patient. Precautions are requested ,bed alarm was requested. 05/12/2019-no acute events in the last 24 hours. Afebrile. Yesterday compla ining of shoulder pain she was given Percocet. He has one loose stool yesterday. Receiving p.o. vancomycin for C. difficile. Afebrile. Palliative care consult was requested as per the family request. 05/13/2019-no acute events in the last 24 hours. Afebrile. Acute colitis resolved. Patient is going home with p.o. vancomycin to complete the antibiotic therapy. Physical Exam Vital Signs: Temp Pulse Resp BP Pulse Ox 98.6 F 70 19 147/72 H 95 05/13/19 10:48 05/13/19 10:48 05/13/19 10:48 05/13/19 10:48 05/13/19 10:48 Intake & Output 05/12/19 05/13/19 05/14/19 06:59 06:59 06:59 Intake Total 1022 520 Output Total 1000 300 Balance 22 220 Weight 72 kg 72.4 kg General appearance: PRESENT: no acute distress, thin Head exam: PRESENT: atraumatic Eye exam: PRESENT: PERRLA Ear exam: PRESENT: normal external ear exam Mouth exam: PRESENT: neck supple Teeth exam: PRESENT: poor dentation Neck exam: ABSENT: carotid bruit, JVD, lymphadenopathy, thyromegaly Respiratory exam: PRESENT: decreased breath sounds Pulses: PRESENT: normal dorsalis pedis pul GI/Abdominal exam: PRESENT: normal bowel sounds, soft. ABSENT: distended, guarding, mass, organolmegaly, rebound, tenderness Rectal exam: PRESENT: deferred Extremities exam: PRESENT: full ROM. ABSENT: calf tenderness, clubbing, pedal edema Neurological exam: PRESENT: alert, awake, oriented to person, oriented to place, oriented to time, oriented to situation, CN II-XII grossly intact. ABSENT: motor sensory deficit Psychiatric exam: PRESENT: appropriate affect, normal mood. ABSENT: homicidal ideation, suicidal ideation Results Laboratory Results: WBC 7.5 10^3/uL (4.0-10.5) 05/13/19 05:24 RBC 3.60 10^6/uL (4.35-5.55) L 05/13/19 05:24 Hgb 13.2 g/dL (13.5-17.0) L 05/13/19 05:24 Hct 38.0 % (37.9-51.0) 05/13/19 05:24 MCV 106 fl (80-97) H 05/13/19 05:24 MCH 36.6 pg (27.0-33.4) H 05/13/19 05:24 MCHC 34.7 g/dL (32.0-36.0) 05/13/19 05:24 RDW 13.5 % (11.5-14.0) 05/13/19 05:24 Plt Count 163 10^3/uL (150-450) 05/13/19 05:24 Lymph % (Auto) 24.7 % (13-45) 05/13/19 05:24 [place] % (Auto) 13.9 % (3-13) H 05/13/19 05:24 Eos % (Auto) 1.4 % (0-6) 05/13/19 05:24 Baso % (Auto) 0.6 % (0-2) 05/13/19 05:24 Absolute Neuts (auto) 4.5 10^3/uL (1.7-8.2) 05/13/19 05:24 Absolute Lymphs (auto) 1.9 10^3/uL (0.5-4.7) 05/13/19 05:24 Absolute Monos (auto) 1.0 10^3/uL (0.1-1.4) 05/13/19 05:24 Absolute Eos (auto) 0.1 10^3/uL (0.0-0.6) 05/13/19 05:24 Absolute Basos (auto) 0.0 10^3/uL (0.0-0.2) 05/13/19 05:24 Seg Neutrophils % 59.4 % (42-78) 05/13/19 05:24 Sodium 135.9 mmol/L (137-145) L 05/13/19 05:24 Potassium 4.3 mmol/L (3.6-5.0) 05/13/19 05:24 Chloride 100 mmol/L (98-107) 05/13/19 05:24 Carbon Dioxide 30 mmol/L (22-30) 05/13/19 05:24 Anion Gap 6 (5-19) 05/13/19 05:24 BUN 9 mg/dL (7-20) 05/13/19 05:24 Creatinine 0.71 mg/dL (0.52-1.25) 05/13/19 05:24 Est GFR ( Amer) > 60 (>60) 05/13/19 05:24 Est GFR (MDRD) Non-Af > 60 (>60) 05/13/19 05:24 Glucose 82 mg/dL (75-110) 05/13/19 05:24 Lactic Acid 2.2 mmol/L (0.7-2.1) H 05/08/19 18:44 Calcium 8.3 mg/dL (8.4-10.2) L 05/13/19 05:24 Magnesium 2.2 mg/dL (1.6-2.3) 05/13/19 05:24 Total Bilirubin 0.8 mg/dL (0.2-1.3) 05/13/19 05:24 Direct Bilirubin 0.1 mg/dL (0.0-0.4) 05/13/19 05:24 Neonat Total Bilirubin Not Reportable 05/13/19 05:24 Neonat Direct Bilirubin Not Reportable 05/13/19 05:24 Neonat Indirect Bili Not Reportable 05/13/19 05:24 AST 21 U/L (17-59) 05/13/19 05:24 ALT 15 U/L (<50) 05/13/19 05:24 Alkaline Phosphatase 69 U/L (38-126) 05/13/19 05:24 NT-Pro-B Natriuret Pep 348 pg/mL (5-900) 05/09/19 00:19 Total Protein 5.6 g/dL (6.3-8.2) L 05/13/19 05:24 Albumin 3.0 g/dL (3.5-5.0) L 05/13/19 05:24 Lipase 32.2 U/L (23-300) 05/08/19 18:44 Urine Color YELLOW 05/09/19 01:50 Urine Appearance CLEAR 05/09/19 01:50 Urine pH 6.0 (5.0-9.0) 05/09/19 01:50 Ur Specific Britt 1.055 05/09/19 01:50 Urine Protein NEGATIVE mg/dL (NEGATIVE) 05/09/19 01:50 Urine Glucose (UA) NEGATIVE mg/dL (NEGATIVE) 05/09/19 01:50 Urine Ketones NEGATIVE mg/dL (NEGATIVE) 05/09/19 01:50 Urine Blood NEGATIVE (NEGATIVE) 05/09/19 01:50 Urine Nitrite NEGATIVE (NEGATIVE) 05/09/19 01:50 Urine Bilirubin NEGATIVE (NEGATIVE) 05/09/19 01:50 Urine Urobilinogen NEGATIVE mg/dL (<2.0) 05/09/19 01:50 Ur Leukocyte Esterase NEGATIVE (NEGATIVE) 05/09/19 01:50 Urine WBC (Auto) 0 /HPF 05/09/19 01:50 Urine RBC (Auto) 1 /HPF 05/09/19 01:50 U Hyaline Cast (Auto) 3 /LPF 05/08/19 20:35 Squamous Epi Cells Auto <1 /HPF 05/09/19 01:50 Urine Mucus (Auto) RARE /LPF 05/09/19 01:50 Urine Ascorbic Acid NEGATIVE (NEGATIVE) 05/09/19 01:50 POC Stool Occult Blood NEGATIVE (NEGATIVE) 05/08/19 20:54 Stool for White Cells FEW H 05/08/19 20:35 Stl C. Difficile GDH Ag POSITIVE (NEGATIVE) 05/08/19 20:35 Stl C.difficile Tox A&B POSITIVE (NEGATIVE) 05/08/19 20:35 05/09/19 00:19 NT-Pro-B Natriuret Pep 348 Impressions: Shoulder X-Ray 05/08/19 19:36 IMPRESSION: No fracture. Degenerative changes. Abdomen/Pelvis CT 05/08/19 19:37 IMPRESSION: Mild descending and sigmoid colitis suspected which may be infectious/inflammatory in etiology. Plan Time Spent: Greater than 30 Minutes Stroke Is this a Stroke Patient?: No Acute Heart Failure - Is this a Heart Failure Patient?: No
== END 2019-05-13 13:35 | disposition home health service (06) | DRG 372 ==
LOC: ER 17:48 → EH 22:31 → 4S 23:29 → 4N 05-12 18:10
PROVIDERS: ADMIT Emergency Medicine; ATTEND Emergency Medicine
PROC: 3E0234Z Introduction of Serum, Toxoid and Vaccine into Muscle, Percutaneous Approach (ICD-10-PCS; principal; 2019-05-13)
DX: A04.72 Enterocolitis due to Clostridium difficile, not specified as recurrent (principal); I50.32 Chronic diastolic (congestive) heart failure; I69.351 Hemiplegia and hemiparesis following cerebral infarction affecting right dominant side; K21.9 Gastro-esophageal reflux disease without esophagitis; I25.10 Atherosclerotic heart disease of native coronary artery without angina pectoris; I11.0 Hypertensive heart disease with heart failure; M06.9 Rheumatoid arthritis, unspecified; I69.311 Memory deficit following cerebral infarction; Z60.2 Problems related to living alone; Z85.038 Personal history of other malignant neoplasm of large intestine; Z79.01 Long term (current) use of anticoagulants; Z79.891 Long term (current) use of opiate analgesic; Z79.52 Long term (current) use of systemic steroids; Z79.899 Other long term (current) drug therapy; Z23 Encounter for immunization
CPT/HCPCS: 36415; 74177; 80053; 81001; 83605; 83690; 83735; 83880; 85025; 85027; 87040; 87045; 87070; 87205; 87324; 87449; 89055; 90686; 93005; 93010; 96361; 96374; 96375; 99285; J0360; J0744; J1200; J1644; J2300; J2405; J2930; J3370; J3490; J7030; J7120; S0028